=== PATIENT | male | born 1960 | race Caucasian/White ===

== ENCOUNTER → 2018-06-08 | Outpatient (CLI) | payer MEDICAID, MEDICARE ==
--- NOTE | 2018-06-08 14:34 | Diagnostic Imaging Report ---
INDICATION: Abdominal pain. KUB obtained at 1:15 p.m. FINDINGS: The abdominal bowel gas pattern is unremarkable. There is no overt obstruction or ileus. There is moderate stool in the colon. There is no small bowel dilatation. There is a surgical anastomosis in the pelvis to the left of the midline. There are phleboliths in the pelvis. IMPRESSION: Unremarkable bowel gas pattern with no overt obstruction or ileus. There is moderate stool in the colon. A surgical anastomosis is seen in the left lower pelvis. Dictated by: Dictated on workstation # [id number]
== END ==
LOC: RAD FS 13:09
PROVIDERS: ATTEND Family Medicine
DX: R10.9 Unspecified abdominal pain (principal); Z98.890 Other specified postprocedural states
CPT/HCPCS: 74019

== ENCOUNTER → 2018-06-30 | Outpatient (CLI) | payer MEDICAID ==
[~2018-06-30] MED LIST: CATHETER FLUSH 10 ML SYR IV PRN
--- NOTE | 2018-06-30 14:36 | Diagnostic Imaging Report ---
INDICATION: Abdominal pain COMPARISON: None available. TECHNIQUE: Anterior scintigraphic imaging of the abdomen was performed after the intravenous administration of 5.49 mCi Tc-99m Choletec. FINDINGS: The upper abdomen was imaged for 60 minutes with the gamma camera. There is prompt homogeneous uptake of radiopharmaceutical by the liver. There is activity in the common duct and gallbladder by 20 minutes. Small bowel activity is seen by 20 minutes. After 60 minutes, the patient received 8 oz of ensure by mouth. After 60 minutes, the gallbladder ejection fraction was calculated to be 85% which is normal. IMPRESSION: 1. Patent common and cystic bile ducts. 2. No gallbladder dysfunction. Dictated by: Dictated on workstation # [id number]
--- NOTE | 2018-07-04 09:33 | Physician Query-Final Dx ---
ANNA HEDRCIK 07/04/18 0933: Clinic Account Progress/Dx Physician Query: Please give diagnosis Please specify the location of the patients abdominal pain thank you Date of Service Jun 30, 2018 at 09:17 KRYSTAL REILLY APRN 07/04/18 1601: Clinic Account Progress/Dx DIAGNOSIS: Diagnosis Right Upper quadrant abdominal pain ANNA HEDRICK Jul 04, 2018 09:33 KRYSTAL REILLY APRN Jul 04, 2018 16:01
== END ==
LOC: CARD 09:17
PROVIDERS: ATTEND Nurse Practitioner Family
DX: R10.11 Right upper quadrant pain (principal); R11.2 Nausea with vomiting, unspecified
CPT/HCPCS: 78227

== ENCOUNTER → 2018-07-20 | Outpatient (CLI) | payer MEDICAID ==
[~2018-07-20] MED LIST changes: +DIATRIZOATE MEGLUM/SODIUM 37% 120 ML (GASTROGRAFIN) PO ONE; +HOLD METFORMIN - RECEIVED CONTRAST 20 ML VIAL IV SCH; +IOHEXOL 350 MG/ML 100 ML (OMNIPAQUE 350) VIAL IV ONE; +NS 50 ML (IVPB) BAG IV ONE
[2018-07-20 09:09] LABS: ALANINE AMINOTRANSFERASE 19 U/L (0-55); ALBUMIN 4.6 GM/DL (3.2-4.5); ALKALINE PHOSPHATASE 79 U/L (40-136); BILIRUBIN,TOTAL 0.4 MG/DL (0.1-1.0); BUN/CREATININE RATIO 14; CALCIUM 9.7 MG/DL (8.5-10.1); CARBON DIOXIDE 27 MMOL/L (21-32); CHLORIDE 97 MMOL/L (98-107); CREATININE SERUM 1.11 MG/DL (0.60-1.30); GFR ESTIMATED > 60; GLUCOSE 186 MG/DL (70-105); POTASSIUM 3.8 MMOL/L (3.6-5.0); SODIUM 137 MMOL/L (135-145); TOTAL PROTEIN 7.8 GM/DL (6.4-8.2)
--- NOTE | 2018-07-20 10:01 | Diagnostic Imaging Report ---
PROCEDURE: CT abdomen and pelvis with and without contrast. TECHNIQUE: Precontrast acquisitions were acquired through the abdomen and pelvis. Multiple contiguous axial images were obtained through the abdomen and pelvis after the administration of intravenous contrast. Auto Exposure Controls were utilized during the CT exam to meet ALARA standards for radiation dose reduction. INDICATION: Intermittent nausea, vomiting and diarrhea for two months. COMPARISON: No prior studies are available for comparison. FINDINGS: The lung bases are clear. The liver demonstrates mild generalized low density suggestive of hepatic steatosis. No discrete liver mass is identified. The gallbladder is unremarkable. No biliary ductal dilatation is seen. The pancreas and spleen are unremarkable. No adrenal mass is identified. The kidneys are unremarkable. Aorta is non-aneurysmal. No central retroperitoneal or mesenteric lymphadenopathy is seen. Visualized small and large bowel loops appear to be normal in caliber. There has been resection of portion of the sigmoid colon. There is occasional diverticuli within the sigmoid and descending colon but no evidence of acute diverticulitis. There is no free fluid. There is no pelvic lymphadenopathy. The bladder is unremarkable. Prostate is unremarkable. IMPRESSION: 1. Hepatic steatosis. 2. Postsurgical changes of the sigmoid. No acute feature in the abdomen or pelvis is identified. Dictated by: Dictated on workstation # [id number]
== END ==
LOC: RAD FS 08:20
PROVIDERS: ATTEND Nurse Practitioner Family
DX: K76.0 Fatty (change of) liver, not elsewhere classified (principal); R19.7 Diarrhea, unspecified; Z98.890 Other specified postprocedural states
CPT/HCPCS: 36415; 74178; 80053

== ENCOUNTER 2018-08-09 20:32 | Emergency (ER) | payer MEDICARE, MEDICAID ==
[~2018-08-09] VITALS: Ht 165.1 cm; Wt 88.5 kg
--- OUTSIDE RECORDS SUMMARY | 2018-08-09 20:42 | XMS REPORT | Continuity of Care Document ---
Author Organization Unknown Address Unknown Allergies There is no data. Medications There is no data. Problems There is no data. Procedures There is no data. Results Test Result Range A1C - 07/31/18 15:30 HEMOGLOBIN A1c 6.2 % of total Hgb <5.7 Encounters ACCT No. Visit Date/Time Discharge Status Pt. Type Provider Facility Loc./Unit Complaint [id number] 07/31/2018 15:00:00 07/31/2018 23:59:59 [facility] Outpatient KARLY MG [facility] [id number] 07/31/2018 15:00:00 Document Registration
--- NOTE | 2018-08-09 23:30 | NUR ---
Doctor Matt lainez to see the patient at this time.
--- NOTE | 2018-08-09 23:39 | ED Back Pain ---
General Chief Complaint: Back Problems Stated Complaint: LT SIDE HIP, LEG, BACK PAIN Nursing Triage Note: Pt. stated he has been having lower back pain and left leg pain. He stated he is to have an MRI in the morning but the pain is out of control and he can hardly walk. Pt. uses crutches to walk. Nursing Sepsis Screen: No Definite Risk Source of Information: Patient History of Present Illness Date Seen by Provider: Aug 09, 2018 Time Seen by Provider: 23:28 Initial Comments 57-year-old male presenting with complaints of low back pain and radiation into his left leg. He has had this for a while but is been getting worse. He was seen in the clinic on Tuesday by Dr. Ferris and referred to orthopedics on Tuesday. They have an MRI set up for him on here at the hospital. He states that the pain has been getting worse all week and tonight he got a friend to the emergency department and decided to check in himself to see if anything could be done for the pain. He has been taking ksct-gta-wiocviv medicines with little to no relief. He denies any loss of bowel or bladder control. He complains of increased pain just radiating down his left leg. He also feels that he is getting spasms in his calf and leg. Allergies and Home Medications Allergies Coded Allergies: tramadol (Unverified Allergy, Unknown, 08/09/18) Patient Home Medication List Home Medication List Reviewed: Yes Review of Systems Constitutional: no symptoms reported EENTM: no symptoms reported Respiratory: no symptoms reported Cardiovascular: no symptoms reported Gastrointestinal: no symptoms reported Genitourinary: no symptoms reported Musculoskeletal: back pain, other (left low back pain radiating down his left leg) Skin: no symptoms reported Past Efqkoxl-Inceii-Yqteiq Hx Past Med/Social Hx: Reviewed Nursing Past Med/Soc Hx Patient Social History Recent Foreign Travel: No Contact w/Someone Who Travel: No Recent Infectious Disease Expo: No Physical Abuse: No Sexual Abuse: No Mistreated: No Fear: No Past Medical History Back Injury, Chronic Back Pain (with sciatica) Physical Exam Vital Signs Vital Signs - First Documented 08/09/18 22:00 Temp 97.9 Pulse 75 Resp 16 B/P (MAP) 126/78 (94) Pulse Ox 97 O2 Delivery Room Air Capillary Refill : Less Than 3 Seconds Height, Weight, BMI Height: 5'5.00" Weight: 195lbs. oz. 88.474533ao; BMI Method:Stated General Appearance: WD/WN Back: Muscle Spasm, Vertebral Tenderness, Other (left lower back pain with spasm and SI joint pain and pain radiating down left leg) Extremity: Normal Capillary Refill, No Calf Tenderness, No Pedal Edema Neurologic/Psychiatric: Alert, Oriented x3 Skin: Normal Color, Warm/Dry Progress/Results/Core Measures Results/Orders My Orders Orders - XUAN MONCADA MD Dexamethasone Injection (Decadron Inject (08/09/18 23:45) Methylprednisolone Acetate Inj (Depo-Med (08/09/18 23:45) Fentanyl Injection (Sublimaze Injection (08/09/18 23:45) Rx-Hydrocodone/Apap 5-325 Mg (Rx-Vicodin (08/09/18 23:45) Rx-Cyclobenzaprine Tablet (Rx-Flexeril T (08/09/18 23:40) Medications Given in ED Current Medications Medications Dose Ordered Sig/Frank Route Start Time Stop Time Status Last Admin Dose Admin Acetaminophen/ Hydrocodone Bitart 1 ea Q6H PRN PO 08/09/18 23:45 08/10/18 00:10 DC 08/09/18 23:56 1 EA Dexamethasone Sodium Phosphate 10 mg ONCE ONCE IM 08/09/18 23:45 08/09/18 23:46 DC 08/09/18 23:53 10 MG Fentanyl Citrate 50 mcg ONCE ONCE IM 08/09/18 23:45 08/09/18 23:46 DC 08/09/18 23:51 50 MCG Methylprednisolone Acetate 80 mg ONCE ONCE IM 08/09/18 23:45 08/09/18 23:46 DC 08/09/18 23:53 80 MG Vital Signs/I&O 08/09/18 08/10/18 22:00 00:02 Temp 97.9 97.9 Pulse 75 75 Resp 16 16 B/P (MAP) 126/78 (94) 126/78 (94) Pulse Ox 97 97 O2 Delivery Room Air Blood Pressure Mean: 94 Progress Progress Note : Progress Note Have pt keep MRI appt. Try steroid shot and Fentanyl here with take home Hydrocodone pack and Flexeril pack. Check with clinic for continued treatment for his sciatica and low back pain symptoms after the MRI Departure Impression Primary Impression: Low back pain with left-sided sciatica Qualified Codes: M54.42 - Lumbago with sciatica, left side; G89.29 - Other chronic pain Disposition: 01 HOME, SELF-CARE Condition: Stable Departure-Patient Inst. Decision time for Depature: 23:44 Referrals: JESSICA BLANCO MD (PCP/Family) Primary Care Physician Patient Instructions: Low Back Pain (DC), Sciatica (DC) Add. Discharge Instructions: Try the Cyclobenzaprine for muscle spasms and the Hydrocodone for severe pain Check with Dr. Blanco and your spine doctor after you get the MRI about your back pain. All discharge instructions reviewed with patient and/or family. Voiced understanding. XUAN MONCADA MD Aug 09, 2018 23:39
[2018-08-09] MEDS ORDERED: RX-CYCLOBENZAPRINE 10 MG (FLEXERIL) TAB PPK#3 PO STA (23:40)
[2018-08-09] MEDS ORDERED: DEXAMETHASONE 10 MG/ML (DECADRON) 1 ML VIAL IM ONE (23:45)
[2018-08-09] MEDS ORDERED: RX-HYDROCODONE/APAP 5/325 MG #4 TAB PK PO PRN (23:45)
[2018-08-09] MEDS ORDERED: fentaNYL INJECTION 100 MCG/2 ML AMP IM ONE (23:45)
[2018-08-09] MEDS ORDERED: methylPREDNISolone 80 MG/ML (DEPO MEDROL) VIAL IM ONE (23:45)
[2018-08-10 00:02] VITALS: BP 126/78
== END 2018-08-10 00:01 | disposition home or self-care (01) ==
LOC: EDUNIT# 20:32 → ER FS 20:33
DX: M54.42 Lumbago with sciatica, left side (principal); Z88.6 Allergy status to analgesic agent
CPT/HCPCS: 99284

== ENCOUNTER → 2018-09-14 | Outpatient (CLI) | payer MEDICARE, MEDICAID ==
--- NOTE | 2018-09-14 14:27 | Diagnostic Imaging Report ---
PATIENT HISTORY: PRIMARY OSTEOARTHRITIS OF LEFT KNEE. TECHNIQUE: Three views of the left knee. COMPARISON: None. FINDINGS: No acute fracture or dislocation is seen in the left knee. Alignment is normal. Joint spaces are preserved. IMPRESSION: No acute or significant osseous abnormality is seen in the left knee. Dictated by: Dictated on workstation # [id number]
== END ==
LOC: RAD FS 13:56
PROVIDERS: ATTEND Family Medicine
DX: M17.12 Unilateral primary osteoarthritis, left knee (principal)
CPT/HCPCS: 73562

== ENCOUNTER 2018-09-16 12:42 | Emergency (ER) | payer MEDICARE, MEDICAID ==
[~2018-09-16] VITALS: Ht 165.1 cm; Wt 88.5 kg
[2018-09-16] MEDS ORDERED: ASPIRIN 81 MG CHEW (CHILDREN'S ASA) PO ONE (12:45)
--- OUTSIDE RECORDS SUMMARY | 2018-09-16 12:47 | XMS REPORT | Continuity of Care Document ---
Author Organization Unknown Address Unknown Allergies There is no data. Medications There is no data. Problems There is no data. Procedures There is no data. Results Test Result Range A1C - 07/31/18 15:30 HEMOGLOBIN A1c 6.2 % of total Hgb <5.7 Encounters ACCT No. Visit Date/Time Discharge Status Pt. Type Provider Facility Loc./Unit Complaint [id number] 09/14/2018 13:30:00 [facility] KARLY [facility] [id number] 07/31/2018 15:00:00 Document Registration
--- NOTE | 2018-09-16 12:51 | ED Chest Pain ---
General Stated Complaint: CHEST PAIN Source: patient Exam Limitations: no limitations History of Present Illness Date Seen by Provider: September 16, 2018 Time Seen by Provider: 12:45 Initial Comments 57-year-old male presents with epigastric/chest pain. Reports it started about half hour ago and has improved. He reports some mild discomfort now just in the epigastric area. Reports that his jaw feels a little funny what happened. He reports he I will nausea in talking might vomit. He did not get diaphoretic, no shortness of breath. ( Allergies and Home Medications Allergies Coded Allergies: tramadol (Unverified Allergy, Unknown, 09/16/18) Patient Home Medication List Home Medication List Reviewed: Yes Review of Systems Review of Systems Constitutional: No chills, No fever EENTM: No Symptoms Reported Respiratory: Denies Shortness of Air Cardiovascular: Chest Pain Gastrointestinal: Abdominal Pain (epigastric ), Nausea Genitourinary: No Symptoms Reported Musculoskeletal: no symptoms reported Skin: no symptoms reported Psychiatric/Neurological: No Symptoms Reported Past Xcelxkw-Olnjch-Wyytlg Hx Past Med/Social Hx: Reviewed Nursing Past Med/Soc Hx Past Medical History Back Injury, Chronic Back Pain Physical Exam Vital Signs Vital Signs - First Documented 09/16/18 12:42 Temp 96.8 Pulse 101 Resp 14 B/P (MAP) 103/59 (74) Pulse Ox 93 O2 Delivery Room Air Capillary Refill : Height, Weight, BMI Height: 5'5.00" Weight: 195lbs. oz. 88.924431iy; BMI Method:Stated General Appearance: No Apparent Distress, WD/WN HEENT: PERRL/EOMI Neck: Full Range of Motion Respiratory: Chest Non Tender, Lungs Clear, Normal Breath Sounds Cardiovascular: Regular Rate, Rhythm, No Edema Gastrointestinal: Soft, Tenderness (mild epigastric ) Neurologic/Psychiatric: Alert, Oriented x3 Progress/Results/Core Measures Results/Orders Lab Results Laboratory Tests Test 09/16/18 12:50 09/16/18 14:46 Range/Units White Blood Count 6.8 4.3-11.0 10^3/uL Red Blood Count 4.31 L 4.35-5.85 10^6/uL Hemoglobin 13.1 L 13.3-17.7 G/DL Hematocrit 37 L 40-54 % Mean Corpuscular Volume 86 80-99 FL Mean Corpuscular Hemoglobin 30 25-34 PG Mean Corpuscular Hemoglobin Concent 35 32-36 G/DL Red Cell Distribution Width 12.6 10.0-14.5 % Platelet Count 188 130-400 10^3/uL Mean Platelet Volume 10.3 7.4-10.4 FL Neutrophils (%) (Auto) 68 42-75 % Lymphocytes (%) (Auto) 22 12-44 % Monocytes (%) (Auto) 8 0-12 % Eosinophils (%) (Auto) 2 0-10 % Basophils (%) (Auto) 1 0-10 % Neutrophils # (Auto) 4.6 1.8-7.8 X 10^3 Lymphocytes # (Auto) 1.5 1.0-4.0 X 10^3 Monocytes # (Auto) 0.5 0.0-1.0 X 10^3 Eosinophils # (Auto) 0.1 0.0-0.3 10^3/uL Basophils # (Auto) 0.1 0.0-0.1 10^3/uL Prothrombin Time 13.5 12.2-14.7 SEC INR Comment 1.0 0.8-1.4 Activated Partial Thromboplast Time 26 24-35 SEC Sodium Level 135 135-145 MMOL/L Potassium Level 3.9 3.6-5.0 MMOL/L Chloride Level 97 L 98-107 MMOL/L Carbon Dioxide Level 27 21-32 MMOL/L Anion Gap 11 5-14 MMOL/L Blood Urea Nitrogen 24 H 7-18 MG/DL Creatinine 1.34 H 0.60-1.30 MG/DL Estimat Glomerular Filtration Rate 55 BUN/Creatinine Ratio 18 Glucose Level 265 H 70-105 MG/DL Calcium Level 9.2 8.5-10.1 MG/DL Corrected Calcium 9.0 8.5-10.1 MG/DL Magnesium Level 2.0 1.8-2.4 MG/DL Total Bilirubin 0.4 0.1-1.0 MG/DL Aspartate Amino Transf (AST/SGOT) 24 5-34 U/L Alanine Aminotransferase (ALT/SGPT) 38 0-55 U/L Alkaline Phosphatase 74 40-136 U/L Troponin T 11 10 <=15 NG/L Total Protein 6.7 6.4-8.2 GM/DL Albumin 4.2 3.2-4.5 GM/DL My Orders Orders - SALMON,ALMA L DO Cbc With Automated Diff (09/16/18 12:45) Magnesium (09/16/18 12:45) Chest 1 View Ap/Pa Only (09/16/18 12:45) Ekg Tracing (09/16/18 12:45) Comprehensive Metabolic Panel (09/16/18 12:45) Protime With Inr (09/16/18 12:45) Partial Thromboplastin Time (09/16/18 12:45) O2 (09/16/18 12:45) Monitor-Rhythm Ecg Trace Only (09/16/18 12:45) Aspirin Chewable Tablet (Baby Aspirin Ch (09/16/18 12:45) Ed Iv/Invasive Line Start (09/16/18 12:45) Troponin T (09/16/18 12:45) Pantoprazole Injection (Protonix Injecti (09/16/18 13:00) Ed Iv/Invasive Line Start (09/16/18 13:46) Ns Iv 1000 Ml (Sodium Chloride 0.9%) (09/16/18 13:46) Troponin T (09/16/18 14:36) Medications Given in ED Current Medications Medications Dose Ordered Sig/Frank Route Start Time Stop Time Status Last Admin Dose Admin Aspirin 324 mg ONCE ONCE PO 09/16/18 12:45 09/16/18 12:47 DC 09/16/18 12:58 324 MG Pantoprazole 40 mg ONCE ONCE IV 09/16/18 13:00 09/16/18 13:01 DC 09/16/18 12:58 40 MG Vital Signs/I&O 09/16/18 09/16/18 09/16/18 12:42 12:42 16:02 Temp 96.8 98.0 Pulse 101 78 Resp 14 15 B/P (MAP) 103/59 (74) 110/67 (81) Pulse Ox 93 95 O2 Delivery Room Air Progress Progress Note : Progress Note Patient's symptoms resolved following Protonix. He remained symptom-free throughout his stay. Patient had a negative EKG with 2 negative troponins. Patient symptoms were very consistent with a gastritis or reflux-type presentation. Discussed with patient was feeling slightly better. I did r ecommend he follow up with his primary care physician next week for recheck of his labs because he had some mild acute kidney injury that was not there on his previous labs. Patient voices understanding and will make an appointment to see him next week. EKG : EKG Time: 12:47 Rate: 96 Rhythm: Normal Sinus Intervals: Normal ECG Impression: Normal Departure Impression Primary Impression: Gastroesophageal reflux disease Qualified Codes: K21.9 - Gastro-esophageal reflux disease without esophagitis Additional Impressions: Chest pain Qualified Codes: R07.89 - Other chest pain Acute renal insufficiency Disposition: HOME, SELF-CARE Condition: Stable Departure-Patient Inst. Referrals: JESSICA BLANCO MD (PCP/Family) Primary Care Physician Patient Instructions: Chest Pain That Is Not Caused by the Heart (DC), Acid Reflux (Gastroesophageal Reflux Disease), Adult (DC), Kidney Failure (DC) Add. Discharge Instructions: Follow-up with your primary care physician next week to have her recheck of your kidney function Recommended take Zantac 150 mg twice daily for the next 7 days. ALMA SALMON DO September 16, 2018 12:51
[2018-09-16 12:58] LABS: HEMATOCRIT 37 % (40-54); HEMOGLOBIN 13.1 G/DL (13.3-17.7); LYMPHOCYTES % (AUTO) 22 % (12-44); MEAN CORPUSCULAR HEMOGLOBIN 30 PG (25-34); MEAN CORPUSCULAR HGB CONC 35 G/DL (32-36); MEAN CORPUSCULAR VOLUME 86 FL (80-99); MEAN PLATELET VOLUME 10.3 FL (7.4-10.4); MONOCYTES % (AUTO) 8 % (0-12); NEUTROPHILS % (AUTO) 68 % (42-75); PLATELET COUNT 188 10^3/uL (130-400); RED CELL DISTRIBUTION WIDTH 12.6 % (10.0-14.5); WHITE BLOOD COUNT 6.8 10^3/uL (4.3-11.0)
[2018-09-16 12:59] LABS: BASOPHILS # (AUTO) 0.1 10^3/uL (0.0-0.1); BASOPHILS % (AUTO) 1 % (0-10); EOSINOPHILS # (AUTO) 0.1 10^3/uL (0.0-0.3); EOSINOPHILS % (AUTO) 2 % (0-10); LYMPHOCYTES # (AUTO) 1.5 X 10^3 (1.0-4.0); MONOCYTES # (AUTO) 0.5 X 10^3 (0.0-1.0); NEUTROPHILS # (AUTO) 4.6 X 10^3 (1.8-7.8)
[2018-09-16] MEDS ORDERED: PANTOPRAZOLE 40 MG (PROTONIX) VIAL IV ONE (13:00)
--- NOTE | 2018-09-16 13:10 | Diagnostic Imaging Report ---
INDICATION: Chest pain. COMPARISON: None available. TECHNIQUE: Single radiograph of chest dated September 16, 2018. FINDINGS: The cardiac silhouette is within normal limits in size. No significant pulmonary vascular congestion. Minimal opacities are noted within the peripheral left lung base. Otherwise, the lungs appear clear. No significant pleural effusion. No pneumothorax. No acute osseous abnormality. IMPRESSION: Minimal opacities within the peripheral left lung are favor relate to minimal atelectasis and/or pneumonitis. However, followup frontal and lateral radiographs are recommended in 10-14 days to ensure resolution as underlying small nodule is not excluded. Dictated by: Dictated on workstation # [id number]
[2018-09-16 13:15] LABS: PROTHROMBIN TIME PATIENT 13.5 SEC (12.2-14.7)
[2018-09-16 13:26] LABS: BILIRUBIN,TOTAL 0.4 MG/DL (0.1-1.0); CALCIUM 9.2 MG/DL (8.5-10.1); CREATININE SERUM 1.34 MG/DL (0.60-1.30); POTASSIUM 3.9 MMOL/L (3.6-5.0); TOTAL PROTEIN 6.7 GM/DL (6.4-8.2)
[2018-09-16 13:27] LABS: ALBUMIN 4.2 GM/DL (3.2-4.5)
[2018-09-16] MEDS ORDERED: NS IV 1000 ML 1,000 ML IV SCH (13:46)
[2018-09-16 16:02] VITALS: BP 110/67
== END 2018-09-16 16:02 | disposition home or self-care (01) ==
LOC: EDUNIT# 12:42 → ER FS 12:43
DX: K21.9 Gastro-esophageal reflux disease without esophagitis (principal); R07.9 Chest pain, unspecified; N28.9 Disorder of kidney and ureter, unspecified; Z88.6 Allergy status to analgesic agent
CPT/HCPCS: 36415; 71045; 80053; 83735; 84484; 85025; 85610; 85730; 93041

== ENCOUNTER 2019-01-12 18:15 | Inpatient (IN) | payer MEDICARE, MEDICAID ==
[~2019-01-12] VITALS: Ht 165 cm; Wt 92.4 kg
[2019-01-12] MEDS ORDERED: ONDANSETRON 4 MG/2 ML (SDV) Z0FRAN ONE (18:17)
[2019-01-12] MEDS ORDERED: LACTATED RINGERS 1,000 ML IV ONE ×2 (18:24→18:30)
[2019-01-12] MEDS ORDERED: PIPERACILLIN SODIUM/TAZOBACTAM 4.5 GM in NS (IVPB) 100 ML IV ONE (18:30)
[2019-01-12] MEDS ORDERED: ONDANSETRON 4 MG/2 ML (SDV) Z0FRAN IVP ONE (18:30)
--- NOTE | 2019-01-12 18:30 | ED Abdominal Pain ---
General Chief Complaint: Abdominal/GI Problems Stated Complaint: ABD PAIN Source of Information: Patient, EMS Exam Limitations: No Limitations History of Present Illness Date Seen by Provider: Jan 12, 2019 Time Seen by Provider: 18:13 Initial Comments The patient presents to ER by private conveyance with chief complaint he was sitting on a couch about 2 hours prior to arrival complaining of some nausea so his help him to the bathroom where he vomited and then felt very weak and sat cross leg on the floor and she was unable to get him up. EMS arrived he was sitting on the floor in the bathroom of his apartment conscious alert and breathing. Blood sugar 144. He is diabetic but does not rely on exogenous insu brad. He's having all over body pain. Unknown if he's having fevers or chills. He was given for Zofran has a left forearm 20-gauge IV and 25 of fentanyl by EMS on route. Vital signs were all aseptic per EMS. His relates that many years before she met him he had part of his colon resected but she's not sure what for. He does have a history of diverticulosis. He has not had any diarrhea or bloody stools lately. Allergies and Home Medications Allergies Coded Allergies: tramadol (Unverified Allergy, Unknown, 09/16/18) Patient Home Medication List Home Medication List Reviewed: Yes Review of Systems Review of Systems Constitutional: No chills, No fever; weakness EENTM: No Blurred Vision, No Double Vision Respiratory: Denies Cough, Denies Shortness of Air Cardiovascular: Denies Chest Pain, Denies Lightheadedness Gastrointestinal: Abdominal Pain (all over); Denies Constipated, Denies Diarrhea; Nausea, Poor Fluid Intake, Vomiting Genitourinary: Denies Burning, Denies Discharge Musculoskeletal: No back pain, No joint pain Skin: No pruritus, No rash Psychiatric/Neurological: Denies Headache, Denies Numbness Past Ptwcyim-Dgadld-Tdvbia Hx Patient Social History Alcohol Use: Denies Use Recreational Drug Use: Yes Drug of Choice: MJ Smoking Status: Former Smoker Type Used: Cigarettes 2nd Hand Smoke Exposure: Yes Recent Foreign Travel: No Contact w/Someone Who Travel: No Past Medical History Surgeries: Yes (sigmoid colon resection, carpal tunnel) Respiratory: No Cardiac: Yes Hypertension Neurological: No Genitourinary: No Gastrointestinal: No Musculoskeletal: Yes Back Injury, Chronic Back Pain Endocrine: Yes Diabetes, Insulin dep HEENT: No Cancer: No Psychosocial: No Integumentary: No Physical Exam Vital Signs Vital Signs - First Documented 01/12/19 18:25 Temp 35.8 Pulse 98 Resp 18 B/P (MAP) 153/92 (112) Pulse Ox 94 O2 Delivery Room Air Capillary Refill : Height/Weight/BMI Height: 5'5.00" Weight: 195lbs. oz. 88.771415ek; BMI Method:Stated General Appearance: moderate distress, obese HEENT: PERRL/EOMI, pharynx normal Neck: non-tender, supple Respiratory: lungs clear, normal breath sounds, no respiratory distress, no accessory muscle use Cardiovascular: normal peripheral pulses, regular rate, rhythm, tachycardia (110) Peripheral Pulses: 2+ Dorsalis Pedis (R), 2+ Left Dors-Pedis (L) Gastrointestinal: normal bowel sounds, tenderness (all 4 quadrants) Extremities: normal range of motion, normal capillary refill Neurologic/Psychiatric: alert, normal mood/affect, oriented x 3 Focused Exam Lactate Level 01/12/19 18:35: Lactic Acid Level 2.08*H Lactic Acid Level Laboratory Tests Test 01/12/19 18:35 Lactic Acid Level 2.08 MMOL/L (0.50-2.00) *H Progress/Results/Core Measures Results/Orders Lab Results Laboratory Tests Test 01/12/19 18:27 01/12/19 18:35 Range/Units White Blood Count 10.9 4.3-11.0 10^3/uL Red Blood Count 5.04 4.35-5.85 10^6/uL Hemoglobin 15.0 13.3-17.7 G/DL Hematocrit 43 40-54 % Mean Corpuscular Volume 86 80-99 FL Mean Corpuscular Hemoglobin 30 25-34 PG Mean Corpuscular Hemoglobin Concent 35 32-36 G/DL Red Cell Distribution Width 12.7 10.0-14.5 % Platelet Count 226 130-400 10^3/uL Mean Platelet Volume 10.2 7.4-10.4 FL Neutrophils (%) (Auto) 64 42-75 % Lymphocytes (%) (Auto) 24 12-44 % Monocytes (%) (Auto) 9 0-12 % Eosinophils (%) (Auto) 2 0-10 % Basophils (%) (Auto) 1 0-10 % Neutrophils # (Auto) 7.0 1.8-7.8 X 10^3 Lymphocytes # (Auto) 2.6 1.0-4.0 X 10^3 Monocytes # (Auto) 1.0 0.0-1.0 X 10^3 Eosinophils # (Auto) 0.2 0.0-0.3 10^3/uL Basophils # (Auto) 0.1 0.0-0.1 10^3/uL Prothrombin Time 13.3 12.2-14.7 SEC INR Comment 1.0 0.8-1.4 Activated Partial Thromboplast Time 23 L 24-35 SEC Sodium Level 137 135-145 MMOL/L Potassium Level 4.1 3.6-5.0 MMOL/L Chloride Level 102 98-107 MMOL/L Carbon Dioxide Level 25 21-32 MMOL/L Anion Gap 10 5-14 MMOL/L Blood Urea Nitrogen 21 H 7-18 MG/DL Creatinine 1.12 0.60-1.30 MG/DL Estimat Glomerular Filtration Rate > 60 BUN/Creatinine Ratio 19 Glucose Level 177 H 70-105 MG/DL Calcium Level 9.5 8.5-10.1 MG/DL Corrected Calcium 9.3 8.5-10.1 MG/DL Magnesium Level 1.9 1.6-2.4 MG/DL Total Bilirubin 0.3 0.1-1.0 MG/DL Aspartate Amino Transf (AST/SGOT) 22 5-34 U/L Alanine Aminotransferase (ALT/SGPT) 22 0-55 U/L Alkaline Phosphatase 80 40-136 U/L Troponin I < 0.30 <0.30 NG/ML Total Protein 7.3 6.4-8.2 GM/DL Albumin 4.3 3.2-4.5 GM/DL Lipase 14 8-78 U/L Serum Alcohol < 10 <10 MG/DL Lactic Acid Level 2.08 *H 0.50-2.00 MMOL/L Micro Results Microbiology 01/12/19 Influenza Types A,B Antigen (MARELY) - Final, Complete My Orders Orders - MARILY PARTIDA Ondansetron Injection (Zofran Injectio (01/12/19 18:17) Ct Abdomen/Pelvis W (01/12/19 18:24) Alcohol (01/12/19 18:24) Cbc With Automated Diff (01/12/19 18:24) Comprehensive Metabolic Panel (01/12/19 18:24) Drug Screen Stat (Urine) (01/12/19 18:24) Lactic Acid Analyzer (01/12/19) Lipase (01/12/19 18:24) Magnesium (01/12/19 18:24) Ua Culture If Indicated (01/12/19 18:24) Troponin I (01/12/19 18:24) Ed Iv/Invasive Line Start (01/12/19:24) Lactated Ringers (Lr 1000 Ml Iv Solution (01/12/19 18:24) Continuous Ekg Monitoring (01/12/19 18:24) Ekg Tracing (01/12/19) Ondansetron Injection (Zofran Injectio (01/12/19 18:30) Blood Culture (01/12/19 18:30) Protime With Inr (01/12/19:) Partial Thromboplastin Time (01/12/19 18:30) Chest 1 View Ap/Pa Only (01/12/19:30) Ed Iv/Invasive Line Start (01/12/19 18:30) Vital Signs Adult Sepsis Patie Q15M (01/12/19 18:30) O2 (01/12/19 18:30) Remove Rings In Anticipation O (01/12/19:30) Lactated Ringers (Lr 1000 Ml Iv Solution (01/12/19 18:30) Piperacillin Sodium/Tazobactam (Zosyn Vi (01/12/19 18:30) Promethazine Injection (Phenergan Injec (01/12/19 19:00) Influenza A And B Antigens (01/12/19 18:54) Iohexol Injection (Omnipaque 350 Mg/Ml 1 (01/12/19 19:30) Received Contrast (Hold Metformin- Contr (01/12/19 19:30) Ns (Ivpb) (Sodium Chloride 0.9% Ivpb Bag (01/12/19 19:30) Sodium Chloride Flush (Catheter Flush Sy (01/12/19 19:30) Pantoprazole Injection (Protonix Injecti (01/12/19 20:00) Arterial Blood Gas (01/12/19 20:29) Straight Cath For Spec.-Adult (01/12/19 20:29) Medications Given in ED Current Medications Medications Dose Ordered Sig/Frank Route Start Time Stop Time Status Last Admin Dose Admin Iohexol 100 ml ONCE ONCE IV 01/12/19 19:30 01/12/19 19:31 DC 01/12/19 19:35 100 ML Lactated Ringer's 1,000 ml @ 0 mls/hr Q0M ONCE IV 01/12/19 18:24 01/12/19 18:27 DC 01/12/19 18:49 0 MLS/HR Lactated Ringer's 1,000 ml @ 0 mls/hr Q0M ONCE IV 01/12/19 18:30 01/12/19 18:32 DC 01/12/19 19:54 1,000 MLS/HR Ondansetron HCl 8 mg ONCE ONCE IVP 01/12/19 18:30 01/12/19 18:31 DC 01/12/19 18:48 8 MG Piperacillin Sod/ Tazobactam Sod 4.5 gm/Sodium Chloride 100 ml @ 200 mls/hr ONCE ONCE IV 01/12/19 18:30 01/12/19 18:59 DC 01/12/19 18:49 200 MLS/HR Promethazine HCl 25 mg ONCE ONCE IVP 01/12/19 19:00 01/12/19 19:01 DC 01/12/19 19:06 25 MG Sodium Chloride 10 ml NEEDED PRN IV 01/12/19 19:30 01/12/19 19:35 10 ML Sodium Chloride 100 ml ONCE ONCE IV 01/12/19 19:30 01/12/19 19:31 DC 01/12/19 19:35 80 ML Vital Signs/I&O 01/12/19 18:25 Temp 35.8 Pulse 98 Resp 18 B/P (MAP) 153/92 (112) Pulse Ox 94 O2 Delivery Room Air Progress Progress Note #1: Time: 18:59 Progress Note Septic workup and she is tachycardic. Gave him 8 mg of Zofran in addition to the 4 he received from EMS and that helped but did not completely resolve it. 25 mg of Phenergan were ordered. His got a good blood pressure. His heart rate has come down to the 80s and as we have initiated 2 L which is more than 20 mL/kg. Suspect bowel obstruction, versus other such as intussusception, volvulus etc. Influenza swab obtained. He received 25 g of fentanyl and more comfortable with his pain now and is snoozing softly but awakens easily to verbal. CT of the abdomen and pelvis with IV contrast. In August he had a acute kidney injury with uncertain etiology. Plan to give pantoprazole 40 mg IV. Progress Note #2: Time: 20:23 Progress Note After Phenergan and Zofran the patient's nausea is under control. CT is unrevealing of any internal abdominal pathology. Possible bilateral basilar infi ltrates could indicate pneumonia. Since she's been here his been retching and had normal oxygen sats no longer tachycardic and no history of productive cough. No fever and influenza was negative. On reexamination he still does not have an acute abdomen. Initial ECG Impression Date: Jan 12, 2019 Initial ECG Impression Time: 18:42 Initial ECG Rate: 81 Initial ECG Rhythm: Normal Sinus Initial ECG Impression: Normal Initial ECG Comparisson: Unchanged Comment No acute ST elevation or depression Diagnostic Imaging Diagonstic Imaging: Xray Plain Films/CT/US/NM/MRI: chest (1v) Comments NAME: LAURA WILKINSON [facility] REC#: [id number] PT STATUS: REG ER : 1960 PHYSICIAN: MARILY PARTIDA MD ADMIT DATE: 01/12/19/ER FS Draft Date of Exam:01/12/19 CHEST 1 VIEW AP/PA ONLY INDICATION: Nausea and vomiting COMPARISON: 09/16/2018 FINDINGS: Single view of the chest demonstrates basilar infiltrates with atelectasis. The heart is normal. There is no pneumothorax or effusion. Osseous structures normal. IMPRESSION: Bibasilar atelectasis and/or infiltrate. Followup recommended. Dictated on workstation # [id number] Dict: 01/12/191948 Trans: 01/12/191955 [facility] [id number] Interpreted by: NAVEEN RUIZ Electronically signed by: Reviewed: Reviewed by Me Diagonstic Imaging: CT (with IV contrast) Plain Films/CT/US/NM/MRI: abdomen, pelvis Comments NAME: LAURA WILKINSON MED REC#: [id number] PT STATUS: REG ER : 1960 PHYSICIAN: MARILY PARTIDA MD ADMIT DATE: 01/12/19/ER FS Draft Date of Exam:01/12/19 CT ABDOMEN/PELVIS W PROCEDURE: CT abdomen and pelvis with contrast. TECHNIQUE: Multiple contiguous axial images were obtained through the abdomen and pelvis after administration of intravenous contrast. Auto Exposure Controls were utilized during the CT exam to meet ALARA standards for radiation dose reduction. INDICATION: Nausea, vomiting, abdominal pain, history of diverticulitis and colectomy. COMPARISON: 07/20/2018. FINDINGS: New bilateral pulmonary infiltrates are seen concerning for pneumonia. Please correlate clinically. There is a small hiatal hernia. There is fatty eventration throughout the liver. The gallbladder, spleen, pancreas, adrenal glands, kidneys and vascular structures are grossly unremarkable. There are a few diverticuli of the descending colon without diverticulitis. The course and caliber of the small bowel is unremarkable. There is some constipation in the distal colon. There is no obstruction or ileus. There is no lymphadenopathy. Distal ureters and urinary bladder are normal. There is no osseous abnormality. IMPRESSION: 1. Suspect basilar pneumonia. Followup recommended. 2. Fatty liver. 3. Small hiatal hernia. 4. Constipation with non-complicated diverticulosis of the descending colon. Dictated on workstation # [id number] Dict: 01/12/191946 Trans: 01/12/191957 [facility] [id number] Interpreted by: NAVEEN RUIZ Electronically signed by: Reviewed: Reviewed by Me Departure Communication (Admissions) Time/Spoke to Admitting Phy: 20:30 Discussed case lab EKG imaging findings with Dr. Moody and she would like an ABG and consult with general surgery. IV fluids, when necessary medications requested. Time/Spoke to Consulting Phy: 20:35 Discussed the case lab imaging findings with Dr. Duncan and he would request clear liquid diet of the nausea is under control and he will see the patient and potentially do gallbladder workup outpatient. Impression Primary Impression: Pneumonia Qualified Codes: J18.1 - Lobar pneumonia, unspecified organism Additional Impression: Intractable nausea and vomiting Qualified Codes: R11.2 - Nausea with vomiting, unspecified Disposition: ADMITTED INPATIENT Condition: Stable Admissions Decision to Admit Reason: Admit from ER (General) Decision to Admit/Date: Jan 12, 2019 Time/Decision to Admit Time: 20:18 Departure-Patient Inst. Referrals: JESSICA BLANCO MD (PCP/Family) Primary Care Physician MARILY PARTIDA Jan 12, 2019 18:30
[2019-01-12 18:34] LABS: BASOPHILS # (AUTO) 0.1 10^3/uL (0.0-0.1); BASOPHILS % (AUTO) 1 % (0-10); EOSINOPHILS # (AUTO) 0.2 10^3/uL (0.0-0.3); EOSINOPHILS % (AUTO) 2 % (0-10); HEMATOCRIT 43 % (40-54); LYMPHOCYTES # (AUTO) 2.6 X 10^3 (1.0-4.0); LYMPHOCYTES % (AUTO) 24 % (12-44); MEAN CORPUSCULAR HEMOGLOBIN 30 PG (25-34); MEAN CORPUSCULAR HGB CONC 35 G/DL (32-36); MEAN CORPUSCULAR VOLUME 86 FL (80-99); MEAN PLATELET VOLUME 10.2 FL (7.4-10.4); MONOCYTES % (AUTO) 9 % (0-12); NEUTROPHILS % (AUTO) 64 % (42-75); PLATELET COUNT 226 10^3/uL (130-400); RED CELL DISTRIBUTION WIDTH 12.7 % (10.0-14.5); WHITE BLOOD COUNT 10.9 10^3/uL (4.3-11.0)
[2019-01-12 18:47] LABS: PROTHROMBIN TIME PATIENT 13.3 SEC (12.2-14.7)
[2019-01-12] MEDS ORDERED: PROMETHAZINE INJ 25 MG/ML (PHENERGAN) AMP IVP ONE (19:00)
[2019-01-12 19:02] LABS: BUN/CREATININE RATIO 19; CARBON DIOXIDE 25 MMOL/L (21-32); CHLORIDE 102 MMOL/L (98-107); CREATININE SERUM 1.12 MG/DL (0.60-1.30); GFR ESTIMATED > 60; GLUCOSE 177 MG/DL (70-105); POTASSIUM 4.1 MMOL/L (3.6-5.0); SODIUM 137 MMOL/L (135-145)
[2019-01-12 19:03] LABS: ALANINE AMINOTRANSFERASE 22 U/L (0-55); ALBUMIN 4.3 GM/DL (3.2-4.5); ALKALINE PHOSPHATASE 80 U/L (40-136); BILIRUBIN,TOTAL 0.3 MG/DL (0.1-1.0); CALCIUM 9.5 MG/DL (8.5-10.1); LIPASE 14 U/L (8-78); MAGNESIUM 1.9 MG/DL (1.6-2.4); TOTAL PROTEIN 7.3 GM/DL (6.4-8.2)
[2019-01-12] MEDS ORDERED: CATHETER FLUSH 10 ML SYR IV PRN (19:30)
[2019-01-12] MEDS ORDERED: HOLD METFORMIN - RECEIVED CONTRAST 20 ML VIAL IV SCH (19:30)
[2019-01-12] MEDS ORDERED: IOHEXOL 350 MG/ML 100 ML (OMNIPAQUE 350) VIAL IV ONE (19:30)
[2019-01-12] MEDS ORDERED: NS 100 ML (IVPB) BAG IV ONE (19:30)
--- NOTE | 2019-01-12 19:57 | Diagnostic Imaging Report ---
INDICATION: Nausea and vomiting COMPARISON: 09/16/2018 FINDINGS: Single view of the chest demonstrates basilar infiltrates with atelectasis. The heart is normal. There is no pneumothorax or effusion. Osseous structures normal. IMPRESSION: Bibasilar atelectasis and/or infiltrate. Followup recommended. Dictated by: Dictated on workstation # [id number]
--- NOTE | 2019-01-12 19:59 | Diagnostic Imaging Report ---
PROCEDURE: CT abdomen and pelvis with contrast. TECHNIQUE: Multiple contiguous axial images were obtained through the abdomen and pelvis after administration of intravenous contrast. Auto Exposure Controls were utilized during the CT exam to meet ALARA standards for radiation dose reduction. INDICATION: Nausea, vomiting, abdominal pain, history of diverticulitis and colectomy. COMPARISON: 07/20/2018. FINDINGS: New bilateral pulmonary infiltrates are seen concerning for pneumonia. Please correlate clinically. There is a small hiatal hernia. There is fatty eventration throughout the liver. The gallbladder, spleen, pancreas, adrenal glands, kidneys and vascular structures are grossly unremarkable. There are a few diverticuli of the descending colon without diverticulitis. The course and caliber of the small bowel is unremarkable. There is some constipation in the distal colon. There is no obstruction or ileus. There is no lymphadenopathy. Distal ureters and urinary bladder are normal. There is no osseous abnormality. IMPRESSION: 1. Suspect basilar pneumonia. Followup recommended. 2. Fatty liver. 3. Small hiatal hernia. 4. Constipation with non-complicated diverticulosis of the descending colon. Dictated by: Dictated on workstation # [id number]
[2019-01-12] MEDS ORDERED: PANTOPRAZOLE 40 MG (PROTONIX) VIAL IV ONE (20:00)
[2019-01-12 21:25] LABS: ABG PCO2 42 MMHG (35-45); ABG PH 7.41 (7.37-7.43)
[2019-01-12 21:26] LABS: ABG BASE EXCESS 1.7 MMOL/L (-2.5-2.5); ABG OXYGEN SATURATION 51 % (94-100); ABG PO2 27 MMHG (79-93); ABG TCO2 27.9 MMOL/L (21.0-31.0); ALLENS TEST YES-POS; INSPIRED O2 ROOM; PATIENT TEMP 35.7; VENTILATOR NO
[2019-01-12 21:32] LABS: BILIRUBIN,URINE NEGATIVE (NEGATIVE); CLARITY,URINE CLEAR; COLOR,URINE YELLOW; GLUCOSE, URINE (UA) 2+ (NEGATIVE); KETONES,URINE NEGATIVE (NEGATIVE); LEUKOCYTE ESTERASE ,URINE NEGATIVE (NEGATIVE); NITRITE,URINE NEGATIVE (NEGATIVE); PROTEIN,URINE NEGATIVE (NEGATIVE); UROBILINOGEN,URINE 0.2 MG/DL (NORMAL)
[2019-01-12 21:33] LABS: SQUAMOUS EPITHELIAL CELL,UR RARE /HPF
[2019-01-12 21:43] LABS: AMPHETAMINE SCREEN, URINE NEGATIVE (NEGATIVE); BARBITURATE SCREEN URINE NEGATIVE (NEGATIVE); BENZODIAZEPINES SCREEN URINE NEGATIVE (NEGATIVE); CANNABINOID SCREEN, URINE POSITIVE (NEGATIVE); COCAINE SCREEN URINE NEGATIVE (NEGATIVE); METHADONE STAT NEGATIVE (NEGATIVE); METHAMPHETAMINE SCREEN URINE S NEGATIVE (NEGATIVE); OPIATE SCREEN URINE NEGATIVE (NEGATIVE); OXYCODONE STAT NEGATIVE (NEGATIVE); PROPOXYPHENE STAT NEGATIVE (NEGATIVE); TRICYCLIC ANTIDEPRESSANTS SCRE NEGATIVE (NEGATIVE)
[2019-01-12 22:15] VITALS: BP 116/76
--- NOTE | 2019-01-12 22:15 | NUR ---
LAURA WILKINSON admitted to room 430-1, with an admitting diagnosis of PNA, on 01/12/19 from ED [facility] via EMS, accompanied by EMS.LAURA WILKINSON introduced to surroundings, call light, bed controls, phone, TV, temperature control, lights, meal times, smoking policy, visitor policy, side rail policy, bathrooms and showers. Patient Rights given to patient in the handbook. LAURA WILKINSON verbalizes understanding that [facility] is not responsible for the loss or damage to any personal effects or valuables that are kept in the patients posession during their hospitalization.
[2019-01-12 22:42] VITALS: BP 116/76
[2019-01-12 22:46] LABS: ABG BASE EXCESS 1.4 MMOL/L (-2.5-2.5); ABG OXYGEN SATURATION 95 % (94-100); ABG PCO2 41 MMHG (35-45); ABG PH 7.41 (7.37-7.43); ABG PO2 69 MMHG (79-93); ABG TCO2 27.2 MMOL/L (21.0-31.0); ALLENS TEST YES-POS; INSPIRED O2 ROOM AIR; PATIENT TEMP 35.7; VENTILATOR NO
[2019-01-12] MEDS ORDERED: RT-ALBUTEROL/IPRATROPIUM 3 ML (DUONEB) VIAL INH PRN (23:00)
--- NOTE | 2019-01-12 23:16 | CONSULTATION REPORT ---
DATE OF SERVICE: ATTENDING PRIMARY CARE PHYSICIAN Chani Wiley MD ADMITTING PHYSICIAN: Dr. Rose. HISTORY OF PRESENT ILLNESS: The patient is a 58-year-old male who presented to [facility] with a 2-hour history of nausea and vomiting as well as weakness. He does not report eating anything unusual as well as drinking any unknown water source. He reports that he threw up some small amounts of undigested food as well as bilious content. No hematemesis, no coffee-ground emesis. He does not report any significant abdominal pain as well as no diarrhea, nor any red blood per rectum. He does have a history of constipation as well as what sounds to be sigmoid diverticulitis requiring a sigmoid colon resection in the past. A CT scan was performed of the chest and abdomen, which showed bibasilar pneumonia, liver steatosis, small hiatal hernia, constipation as well as diverticulosis without diverticulitis. PAST MEDICAL HISTORY: Hypertension, diabetes, degenerative joint disease, history of diverticulitis. PAST SURGERIES: Sigmoid colon resection, carpal tunnel release. ALLERGIES: TRAMADOL. MEDICATIONS: Metformin b.i.d. SOCIAL HISTORY: Previous smoke, recreational marijuana. Negative alcohol. FAMILY HISTORY: Noncontributory. VITAL SIGNS: Temperature 36.5, blood pressure 116/76, pulse 87, respirations 20, pulse ox 94% on room air. REVIEW OF SYSTEMS: Well-nourished male currently in no acute distress. He is not experiencing any shortness of breath or difficulty in breathing. No chest pain, palpitations, or diaphoresis. A sudden onset of nausea and vomiting starting this evening, which persisted and this was associated with weakness. No hematemesis or coffee-ground emesis. No diarrhea, no red blood per rectum with history of constipation. No fever, chills, no recent inadvertent weight loss. All other review of systems negative. PHYSICAL EXAMINATION: CHEST: A few scattered rales and rhonchi bilaterally. HEART: Regular, no murmurs. EXTREMITIES: No lower extremity edema, negative Homans sign. HEENT: No scleral icterus. NECK: No cervical lymphadenopathy. ABDOMEN: Soft, nondistended. There is mild discomfort in the epigastric region upon deep palpation. No hernias, no peritoneal signs. SKIN: Warm, dry. LABORATORY DATA: WBC 10.9, hemoglobin 15, hematocrit 43, platelets 226. BUN 21, creatinine 1.2. Liver function enzymes and amylase and lipase are normal. ASSESSMENT AND PLAN: A 58-year-old male with nausea and vomiting of unknown etiology. This may be related to a gastritis versus a gallbladder etiology. At this time, he is comfortable and we will proceed with IV hydration as well as a clear liquid diet. CT scan did not show any dilated loops of small bowel and/or colon to indicate any signs of gastrointestinal obstruction. Constipation was identified throughout significant portion of the colon. We will also get an ultrasound as well as possible HIDA scan most likely as an outpatient. We will treat him with antiemetics as well as Protonix. We will also start gentle laxatives with MiraLax to promote bowel movement. Job ID: [id number] DocumentID: [id number] Dictated Date: 01/12/2019 22:58:00 Toe Stripper Date: 01/12/2019 23:15:37 Dictated By: FRED CARRERA MD
[2019-01-12] MEDS ORDERED: ACETAMINOPHEN 500 MG TAB (TYLENOL) PO PRN (23:30)
[2019-01-12] MEDS ORDERED: fentaNYL INJECTION 100 MCG/2 ML AMP IV PRN ×2 (23:30)
[2019-01-12] MEDS ORDERED: LACTATED RINGERS 1,000 ML IV SCH (23:30)
[2019-01-12] MEDS ORDERED: PROMETHAZINE INJ 25 MG/ML (PHENERGAN) AMP IV PRN (23:30)
[2019-01-12] MEDS ORDERED: ONDANSETRON 4 MG/2 ML (SDV) Z0FRAN IV PRN (23:30)
[2019-01-13] MEDS ORDERED: LISI-552 PO (00:18)
[2019-01-13] MEDS ORDERED: METF-397 PO (00:18)
[2019-01-13] MEDS ORDERED: PREG300C PO (00:18)
[2019-01-13] MEDS ORDERED: ATOR40TA PO (00:18)
--- NOTE | 2019-01-13 00:19 | NUR ---
HOME MEDICATION LIST UPDATED PER PT STATEMENT.
[2019-01-13 00:50] VITALS: BP 117/78
[2019-01-13] MEDS ORDERED: PIPERACILLIN/TAZO 4.5 GM VIAL (ZOSYN) IV ONE (03:19)
[2019-01-13] MEDS ORDERED: NS (IVPB) 100 ML ONE (03:20)
[2019-01-13] MEDS ORDERED: PIPERACILLIN/TAZOBACTAM (BULK) 4.5 GM in NS (IVPB) 100 ML IV SCH (04:00)
[2019-01-13 04:21] VITALS: BP 119/68
[2019-01-13] MEDS: inSUlin ASPART (NovoLOG) 1 UNIT/0.01 ML (CHARGE PER UNIT) SC SCH ×2 (05:18→11:32)
[2019-01-13 06:01] LABS: BASOPHILS % (AUTO) 0 % (0-10); EOSINOPHILS # (AUTO) 0.1 10^3/uL (0.0-0.3); EOSINOPHILS % (AUTO) 1 % (0-10); HEMATOCRIT 39 % (40-54); HEMOGLOBIN 13.6 G/DL (13.3-17.7); LYMPHOCYTES # (AUTO) 1.8 X 10^3 (1.0-4.0); LYMPHOCYTES % (AUTO) 22 % (12-44); MEAN CORPUSCULAR HEMOGLOBIN 30 PG (25-34); MEAN CORPUSCULAR HGB CONC 35 G/DL (32-36); MEAN CORPUSCULAR VOLUME 86 FL (80-99); MEAN PLATELET VOLUME 10.5 FL (7.4-10.4); MONOCYTES # (AUTO) 0.8 X 10^3 (0.0-1.0); MONOCYTES % (AUTO) 10 % (0-12); NEUTROPHILS # (AUTO) 5.5 X 10^3 (1.8-7.8); NEUTROPHILS % (AUTO) 67 % (42-75); PLATELET COUNT 184 10^3/uL (130-400); RED CELL DISTRIBUTION WIDTH 13.2 % (10.0-14.5); WHITE BLOOD COUNT 8.3 10^3/uL (4.3-11.0)
[2019-01-13 06:20] LABS: ALANINE AMINOTRANSFERASE 23 U/L (0-55); ALBUMIN 3.7 GM/DL (3.2-4.5); ALKALINE PHOSPHATASE 66 U/L (40-136); BILIRUBIN,TOTAL 0.6 MG/DL (0.1-1.0); BUN/CREATININE RATIO 14; CALCIUM 8.9 MG/DL (8.5-10.1); CARBON DIOXIDE 25 MMOL/L (21-32); CHLORIDE 106 MMOL/L (98-107); CREATININE SERUM 1.13 MG/DL (0.60-1.30); GFR ESTIMATED > 60; GLUCOSE 132 MG/DL (70-105); POTASSIUM 3.5 MMOL/L (3.6-5.0); SODIUM 141 MMOL/L (135-145); TOTAL PROTEIN 6.2 GM/DL (6.4-8.2)
[2019-01-13] MEDS ORDERED: RT-ALBUTEROL/IPRATROPIUM 3 ML (DUONEB) VIAL INH SCH (08:00)
[2019-01-13 08:01] VITALS: BP 119/67
[2019-01-13] MEDS ORDERED: PANTOPRAZOLE 40 MG (PROTONIX) VIAL IV SCH (09:00)
[2019-01-13] MEDS ORDERED: POLYETHYLENE GLYCOL 17 GM (MIRALAX) PACK PO SCH (09:28)
--- NOTE | 2019-01-13 11:29 | Short Stay Summary-Hospitalist ---
History of Present Illness HPI/Chief Complaint Chief complaint: Abdominal pain History of present illness: This is a 58-year-old white male disabled of Dr. Wiley a [facility] who presented from the ER in [place] severe abdominal pain in need of observation. Currently patient feels much better Dr. Duncan was gracious enough to see him diagnosed with gastritis and reflux and will advance to clear liquid diet from nothing by mouth is able to tolerate meal we will initiate discharge proceedings along with proton pump inhibitor and Carafate. Source: patient Exam Limitations: no limitations Date Seen 01/13/19 Time Seen by a Provider: 10:30 Attending Physician Kamilla Rose Katrina M MD Referring Physician Date of Admission Jan 12, 2019 at 20:35 Home Medications & Allergies Home Medications Reviewed patient Home Medication Reconciliation performed by pharmacy medication reconciliations remediation technician and/or nursing. Patients Allergies have been reviewed. Allergies Allergies Coded Allergies tramadol (Unverified Allergy, Unknown, 09/16/18) Past Bjyiwkq-Qlpdat-Fttfrj Hx Past Med/Social Hx: Reviewed Nursing Past Med/Soc Hx, Reviewed and Corrections made Patient Social History Employed/Student: unemployed Alcohol Use: Denies Use Recreational Drug Use: Yes Drug of Choice: MJ Smoking Status: Former Smoker Type Used: Cigarettes 2nd Hand Smoke Exposure: Yes Recent Foreign Travel: No Contact w/other who traveled: No Recent Hopitalizations: No Recent Infectious Disease Expo: No Seasonal Allergies Seasonal Allergies: No Past Medical History Cardiac: Hypertension Musculoskeletal: Back Injury, Chronic Back Pain Endocrine: Diabetes, Insulin dep Review of Systems Constitutional: see HPI EENTM: no symptoms reported Gastrointestinal: abdominal pain, loss of appetite, nausea, vomiting Physical Exam Physical Exam Vital Signs Vital Signs - First Documented 01/12/19 01/12/19 18:25 22:42 Temp 35.8 Pulse 98 Resp 18 B/P (MAP) 153/92 (112) Pulse Ox 94 O2 Delivery Room Air FiO2 21 Capillary Refill : Less Than 3 Seconds Height, Weight, BMI Height: 5'5.00" Weight: 195lbs. oz. 88.980484ob; 33.93 BMI Method:Stated General Appearance: No Apparent Distress, WD/WN Eyes: Bilateral Eye Normal Inspection, Bilateral Eye PERRL HEENT: PERRL/EOMI, TMs Normal, Normal ENT Inspection, Pharynx Normal Neck: Full Range of Motion, Normal Inspection, Non Tender, Supple, Carotid Bruit Respiratory: Chest Non Tender, Lungs Clear, Normal Breath Sounds, No Accessory Muscle Use, No Respiratory Distress Cardiovascular: Regular Rate, Rhythm, No Edema, No Gallop, No JVD, No Murmur, Normal Peripheral Pulses Gastrointestinal: Normal Bowel Sounds, No Organomegaly, No Pulsatile Mass, Non Tender, Soft Back: Normal Inspection, No CVA Tenderness, No Vertebral Tenderness Extremity: Normal Capillary Refill, Normal Inspection, Normal Range of Motion, Non Tender, No Calf Tenderness, No Pedal Edema Neurologic/Psychiatric: Alert, Oriented x3, No Motor/Sensory Deficits, Normal Mood/Affect Skin: Normal Color, Warm/Dry Lymphatic: No Adenopathy Results Results/Procedures Labs Laboratory Tests 01/12/19 18:27 01/13/19 05:42 Patient resulted labs reviewed. Short Stay Diagnosis Discharge Diagnosis-Short Stay Admission Diagnosis Assessment: Acute abdominal pain with negative workup Final Discharge Diagnosis Assessment: Acute gastritis with reflux Conclusion Plan Plan: Advance diet Stomach medications per Dr. Duncan Advance diet if able to eat and drink we'll discharge Diagnosis/Problems Diagnosis/Problems (1) Intractable nausea and vomiting Status: Acute Qualifiers: Qualified Codes: R11.2 - Nausea with vomiting, unspecified (2) Gastroesophageal reflux disease Status: Acute Qualifiers: Qualified Codes: K21.9 - Gastro-esophageal reflux disease without esophagitis Clinical Quality Measures DVT/VTE Risk/Contraindication: Risk Factor Score Per Nursin RFS Level Per Nursing on Admit: 3=High KAMILLA ROSE DO Jan 13, 2019 11:29
[2019-01-13 11:45] VITALS: BP 124/72
--- NOTE | 2019-01-13 12:40 | Diagnostic Imaging Report ---
EXAMINATION: CHEST (PA AND LATERAL) CLINICAL INDICATION: 58-year-old male, evaluation for pneumonia. Shortness of breath. COMPARISON: January 12, 2019. FINDINGS: Stable overall appearance of the cardiomediastinal silhouette. There is no identified pneumothorax. There are streaky opacities in the left lung base and right midlung. This is largely unchanged since comparison exam. IMPRESSION: 1. Streaky opacities in the left lung base and right midlung which are unchanged since comparison exam. This may relate to infiltrate and/or atelectasis. Dictated by: Dictated on workstation # [id number]
[2019-01-13 12:49] VITALS: BP 119/67
== END 2019-01-13 12:45 | disposition home or self-care (01) | DRG 392 ==
LOC: EDUNIT# 18:15 → ER FS 18:17 → 4TH 20:35
PROVIDERS: ADMIT Internal Medicine; ATTEND Internal Medicine
DX: K29.00 Acute gastritis without bleeding (principal); K21.9 Gastro-esophageal reflux disease without esophagitis; I10 Essential (primary) hypertension; E11.9 Type 2 diabetes mellitus without complications; M54.9 Dorsalgia, unspecified; K44.9 Diaphragmatic hernia without obstruction or gangrene; K76.0 Fatty (change of) liver, not elsewhere classified; K59.00 Constipation, unspecified; K57.30 Diverticulosis of large intestine without perforation or abscess without bleeding; Z87.891 Personal history of nicotine dependence; Z87.19 Personal history of other diseases of the digestive system; Z79.84 Long term (current) use of oral hypoglycemic drugs
CPT/HCPCS: 36415; 36600; 71045; 71046; 74177; 80053; 80306; 80320; 81000; 82805; 82962; 83605; 83690; 83735; 84484; 85025; 85610; 85730; 87040; 87804; 96361; 96365; 96375

== ENCOUNTER → 2019-01-25 | Outpatient (CLI) | payer MEDICARE, MEDICAID ==
[~2019-01-25] MED LIST changes: +ATOR40TA PO; -CATHETER FLUSH 10 ML SYR IV PRN; -DIATRIZOATE MEGLUM/SODIUM 37% 120 ML (GASTROGRAFIN) PO ONE; -HOLD METFORMIN - RECEIVED CONTRAST 20 ML VIAL IV SCH; -IOHEXOL 350 MG/ML 100 ML (OMNIPAQUE 350) VIAL IV ONE; +LISI-552 PO; +METF-397 PO; -NS 50 ML (IVPB) BAG IV ONE; +PREG300C PO
--- NOTE | 2019-01-25 14:11 | Diagnostic Imaging Report ---
INDICATION: Left lower leg pain. COMPARISON: None. FINDINGS: Two views of the left tibia and fibula were obtained and show no fractures, dislocations, or other acute bony abnormalities. Joint spaces are well maintained throughout. The soft tissues appear unremarkable. No radiopaque foreign bodies are identified. IMPRESSION: Unremarkable radiographic exam of the left tibia and fibula. Dictated by: Dictated on workstation # [id number]
== END ==
LOC: RAD FS 13:06
PROVIDERS: ATTEND Nurse Practitioner
DX: M79.605 Pain in left leg (principal)
CPT/HCPCS: 73590

== ENCOUNTER → 2019-03-02 | Outpatient (CLI) | payer MEDICARE, MEDICAID ==
--- NOTE | 2019-03-02 13:25 | Diagnostic Imaging Report ---
INDICATION: Pain FINDINGS: 2 views left shoulder show no fracture, dislocation or acute articular irregularity. The clavicle intact. There is mild degenerative changes to the AC and glenohumeral joints. IMPRESSION: Mild degenerative changes but no acute appearing abnormality. Dictated by: Dictated on workstation # [id number]
== END ==
LOC: RAD FS 11:05
PROVIDERS: ATTEND Nurse Practitioner Family
DX: M19.012 Primary osteoarthritis, left shoulder (principal); M62.838 Other muscle spasm
CPT/HCPCS: 73030

== ENCOUNTER 2019-04-28 12:18 | Emergency (ER) | payer MEDICARE, MEDICAID ==
[~2019-04-28] VITALS: Ht 165.1 cm; Wt 98.0 kg
[2019-04-28] MEDS ORDERED: NS IV 1000 ML 1,000 ML IV SCH (12:30)
[2019-04-28 12:42] LABS: HEMATOCRIT 40 % (40-54); HEMOGLOBIN 14.3 G/DL (13.3-17.7); MEAN CORPUSCULAR HEMOGLOBIN 30 PG (25-34); MEAN CORPUSCULAR HGB CONC 36 G/DL (32-36); MEAN CORPUSCULAR VOLUME 84 FL (80-99); RED CELL DISTRIBUTION WIDTH 12.8 % (10.0-14.5); WHITE BLOOD COUNT 9.9 10^3/uL (4.3-11.0)
[2019-04-28 12:43] LABS: BASOPHILS # (AUTO) 0.1 10^3/uL (0.0-0.1); BASOPHILS % (AUTO) 1 % (0-10); EOSINOPHILS # (AUTO) 0.2 10^3/uL (0.0-0.3); EOSINOPHILS % (AUTO) 2 % (0-10); LYMPHOCYTES # (AUTO) 2.7 X 10^3 (1.0-4.0); LYMPHOCYTES % (AUTO) 27 % (12-44); MEAN PLATELET VOLUME 10.6 FL (7.4-10.4); MONOCYTES # (AUTO) 1.1 X 10^3 (0.0-1.0); MONOCYTES % (AUTO) 11 % (0-12); NEUTROPHILS # (AUTO) 5.8 X 10^3 (1.8-7.8); NEUTROPHILS % (AUTO) 58 % (42-75); PLATELET COUNT 200 10^3/uL (130-400)
[2019-04-28] MEDS ORDERED: HALOPERIDOL 5 MG/ML (HALDOL) AMP IV ONE (12:45)
[2019-04-28] MEDS ORDERED: HALOPERIDOL 5 MG/ML (HALDOL) AMP IM ONE (12:45)
--- NOTE | 2019-04-28 12:50 | NUR ---
Bedside Occult testing done with Dr Díaz performing rectal exam. Negative result on glove exam and tested as negative occult.
[2019-04-28 12:54] LABS: PROTHROMBIN TIME PATIENT 13.2 SEC (12.2-14.7)
--- NOTE | 2019-04-28 12:55 | ED GI ---
General Chief Complaint: Abdominal/GI Problems Stated Complaint: VOMITING Source of Information: Patient Exam Limitations: No Limitations History of Present Illness Date Seen by Provider: Apr 28, 2019 Time Seen by Provider: 12:53 Initial Comments Patient is a diabetic who complains of nausea vomiting and epigastric pain for the past hour. He has a history of this in the past was hospitalized in December. At that time he was diagnosed with gastritis. He did not fill his PPI. He says he smokes marijuana frequently. He had some this morning. He ate pancakes for breakfast. He started vomiting a few hours after that. No fevers or chills. Some of his emesis were streaked with blood. Allergies and Home Medications Allergies Coded Allergies: tramadol (Unverified Allergy, Unknown, 09/16/18) Home Medications Metformin HCl 500 Mg Tablet, 500 MG PO BID, (Reported) Pantoprazole Sodium 40 Mg Tablet.dr, 40 MG PO DAILY Prescribed by: MELLY KAUFMAN on 04/28/19 3108 Pregabalin 150 Mg Capsule, 150 MG PO BID, (Reported) Patient Home Medication List Home Medication List Reviewed: Yes Review of Systems Review of Systems Constitutional: malaise, weakness EENTM: No Symptoms Reported Respiratory: No Symptoms Reported Cardiovascular: No Symptoms Reported Gastrointestinal: Abdominal Pain, Diarrhea, Nausea, Vomiting Genitourinary: No Symptoms Reported Musculoskeletal: no symptoms reported All Other Systems Reviewed Negative Unless Noted: Yes Past [id number]-[id number] Hx Patient Social History Alcohol Use: Denies Use Recreational Drug Use: Yes Drug of Choice: MJ Smoking Status: Current Everyday Smoker Type Used: Cigarettes 2nd Hand Smoke Exposure: Yes Recent Foreign Travel: No Recent Hopitalizations: No Physical Abuse: No Sexual Abuse: No Mistreated: No Fear: No Seasonal Allergies Seasonal Allergies: No Past Medical History Surgeries: Yes (sigmoid colon resection, carpal tunnel) Respiratory: No Cardiac: Yes Hypertension Neurological: No Genitourinary: No Gastrointestinal: No Musculoskeletal: Yes Back Injury, Chronic Back Pain Endocrine: Yes Diabetes, Insulin dep HEENT: No Cancer: No Psychosocial: No Integumentary: No Physical Exam Vital Signs Vital Signs - First Documented 04/28/19 12:19 Temp 36.9 Pulse 103 Resp 20 B/P (MAP) 149/88 (108) Pulse Ox 94 O2 Delivery Nasal Cannula O2 Flow Rate 2.00 Capillary Refill : Height/Weight/BMI Height: 5'5.00" Weight: 195lbs. oz. [id number]; 33.93 BMI Method:Stated General Appearance: WD/WN, mild distress (retching) HEENT: PERRL/EOMI, pharynx normal Neck: supple Respiratory: lungs clear, normal breath sounds Cardiovascular: regular rate, rhythm Gastrointestinal: soft Genital/Rectal: normal rectal exam, heme negative stool Extremities: normal inspection Male: normal genitalia, normal prostate Neurologic/Psychiatric: buttonholer II-XII nml as tested, no motor/sensory deficits, alert, normal mood/affect, oriented x 3 Skin: normal color, warm/dry Focused Exam Lactate Level 04/28/19 13:44: Lactic Acid Level 2.35*H Lactic Acid Level Laboratory Tests Test 04/28/19 13:44 Lactic Acid Level 2.35 MMOL/L (0.50-2.00) *H Progress/Results/Core Measures Results/Orders Lab Results Laboratory Tests Test 04/28/19 12:29 04/28/19 13:44 04/28/19 14:59 Range/Units White Blood Count 9.9 4.3-11.0 10^3/uL Red Blood Count 4.81 4.35-5.85 10^6/uL Hemoglobin 14.3 13.3-17.7 G/DL Hematocrit 40 40-54 % Mean Corpuscular Volume 84 80-99 FL Mean Corpuscular Hemoglobin 30 25-34 PG Mean Corpuscular Hemoglobin Concent 36 32-36 G/DL Red Cell Distribution Width 12.8 10.0-14.5 % Platelet Count 200 130-400 10^3/uL Mean Platelet Volume 10.6 H 7.4-10.4 FL Neutrophils (%) (Auto) 58 42-75 % Lymphocytes (%) (Auto) 27 12-44 % Monocytes (%) (Auto) 11 0-12 % Eosinophils (%) (Auto) 2 0-10 % Basophils (%) (Auto) 1 0-10 % Neutrophils # (Auto) 5.8 1.8-7.8 X 10^3 Lymphocytes # (Auto) 2.7 1.0-4.0 X 10^3 Monocytes # (Auto) 1.1 H 0.0-1.0 X 10^3 Eosinophils # (Auto) 0.2 0.0-0.3 10^3/uL Basophils # (Auto) 0.1 0.0-0.1 10^3/uL Prothrombin Time 13.2 12.2-14.7 SEC INR Comment 1.0 0.8-1.4 Activated Partial Thromboplast Time 23 L 24-35 SEC Sodium Level 141 135-145 MMOL/L Potassium Level 3.5 L 3.6-5.0 MMOL/L Chloride Level 99 98-107 MMOL/L Carbon Dioxide Level 26 21-32 MMOL/L Anion Gap 16 H 5-14 MMOL/L Blood Urea Nitrogen 17 7-18 MG/DL Creatinine 1.11 0.60-1.30 MG/DL Estimat Glomerular Filtration Rate > 60 BUN/Creatinine Ratio 15 Glucose Level 218 H 70-105 MG/DL Calcium Level 9.8 8.5-10.1 MG/DL Corrected Calcium 9.6 8.5-10.1 MG/DL Magnesium Level 2.2 1.6-2.4 MG/DL Total Bilirubin 0.3 0.1-1.0 MG/DL Aspartate Amino Transf (AST/SGOT) 16 5-34 U/L Alanine Aminotransferase (ALT/SGPT) 22 0-55 U/L Alkaline Phosphatase 82 40-136 U/L Troponin I < 0.30 <0.30 NG/ML Total Protein 6.9 6.4-8.2 GM/DL Albumin 4.2 3.2-4.5 GM/DL Lactic Acid Level 2.35 *H 0.50-2.00 MMOL/L Urine Color YELLOW Urine Clarity CLEAR Urine pH 6.5 5-9 Urine Specific [place] 1.015 L 1.016-1.022 Urine Protein NEGATIVE NEGATIVE Urine Glucose (UA) 3+ H NEGATIVE Urine Ketones NEGATIVE NEGATIVE Urine Nitrite NEGATIVE NEGATIVE Urine Bilirubin NEGATIVE NEGATIVE Urine Urobilinogen 0.2 < = 1.0 MG/DL Urine Leukocyte Esterase NEGATIVE NEGATIVE Urine RBC (Auto) NEGATIVE NEGATIVE Urine RBC RARE /HPF Urine WBC RARE /HPF Urine Squamous Epithelial Cells RARE /HPF Urine Crystals NONE /LPF Urine Bacteria NEGATIVE /HPF Urine Casts NONE /LPF Urine Mucus NONE /LPF Urine Culture Indicated NO My Orders Orders - MELLY KAUFMAN MD Cbc With Automated Diff (04/28/19 12:26) Comprehensive Metabolic Panel (04/28/19 12:26) Magnesium (04/28/19 12:26) Protime With Inr (04/28/19 12:26) Partial Thromboplastin Time (04/28/19 12:26) Urinalysis (04/28/19 12:28) Ns Iv 1000 Ml (Sodium Chloride 0.9%) (04/28/19 12:30) Lactic Acid Analyzer (04/28/19 12:32) Troponin I Fs (04/28/19 12:32) Ekg Tracing (04/28/19 12:32) Acute Abd Series (04/28/19 12:32) Haloperidol Injection (Haldol Injectio (04/28/19 12:45) Haloperidol Injection (Haldol Injectio (04/28/19 12:45) Medications Given in ED Current Medications Medications Dose Ordered Sig/Frank Route Start Time Stop Time Status Last Admin Dose Admin Haloperidol Lactate 5 mg ONCE ONCE IM 04/28/19 12:45 04/28/19 12:46 DC 04/28/19 12:44 5 MG Vital Signs/I&O 04/28/19 04/28/19 04/28/19 04/28/19 12:19 13:00 14:00 15:00 Temp 36.9 36.9 Pulse 103 97 95 84 Resp 20 20 20 18 B/P (MAP) 149/88 (108) 130/80 131/82 126/86 Pulse Ox 94 95 95 97 O2 Delivery Nasal Cannula Nasal Cannula Nasal Cannula Room Air O2 Flow Rate 2.00 2.00 2.00 04/28/19 15:25 Temp 36.3 Pulse 82 Resp 18 B/P (MAP) 127/87 (108) Pulse Ox 98 O2 Delivery Room Air Progress Progress Note : Time: 14:38 Progress Note Resting comfortably. No further vomiting. Feels much better. Lab test were discussed with the patient and his significant other. Stable for discharge. Encourage follow-up with surgery or gastroenterology. Departure Impression Primary Impression: Nausea and vomiting Additional Impression: Reflux esophagitis Disposition: 01 HOME, SELF-CARE Condition: Improved Departure-Patient Inst. Decision time for Depature: 14:36 Referrals: JESSICA BLANCO MD (PCP/Family) Primary Care Physician Patient Instructions: Acid Reflux (Gastroesophageal Reflux Disease), Adult (DC) Add. Discharge Instructions: No spicy greasy fried foods. Follow-up with gastroenterology or surgery as is possible. Take Protonix as prescribed. All discharge instructions reviewed with patient and/or family. Voiced understanding. Scripts Pantoprazole Sodium (Protonix) 40 Mg Tablet.dr 40 MG PO DAILY for 30 Days, TAB Prov: MELLY KAUFMAN MD 04/28/19 MELLY KAUFMAN MD Apr 28, 2019 12:55
--- NOTE | 2019-04-28 13:21 | Diagnostic Imaging Report ---
INDICATION: Nausea, vomiting, lethargy. COMPARISON: September 16, 2018 and January 13, 2019. TECHNIQUE: Four radiographs of the abdomen and chest dated April 28, 2019. FINDINGS: The cardiac silhouette is within normal limits in size. No significant pulmonary vascular congestion. 2.4 cm nodular density is noted within the left lung base, appearing more prominent and dense than prior imaging. Increased right basilar interstitial opacities. The upper lungs appear clear. No significant pleural effusion. No pneumothorax. No acute osseous abnormality within the chest. Gas and stool is noted throughout the colon, including extending into the lower pelvis. No dilated loops of small bowel. No differential air-fluid levels. No suspicious calcifications overlying the renal shadows. Chain suture is seen overlying the midline pelvis. Scattered osseous degenerative changes without acute osseous abnormality. IMPRESSION: Left basilar nodular density appearing more prominent than the prior examination. Although this may simply relate to scar, pulmonary nodule/neoplasm is not excluded. Recommend nonemergent CT of the chest for further evaluation. Developing mild right basilar atelectasis and/or pneumonitis. Postsurgical changes within the bowel without evidence of bowel obstruction or free air. Dictated by: Dictated on workstation # [id number]
[2019-04-28 13:27] LABS: BUN/CREATININE RATIO 15; CARBON DIOXIDE 26 MMOL/L (21-32); CHLORIDE 99 MMOL/L (98-107); CREATININE SERUM 1.11 MG/DL (0.60-1.30); GFR ESTIMATED > 60; GLUCOSE 218 MG/DL (70-105); POTASSIUM 3.5 MMOL/L (3.6-5.0); SODIUM 141 MMOL/L (135-145)
[2019-04-28 13:28] LABS: ALANINE AMINOTRANSFERASE 22 U/L (0-55); ALBUMIN 4.2 GM/DL (3.2-4.5); ALKALINE PHOSPHATASE 82 U/L (40-136); BILIRUBIN,TOTAL 0.3 MG/DL (0.1-1.0); CALCIUM 9.8 MG/DL (8.5-10.1); MAGNESIUM 2.2 MG/DL (1.6-2.4); TOTAL PROTEIN 6.9 GM/DL (6.4-8.2)
[2019-04-28] MEDS ORDERED: PREG150C PO (14:05)
[2019-04-28] MEDS ORDERED: IBUP-1780 (14:06)
[2019-04-28] MEDS ORDERED: LISI1TAB10 (14:07)
[2019-04-28] MEDS ORDERED: ATOR10TA66 (14:07)
[2019-04-28] MEDS ORDERED: PANT40TA2 PO (14:38)
[2019-04-28 15:17] LABS: CLARITY,URINE CLEAR; COLOR,URINE YELLOW; GLUCOSE, URINE (UA) 3+ (NEGATIVE); PH,URINE 6.5 (5-9); PROTEIN,URINE NEGATIVE (NEGATIVE)
[2019-04-28 15:18] LABS: BACTERIA,URINE NEGATIVE /HPF; BILIRUBIN,URINE NEGATIVE (NEGATIVE); KETONES,URINE NEGATIVE (NEGATIVE); LEUKOCYTE ESTERASE ,URINE NEGATIVE (NEGATIVE); NITRITE,URINE NEGATIVE (NEGATIVE); RBC,URINE RARE /HPF; SQUAMOUS EPITHELIAL CELL,UR RARE /HPF; WBC,URINE RARE /HPF
[2019-04-28 15:25] VITALS: BP 127/87
== END 2019-04-28 15:25 | disposition home or self-care (01) ==
LOC: EDUNIT# 12:18 → ER FS 12:21
DX: K21.0 Gastro-esophageal reflux disease with esophagitis (principal); I10 Essential (primary) hypertension; E11.9 Type 2 diabetes mellitus without complications; F17.210 Nicotine dependence, cigarettes, uncomplicated; Z88.5 Allergy status to narcotic agent; Z79.84 Long term (current) use of oral hypoglycemic drugs
CPT/HCPCS: 36415; 74022; 80053; 81000; 82274; 83605; 83735; 84484; 85025; 85610; 85730; 93005; 96360; 96361; 96372

== ENCOUNTER 2019-08-08 17:23 | Emergency (ER) | payer MEDICAID ==
[~2019-08-08 17:23] MED LIST changes: +ATOR10TA66; +IBUP-1780; +LISI1TAB26; +PANT40TA2 PO; +PREG150C PO
--- OUTSIDE RECORDS SUMMARY | 2019-08-08 17:29 | XMS REPORT | Continuity of Care Document ---
Author Organization Unknown Address Unknown Phone Unavailable Allergies Active Description Code Type Severity Reaction Onset Reported/Identified Relationship to Patient Clinical Status Yes traMADol Drug N/A N/A Yes tramadol [id number] Drug Allergy Unknown N/A 09/16/2018 Medications There is no data. Problems Date Dx Coded Attending Type Code Diagnosis Diagnosed By 06/14/2018 JESSICA BLANCO MD Ot R10 .9 UNSPECIFIED ABDOMINAL PAIN 06/14/2018 JESSICA BLANCO MD Ot Z98.890 OTHER SPECIFIED POSTPROCEDURAL STATES 07/05/2018 MELBA, KRYSTAL L DIRECTOR SECURITY RISK MANAGEMENT Ot R10.11 RIGHT UPPER QUADRANT PAIN 07/05/2018 MELBA, KRYSTAL L DIRECTOR SECURITY RISK MANAGEMENT Ot R11.2 NAUSEA WITH VOMITING, UNSPECIFIED 07/20/2018 MELBA, KRYSTAL L DIRECTOR SECURITY RISK MANAGEMENT Ot K76.0 FATTY (CHANGE OF) LIVER, NOT ELSEWHERE C 07/20/2018 MELBA, KRYSTAL L DIRECTOR SECURITY RISK MANAGEMENT Ot R19.7 DIARRHEA, UNSPECIFIED 07/20/2018 MELBA, KRYSTAL L DIRECTOR SECURITY RISK MANAGEMENT Ot Z98.890 OTHER SPECIFIED POSTPROCEDURAL STATES 07/24/2018 MELBA, KRYSTAL L DIRECTOR SECURITY RISK MANAGEMENT Ot K76.0 FATTY (CHANGE OF) LIVER, NOT ELSEWHERE C 07/24/2018 MELBA, KRYSTAL L DIRECTOR SECURITY RISK MANAGEMENT Ot R19.7 DIARRHEA, UNSPECIFIED 07/24/2018 MELBA, KRYSTAL L DIRECTOR SECURITY RISK MANAGEMENT Ot Z98.890 OTHER SPECIFIED POSTPROCEDURAL STATES 07/25/2018 MELBA, KRYSTAL L DIRECTOR SECURITY RISK MANAGEMENT Ot K76.0 FATTY (CHANGE OF) LIVER, NOT ELSEWHERE C 07/25/2018 MELBA, KRYSTAL L DIRECTOR SECURITY RISK MANAGEMENT Ot R19.7 DIARRHEA, UNSPECIFIED 07/25/2018 MELBA, KRYSTAL L DIRECTOR SECURITY RISK MANAGEMENT Ot Z98.890 OTHER SPECIFIED POSTPROCEDURAL STATES 08/03/2018 JESSICA BLANCO MD Ot R10 .9 UNSPECIFIED ABDOMINAL PAIN 08/03/2018 JESSICA BLANCO MD Ot Z98.890 OTHER SPECIFIED POSTPROCEDURAL STATES 08/10/2018 ANTWAN LIN, XUAN E Ot M54.4 2 LUMBAGO WITH SCIATICA, LEFT SIDE 08/10/2018 ANTWAN LIN, XUAN E Ot M54.5 LOW BACK PAIN 08/10/2018 ENEZRART , XUAN E Ot Z88.6 ALLERGY STATUS TO ANALGESIC AGENT STATUS 08/11/2018 GONZALEZRT , XUAN E Ot M54.4 2 LUMBAGO WITH SCIATICA, LEFT SIDE 08/11/2018 ANTWAN LIN, XUAN E Ot M54.5 LOW BACK PAIN 08/11/2018 GONZALEZRT , XUAN E Ot Z88.6 ALLERGY STATUS TO ANALGESIC AGENT STATUS 08/11/2018 FRANCIS LIN, JESSICA Heaton Ot R10 .9 UNSPECIFIED ABDOMINAL PAIN 08/11/2018 JESSICA BLANCO MD Ot Z98.890 OTHER SPECIFIED POSTPROCEDURAL STATES 08/11/2018 MELBA, KRYSTAL L DIRECTOR SECURITY RISK MANAGEMENT Ot R10.11 RIGHT UPPER QUADRANT PAIN 08/11/2018 MELBA, KRYSTAL L DIRECTOR SECURITY RISK MANAGEMENT Ot R11.2 NAUSEA WITH VOMITING, UNSPECIFIED 08/11/2018 MELBA, KRYSTAL L DIRECTOR SECURITY RISK MANAGEMENT Ot K76.0 FATTY (CHANGE OF) LIVER, NOT ELSEWHERE C 08/11/2018 MELBA, KRYSTAL L DIRECTOR SECURITY RISK MANAGEMENT Ot R19.7 DIARRHEA, UNSPECIFIED 08/11/2018 MELBA, KRYSTAL L DIRECTOR SECURITY RISK MANAGEMENT Ot Z98.890 OTHER SPECIFIED POSTPROCEDURAL STATES 09/14/2018 JESSICA BLANCO MD Ot R10 .9 UNSPECIFIED ABDOMINAL PAIN 09/14/2018 JESSICA BLANCO MD Ot Z98.890 OTHER SPECIFIED POSTPROCEDURAL STATES 09/14/2018 MELBA, KRYSTAL L DIRECTOR SECURITY RISK MANAGEMENT Ot R10.11 RIGHT UPPER QUADRANT PAIN 09/14/2018 MELBA, KRYSTAL L DIRECTOR SECURITY RISK MANAGEMENT Ot R11.2 NAUSEA WITH VOMITING, UNSPECIFIED 09/14/2018 MELBA, KRYSTAL L DIRECTOR SECURITY RISK MANAGEMENT Ot K76.0 FATTY (CHANGE OF) LIVER, NOT ELSEWHERE C 09/14/2018 MELBA, KRYSTAL L DIRECTOR SECURITY RISK MANAGEMENT Ot R19.7 DIARRHEA, UNSPECIFIED 09/14/2018 MELBA, KRYSTAL L DIRECTOR SECURITY RISK MANAGEMENT Ot Z98.890 OTHER SPECIFIED POSTPROCEDURAL STATES 09/14/2018 WANDA LIN, NAZ Martines Ot M17.12 UNILATERAL PRIMARY OSTEOARTHRITIS, LEFT 09/16/2018 SALMON DO, ALMA L Ot K21.9 GASTRO-ESOPHAGEAL REFLUX DISEASE WITHOUT 09/16/2018 SALMON DO, LAMA L Ot N28.9 DISORDER OF KIDNEY AND URETER, UNSPECIFI 09/16/2018 SALMON DO, ALMA L Ot R07.9 CHEST PAIN, UNSPECIFIED 09/16/2018 SALMON DO, ALMA L Ot Z88.6 ALLERGY STATUS TO ANALGESIC AGENT STATUS 09/20/2018 SALMON DO, ALMA L Ot K21.9 GASTRO-ESOPHAGEAL REFLUX DISEASE WITHOUT 09/20/2018 SALMON DO, ALMA L Ot N28.9 DISORDER OF KIDNEY AND URETER, UNSPECIFI 09/20/2018 SALMON DO, ALMA L Ot R07.9 CHEST PAIN, UNSPECIFIED 09/20/2018 SALMON DO, ALMA L Ot Z88.6 ALLERGY STATUS TO ANALGESIC AGENT STATUS 11/29/2018 SUNNY PEREZ Reason For Visit R11.2 Nausea with vomiting, unspecified 01/13/2019 TERRY SCOTT JANIE Ot E11.9 TYPE 2 DIABETES MELLITUS WITHOUT COMPLIC 01/13/2019 TERRY SCOTT JANIE Ot I10 ESSENTIAL (PRIMARY) HYPERTENSION 01/13/2019 TERRY SCOTT AJNIE Ot K21.9 GASTRO-ESOPHAGEAL REFLUX DISEASE WITHOUT 01/13/2019 TERRY DO JANIE Ot K29.00 ACUTE GASTRITIS WITHOUT BLEEDING 01/13/2019 TERRY SCOTT JANIE Ot K44.9 DIAPHRAGMATIC HERNIA WITHOUT OBSTRUCTION 01/13/2019 TERRY SCOTT JANIE Ot K57.30 DVRTCLOS OF LG INT W/O PERFORATION OR AB 01/13/2019 TERRY SCOTT JANIE Ot K59.00 CONSTIPATION, UNSPECIFIED 01/13/2019 TERRY SCOTT JANIE Ot K76.0 FATTY (CHANGE OF) LIVER, NOT ELSEWHERE C 01/13/2019 ELENA STEWART DOI Ot M54.9 DORSALGIA, UNSPECIFIED 01/13/2019 TERRY SCOTT AJNIE Ot Z79.84 INFORMATION TECHNOLOGY SECURITY MANAGER (CURRENT) USE OF ORAL HYPOGLYC 01/13/2019 TERRY SCOTT JANIE Ot Z87.19 PERSONAL HISTORY OF OTHER DISEASES OF TH 01/13/2019 JANIE STEWART DO Ot Z87.89 1 PERSONAL HISTORY OF NICOTINE DEPENDENCE 01/15/2019 JESSICA BLANCO MD Ot R10 .9 UNSPECIFIED ABDOMINAL PAIN 01/15/2019 FRANCIS LIN, JESSICA Heaton Ot Z98.890 OTHER SPECIFIED POSTPROCEDURAL STATES 01/15/2019 MELBA, KRYSTAL L DIRECTOR SECURITY RISK MANAGEMENT Ot R10.11 RIGHT UPPER QUADRANT PAIN 01/15/2019 MELBA, KRYSTAL L DIRECTOR SECURITY RISK MANAGEMENT Ot R11.2 NAUSEA WITH VOMITING, UNSPECIFIED 01/15/2019 MELBA, KRYSTAL L DIRECTOR SECURITY RISK MANAGEMENT Ot K76.0 FATTY (CHANGE OF) LIVER, NOT ELSEWHERE C 01/15/2019 MELBA, KRYSTAL L DIRECTOR SECURITY RISK MANAGEMENT Ot R19.7 DIARRHEA, UNSPECIFIED 01/15/2019 MELBA, KRYSTAL L DIRECTOR SECURITY RISK MANAGEMENT Ot Z98.890 OTHER SPECIFIED POSTPROCEDURAL STATES 01/15/2019 WANDA LIN, NAZ Martines Ot M17.12 UNILATERAL PRIMARY OSTEOARTHRITIS, LEFT 01/25/2019 MELBA, KRYSTAL L DIRECTOR SECURITY RISK MANAGEMENT Ot K76.0 FATTY (CHANGE OF) LIVER, NOT ELSEWHERE C 01/25/2019 MELBA, KRYSTAL L DIRECTOR SECURITY RISK MANAGEMENT Ot R19.7 DIARRHEA, UNSPECIFIED 01/25/2019 MELBA, KRYSTAL L DIRECTOR SECURITY RISK MANAGEMENT Ot Z98.890 OTHER SPECIFIED POSTPROCEDURAL STATES 01/25/2019 JESSICA BLANCO MD Ot R10 .9 UNSPECIFIED ABDOMINAL PAIN 01/25/2019 JESSICA BLANCO MD Ot Z98.890 OTHER SPECIFIED POSTPROCEDURAL STATES 01/25/2019 MELBA, KRYSTAL L DIRECTOR SECURITY RISK MANAGEMENT Ot R10.11 RIGHT UPPER QUADRANT PAIN 01/25/2019 MELBA, KRYSTAL L DIRECTOR SECURITY RISK MANAGEMENT Ot R11.2 NAUSEA WITH VOMITING, UNSPECIFIED 01/25/2019 MELBA, KRYSTAL L DIRECTOR SECURITY RISK MANAGEMENT Ot K76.0 FATTY (CHANGE OF) LIVER, NOT ELSEWHERE C 01/25/2019 MELBA, KRYSTAL L DIRECTOR SECURITY RISK MANAGEMENT Ot R19.7 DIARRHEA, UNSPECIFIED 01/25/2019 MELBA, KRYSTAL L DIRECTOR SECURITY RISK MANAGEMENT Ot Z98.890 OTHER SPECIFIED POSTPROCEDURAL STATES 01/25/2019 WANDA LIN, NAZ Martines Ot M17.12 UNILATERAL PRIMARY OSTEOARTHRITIS, LEFT 01/26/2019 JESSICA BLANCO MD Ot R10 .9 UNSPECIFIED ABDOMINAL PAIN 01/26/2019 JESSICA BLANCO MD Ot Z98.890 OTHER SPECIFIED POSTPROCEDURAL STATES 01/26/2019 KRYSTAL REILLY DIRECTOR SECURITY RISK MANAGEMENT Ot R10.11 RIGHT UPPER QUADRANT PAIN 01/26/2019 YADIRA REILLYIN Lester DIRECTOR SECURITY RISK MANAGEMENT Ot R11.2 NAUSEA WITH VOMITING, UNSPECIFIED 01/26/2019 YADIRA REILLYIN Lester DIRECTOR SECURITY RISK MANAGEMENT Ot K76.0 FATTY (CHANGE OF) LIVER, NOT ELSEWHERE C 01/26/2019 MELBAYADIRA MOISEIN L DIRECTOR SECURITY RISK MANAGEMENT Ot R19.7 DIARRHEA, UNSPECIFIED 01/26/2019 YADIRA REILLYIN Lester DIRECTOR SECURITY RISK MANAGEMENT Ot Z98.890 OTHER SPECIFIED POSTPROCEDURAL STATES 01/26/2019 WANDA LIN, NAZ Martines Ot M17.12 UNILATERAL PRIMARY OSTEOARTHRITIS, LEFT 01/29/2019 PRIYANKA QUINTANILLA CATHODE WASHER Ot M79.605 PAIN IN LEFT LEG 02/13/2019 PRIYANKA QUINTANILLA CATHODE WASHER Ot M79.605 PAIN IN LEFT LEG 03/06/2019 O'DELLester ZOILA K DIRECTOR SECURITY RISK MANAGEMENT Ot M19.012 PRIMARY OSTEOARTHRITIS, LEFT SHOULDER 03/06/2019 O'VANESSA ZOILA K DIRECTOR SECURITY RISK MANAGEMENT Ot M62.838 OTHER MUSCLE SPASM 04/28/2019 MELLY KAUFMAN MD Ot E11. 9 TYPE 2 DIABETES MELLITUS WITHOUT COMPLIC 04/28/2019 MELLY KAUFMAN MD Ot F17.210 NICOTINE DEPENDENCE, CIGARETTES, UNCOMPL 04/28/2019 MELLY KAUFMAN MD Ot I10 ESSENTIAL (PRIMARY) HYPERTENSION 04/28/2019 MELLY KAUFMAN MD Ot K21. 0 GASTRO-ESOPHAGEAL REFLUX DISEASE WITH ES 04/28/2019 MELLY KAUFMAN MD Ot R11. 2 NAUSEA WITH VOMITING, UNSPECIFIED 04/28/2019 MELLY KAUFMAN MD A Ot Z79. 84 INFORMATION TECHNOLOGY SECURITY MANAGER (CURRENT) USE OF ORAL HYPOGLYC 04/28/2019 MELLY KAUFMAN MD A Ot Z88. 5 ALLERGY STATUS TO NARCOTIC AGENT STATUS 05/03/2019 MELLY KAUFMAN MD Ot E11. 9 TYPE 2 DIABETES MELLITUS WITHOUT COMPLIC 05/03/2019 MELLY KAUFMAN MD A Ot F17.210 NICOTINE DEPENDENCE, CIGARETTES, UNCOMPL 05/03/2019 MELLY KAUFMAN MD Ot I10 ESSENTIAL (PRIMARY) HYPERTENSION 05/03/2019 MELLY KAUFMAN MD Ot K21. 0 GASTRO-ESOPHAGEAL REFLUX DISEASE WITH ES 05/03/2019 MELLY KAUFMAN MD A Ot R11. 2 NAUSEA WITH VOMITING, UNSPECIFIED 05/03/2019 MELLY KAUFMAN MD Ot Z79. 84 INFORMATION TECHNOLOGY SECURITY MANAGER (CURRENT) USE OF ORAL HYPOGLYC 05/03/2019 MELLY KAUFMAN MD, Ot Z88. 5 ALLERGY STATUS TO NARCOTIC AGENT STATUS Procedures There is no data. Results Test Result Range Comprehensive metabolic panel - 07/20/18 08:36 Serum or plasma sodium measurement (moles/volume) 137 mmol/L 135-145 Serum or plasma potassium measurement (moles/volume) 3.8 mmol/L 3.6-5.0 Serum or plasma chloride measurement (moles/volume) 97 mmol/L 98-107 Carbon dioxide 27 mmol/L 21-32 Serum or plasma anion gap determination (moles/volume) 13 mmol/L 5-14 Serum or plasma urea nitrogen measurement (mass/volume ) 16 mg/dL 7-18 Serum or plasma creatinine measurement (mass/volume) 1.11 mg/dL 0.60-1.30 Serum or plasma urea nitrogen/creatinine mass ratio 14 NRG Serum or plasma creatinine measurement w ith calculation of estimated glomerular filtration rate > NRG Serum or plasma glucose measurement (mass/volume) 186 mg/dL 70-105 Serum or plasma calcium measurement (mass/volume) 9.7 mg/dL 8.5-10.1 Serum or plasma total bilirubin measurement (mass/volu me) 0.4 mg/dL 0.1-1.0 Serum or plasma alkaline phosphatase hang surement (enzymatic activity/volume) 79 U/L 40-136 Serum or plasma aspartate aminotransfera se measurement (enzymatic activity/volume) 14 U/L 5-34 Serum or plasma alanine aminotransferase measurement (enzymatic activity/volume) 19 U/L 0-55 Serum or plasma protein measurement (mass/volume) 7.8 g/dL 6.4-8.2 Serum or plasma albumin measurement (mass/volume) 4.6 g/dL 3.2-4.5 A1C - 07/31/18 15:30 HEMOGLOBIN A1c 6.2 % of total Hgb <5.7 Complete blood count (CBC) with automate d white blood cell (WBC) differential - 09/16/18 12:50 Blood leukocytes automated count (number/volume) 6.8 10*3/uL 4.3-11.0 Blood erythrocytes automated count (number/volume) 4.31 10*6/uL 4.35-5.85 Venous blood hemoglobin measurement (mass/volume) 13.1 g/dL 13.3-17.7 Blood hematocrit (volume fraction) 37 % 40-54 Automated erythrocyte mean corpuscular volume 86 [ foz_us] 80-99 Automated erythrocyte mean corpuscular h emoglobin (mass per erythrocyte) 30 pg 25-34 Automated erythrocyte mean corpuscular h emoglobin concentration measurement (mass/volume) 35 g/dL 32-36 Automated erythrocyte distribution width ratio 12. 6 % 10.0- 14.5 Automated blood platelet count (count/volume) 188 10*3/uL 130-400 Automated blood platelet mean volume measurement 10.3 [foz_us] 7.4-10.4 Automated blood neutrophils/100 leukocytes 68 % 42-75 Automated blood lymphocytes/100 leukocytes 22 % 12-44 Blood monocytes/100 leukocytes 8 % 0-12 Automated blood eosinophils/100 leukocytes 2 % 0-10 Automated blood basophils/100 leukocytes 1 % 0-10 Blood neutrophils automated count (number/volume) 4.6 10*3 1.8-7.8 Blood lymphocytes automated count (number/volume) 1.5 10*3 1.0-4.0 Blood monocytes automated count (number/volume) 0. 5 10*3 0.0-1.0 Automated eosinophil count 0.1 10*3/uL 0 .0-0.3 Automated blood basophil count (count/volume) 0.1 10*3/uL 0.0-0.1 PT panel in platelet poor plasma by coag ulation assay - 09/16/18 12:50 Prothrombin time (PT) in platelet poor plasma by coagu lation assay 13.5 s 12.2-14.7 INR in platelet poor plasma or blood by coagulation as say 1.0 0.8-1.4 Activated partial thromboplastin time (a PTT) in platelet poor plasma bycoagulation assay - 09/16/18 12:50 Activated partial thromboplastin time (a PTT) in platelet poor plasma bycoagulation assay 26 s 24-35 Comprehensive metabolic panel - 09/16/18 12:50 Serum or plasma sodium measurement (moles/volume) 135 mmol/L 135-145 Serum or plasma potassium measurement (moles/volume) 3.9 mmol/L 3.6-5.0 Serum or plasma chloride measurement (moles/volume) 97 mmol/L 98-107 Carbon dioxide 27 mmol/L 21-32 Serum or plasma anion gap determination (moles/volume) 11 mmol/L 5-14 Serum or plasma urea nitrogen measurement (mass/volume ) 24 mg/dL 7-18 Serum or plasma creatinine measurement (mass/volume) 1.34 mg/dL 0.60-1.30 Serum or plasma urea nitrogen/creatinine mass ratio 18 NRG Serum or plasma creatinine measurement w ith calculation of estimated glomerular filtration rate 55 NRG Serum or plasma glucose measurement (mass/volume) 265 mg/dL 70-105 Serum or plasma calcium measurement (mass/volume) 9.2 mg/dL 8.5-10.1 Serum or plasma total bilirubin measurement (mass/volu me) 0.4 mg/dL 0.1-1.0 Serum or plasma alkaline phosphatase hang surement (enzymatic activity/volume) 74 U/L 40-136 Serum or plasma aspartate aminotransfera se measurement (enzymatic activity/volume) 24 U/L 5-34 Serum or plasma alanine aminotransferase measurement (enzymatic activity/volume) 38 U/L 0-55 Serum or plasma protein measurement (mass/volume) 6.7 g/dL 6.4-8.2 Serum or plasma albumin measurement (mass/volume) 4.2 g/dL 3.2-4.5 CALCIUM CORRECTED 9.0 mg/dL 8.5-10.1 Magnesium - 09/16/18 12:50 Magnesium 2.0 mg/dL 1.8-2.4 TROPONIN T - 09/16/18 12:50 TROPONIN T 11 % <=15 TROPONIN T - 09/16/18 14:46 TROPONIN T 10 % <=15 CMP - 10/11/18 12:02 GLUCOSE 146 mg/dL 65-99 UREA NITROGEN (BUN) 23 mg/dL 7-25 CREATININE 1.46 mg/dL 0.70-1.33 eGFR NON-AFR. BULGARIAN 52 mL/min/1.73m2 > OR = 60 eGFR 60 mL/min/1.73m2 > OR = 60 BUN/CREATININE RATIO 16 (calc) 6-22 SODIUM 141 mmol/L 135-146 POTASSIUM 3.7 mmol/L 3.5-5.3 CHLORIDE 107 mmol/L 98-110 CARBON DIOXIDE 25 mmol/L 20-32 CALCIUM 9.4 mg/dL 8.6-10.3 PROTEIN, TOTAL 6.4 g/dL 6.1-8.1 ALBUMIN 4.3 g/dL 3.6-5.1 GLOBULIN 2.1 g/dL (calc) 1.9-3.7 ALBUMIN/GLOBULIN RATIO 2.0 (calc) 1.0-2. 5 BILIRUBIN, TOTAL 0.8 mg/dL 0.2-1.2 ALKALINE PHOSPHATASE 75 U/L 40-115 AST 19 U/L 10-35 ALT 22 U/L 9-46 CBC - 10/11/18 12:02 WHITE BLOOD CELL COUNT 8.5 Thousand/uL 3 .8-10.8 RED BLOOD CELL COUNT 4.38 Million/uL 4.2 0-5.80 HEMOGLOBIN 13.0 g/dL 13.2-17.1 HEMATOCRIT 39.3 % 38.5-50.0 MCV 89.7 fL 80.0-100.0 MCH 29.7 pg 27.0-33.0 MCHC 33.1 g/dL 32.0-36.0 RDW 13.8 % 11.0-15.0 PLATELET COUNT 173 Thousand/uL 140-400 MPV 10.2 fL 7.5-12.5 ABSOLUTE NEUTROPHILS 6537 cells/uL 1500- 7800 ABSOLUTE LYMPHOCYTES 1216 cells/uL 850-3 900 ABSOLUTE MONOCYTES 655 cells/uL 200-950 ABSOLUTE EOSINOPHILS 60 cells/uL 15-500 ABSOLUTE BASOPHILS 34 cells/uL 0-200 NEUTROPHILS 76.9 % NRG LYMPHOCYTES 14.3 % NRG MONOCYTES 7.7 % NRG EOSINOPHILS 0.7 % NRG BASOPHILS 0.4 % NRG BMP - 12/21/18 11:50 GLUCOSE 169 mg/dL 65-99 UREA NITROGEN (BUN) 16 mg/dL 7-25 CREATININE 1.01 mg/dL 0.70-1.25 eGFR NON-AFR. BULGARIAN 80 mL/min/1.73m2 > OR = 60 eGFR 93 mL/min/1.73m2 > OR = 60 BUN/CREATININE RATIO NOT APPLICABLE (calc) 6-22 SODIUM 139 mmol/L 135-146 POTASSIUM 3.8 mmol/L 3.5-5.3 CHLORIDE 103 mmol/L 98-110 CARBON DIOXIDE 27 mmol/L 20-32 CALCIUM 9.6 mg/dL 8.6-10.3 A1C - 12/21/18 11:50 HEMOGLOBIN A1c 6.7 % of total Hgb <5.7 Complete blood count (CBC) with automate d white blood cell (WBC) differential - 01/12/19 18:27 Blood leukocytes automated count (number/volume) 10.9 10*3/uL 4.3-11.0 Blood erythrocytes automated count (number/volume) 5.04 10*6/uL 4.35-5.85 Venous blood hemoglobin measurement (mass/volume) 15.0 g/dL 13.3-17.7 Blood hematocrit (volume fraction) 43 % 40-54 Automated erythrocyte mean corpuscular volume 86 [ foz_us] 80-99 Automated erythrocyte mean corpuscular h emoglobin (mass per erythrocyte) 30 pg 25-34 Automated erythrocyte mean corpuscular h emoglobin concentration measurement (mass/volume) 35 g/dL 32-36 Automated erythrocyte distribution width ratio 12. 7 % 10.0- 14.5 Automated blood platelet count (count/volume) 226 10*3/uL 130-400 Automated blood platelet mean volume measurement 10.2 [foz_us] 7.4-10.4 Automated blood neutrophils/100 leukocytes 64 % 42-75 Automated blood lymphocytes/100 leukocytes 24 % 12-44 Blood monocytes/100 leukocytes 9 % 0-12 Automated blood eosinophils/100 leukocytes 2 % 0-10 Automated blood basophils/100 leukocytes 1 % 0-10 Blood neutrophils automated count (number/volume) 7.0 10*3 1.8-7.8 Blood lymphocytes automated count (number/volume) 2.6 10*3 1.0-4.0 Blood monocytes automated count (number/volume) 1. 0 10*3 0.0-1.0 Automated eosinophil count 0.2 10*3/uL 0 .0-0.3 Automated blood basophil count (count/volume) 0.1 10*3/uL 0.0-0.1 PT panel in platelet poor plasma by coag ulation assay - 01/12/19 18:27 Prothrombin time (PT) in platelet poor plasma by coagu lation assay 13.3 s 12.2-14.7 INR in platelet poor plasma or blood by coagulation as say 1.0 0.8-1.4 Activated partial thromboplastin time (a PTT) in platelet poor plasma bycoagulation assay - 01/12/19 18:27 Activated partial thromboplastin time (a PTT) in platelet poor plasma bycoagulation assay 23 s 24-35 Comprehensive metabolic panel - 01/12/19 18:27 Serum or plasma sodium measurement (moles/volume) 137 mmol/L 135-145 Serum or plasma potassium measurement (moles/volume) 4.1 mmol/L 3.6-5.0 Serum or plasma chloride measurement (moles/volume) 102 mmol/L 98-107 Carbon dioxide 25 mmol/L 21-32 Serum or plasma anion gap determination (moles/volume) 10 mmol/L 5-14 Serum or plasma urea nitrogen measurement (mass/volume ) 21 mg/dL 7-18 Serum or plasma creatinine measurement (mass/volume) 1.12 mg/dL 0.60-1.30 Serum or plasma urea nitrogen/creatinine mass ratio 19 NRG Serum or plasma creatinine measurement w ith calculation of estimated glomerular filtration rate > NRG Serum or plasma glucose measurement (mass/volume) 177 mg/dL 70-105 Serum or plasma calcium measurement (mass/volume) 9.5 mg/dL 8.5-10.1 Serum or plasma total bilirubin measurement (mass/volu me) 0.3 mg/dL 0.1-1.0 Serum or plasma alkaline phosphatase hang surement (enzymatic activity/volume) 80 U/L 40-136 Serum or plasma aspartate aminotransfera se measurement (enzymatic activity/volume) 22 U/L 5-34 Serum or plasma alanine aminotransferase measurement (enzymatic activity/volume) 22 U/L 0-55 Serum or plasma protein measurement (mass/volume) 7.3 g/dL 6.4-8.2 Serum or plasma albumin measurement (mass/volume) 4.3 g/dL 3.2-4.5 CALCIUM CORRECTED 9.3 mg/dL 8.5-10.1 Magnesium - 01/12/19 18:27 Magnesium 1.9 mg/dL 1.6-2.4 Serum or plasma troponin i.cardiac measu rement (mass/volume) - 01/12/19 18:27 Serum or plasma troponin i.cardiac measurement (mass/v olume) < ng/mL <0.30 Lipase - 01/12/19 18:27 Lipase 14 U/L 8-78 Serum or plasma ethanol measurement (mas s/volume) - 01/12/19 18:27 Serum or plasma ethanol measurement (mass/volume) < mg/dL <10 Blood lactic acid measurement (moles/vol ume) - 01/12/19 18:35 Blood lactic acid measurement (moles/volume) 2.08 mmol/L 0.50-2.00 Bacterial blood culture - 01/12/19 18:35 QUANTITY OF GROWTH . NRG Bacterial blood culture SEE COMMEN NRG Bacterial blood culture - 01/12/19 18:45 Bacterial blood culture NG NRG Influenza virus A and B antigen detectio n - 01/12/19 18:55 FLU RESULT NEGATIVE FOR INFLUENZA A AND B ANTIGENS BY IA NRG Complete urinalysis with reflex to cultu re - 01/12/19 20:45 Urine color determination YELLOW NRG Urine clarity determination CLEAR NR G Urine pH measurement by test strip 6.0 5-9 Specific gravity of urine by test strip 1.010 1.016-1.022 Urine protein assay by test strip, semi-quantitative NEGATIVE NEGATIVE Urine glucose detection by automated test strip 2+ NEGATIVE Erythrocytes detection in urine sediment by light micr oscopy NEGATIVE NEGATIVE Urine ketones detection by automated test strip NE GATIVE NEGATIVE Urine nitrite detection by test strip NEGATIVE NEGATIVE Urine total bilirubin detection by test strip NEGA TIVE NEGATIVE Urine urobilinogen measurement by automated test strip (mass/volume) 0.2 mg/dL NORMAL Urine leukocyte esterase detection by dipstick NEG ATIVE NEGATIVE Automated urine sediment erythrocyte cou nt by microscopy (number/high power field) NONE NRG Automated urine sediment leukocyte count by microscopy (number/high power field) NONE NRG Bacteria detection in urine sediment by light microsco py NONE NRG Squamous epithelial cells detection in u rine sediment by light microscopy RARE NRG Crystals detection in urine sediment by light microsco py NONE NRG Casts detection in urine sediment by light microscopy NONE NRG Mucus detection in urine sediment by light microscopy NEGATIVE NRG Complete urinalysis with reflex to culture NO NRG Serum or plasma lactate measurement (mol es/volume) - 01/12/19 20:45 Serum or plasma lactate measurement (moles/volume) 1.74 mmol/L 0.50-2.00 Urine drug screening test - 01/12/19 20: 45 Urine phencyclidine detection by screening method NEGATIVE NEGATIVE Urine benzodiazepines detection by screening method NEGATIVE NEGATIVE Urine cocaine detection NEGATIVE NEGATI VE Urine amphetamines detection by screening method N EGATIVE NEGATIVE Urine methamphetamine detection by screening method NEGATIVE NEGATIVE Urine cannabinoids detection by screening method P OSITIVE NEGATIVE Urine opiates detection by screening method NEGATI VE NEGATIVE Urine barbiturates detection NEGATIVE N EGATIVE Screening urine tricyclic antidepressants detection NEGATIVE NEGATIVE Urine methadone detection by screening method NEGA TIVE NEGATIVE Urine oxycodone detection NEGATIVE NEGA TIVE Urine propoxyphene detection NEGATIVE N EGATIVE Arterial blood gas measurement - 9 21:15 Blood pCO2 42 mm[Hg] 35-45 Blood pO2 27 mm[Hg] 79-93 Arterial blood bicarbonate measurement (moles/volume) 27 mmol/L 23-27 Arterial blood base excess by calculation 1.7 mmol /L -2.5-2.5 Arterial blood oxygen saturation measurement 51 % 94-100 * Inhaled oxygen flow rate ROOM NRG Arterial blood pH measurement with patient temperature correction 7.41 7.37-7.43 Arterial blood carbon dioxide, total measurement (mole s/volume) 27.9 mmol/L 21.0-31.0 Body site RT RAD NRG Assessment of wrist artery patency prior to arterial p uncture YES-POS NRG Setting of ventilation mode NO NR G Measurement of body temperature 35.7 NRG Arterial blood gas measurement - 9 22:34 Blood pCO2 41 mm[Hg] 35-45 Blood pO2 69 mm[Hg] 79-93 Arterial blood bicarbonate measurement (moles/volume) 26 mmol/L 23-27 Arterial blood base excess by calculation 1.4 mmol /L -2.5-2.5 Arterial blood oxygen saturation measurement 95 % 94-100 * Inhaled oxygen flow rate ROOM AIR NRG Arterial blood pH measurement with patient temperature correction 7.41 7.37-7.43 Arterial blood carbon dioxide, total measurement (mole s/volume) 27.2 mmol/L 21.0-31.0 Body site RT RAD NRG Assessment of wrist artery patency prior to arterial p uncture YES-POS NRG Setting of ventilation mode NO NR G Measurement of body temperature 35.7 NRG Capillary blood glucose measurement by g lucometer (mass/volume) - 01/13/19 05:17 Capillary blood glucose measurement by glucometer (mas s/volume) 146 mg/dL 70-110 Complete blood count (CBC) with automate d white blood cell (WBC) differential - 01/13/19 05:42 Blood leukocytes automated count (number/volume) 8.3 10*3/uL 4.3-11.0 Blood erythrocytes automated count (number/volume) 4.59 10*6/uL 4.35-5.85 Venous blood hemoglobin measurement (mass/volume) 13.6 g/dL 13.3-17.7 Blood hematocrit (volume fraction) 39 % 40-54 Automated erythrocyte mean corpuscular volume 86 [ foz_us] 80-99 Automated erythrocyte mean corpuscular h emoglobin (mass per erythrocyte) 30 pg 25-34 Automated erythrocyte mean corpuscular h emoglobin concentration measurement (mass/volume) 35 g/dL 32-36 Automated erythrocyte distribution width ratio 13. 2 % 10.0- 14.5 Automated blood platelet count (count/volume) 184 10*3/uL 130-400 Automated blood platelet mean volume measurement 10.5 [foz_us] 7.4-10.4 Automated blood neutrophils/100 leukocytes 67 % 42-75 Automated blood lymphocytes/100 leukocytes 22 % 12-44 Blood monocytes/100 leukocytes 10 % 0-12 Automated blood eosinophils/100 leukocytes 1 % 0-10 Automated blood basophils/100 leukocytes 0 % 0-10 Blood neutrophils automated count (number/volume) 5.5 10*3 1.8-7.8 Blood lymphocytes automated count (number/volume) 1.8 10*3 1.0-4.0 Blood monocytes automated count (number/volume) 0. 8 10*3 0.0-1.0 Automated eosinophil count 0.1 10*3/uL 0 .0-0.3 Automated blood basophil count (count/volume) 0.0 10*3/uL 0.0-0.1 Comprehensive metabolic panel - 01/13/19 05:42 Serum or plasma sodium measurement (moles/volume) 141 mmol/L 135-145 Serum or plasma potassium measurement (moles/volume) 3.5 mmol/L 3.6-5.0 Serum or plasma chloride measurement (moles/volume) 106 mmol/L 98-107 Carbon dioxide 25 mmol/L 21-32 Serum or plasma anion gap determination (moles/volume) 10 mmol/L 5-14 Serum or plasma urea nitrogen measurement (mass/volume ) 16 mg/dL 7-18 Serum or plasma creatinine measurement (mass/volume) 1.13 mg/dL 0.60-1.30 Serum or plasma urea nitrogen/creatinine mass ratio 14 NRG Serum or plasma creatinine measurement w ith calculation of estimated glomerular filtration rate > NRG Serum or plasma glucose measurement (mass/volume) 132 mg/dL 70-105 Serum or plasma calcium measurement (mass/volume) 8.9 mg/dL 8.5-10.1 Serum or plasma total bilirubin measurement (mass/volu me) 0.6 mg/dL 0.1-1.0 Serum or plasma alkaline phosphatase hang surement (enzymatic activity/volume) 66 U/L 40-136 Serum or plasma aspartate aminotransfera se measurement (enzymatic activity/volume) 15 U/L 5-34 Serum or plasma alanine aminotransferase measurement (enzymatic activity/volume) 23 U/L 0-55 Serum or plasma protein measurement (mass/volume) 6.2 g/dL 6.4-8.2 Serum or plasma albumin measurement (mass/volume) 3.7 g/dL 3.2-4.5 CALCIUM CORRECTED 9.1 mg/dL 8.5-10.1 Serum or plasma troponin i.cardiac measu rement (mass/volume) - 01/13/19 05:42 Serum or plasma troponin i.cardiac measurement (mass/v olume) < ng/mL <0.028 Capillary blood glucose measurement by g lucometer (mass/volume) - 01/13/19 11:26 Capillary blood glucose measurement by glucometer (mas s/volume) 147 mg/dL 70-110 PSA (FREE AND TOTAL) - 03/08/19 14:39 PSA, TOTAL 0.5 ng/mL < OR = 4.0 PSA, FREE 0.3 ng/mL NRG PSA, % FREE 60 % (calc) >25 Complete blood count (CBC) with automate d white blood cell (WBC) differential - 04/28/19 12:29 Blood leukocytes automated count (number/volume) 9.9 10*3/uL 4.3-11.0 Blood erythrocytes automated count (number/volume) 4.81 10*6/uL 4.35-5.85 Venous blood hemoglobin measurement (mass/volume) 14.3 g/dL 13.3-17.7 Blood hematocrit (volume fraction) 40 % 40-54 Automated erythrocyte mean corpuscular volume 84 [ foz_us] 80-99 Automated erythrocyte mean corpuscular h emoglobin (mass per erythrocyte) 30 pg 25-34 Automated erythrocyte mean corpuscular h emoglobin concentration measurement (mass/volume) 36 g/dL 32-36 Automated erythrocyte distribution width ratio 12. 8 % 10.0- 14.5 Automated blood platelet count (count/volume) 200 10*3/uL 130-400 Automated blood platelet mean volume measurement 10.6 [foz_us] 7.4-10.4 Automated blood neutrophils/100 leukocytes 58 % 42-75 Automated blood lymphocytes/100 leukocytes 27 % 12-44 Blood monocytes/100 leukocytes 11 % 0-12 Automated blood eosinophils/100 leukocytes 2 % 0-10 Automated blood basophils/100 leukocytes 1 % 0-10 Blood neutrophils automated count (number/volume) 5.8 10*3 1.8-7.8 Blood lymphocytes automated count (number/volume) 2.7 10*3 1.0-4.0 Blood monocytes automated count (number/volume) 1. 1 10*3 0.0-1.0 Automated eosinophil count 0.2 10*3/uL 0 .0-0.3 Automated blood basophil count (count/volume) 0.1 10*3/uL 0.0-0.1 PT panel in platelet poor plasma by coag ulation assay - 04/28/19 12:29 Prothrombin time (PT) in platelet poor plasma by coagu lation assay 13.2 s 12.2-14.7 INR in platelet poor plasma or blood by coagulation as say 1.0 0.8-1.4 Activated partial thromboplastin time (a PTT) in platelet poor plasma bycoagulation assay - 04/28/19 12:29 Activated partial thromboplastin time (a PTT) in platelet poor plasma bycoagulation assay 23 s 24-35 Comprehensive metabolic panel - 04/28/19 12:29 Serum or plasma sodium measurement (moles/volume) 141 mmol/L 135-145 Serum or plasma potassium measurement (moles/volume) 3.5 mmol/L 3.6-5.0 Serum or plasma chloride measurement (moles/volume) 99 mmol/L 98-107 Carbon dioxide 26 mmol/L 21-32 Serum or plasma anion gap determination (moles/volume) 16 mmol/L 5-14 Serum or plasma urea nitrogen measurement (mass/volume ) 17 mg/dL 7-18 Serum or plasma creatinine measurement (mass/volume) 1.11 mg/dL 0.60-1.30 Serum or plasma urea nitrogen/creatinine mass ratio 15 NRG Serum or plasma creatinine measurement w ith calculation of estimated glomerular filtration rate > NRG Serum or plasma glucose measurement (mass/volume) 218 mg/dL 70-105 Serum or plasma calcium measurement (mass/volume) 9.8 mg/dL 8.5-10.1 Serum or plasma total bilirubin measurement (mass/volu me) 0.3 mg/dL 0.1-1.0 Serum or plasma alkaline phosphatase hang surement (enzymatic activity/volume) 82 U/L 40-136 Serum or plasma aspartate aminotransfera se measurement (enzymatic activity/volume) 16 U/L 5-34 Serum or plasma alanine aminotransferase measurement (enzymatic activity/volume) 22 U/L 0-55 Serum or plasma protein measurement (mass/volume) 6.9 g/dL 6.4-8.2 Serum or plasma albumin measurement (mass/volume) 4.2 g/dL 3.2-4.5 CALCIUM CORRECTED 9.6 mg/dL 8.5-10.1 Magnesium - 04/28/19 12:29 Magnesium 2.2 mg/dL 1.6-2.4 TROPONIN I FS - 04/28/19 12:29 TROPONIN I FS < 0.30 <0.30 Blood lactic acid measurement (moles/vol ume) - 04/28/19 13:44 Blood lactic acid measurement (moles/volume) 2.35 mmol/L 0.50-2.00 Complete urinalysis with reflex to cultu re - 04/28/19 14:59 Urine color determination YELLOW NRG Urine clarity determination CLEAR NR G Urine pH measurement by test strip 6.5 5-9 Specific gravity of urine by test strip 1.015 1.016-1.022 Urine protein assay by test strip, semi-quantitative NEGATIVE NEGATIVE Urine glucose detection by automated test strip 3+ NEGATIVE Erythrocytes detection in urine sediment by light micr oscopy NEGATIVE NEGATIVE Urine ketones detection by automated test strip NE GATIVE NEGATIVE Urine nitrite detection by test strip NEGATIVE NEGATIVE Urine total bilirubin detection by test strip NEGA TIVE NEGATIVE Urine urobilinogen measurement by automated test strip (mass/volume) 0.2 mg/dL < = 1.0 Urine leukocyte esterase detection by dipstick NEG ATIVE NEGATIVE Automated urine sediment erythrocyte cou nt by microscopy (number/high power field) RARE NRG Automated urine sediment leukocyte count by microscopy (number/high power field) RARE NRG Bacteria detection in urine sediment by light microsco py NEGATIVE NRG Squamous epithelial cells detection in u rine sediment by light microscopy RARE NRG Crystals detection in urine sediment by light microsco py NONE NRG Casts detection in urine sediment by light microscopy NONE NRG Mucus detection in urine sediment by light microscopy NONE NRG Complete urinalysis with reflex to culture NO NRG Encounters ACCT No. Visit Date/Time Discharge Status Pt. Type Provider Facility Loc./Unit Complaint [id number] 11/29/2018 14:47:00 9 23:59:59 CLS Emergency SUNNY PEREZ [facility] ED ER VISIT [id number] 03/11/2019 08:20:00 03/11/2019 23:59: 59 CLS Outpatient JESSICA BLANCO [facility] IN [facility] [id number] 03/08/2019 14:20:00 Document Registration [id number] 12/21/2018 10:40:00 Document Registration [id number] 10/11/2018 09:10:00 Document Registration [id number] 07/31/2018 15:00:00 Document Registration [id number] 04/28/2019 12:21:00 15:25:00 DIS Emergency MELLY KAUFMAN MD [facility] ER FS VOMITING [id number] 03/02/2019 11:05:00 23:59:59 CLS Outpatient ZOILA THOMPSON APRN [facility] RAD FS [id number] 01/25/2019 13:06:00 23:59:59 CLS Outpatient PRIYANKA QUINTANILLA [facility] RAD FS [id number] 01/12/2019 20:35:00 12:45:00 DIS Inpatient JANIE STEWART DO, V [facility] 4TH ABD PAIN [id number] 09/16/2018 12:43:00 16:02:00 DIS Emergency ALMA SALMON DO [facility] ER FS CHEST PAIN [id number] 09/14/2018 13:56:00 23:59:59 CLS Outpatient WANDA LIN, NAZ Martines [facility] RAD FS M17.12 [id number] 08/09/2018 20:33:00 00:01:00 DIS Emergency ANTWAN LIN, XUAN Guidry [facility] ER FS LT SIDE HIP, LEG, BACK PAIN [id number] 07/20/2018 08:20:00 23:59:59 CLS Outpatient KRYSTAL REILLY DIRECTOR [employer] [facility] RAD FS ADB PAIN. [id number] 06/30/2018 09:17:00 23:59:59 CLS Outpatient KRYSTAL REILLY DIRECTOR [employer] [facility] CARD ABD PAIN [id number] 06/20/2018 15:25:00 23:59:59 CLS Preadmit KRYSTAL REILLY DIRECTOR [employer]NA[employer] [facility] RAD ABD PAIN [id number] 06/08/2018 13:09:00 23:59:59 CLS Outpatient FRANCIS LIN, JESSICA Heaton [facility] RAD FS UNSPECIFIED ABDOMINAL P AIN
[2019-08-08] MEDS ORDERED: NITROGLYCERIN 0.4 MG SL TABS BTL 25'S SL PRN (17:45)
[2019-08-08 17:53] LABS: HEMATOCRIT 41 % (40-54); HEMOGLOBIN 14.3 G/DL (13.3-17.7); MEAN CORPUSCULAR HEMOGLOBIN 30 PG (25-34); MEAN CORPUSCULAR VOLUME 85 FL (80-99); WHITE BLOOD COUNT 8.9 10^3/uL (4.3-11.0)
--- NOTE | 2019-08-08 17:53 | ED Cardiac General ---
History of Present Illness General Chief Complaint: Chest Pain Stated Complaint: CHEST PAIN Nursing Triage Note: Patient presents to the ED via EMS with c/o of chest pain. Patient states his chest pain started approximately 30 minutes ago and it radiates down his left arm. He describes the pain as a squeezing pain. He was given 4 baby asprin prior to arrival. Source: patient Exam Limitations: no limitations History of Present Illness Date Seen by Provider: Aug 08, 2019 Time Seen by Provider: 17:30 Initial Comments 58-year-old male presents with chest pain rating from his epigastric area to his left chest for the past 35 minutes. Patient has a long-standing history of pepti c ulcer disease with gastroesophageal reflux disorder but he denies any prior history of cardiac abnormalities. In light of this new onset cardiac assessment is being done. Patient has given informed consent for diagnostic and therapeutic services. EKG shows no significant abnormality. Troponin and laboratory tests have been ordered IV access has been given nitroglycerin 0.4 mg sublingual: The patient has taken 325 mg of aspirin prior to coming to the emergency room. Patient is on nasal cannula oxygen. Prior evaluations for this patient have been positive for GERD and he has had multiple ER visits secondary to epigastric discomfort. Timing/Duration: 1/2 hour (45 minutes prior to coming to the emergency room) Severity: moderate Location: substernal, central, epigastric (with a long-standing history of gastroesophageal reflux disorder) Activities at Onset: activity Prior CP/Workup: no prior chest pain, no prior cardiac workup, non-cardiac (patient has had GI GERD-type complaints in the past) Modifying Factors: improves with antacids, improves with morphine NTG SL DRYWALL MECHANIC: Yes (0.4 mg by mouth sublingual) ASA po DRYWALL MECHANIC: Yes (324mg) Associated Systoms: Chest Pain, Nausea/Vomiting Allergies and Home Medications Allergies Coded Allergies: tramadol (Unverified Allergy, Unknown, 09/16/18) Home Medications Metformin HCl 500 Mg Tablet, 500 MG PO BID, (Reported) Pantoprazole Sodium 40 Mg Tablet., 40 MG PO DAILY Prescribed by: MELLY KAUFMAN on 04/28/19 1438 Pregabalin 150 Mg Capsule, 150 MG PO BID, (Reported) Patient Home Medication List Home Medication List Reviewed: Yes Review of Systems Review of Systems Constitutional: see HPI, weakness, other (chest pain nausea vomiting history of GERD) EENTM: No Symptoms Reported Respiratory: No Symptoms Reported, SOA With Exertion Cardiovascular: See HPI, Chest Pain, Other (history of epigastric pain previously diagnosis GERD also has hypertension and low back pain. EKG is normal) Gastrointestinal: See HPI, Abdomen Distended, Abdominal Pain, Nausea, Other (history of gastroesophageal reflux disorder) Genitourinary: No Symptoms Reported Musculoskeletal: back pain (and has been treated in the past for lumbago), muscle pain, muscle stiffness, muscle weakness Skin: no symptoms reported Psychiatric/Neurological: Anxiety Endocrine: No Symptoms Reported Hematologic/Lymphatic: No Symptoms Reported Past Fgyivxt-Rhhorr-Mamnfi Hx Past Med/Social Hx: Reviewed Nursing Past Med/Soc Hx Patient Social History Alcohol Use: Denies Use Recreational Drug Use: No Drug of Choice: MJ Type Used: Cigarettes 2nd Hand Smoke Exposure: Yes Recent Foreign Travel: No Contact w/Someone Who Travel: No Recent Infectious Disease Expo: No Recent Hopitalizations: No Physical Abuse: No Sexual Abuse: No Mistreated: No Fear: No Seasonal Allergies Seasonal Allergies: No Past Medical History Surgeries: Yes (sigmoid colon resection, carpal tunnel) Respiratory: No Cardiac: Yes Hypertension Neurological: No Genitourinary: No Gastrointestinal: No Musculoskeletal: Yes Back Injury, Chronic Back Pain Endocrine: Yes Diabetes, Insulin dep HEENT: No Cancer: No Psychosocial: No Integumentary: No Physical Exam Vital Signs Vital Signs - First Documented Capillary Refill : Less Than 3 Seconds Height, Weight, BMI Height: 5'5.00" Weight: 195lbs. oz. 88.218356zz; 35.00 BMI Method:Stated General Appearance: WD/WN, Moderate Distress (M chest discomfort and nausea and emesis), Obese HEENT: PERRL/EOMI (with bilateral pterygia), TMs Normal (cerumen), Normal ENT Inspection, Pharynx Normal (dry mucous membranes) Neck: Normal Inspection, Non Tender, Supple Respiratory: Chest Non Tender, Lungs Clear (with inspiratory rales posterior bases secondary to tobacco use improves with deep breathing), Normal Breath Sounds, No Accessory Muscle Use, No Respiratory Distress, Rales (posterior bases improved with deep breathing) Cardiovascular: Regular Rate, Rhythm, No Edema, No Gallop, No JVD, No Murmur, Normal Peripheral Pulses Gastrointestinal: Normal Bowel Sounds, No Organomegaly, No Pulsatile Mass, Soft, Tenderness (suprapubic area) Extremity: Normal Capillary Refill, Normal Inspection, Normal Range of Motion, Non Tender, No Calf Tenderness Neurologic/Psychiatric: Alert, Oriented x3, No Motor/Sensory Deficits, Normal Mood/Affect, time cycle operator II-XII Norm as Tested Skin: Normal Color, Warm/Dry Lymphatic: No Adenopathy Progress/Results/Core Measures Results/Orders Lab Results Laboratory Tests Test 08/08/19 17:32 Range/Units White Blood Count 8.9 4.3-11.0 10^3/uL Red Blood Count 4.81 4.35-5.85 10^6/uL Hemoglobin 14.3 13.3-17.7 G/DL Hematocrit 41 40-54 % Mean Corpuscular Volume 85 80-99 FL Mean Corpuscular Hemoglobin 30 25-34 PG Mean Corpuscular Hemoglobin Concent 35 32-36 G/DL Red Cell Distribution Width 13.0 10.0-14.5 % Platelet Count 198 130-400 10^3/uL Mean Platelet Volume 10.1 7.4-10.4 FL Neutrophils (%) (Auto) 71 42-75 % Lymphocytes (%) (Auto) 19 12-44 % Monocytes (%) (Auto) 9 0-12 % Eosinophils (%) (Auto) 1 0-10 % Basophils (%) (Auto) 0 0-10 % Neutrophils # (Auto) 6.3 1.8-7.8 X 10^3 Lymphocytes # (Auto) 1.7 1.0-4.0 X 10^3 Monocytes # (Auto) 0.8 0.0-1.0 X 10^3 Eosinophils # (Auto) 0.1 0.0-0.3 10^3/uL Basophils # (Auto) 0.0 0.0-0.1 10^3/uL Prothrombin Time 13.6 12.2-14.7 SEC INR Comment 1.0 0.8-1.4 Activated Partial Thromboplast Time 24 24-35 SEC Sodium Level 140 135-145 MMOL/L Potassium Level 3.9 3.6-5.0 MMOL/L Chloride Level 105 98-107 MMOL/L Carbon Dioxide Level 22 21-32 MMOL/L Anion Gap 13 5-14 MMOL/L Blood Urea Nitrogen 28 H 7-18 MG/DL Creatinine 1.60 H 0.60-1.30 MG/DL Estimat Glomerular Filtration Rate 44 BUN/Creatinine Ratio 18 Glucose Level 181 H 70-105 MG/DL Calcium Level 9.7 8.5-10.1 MG/DL Corrected Calcium 9.5 8.5-10.1 MG/DL Magnesium Level 1.8 1.6-2.4 MG/DL Total Bilirubin 0.3 0.1-1.0 MG/DL Aspartate Amino Transf (AST/SGOT) 16 5-34 U/L Alanine Aminotransferase (ALT/SGPT) 25 0-55 U/L Alkaline Phosphatase 90 40-136 U/L Myoglobin 119.9 H 10.0-92.0 NG/ML Troponin I < 0.30 <0.30 NG/ML Total Protein 7.1 6.4-8.2 GM/DL Albumin 4.3 3.2-4.5 GM/DL My Orders Orders - MAE CARRIZALES DO Cbc With Automated Diff (08/08/19 17:42) Magnesium (08/08/19 17:42) Ekg Tracing (08/08/19 17:42) Partial Thromboplastin Time (08/08/19 17:42) O2 (08/08/19 17:42) Monitor-Rhythm Ecg Trace Only (08/08/19 17:42) Lipid Panel (08/09/19 06:00) Ed Iv/Invasive Line Start (08/08/19 17:42) Nitroglycerin 0.4 Mg Btl 25's (Nitrostat (08/08/19 17:45) Comprehensive Metabolic Panel (08/08/19 17:42) Myoglobin Serum (08/08/19 17:42) Protime With Inr (08/08/19 17:42) Chest 1 View Ap/Pa Only (08/08/19 17:54) Troponin I Fs (08/08/19 17:58) Drug Screen Stat (Urine) (08/08/19 18:11) Pantoprazole Injection (Protonix Injecti (08/08/19 18:30) Ondansetron Injection (Zofran Injectio (08/08/19 18:30) Antacid Suspension (Mylanta Suspension (08/08/19 18:30) Lidocaine 2% Viscous 15 Ml (Xylocaine Vi (08/08/19 18:30) Medications Given in ED Current Medications Medications Dose Ordered Sig/Frank Route Start Time Stop Time Status Last Admin Dose Admin Al Hydrox/Mg Hydrox/Simethicone 30 ml ONCE ONCE PO 08/08/19 18:30 08/08/19 18:31 DC 08/08/19 18:26 30 ML Lidocaine HCl 15 ml ONCE ONCE PO 08/08/19 18:30 08/08/19 18:31 DC 08/08/19 18:26 15 ML Nitroglycerin 0.4 mg UD PRN SL 08/08/19 17:45 08/08/19 17:59 0.4 MG Ondansetron HCl 4 mg ONCE ONCE IVP 08/08/19 18:30 08/08/19 18:31 DC 08/08/19 18:26 4 MG Pantoprazole 40 mg ONCE ONCE IV 08/08/19 18:30 08/08/19 18:31 DC 08/08/19 18:31 40 MG Vital Signs/I&O 08/08/19 08/08/19 17:25 17:25 Temp 36.4 Pulse 94 Resp 18 B/P (MAP) 127/71 (89) Pulse Ox 94 O2 Delivery Room Air Room Air Blood Pressure Mean: 89 Progress Progress Note : Time: 18:22 Progress Note EKG was normal with a heart rate of 92 at 1727. Troponin is less than 0.3 the patient is given Zofran 4 mg IV 30 cc of Mylanta 15 cc of viscous Xylocaine and 40 mg of pantoprazole IV. This appears to be gastro-esophageal reflux symptoms more than cardiac but cardiac eval someone process. Initial ECG Impression Date: Aug 08, 2019 Initial ECG Impression Time: 17:27 Initial ECG Rate: 92 Initial ECG Rhythm: Normal Sinus Initial ECG Intervals: Normal Initial ECG Impression: Normal Departure Impression Primary Impression: Chest wall pain Additional Impressions: Indigestion Gastroesophageal reflux disease Disposition: 01 HOME, SELF-CARE Condition: Improved (she reports she feels much better after the pantoprazole and they GI cocktail. He has no ischemic heart disease symptoms and this appears to be mostly a gastroesophageal reflux issue.) Departure-Patient Inst. Decision time for Depature: 18:48 Referrals: JESSICA BLANCO MD (PCP/Family) Primary Care Physician Patient Instructions: Chest Pain That Is Not Caused by the Heart (DC), Dyspepsia (DC), Acid Reflux (Gastroesophageal Reflux Disease) in Adults Add. Discharge Instructions: Patient is discharged in satisfactory condition. Appears the chest discomfort is anterior chest wall and gastroesophageal reflux disorder. He needs to restart ta jayjay his pantoprazole 40 mg daily. He needs to avoid carbonated beverages he should avoid all alcohol beverages he should stop any tobacco use. Patient should avoid frozen stomach upset and use the pantoprazole and may also take [id number] Mylanta as needed for the GI upset. 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 He will follow up with Dr. Blanco regarding this. Julian harris was dehydrated when he arrived he needs to push water to maintain good hydration. He has chronic kidney disease and his glucose is 181 so evaluation and treatment for diabetes and follow-up for chronic kidney disease with a creatinine of 1.6 BUN of 28 is occur. The patient's dehydration has complicated his muscle pain with myoglobin of 119.9. Normals up to 92 he does need to push clear fluids and needs to be followed up again in the very near future with Dr. Blanco All discharge instructions reviewed with patient and/or family. Voiced understanding. Scripts Pantoprazole Sodium (Pantoprazole Sodium) 40 Mg Tablet. 40 MG PO DAILY for 30 Days, TAB Prov: MAE CARRIZALES DO 08/08/19 MAE CARRIZALES DO Aug 08, 2019 17:53
[2019-08-08 17:54] LABS: BASOPHILS % (AUTO) 0 % (0-10); EOSINOPHILS # (AUTO) 0.1 10^3/uL (0.0-0.3); EOSINOPHILS % (AUTO) 1 % (0-10); LYMPHOCYTES # (AUTO) 1.7 X 10^3 (1.0-4.0); LYMPHOCYTES % (AUTO) 19 % (12-44); MEAN CORPUSCULAR HGB CONC 35 G/DL (32-36); MEAN PLATELET VOLUME 10.1 FL (7.4-10.4); MONOCYTES # (AUTO) 0.8 X 10^3 (0.0-1.0); MONOCYTES % (AUTO) 9 % (0-12); NEUTROPHILS # (AUTO) 6.3 X 10^3 (1.8-7.8); NEUTROPHILS % (AUTO) 71 % (42-75); PLATELET COUNT 198 10^3/uL (130-400)
[2019-08-08 18:04] LABS: PROTHROMBIN TIME PATIENT 13.6 SEC (12.2-14.7)
--- NOTE | 2019-08-08 18:08 | Diagnostic Imaging Report ---
Clinical indications\: Patient with chest pain. Exam: Portable chest x-ray upright view. Comparisons: Chest x-ray dated 01/13/2019. Findings: Lungs/pleura: Again noted minimal discoid atelectasis or scarring in the left lung base. Otherwise there is no lung infiltrate. There is no pneumothorax. There is no pleural effusion. Mediastinum: Unremarkable. Pulmonary vasculature: Unremarkable. Heart: Unremarkable. Bones/extrathoracic soft tissue: There are degenerative spurs involving the thoracic spine.. Impression: Stable minimal atelectasis or scarring in the left lung base. There is no radiographic evidence of acute cardiopulmonary process. Dictated by: Dictated on workstation # [id number]
[2019-08-08 18:16] LABS: BILIRUBIN,TOTAL 0.3 MG/DL (0.1-1.0); CALCIUM 9.7 MG/DL (8.5-10.1); CREATININE SERUM 1.6 MG/DL (0.60-1.30); MAGNESIUM 1.8 MG/DL (1.6-2.4); POTASSIUM 3.9 MMOL/L (3.6-5.0)
[2019-08-08 18:17] LABS: ALBUMIN 4.3 GM/DL (3.2-4.5); TOTAL PROTEIN 7.1 GM/DL (6.4-8.2)
[2019-08-08] MEDS ORDERED: ANTACID SUSP 30 ML UDC (MYLANTA) PO ONE (18:30)
[2019-08-08] MEDS ORDERED: ONDANSETRON 4 MG/2 ML (SDV) Z0FRAN IVP ONE (18:30)
[2019-08-08] MEDS ORDERED: LIDOCAINE 2% VISCOUS 15 ML UDC PO ONE (18:30)
[2019-08-08] MEDS ORDERED: PANTOPRAZOLE 40 MG (PROTONIX) VIAL IV ONE (18:30)
[2019-08-08] MEDS ORDERED: PANT40TA3 PO (18:50)
[2019-08-08 18:55] VITALS: BP 131/77
== END 2019-08-08 18:55 | disposition home or self-care (01) ==
LOC: EDUNIT# 17:23 → ER FS 17:24
DX: K21.9 Gastro-esophageal reflux disease without esophagitis (principal); R07.89 Other chest pain; M19.042 Primary osteoarthritis, left hand; N18.9 Chronic kidney disease, unspecified; E86.0 Dehydration; E11.9 Type 2 diabetes mellitus without complications; I12.9 Hypertensive chronic kidney disease with stage 1 through stage 4 chronic kidney disease, or unspecified chronic kidney disease; M54.9 Dorsalgia, unspecified; G89.29 Other chronic pain; Z79.84 Long term (current) use of oral hypoglycemic drugs; Z79.899 Other long term (current) drug therapy
CPT/HCPCS: 36415; 71045; 80053; 83735; 83874; 84484; 85025; 85610; 85730; 93005; 93041

== ENCOUNTER 2019-08-14 16:42 | Emergency (ER) | payer MEDICAID ==
[~2019-08-14] VITALS: Ht 157 cm; Wt 65.0 kg
[~2019-08-14 16:42] MED LIST changes: +PANT40TA3 PO
--- OUTSIDE RECORDS SUMMARY | 2019-08-14 16:54 | XMS REPORT | Continuity of Care Document ---
Author Organization Unknown Address Unknown Phone Unavailable Allergies Active Description Code Type Severity Reaction Onset Reported/Identified Relationship to Patient Clinical Status Yes traMADol Drug N/A N/A Yes tramadol [id number] Drug Allergy Unknown N/A 09/16/2018 Medications There is no data. Problems Date Dx Coded Attending Type Code Diagnosis Diagnosed By 06/14/2018 JESSICA BLANCO MD Ot R10 .9 UNSPECIFIED ABDOMINAL PAIN 06/14/2018 JESSICA BLANCO MD Ot Z98.890 OTHER SPECIFIED POSTPROCEDURAL STATES 07/05/2018 MELBA, KRYSTAL L VENEER SHEET REPAIRER Ot R10.11 RIGHT UPPER QUADRANT PAIN 07/05/2018 MELBA, KRYSTAL L VENEER SHEET REPAIRER Ot R11.2 NAUSEA WITH VOMITING, UNSPECIFIED 07/20/2018 MELBA, KRYSTAL L VENEER SHEET REPAIRER Ot K76.0 FATTY (CHANGE OF) LIVER, NOT ELSEWHERE C 07/20/2018 MELBA, KRYSTAL L VENEER SHEET REPAIRER Ot R19.7 DIARRHEA, UNSPECIFIED 07/20/2018 MELBA, KRYSTAL L VENEER SHEET REPAIRER Ot Z98.890 OTHER SPECIFIED POSTPROCEDURAL STATES 07/24/2018 MELBA, KRYSTAL L VENEER SHEET REPAIRER Ot K76.0 FATTY (CHANGE OF) LIVER, NOT ELSEWHERE C 07/24/2018 MELBA, KRYSTAL L VENEER SHEET REPAIRER Ot R19.7 DIARRHEA, UNSPECIFIED 07/24/2018 MELBA, KRYSTAL L VENEER SHEET REPAIRER Ot Z98.890 OTHER SPECIFIED POSTPROCEDURAL STATES 07/25/2018 MELBA, KRYSTAL L VENEER SHEET REPAIRER Ot K76.0 FATTY (CHANGE OF) LIVER, NOT ELSEWHERE C 07/25/2018 MELBA, KRYSTAL L VENEER SHEET REPAIRER Ot R19.7 DIARRHEA, UNSPECIFIED 07/25/2018 MELBA, KRYSTAL L VENEER SHEET REPAIRER Ot Z98.890 OTHER SPECIFIED POSTPROCEDURAL STATES 08/03/2018 [...] SPECIFIED POSTPROCEDURAL STATES 08/11/2018 MELBA, KRYSTAL L VENEER SHEET REPAIRER Ot R10.11 RIGHT UPPER QUADRANT PAIN 08/11/2018 MELBA, KRYSTAL L VENEER SHEET REPAIRER Ot R11.2 NAUSEA WITH VOMITING, UNSPECIFIED 08/11/2018 MELBA, KRYSTAL L VENEER SHEET REPAIRER Ot K76.0 FATTY (CHANGE OF) LIVER, NOT ELSEWHERE C 08/11/2018 MELBA, KRYSTAL L VENEER SHEET REPAIRER Ot R19.7 DIARRHEA, UNSPECIFIED 08/11/2018 MELBA, KRYSTAL L VENEER SHEET REPAIRER Ot Z98.890 OTHER SPECIFIED POSTPROCEDURAL STATES 09/14/2018 JESSICA BLANCO MD Ot R10 .9 UNSPECIFIED ABDOMINAL PAIN 09/14/2018 JESSICA BLANCO MD Ot Z98.890 OTHER SPECIFIED POSTPROCEDURAL STATES 09/14/2018 MELBA, KRYSTAL L VENEER SHEET REPAIRER Ot R10.11 RIGHT UPPER QUADRANT PAIN 09/14/2018 MELBA, KRYSTAL L VENEER SHEET REPAIRER Ot R11.2 NAUSEA WITH VOMITING, UNSPECIFIED 09/14/2018 MELBA, KRYSTAL L VENEER SHEET REPAIRER Ot K76.0 FATTY (CHANGE OF) LIVER, NOT ELSEWHERE C 09/14/2018 MELBA, KRYSTAL L VENEER SHEET REPAIRER Ot R19.7 DIARRHEA, UNSPECIFIED 09/14/2018 MELBA, KRYSTAL L VENEER SHEET REPAIRER Ot Z98.890 OTHER SPECIFIED POSTPROCEDURAL STATES 09/14/2018 WANDA LIN, NAZ Martines Ot M17.12 UNILATERAL PRIMARY OSTEOARTHRITIS, LEFT 09/16/2018 SALMON DO, ALMA L Ot K21.9 GASTRO-ESOPHAGEAL REFLUX DISEASE WITHOUT 09/16/2018 SALMON DO, AMLA L Ot N28.9 DISORDER OF KIDNEY AND [...] I10 ESSENTIAL (PRIMARY) HYPERTENSION 01/13/2019 TERRY SCOTT JANIE Ot K21.9 GASTRO-ESOPHAGEAL REFLUX DISEASE WITHOUT 01/13/2019 [...] Ot M54.9 DORSALGIA, UNSPECIFIED 01/13/2019 TERRY SCOTT JANIE Ot 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 01/13/2019 TERRY SCOTT JANIE Ot Z87.19 PERSONAL HISTORY OF OTHER DISEASES OF TH 01/13/2019 JANIE STEWART DO Ot Z87.89 1 PERSONAL HISTORY OF NICOTINE DEPENDENCE 01/15/2019 JESSICA BLANCO MD Ot R10 .9 UNSPECIFIED ABDOMINAL PAIN 01/15/2019 FRANCIS LIN, JESSICA Heaton Ot Z98.890 OTHER SPECIFIED POSTPROCEDURAL STATES 01/15/2019 MELBA, KRYSTAL L VENEER SHEET REPAIRER Ot R10.11 RIGHT UPPER QUADRANT PAIN 01/15/2019 MELBA, KRYSTAL L VENEER SHEET REPAIRER Ot R11.2 NAUSEA WITH VOMITING, UNSPECIFIED 01/15/2019 MELBA, KRYSTAL L VENEER SHEET REPAIRER Ot K76.0 FATTY (CHANGE OF) LIVER, NOT ELSEWHERE C 01/15/2019 MELBA, KRYSTAL L VENEER SHEET REPAIRER Ot R19.7 DIARRHEA, UNSPECIFIED 01/15/2019 MELBA, KRYSTAL L VENEER SHEET REPAIRER Ot Z98.890 OTHER SPECIFIED POSTPROCEDURAL STATES 01/15/2019 WANDA LIN, NAZ Martines Ot M17.12 UNILATERAL PRIMARY OSTEOARTHRITIS, LEFT 01/25/2019 MELBA, KRYSTAL L VENEER SHEET REPAIRER Ot K76.0 FATTY (CHANGE OF) LIVER, NOT ELSEWHERE C 01/25/2019 MELBA, KRYSTAL L VENEER SHEET REPAIRER Ot R19.7 DIARRHEA, UNSPECIFIED 01/25/2019 MELBA, KRYSTAL L VENEER SHEET REPAIRER Ot Z98.890 OTHER SPECIFIED POSTPROCEDURAL STATES 01/25/2019 JESSICA BLANCO MD Ot R10 .9 UNSPECIFIED ABDOMINAL PAIN 01/25/2019 JESSICA BLANCO MD Ot Z98.890 OTHER SPECIFIED POSTPROCEDURAL STATES 01/25/2019 MELBA, KRYSTAL L VENEER SHEET REPAIRER Ot R10.11 RIGHT UPPER QUADRANT PAIN 01/25/2019 MELBA, KRYSTAL L VENEER SHEET REPAIRER Ot R11.2 NAUSEA WITH VOMITING, UNSPECIFIED 01/25/2019 MELBA, KRYSTAL L VENEER SHEET REPAIRER Ot K76.0 FATTY (CHANGE OF) LIVER, NOT ELSEWHERE C 01/25/2019 MELBA, KRYSTAL L VENEER SHEET REPAIRER Ot R19.7 DIARRHEA, UNSPECIFIED 01/25/2019 MELBA, KRYSTAL L VENEER SHEET REPAIRER Ot Z98.890 OTHER SPECIFIED POSTPROCEDURAL STATES 01/25/2019 WANDA LIN, NAZ Martines Ot M17.12 UNILATERAL PRIMARY OSTEOARTHRITIS, LEFT 01/26/2019 JESSICA BLANCO MD Ot R10 .9 UNSPECIFIED ABDOMINAL PAIN 01/26/2019 JESSICA BLANCO MD Ot Z98.890 OTHER SPECIFIED POSTPROCEDURAL STATES 01/26/2019 KRYSTAL REILLY VENEER SHEET REPAIRER Ot R10.11 RIGHT UPPER QUADRANT PAIN 01/26/2019 YADIRA REILLYIN Lester VENEER SHEET REPAIRER Ot R11.2 NAUSEA WITH VOMITING, UNSPECIFIED 01/26/2019 YADIRA REILLYIN Lester VENEER SHEET REPAIRER Ot K76.0 FATTY (CHANGE OF) LIVER, NOT ELSEWHERE C 01/26/2019 MELBAYADIRA MOISEIN L VENEER SHEET REPAIRER Ot R19.7 DIARRHEA, UNSPECIFIED 01/26/2019 YADIRA REILLYIN Lester VENEER SHEET REPAIRER Ot Z98.890 OTHER SPECIFIED POSTPROCEDURAL STATES 01/26/2019 WANDA LIN, NAZ Martines Ot M17.12 UNILATERAL PRIMARY OSTEOARTHRITIS, LEFT 01/29/2019 PRIYANKA QUINTANILLA COMMUNICATIONS BILLING ANALYST Ot M79.605 PAIN IN LEFT LEG 02/13/2019 PRIYANKA QUINTANILLA COMMUNICATIONS BILLING ANALYST Ot M79.605 PAIN IN LEFT LEG 03/06/2019 O'DELLester ZOILA K VENEER SHEET REPAIRER Ot M19.012 PRIMARY OSTEOARTHRITIS, LEFT SHOULDER 03/06/2019 O'VANESSA ZOILA K VENEER SHEET REPAIRER Ot M62.838 OTHER MUSCLE SPASM 04/28/2019 MELLY [...] MELLY KAUFMAN MD A Ot 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 5 ALLERGY STATUS TO NARCOTIC AGENT STATUS 08/09/2019 ALL DO, MAE H Ot E11.9 TYPE 2 DIABETES MELLITUS WITHOUT COMPLIC 08/09/2019 ALL DO, MAE H Ot E86.0 DEHYDRATION 08/09/2019 ALL DO, MAE H Ot G89.29 OTHER CHRONIC PAIN 08/09/2019 ALL DO, MAE H Ot I12.9 HYPERTENSIVE CHRONIC KIDNEY DISEASE W ST 08/09/2019ALL DO, MAE H Ot K21.9 GASTRO-ESOPHAGEAL REFLUX DISEASE WITHOUT 08/09/2019 ALL DO, MAE H Ot M19.042 PRIMARY OSTEOARTHRITIS, LEFT HAND 08/09/2019 ALL , MAE H Ot M54.9 DORSALGIA, UNSPECIFIED 08/09/2019 ALL DO, MAE H Ot N18.9 CHRONIC KIDNEY DISEASE, UNSPECIFIED 08/09/2019 ALL DO, MAE H Ot R07.89 OTHER CHEST PAIN 08/09/2019 ALL DO, MAE H Ot R07.9 CHEST PAIN, UNSPECIFIED 08/09/2019ALL DO, MAE H Ot Z79.84 NURSING HOME (CURRENT) USE OF ORAL HYPOGLYC 08/09/2019 ALL , MAE H Ot Z79.899 OTHER SUPERVISOR [employer] (CURRENT) DRUG THERAPY Procedures There is no data. Results Test [...] 7-25 CREATININE 1.46 mg/dL 0.70-1.33 eGFR NON-AFR. MACANESE 52 mL/min/1.73m2 > OR = 60 eGFR [...] 7-25 CREATININE 1.01 mg/dL 0.70-1.25 eGFR NON-AFR. MACANESE 80 mL/min/1.73m2 > OR = 60 eGFR [...] - 01/12/19 18:35 QUANTITY OF GROWTH . [facility] Bacterial blood culture SEE COMMEN [facility] Bacterial blood culture - 01/12/19 18:45 Bacterial blood culture NG [facility] Influenza virus A and B antigen detectio n - 01/12/19 18:55 FLU RESULT NEGATIVE FOR INFLUENZA A AND B ANTIGENS BY IA NR Complete urinalysis with reflex to cultu re [...] urinalysis with reflex to culture NO NRG Complete blood count (CBC) with automate d white blood cell (WBC) differential - 08/08/19 17:32 Blood leukocytes automated count (number/volume) 8.9 10*3/uL 4.3-11.0 Blood erythrocytes automated count (number/volume) 4.81 10*6/uL 4.35-5.85 Venous blood hemoglobin measurement (mass/volume) 14.3 g/dL 13.3-17.7 Blood hematocrit (volume fraction) 41 % 40-54 Automated erythrocyte mean corpuscular volume 85 [ foz_us] 80-99 Automated erythrocyte mean corpuscular h emoglobin (mass per erythrocyte) 30 pg 25-34 Automated erythrocyte mean corpuscular h emoglobin concentration measurement (mass/volume) 35 g/dL 32-36 Automated erythrocyte distribution width ratio 13. 0 % 10.0- 14.5 Automated blood platelet count (count/volume) 198 10*3/uL 130-400 Automated blood platelet mean volume measurement 10.1 [foz_us] 7.4-10.4 Automated blood neutrophils/100 leukocytes 71 % 42-75 Automated blood lymphocytes/100 leukocytes 19 % 12-44 Blood monocytes/100 leukocytes 9 % 0-12 Automated blood eosinophils/100 leukocytes 1 % 0-10 Automated blood basophils/100 leukocytes 0 % 0-10 Blood neutrophils automated count (number/volume) 6.3 10*3 1.8-7.8 Blood lymphocytes automated count (number/volume) 1.7 10*3 1.0-4.0 Blood monocytes automated count (number/volume) 0. 8 10*3 0.0-1.0 Automated eosinophil count 0.1 10*3/uL 0 .0-0.3 Automated blood basophil count (count/volume) 0.0 10*3/uL 0.0-0.1 PT panel in platelet poor plasma by coag ulation assay - 08/08/19 17:32 Prothrombin time (PT) in platelet poor plasma by coagu lation assay 13.6 s 12.2-14.7 INR in platelet poor plasma or blood by coagulation as say 1.0 0.8-1.4 Activated partial thromboplastin time (a PTT) in platelet poor plasma bycoagulation assay - 08/08/19 17:32 Activated partial thromboplastin time (a PTT) in platelet poor plasma bycoagulation assay 24 s 24-35 TROPONIN I FS - 08/08/19 17:32 TROPONIN I FS < 0.30 <0.30 Comprehensive metabolic panel - 08/08/19 17:32 Serum or plasma sodium measurement (moles/volume) 140 mmol/L 135-145 Serum or plasma potassium measurement (moles/volume) 3.9 mmol/L 3.6-5.0 Serum or plasma chloride measurement (moles/volume) 105 mmol/L 98-107 Carbon dioxide 22 mmol/L 21-32 Serum or plasma anion gap determination (moles/volume) 13 mmol/L 5-14 Serum or plasma urea nitrogen measurement (mass/volume ) 28 mg/dL 7-18 Serum or plasma creatinine measurement (mass/volume) 1.60 mg/dL 0.60-1.30 Serum or plasma urea nitrogen/creatinine mass ratio 18 NRG Serum or plasma creatinine measurement w ith calculation of estimated glomerular filtration rate 44 NRG Serum or plasma glucose measurement (mass/volume) 181 mg/dL 70-105 Serum or plasma calcium measurement (mass/volume) 9.7 mg/dL 8.5-10.1 Serum or plasma total bilirubin measurement (mass/volu me) 0.3 mg/dL 0.1-1.0 Serum or plasma alkaline phosphatase hang surement (enzymatic activity/volume) 90 U/L 40-136 Serum or plasma aspartate aminotransfera se measurement (enzymatic activity/volume) 16 U/L 5-34 Serum or plasma alanine aminotransferase measurement (enzymatic activity/volume) 25 U/L 0-55 Serum or plasma protein measurement (mass/volume) 7.1 g/dL 6.4-8.2 Serum or plasma albumin measurement (mass/volume) 4.3 g/dL 3.2-4.5 CALCIUM CORRECTED 9.5 mg/dL 8.5-10.1 Magnesium - 08/08/19 17:32 Magnesium 1.8 mg/dL 1.6-2.4 Myoglobin, serum - 08/08/19 17:32 Myoglobin, serum 119.9 ng/mL 10.0-92.0 Encounters ACCT No. Visit Date/Time Discharge Status Pt. Type Provider Facility Loc./Unit Complaint [id number] 11/29/2018 14:47:00 9 23:59:59 CLS Emergency SUNNY PEREZ [facility] ER VISIT [id number] 03/11/2019 08:20:00 03/11/2019 23:59: 59 CLS Outpatient JESSICA BLANCO [facility] [id number] 03/08/2019 14:20:00 Document Registration [id number] 12/21/2018 10:40:00 Document Registration [id number] 10/11/2018 09:10:00 Document Registration [id number] 07/31/2018 15:00:00 Document Registration [id number] 08/08/2019 17:24:00 020 18:55:00 DIS Outpatient MAE CARRIZALES DO [facility] ER FS CHEST PAIN [id number] 04/28/2019 12:21:00 15:25:00 DIS Emergency MELLY KAUFMAN MD [facility] ER FS VOMITING [id number] 03/02/2019 11:05:00 23:59:59 CLS Outpatient ZOILA THOMPSON VENEER SHEET REPAIRER [facility] RAD FS M25.512 M62.838 [id number] 01/25/2019 13:06:00 23:59:59 CLS Outpatient PRIYANKA QUINTANILLA [facility] RAD FS M79.605 [id number] 01/12/2019 20:35:00 12:45:00 DIS Inpatient TERRY SCOTTJANIE V [facility] 4TH ABD PAIN [id number] 09/16/2018 12:43:00 16:02:00 DIS Emergency ALMA SALMON DO [facility] ER FS CHEST PAIN [id number] 09/14/2018 13:56:00 23:59:59 CLS Outpatient WANDA LIN, NAZ Martines [facility] RAD FS M17.12 [id number] 08/09/2018 20:33:00 00:01:00 DIS Emergency XUAN MONCADA MD [facility] ER FS LT SIDE HIP, LEG, BACK PAIN [id number] 07/20/2018 08:20:00 23:59:59 CLS Outpatient KRYSTAL REILLY VENEER SHEET REPAIRER [facility] RAD FS ADB PAIN. [id number] 06/30/2018 09:17:00 23:59:59 CLS Outpatient KRYSTAL REILLY VENEER SHEET REPAIRER [facility] CARD ABD PAIN [id number] 06/20/2018 15:25:00 23:59:59 CLS Preadmit KRYSTAL REILLY VENEER SHEET REPAIRER [facility] RAD ABD PAIN [id number] 06/08/2018 13:09:00 019 23:59:59 CLS Outpatient FRANCIS LIN, JESSICA Heaton [facility] RAD FS UNSPECIFIED ABDOMINAL P AIN [id number] 08/14/2019 16:44:[address] Emergency YAS PIZARRO DO [facility] ER FS THUMB LACERATION
--- NOTE | 2019-08-14 17:04 | ED Upper Extremity ---
General Chief Complaint: Laceration Stated Complaint: THUMB LACERATION Nursing Triage Note: PT WAS CLEANING FISH AND SLICED THE TIP OF HIS LEFT THUMB. BLEEDING CONTROLLED WITH PRESSURE. Nursing Sepsis Screen: No Definite Risk Source: patient Exam Limitations: no limitations History of Present Illness Date Seen by Provider: Aug 14, 2019 Time Seen by Provider: 16:45 Initial Comments The patient is a 58-year-old male presents for evaluation of a laceration to the tip of his left thumb. He states that he is cleaning a fish with a knife when he cut the finger. He applied immediate pressure upon arrival of the finger is not actively bleeding. He has no other complaints or concerns. Onset: just prior to arrival Severity: mild Pain/Injury Location: left thumb Method of Injury: incised Allergies and Home Medications Allergies Coded Allergies: tramadol (Unverified Allergy, Unknown, 09/16/18) Home Medications Metformin HCl 500 Mg Tablet, 500 MG PO BID, (Reported) Pantoprazole Sodium 40 Mg Tablet.dr, 40 MG PO DAILY Prescribed by: MELLY KAUFMAN on 04/28/19 1438 Pantoprazole Sodium 40 Mg Tablet.dr, 40 MG PO DAILY Prescribed by: MAE CARRIZALES on 08/08/19 1850 Pregabalin 150 Mg Capsule, 150 MG PO BID, (Reported) Patient Home Medication List Home Medication List Reviewed: Yes Review of Systems Constitutional: no symptoms reported EENTM: no symptoms reported Respiratory: no symptoms reported Cardiovascular: no symptoms reported Gastrointestinal: no symptoms reported Genitourinary: no symptoms reported Musculoskeletal: no symptoms reported Skin: other (laceration to the left thumb) Psychiatric/Neurological: No Symptoms Reported All Other Systems Reviewed Negative Unless Noted: Yes Past Ajvlces-Lrfzso-Goqjrw Hx Past Med/Social Hx: Reviewed Nursing Past Med/Soc Hx Patient Social History Alcohol Use: Denies Use Recreational Drug Use: No Drug of Choice: MJ Type Used: Cigarettes 2nd Hand Smoke Exposure: Yes Recent Foreign Travel: No Contact w/Someone Who Travel: No Recent Infectious Disease Expo: No Recent Hopitalizations: No Physical Abuse: No Sexual Abuse: No Mistreated: No Fear: No Seasonal Allergies Seasonal Allergies: No Past Medical History Surgeries: Yes (sigmoid colon resection, carpal tunnel) Respiratory: No Cardiac: Yes Hypertension Neurological: No Genitourinary: No Gastrointestinal: No Musculoskeletal: Yes Back Injury, Chronic Back Pain Endocrine: Yes Diabetes, Insulin dep HEENT: No Cancer: No Psychosocial: No Integumentary: No Physical Exam Vital Signs Vital Signs - First Documented 08/14/19 16:55 Temp 36.7 Pulse 120 Resp 18 B/P (MAP) 132/98 (109) Pulse Ox 96 O2 Delivery Room Air Capillary Refill : Less Than 3 Seconds Height, Weight, BMI Height: 5'5.00" Weight: 195lbs. oz. 88.012448as; 26.00 BMI Method:Stated General Appearance: WD/WN, no apparent distress HEENT: PERRL/EOMI, pharynx normal Cardiovascular: regular rate, rhythm, no edema Respiratory: lungs clear, normal breath sounds, no respiratory distress Hand: laceration (to tip of left thumb, 0.7cm, no nail injury, no active bleeding) Neurologic/Psychiatric: no motor/sensory deficits, alert, normal mood/affect, oriented x 3 Skin: normal color, warm/dry Procedures/Interventions Wound Location: Upper Extremities (tip of left thumb) Wound Length (cm): 0.7 Wound's Depth, Shape: superficial Wound Explored: clean Irrigated w/ Saline (ccs): 250 Other Closure Supply: Steri Strip 1/", Wound Adhesive Progress Pt tolerated repair well with tissue adhesive and steri-strip after cleaning wound, no bleeding, no complication Progress/Results/Core Measures Results/Orders My Orders Orders - MOIRA SORENSON Pertuss(Acell),Tet Adult ([employer] (08/14/19 17:15) Vital Signs/I&O 08/14/19 16:55 Temp 36.7 Pulse 120 Resp 18 B/P (MAP) 132/98 (109) Pulse Ox 96 O2 Delivery Room Air Blood Pressure Mean: 109 Departure Impression Primary Impression: Finger laceration Disposition: 01 HOME, SELF-CARE Condition: Stable Departure-Patient Inst. Decision time for Depature: 17:14 Referrals: JESSICA BLANCO MD (PCP/Family) Primary Care Physician Patient Instructions: Laceration Repair With Glue (DC) Add. Discharge Instructions: Be careful with the wound over the next 48 hours and keep it very clean and dry. The glue and Steri-Strip will come off on their own so do not pull them off. Return to the emergency Department immediately for new or worsening symptoms. Follow-up with your doctor in the next 2-3 days for wound check. MOIRA SORENSON DO Aug 14, 2019 17:04
[2019-08-14] MEDS ORDERED: TETANUS,DIPTH,PERTUSS P/F (BOOSTRIX) 0.5 ML VIAL IM ONE (17:15)
[2019-08-14 17:18] VITALS: BP 132/98
== END 2019-08-14 17:16 | disposition home or self-care (01) ==
LOC: EDUNIT# 16:42 → ER FS 16:44
DX: S61.012A Laceration without foreign body of left thumb without damage to nail, initial encounter (principal); W26.0XXA Contact with knife, initial encounter; I10 Essential (primary) hypertension; M54.9 Dorsalgia, unspecified; E11.9 Type 2 diabetes mellitus without complications; G89.29 Other chronic pain; Z79.84 Long term (current) use of oral hypoglycemic drugs; Z79.899 Other long term (current) drug therapy; Z88.5 Allergy status to narcotic agent; Z77.22 Contact with and (suspected) exposure to environmental tobacco smoke (acute) (chronic); Z23 Encounter for immunization
CPT/HCPCS: 90715; 99284

== ENCOUNTER → 2019-08-16 | Outpatient (CLI) | payer MEDICAID ==
[2019-08-16 10:46] LABS: BILIRUBIN,TOTAL 0.3 MG/DL (0.1-1.0); BUN/CREATININE RATIO 20; CALCIUM 9.4 MG/DL (8.5-10.1); CARBON DIOXIDE 27 MMOL/L (21-32); CHLORIDE 102 MMOL/L (98-107); CREATININE SERUM 1.12 MG/DL (0.60-1.30); GFR ESTIMATED > 60; GLUCOSE 258 MG/DL (70-105); POTASSIUM 4.2 MMOL/L (3.6-5.0); SODIUM 141 MMOL/L (135-145)
[2019-08-16 10:47] LABS: ALANINE AMINOTRANSFERASE 22 U/L (0-55); ALBUMIN 4.3 GM/DL (3.2-4.5); ALKALINE PHOSPHATASE 101 U/L (40-136); TOTAL PROTEIN 6.9 GM/DL (6.4-8.2)
[2019-08-16 15:25] LABS: CHOLESTEROL 203 MG/DL (< 200); HDL CHOLESTEROL 33 MG/DL (40-60); TRIGLYCERIDES 275 MG/DL (<150); VLDL CHOLESTEROL 55 MG/DL (5-40)
== END ==
LOC: LAB FS 08:57
PROVIDERS: ATTEND Family Medicine
DX: E11.9 Type 2 diabetes mellitus without complications (principal); N40.1 Benign prostatic hyperplasia with lower urinary tract symptoms; N13.9 Obstructive and reflux uropathy, unspecified
CPT/HCPCS: 36415; 80053; 80061; 82043; 83036; 84153

== ENCOUNTER → 2019-10-09 | Outpatient (CLI) | payer MEDICAID ==
--- NOTE | 2019-10-09 14:51 | Diagnostic Imaging Report ---
INDICATION: Ankle injury, pain. COMPARISON: January 25, 2019. TECHNIQUE: Two radiographs of the left ankle dated October 09, 2019. FINDINGS: Punctate 1 mm calcification is identified just lateral to the talus seen on the frontal radiograph only. This is not definitely seen on the prior radiographs of the left tibia and fibula. No additional fracture. No dislocation. Mild calcifications are identified anterior and posterior to the ankle, which may be vascular in nature. Minimal soft tissue swelling about the ankle. Small plantar calcaneal enthesophyte. IMPRESSION: Punctate 1 mm calcification just lateral to the talus not definitely seen on prior exam. This may relate to a very tiny chip fracture. Alternatively, this could simply relate to overlying soft tissue/vascular calcifications. Dictated by: Dictated on workstation # [id number]
== END ==
LOC: RAD FS 14:23
PROVIDERS: ATTEND Family Medicine
DX: S99.912A Unspecified injury of left ankle, initial encounter (principal); M89.8X7 Other specified disorders of bone, ankle and foot
CPT/HCPCS: 73600

== ENCOUNTER → 2019-10-11 | Outpatient (CLI) | payer MEDICARE, MEDICAID ==
--- NOTE | 2019-10-11 15:36 | Diagnostic Imaging Report ---
INDICATION: Left foot pain laterally for 2 weeks. TIME OF EXAM: 3:10 p.m. EXAMINATION: Multiple views of the left foot were obtained. FINDINGS: Metatarsals are intact. Phalanges are intact. Midfoot and hindfoot are unremarkable apart from a large plantar calcaneal spur. No fracture is seen. IMPRESSION: No acute bony abnormality is detected. Dictated by: Dictated on workstation # [id number]
== END ==
LOC: RAD FS 15:02
PROVIDERS: ATTEND Nurse Practitioner
DX: M79.672 Pain in left foot (principal)
CPT/HCPCS: 73630

== ENCOUNTER → 2019-11-13 | Outpatient (CLI) | payer MEDICARE, MEDICAID ==
--- NOTE | 2019-11-13 16:08 | Diagnostic Imaging Report ---
INDICATION: Left shoulder pain. TECHNIQUE: AP, oblique, and transscapular views of the left shoulder were obtained. COMPARISON: 03/02/2019. FINDINGS: No fracture or acute bony abnormality is seen. There is no dislocation. The glenohumeral joint appears in good alignment. The AC joint appears unremarkable. There is a tiny calcification adjacent to the greater tuberosity which may represent calcific tendinitis. IMPRESSION: No acute fracture or dislocation. A tiny calcification adjacent to the greater tuberosity may represent calcific tendinitis. Consider followup as clinically warranted. Dictated by: Dictated on workstation # [id number]
--- NOTE | 2019-11-13 16:11 | Diagnostic Imaging Report ---
INDICATION: Left elbow pain x 1 week. TIME OF EXAM: 3:41 PM. FINDINGS: Two views of the left elbow were obtained. The alignment appears to be normal. There are some mild degenerative changes noted. No fracture, dislocation, or effusion is seen. IMPRESSION: No acute abnormality is detected. Dictated by: Dictated on workstation # [id number]
== END ==
LOC: RAD FS 15:11
PROVIDERS: ATTEND Family Medicine
DX: M25.512 Pain in left shoulder (principal); M25.522 Pain in left elbow
CPT/HCPCS: 73030; 73070

== ENCOUNTER 2019-11-23 11:17 | Emergency (ER) | payer MEDICARE, MEDICAID ==
[~2019-11-23] VITALS: Ht 165.1 cm; Wt 86.8 kg
[~2019-11-23 11:17] MED LIST changes: -IBUP-1780; +IBUP-1780 PO; -LISI1TAB26; +LISI1TAB26 PO
--- NOTE | 2019-11-23 11:25 | ED Abdominal Pain ---
General Stated Complaint: VOMITING History of Present Illness Date Seen by Provider: Nov 23, 2019 Time Seen by Provider: 11:25 Initial Comments 59-year-old male presents with "not feeling well" patient reports she's been vomiting. He denies abdominal pain. He states he feels a little warm but no reports of fever. No reports of cough, shortness of breath. Patient is a diabetic reports his blood sugars a bit around in the 150s to 200s. He admits to daily marijuana use. Reports some marijuana helps his nausea. He has decreased urine output but has been drinking a lot. The patient denies any known COVID contacts. Allergies and Home Medications Allergies Coded Allergies: tramadol (Unverified Allergy, Unknown, 09/16/18) Home Medications Metformin HCl 500 Mg Tablet, 500 MG PO BID, (Reported) Pantoprazole Sodium 40 Mg Tablet.dr, 40 MG PO DAILY Prescribed by: MELLY KAUFMAN on 04/28/19 1438 Pantoprazole Sodium 40 Mg Tablet.dr, 40 MG PO DAILY Prescribed by: MAE CARRIZALES on 08/08/19 1850 Pregabalin 150 Mg Capsule, 150 MG PO BID, (Reported) Patient Home Medication List Home Medication List Reviewed: Yes Review of Systems Review of Systems Constitutional: see HPI; No diaphoresis, No weakness Respiratory: Denies Cough, Denies Shortness of Air Cardiovascular: Denies Chest Pain, Denies Lightheadedness Gastrointestinal: Denies Abdomen Distended, Denies Abdominal Pain, Denies Diarrhea; Nausea, Vomiting Genitourinary: See HPI Musculoskeletal: no symptoms reported Skin: no symptoms reported Psychiatric/Neurological: No Symptoms Reported Endocrine: See HPI Past Iipmpzm-Lxpxkz-Gxfdjl Hx Past Med/Social Hx: Reviewed Nursing Past Med/Soc Hx Patient Social History Drug of Choice: MJ Type Used: Cigarettes 2nd Hand Smoke Exposure: Yes Recent Hopitalizations: No Seasonal Allergies Seasonal Allergies: No Past Medical History Surgeries: Yes (sigmoid colon resection, carpal tunnel) Respiratory: No Cardiac: Yes Hypertension Neurological: No Genitourinary: No Gastrointestinal: No Musculoskeletal: Yes Back Injury, Chronic Back Pain Endocrine: Yes Diabetes, Insulin dep HEENT: No Cancer: No Psychosocial: No Integumentary: No Physical Exam Vital Signs Vital Signs - First Documented 11/23/19 11:20 Temp 36.2 Pulse 120 Resp 20 B/P (MAP) 135/63 (87) Pulse Ox 95 O2 Delivery Room Air Capillary Refill : Height/Weight/BMI Height: 5'5.00" Weight: 195lbs. oz. 88.850241si; 26.00 BMI Method:Stated General Appearance: WD/WN, no apparent distress Respiratory: lungs clear, normal breath sounds, no respiratory distress Cardiovascular: no edema, tachycardia Gastrointestinal: non tender, soft Neurologic/Psychiatric: no motor/sensory deficits, alert, normal mood/affect, oriented x 3 Skin: normal color, warm/dry Progress/Results/Core Measures Results/Orders Lab Results Laboratory Tests Test 11/23/19 11:35 Range/Units White Blood Count 12.6 H 4.3-11.0 10^3/uL Red Blood Count 5.20 4.35-5.85 10^6/uL Hemoglobin 15.6 13.3-17.7 G/DL Hematocrit 44 40-54 % Mean Corpuscular Volume 84 80-99 FL Mean Corpuscular Hemoglobin 30 25-34 PG Mean Corpuscular Hemoglobin Concent 36 32-36 G/DL Red Cell Distribution Width 13.1 10.0-14.5 % Platelet Count 222 130-400 10^3/uL Mean Platelet Volume 10.3 7.4-10.4 FL Neutrophils (%) (Auto) 76 H 42-75 % Lymphocytes (%) (Auto) 15 12-44 % Monocytes (%) (Auto) 9 0-12 % Eosinophils (%) (Auto) 0 0-10 % Basophils (%) (Auto) 0 0-10 % Neutrophils # (Auto) 9.6 H 1.8-7.8 X 10^3 Lymphocytes # (Auto) 1.8 1.0-4.0 X 10^3 Monocytes # (Auto) 1.1 H 0.0-1.0 X 10^3 Eosinophils # (Auto) 0.0 0.0-0.3 10^3/uL Basophils # (Auto) 0.0 0.0-0.1 10^3/uL Sodium Level 138 135-145 MMOL/L Potassium Level 4.3 3.6-5.0 MMOL/L Chloride Level 99 98-107 MMOL/L Carbon Dioxide Level 22 21-32 MMOL/L Anion Gap 17 H 5-14 MMOL/L Blood Urea Nitrogen 54 H 7-18 MG/DL Creatinine 3.91 H 0.60-1.30 MG/DL Estimat Glomerular Filtration Rate 16 BUN/Creatinine Ratio 14 Glucose Level 221 H 70-105 MG/DL Calcium Level 9.7 8.5-10.1 MG/DL Corrected Calcium 9.5 8.5-10.1 MG/DL Total Bilirubin 0.5 0.1-1.0 MG/DL Aspartate Amino Transf (AST/SGOT) 13 5-34 U/L Alanine Aminotransferase (ALT/SGPT) 26 0-55 U/L Alkaline Phosphatase 83 40-136 U/L C-Reactive Protein 0.15 <0.50 MG/DL Total Protein 6.9 6.4-8.2 GM/DL Albumin 4.2 3.2-4.5 GM/DL Lipase 20 8-78 U/L Serum Alcohol < 10 <10 MG/DL My Orders Orders - ALMA SALMON DO Acute Abd Series (11/23/19 11:32) Alcohol (11/23/19 11:32) Cbc With Automated Diff (11/23/19 11:32) Comprehensive Metabolic Panel (11/23/19 11:32) Lipase (11/23/19 11:32) Ua Culture If Indicated (11/23/19 11:32) Accucheck Stat ONCE (11/23/19 11:32) Crp Fs (11/23/19 11:32) Metoclopramide Injection (Reglan Injecti (11/23/19 11:32) Ns Iv 1000 Ml (Sodium Chloride 0.9%) (11/23/19 11:32) Famotidine Injection (Pepcid Injection) (11/23/19 11:32) Ed Iv/Invasive Line Start (11/23/19 11:32) Vital Signs/I&O 11/23/19 11:20 Temp 36.2 Pulse 120 Resp 20 B/P (MAP) 135/63 (87) Pulse Ox 95 O2 Delivery Room Air Diagnostic Imaging Diagonstic Imaging: Xray Comments [facility], [place] NAME: LAURA WILKINSON [facility] REC#: [id number] PT STATUS: REG ER : 1960 PHYSICIAN: ALMA SALMON DO ADMIT DATE: 11/23/19/ER FS Draft Date of Exam:11/23/19 ACUTE ABD SERIES INDICATION: Nausea, vomiting and weakness. Study compared 01/12/2019. FINDINGS: There is trace residual subsegmental linear atelectasis in the left lung base nearly completely resolved. There were no findings felt suggestive of pneumonia or overt failure pattern. The bowel gas pattern is unremarkable. No substantial elevation of the fecal load. No air-fluid levels or pneumatosis. No free gas. We noted the midline lower pelvis are linear radiopacities present of uncertain etiology and may be overlying artifact. Foreign bodies in the appropriate clinical scenario, however, could not be excluded. IMPRESSION: Minimal left basilar atelectasis. No acute appearing abnormality. Indeterminate linear metallic like opacities projecting over the midline lower pelvis of uncertain etiology and significance Departure Communication (Admissions) Time/Spoke to Admitting Phy: 12:30 Dr. Julien will accept patient Impression Primary Impression: Acute on chronic kidney failure Qualified Codes: N17.9 - Acute kidney failure, unspecified; N18.9 - Chronic kidney disease, unspecified Additional Impressions: Dehydration Nausea and vomiting Qualified Codes: R11.2 - Nausea with vomiting, unspecified Disposition: ADMITTED INPATIENT Condition: Stable Admissions Decision to Admit Reason: Admit from ER (General) Decision to Admit/Date: Nov 23, 2019 Time/Decision to Admit Time: 12:30 Departure-Patient Inst. Referrals: JESSICA BLANCO MD (PCP/Family) Primary Care Physician ALMA SALMON DO Nov 23, 2019 11:25
[2019-11-23] MEDS ORDERED: NS IV 1000 ML 1,000 ML IV STA (11:32)
[2019-11-23] MEDS ORDERED: METOCLOPRAMIDE INJ 10 MG/2 ML (REGLAN) IVP STA (11:32)
[2019-11-23] MEDS ORDERED: FAMOTIDINE 20MG/2ML IV (PEPCID) IV STA (11:32)
[2019-11-23 11:54] LABS: WHITE BLOOD COUNT 12.6 10^3/uL (4.3-11.0)
[2019-11-23 11:55] LABS: BASOPHILS % (AUTO) 0 % (0-10); EOSINOPHILS % (AUTO) 0 % (0-10); HEMATOCRIT 44 % (40-54); HEMOGLOBIN 15.6 G/DL (13.3-17.7); LYMPHOCYTES % (AUTO) 15 % (12-44); MEAN CORPUSCULAR HEMOGLOBIN 30 PG (25-34); MEAN CORPUSCULAR HGB CONC 36 G/DL (32-36); MEAN CORPUSCULAR VOLUME 84 FL (80-99); MEAN PLATELET VOLUME 10.3 FL (7.4-10.4); MONOCYTES % (AUTO) 9 % (0-12); NEUTROPHILS % (AUTO) 76 % (42-75); PLATELET COUNT 222 10^3/uL (130-400); RED CELL DISTRIBUTION WIDTH 13.1 % (10.0-14.5)
[2019-11-23 11:56] LABS: LYMPHOCYTES # (AUTO) 1.8 X 10^3 (1.0-4.0); MONOCYTES # (AUTO) 1.1 X 10^3 (0.0-1.0); NEUTROPHILS # (AUTO) 9.6 X 10^3 (1.8-7.8)
--- NOTE | 2019-11-23 12:00 | NUR ---
Pt standing at bedside attempting to use urinal. Reports has not been drinking and can not urinate. Pt honestly answers illicit drug hx question with "My girlfriend religiously smoke marijuana so I smoke it with her pretty frequently. It is what makes me feel better and treats nausea usually."
--- NOTE | 2019-11-23 12:10 | NUR ---
Updated Dr Fitzgerald.
--- NOTE | 2019-11-23 12:11 | Diagnostic Imaging Report ---
INDICATION: Nausea, vomiting and weakness. Study compared 01/12/2019. FINDINGS: There is trace residual subsegmental linear atelectasis in the left lung base nearly completely resolved. There were no findings felt suggestive of pneumonia or overt failure pattern. The bowel gas pattern is unremarkable. No substantial elevation of the fecal load. No air-fluid levels or pneumatosis. No free gas. We noted the midline lower pelvis are linear radiopacities present of uncertain etiology and may be overlying artifact. Foreign bodies in the appropriate clinical scenario, however, could not be excluded. IMPRESSION: Minimal left basilar atelectasis. No acute appearing abnormality. Indeterminate linear metallic like opacities projecting over the midline lower pelvis of uncertain etiology and significance. Dictated by: Dictated on workstation # [id number]
[2019-11-23 12:14] LABS: ALANINE AMINOTRANSFERASE 26 U/L (0-55); ALKALINE PHOSPHATASE 83 U/L (40-136); BILIRUBIN,TOTAL 0.5 MG/DL (0.1-1.0); BUN/CREATININE RATIO 14; CALCIUM 9.7 MG/DL (8.5-10.1); CARBON DIOXIDE 22 MMOL/L (21-32); CHLORIDE 99 MMOL/L (98-107); CREATININE SERUM 3.91 MG/DL (0.60-1.30); GFR ESTIMATED 16; GLUCOSE 221 MG/DL (70-105); POTASSIUM 4.3 MMOL/L (3.6-5.0); SODIUM 138 MMOL/L (135-145); TOTAL PROTEIN 6.9 GM/DL (6.4-8.2)
[2019-11-23 12:15] LABS: ALBUMIN 4.2 GM/DL (3.2-4.5); LIPASE 20 U/L (8-78)
--- NOTE | 2019-11-23 12:20 | NUR ---
Dr Fitzgerald into room to explain kidney function labs and plan for admit.
--- NOTE | 2019-11-23 12:30 | NUR ---
Request made to Electrician Apprentice for admit bed Med/Surg, ARF on CRF.
--- NOTE | 2019-11-23 12:45 | NUR ---
Patient air pollution specialist light during nurse report and he notifies the RN Jenae that he needs to leave as he has a girlfriend in his van that does not drive and he is leaving to take her home and then he will just drive himself to [place]. Call to Fabric Cutter while Dr Fitzgerald being notified. feels patient should not chose to drive self to a hospital 30 miles away and would again expalin the need for monitoring and EMS transport. Pt again states he is leaving to drive girlfriend home. Elementary Vocal Music Teacher notified the pt's IV will be removed and the pt will sign all the appropriate refusal EMS form but an AMA will be provided as he is not known whether reliable to arriving for scheduled admission. The Elementary Vocal Music Teacher, Faye is going to notify Dr Julien. If they prefer, with him arriving at unscheduled time and delays they will determine from Dr Julien if pt gets re-eval in [place] ER to get admitted. Pt departed with ER packet in envelope.
--- NOTE | 2019-11-23 12:50 | NUR ---
Pt signed all refusal forms.
[2019-11-23 13:10] VITALS: BP 109/70
--- NOTE | 2019-11-23 13:10 | NUR ---
Pt departed ED at this time for leaving against preferred medical advise of admission via EMS to [place]. Pt is released at this time per his insistance against physician's preferred plan.
--- NOTE | 2019-11-23 14:49 | NUR ---
Notified by [facility] that patient has arrived to [facility].
--- OUTSIDE RECORDS SUMMARY | 2019-11-23 17:31 | XMS REPORT | Clinical Summary ---
Author Author Buddy, Gian DALE Organization [facility] Address Unknown Phone Unavailable Allergies, Adverse Reactions, Alerts Allergy Name Reaction Description Start Date Severity Status Pr ovider TRAMADOL HCL Critical Active Melissa Elder Conditions or Problems Problem Name Problem Code Onset Date Status Entry Date Provider Comment Standard Description Annotate BMI 33-33.9 Active Manuel Reis MD Body Mass Index 33.0-33.9, adult Obesity Class I (BMI 30-34.9) Active 08/30 Manuel Reis MD Obesity, unspecified BPH with lower urinary tract symptoms 600.01 Active Manuel Reis MD Hypertrophy (benign) of pros clemente with urinary obstruction and other lower urinary tract symptoms (LUTS) Medication List Medication Instructions Start Date Stop Date Generic Name NDC Status Provider Patient Instruction FLOMAX 0.4 MG ORAL CAPSULE 1 capsule by mouth every ev ening for prostate symptoms TAMSULOSIN HCL 75558989153 Active Melissa Elder Active PROTONIX 40 MG ORAL TABLET DELAYED RELEASE 1 pill by m outh daily, for acid reflux PANTOPRAZOLE SODIUM 55611556986 Active Melissa Elder Active METFORMIN HCL 500 MG ORAL TABLET 1 tablet by mouth twice daily METFORMIN HCL 33508719298 Active Melissa Elder Active LYRICA 150 MG ORAL CAPSULE 1 twice a day PREGABALIN 0007 5694310 Active Melissa Elder Active IBUPROFEN 800 MG ORAL TABLET 1 tab every 8 hours as needed for pain IBUPROFEN 82459755759 Active Melissa Elder Active LISINOPRIL-HYDROCHLOROTHIAZIDE 20-25 MG ORAL TABLET 1 tab by mouth daily LISINOPRIL-HYDROCHLOROTHIAZIDE 26122862785 Active Melissa Elder Active BACLOFEN 10 MG ORAL TABLET 1 tab by mouth three times daily BACLOFEN 33685277322 Active Melissa Elder Active ATORVASTATIN CALCIUM 10 MG ORAL TABLET 1 pill by mouth night ly, for cholesterol ATORVASTATIN CALCIUM 57261012738 Active Melissa Elder Active Vital Signs Date Name Value Unit Range Description blood pressure, diastolic, repeated by physician 80 BP domingo blood pressure, diastolic 80 mm[Hg] BP domingo blood pressure, systolic, repeated by physician 120 BP sys blood pressure, systolic 120 mm[Hg] BP sys height E&M 65 [in_us] Bdy height pulse rate 78 /min Heart rate temperature E&M 97.5 [degF] Body temp erature weight E&M 200 [lb_av] Weight Measure d blood pressure, diastolic, repeated by physician 80 BP domingo blood pressure, diastolic 80 mm[Hg] BP domingo blood pressure, systolic, repeated by physician 120 BP sys blood pressure, systolic 120 mm[Hg] BP sys height E&M 65 [in_us] Bdy height pulse rate 80 /min Heart rate temperature E&M 96.8 [degF] Body temp erature weight E&M 200 [lb_av] Weight Measure d Diagnostic Results Date Name Value Unit Range Description Office Visit: -BPH - Chemistry RBC, urine, dipstick negative protein, urine, by sulfasalicylic acid negative bilirubin, by Ictotest, urine negative Office Visit: -BPH - PMH sexually transmitted disease no risk noted Office Visit: -B[facility] - Urinalysis appearance, urine clear urine color yellow specific gravity, urine 1.010 pH, urine, semiquantitative 7.0 protein, urine, semiquantitative (dipstick) negative glucose, urine, semiquantitative 4+ ketones, urine, by test strip negative bilirubin, urine negative nitrite, urine, semiquantitative negative urobilinogen, urine, semiquantitative (dipstick) 0.2 leukocyte esterase, urine, by dipstick negative Encounters Code Encounter Date Provider Facility CPT-58909 Level 3 Est. Patient 14:00:28 CDT Manuel mahoney MD [facility] [place] CPT-32307 Level 4 New Patient 12:41:44 CDT Manuel brown MD [facility] Procedures Code Procedure Name Date Entry Date Standard Desc ription CPT-27705 Bladder Scan 14:00:28 CDT CPT-37656 Bladder Scan 12:41:44 CDT CPT-68287 Cystoscopy 12:41:44 CDT
--- OUTSIDE RECORDS SUMMARY | 2019-11-23 17:31 | XMS REPORT | Clinical Summary ---
Author Author Buddy, Gian DALE Organization [facility] Address Unknown Phone Unavailable Allergies, Adverse Reactions, [...] with lower urinary tract symptoms 600.01 Active Maunel Reis MD Hypertrophy (benign) of pros clemente with urinary obstruction and other lower urinary tract symptoms (LUTS) Medication List Medication Instructions Start Date Stop Date Generic Name NDC Status Provider Patient Instruction FLOMAX 0.4 MG ORAL CAPSULE 1 capsule by mouth every ev ening for prostate symptoms TAMSULOSIN HCL 32863697388 Active Melissa Elder Active PROTONIX 40 MG ORAL TABLET DELAYED RELEASE 1 pill by m outh daily, for acid reflux PANTOPRAZOLE SODIUM 02444216221 Active Melissa Elder Active METFORMIN HCL 500 MG ORAL TABLET 1 tablet by mouth twice daily METFORMIN HCL 64446373556 Active Melissa Elder Active LYRICA 150 MG ORAL CAPSULE 1 twice a day PREGABALIN 0007 5417645 Active Melissa Elder Active IBUPROFEN 800 MG ORAL TABLET 1 tab every 8 hours as needed for pain IBUPROFEN 86269414695 Active Melissa Elder Active LISINOPRIL-HYDROCHLOROTHIAZIDE 20-25 MG ORAL TABLET 1 tab by mouth daily LISINOPRIL-HYDROCHLOROTHIAZIDE 21365882090 Active Melissa Elder Active BACLOFEN 10 MG ORAL TABLET 1 tab by mouth three times daily BACLOFEN 47940803915 Active Melissa Elder Active ATORVASTATIN CALCIUM 10 MG ORAL TABLET 1 pill by mouth night ly, for cholesterol ATORVASTATIN CALCIUM 55261128272 Active Melissa Elder Active Vital Signs Date [...] Name Value Unit Range Description Office Visit: CN-BPH - Chemistry RBC, urine, dipstick negative protein, urine, by sulfasalicylic acid negative bilirubin, by Ictotest, urine negative Office Visit: -BPH - PMH sexually transmitted disease no risk noted Office Visit: -[facility] - Urinalysis appearance, urine clear urine color yellow specific gravity, urine 1.010 pH, urine, semiquantitative 7.0 protein, urine, semiquantitative (dipstick) negative glucose, urine, semiquantitative 4+ ketones, urine, by test strip negative bilirubin, urine negative nitrite, urine, semiquantitative negative urobilinogen, urine, semiquantitative (dipstick) 0.2 leukocyte esterase, urine, by dipstick negative Encounters Code Encounter Date Provider Facility CPT-57740 Level 4 New Patient 12:41:44 CDT Manuel brown MD [facility] Procedures Code Procedure Name Date Entry Date Standard Desc ription CPT-13850 Bladder Scan 12:41:44 CDT CPT-56176 Cystoscopy 12:41:44 CDT
--- OUTSIDE RECORDS SUMMARY | 2019-11-23 17:31 | XMS REPORT | Clinical Summary ---
Author Author Buddy, Gian DALE Organization [facility] Address Unknown Phone Unavailable Allergies, Adverse Reactions, [...] ev ening for prostate symptoms TAMSULOSIN HCL 99509232737 Active Melissa Elder Active PROTONIX 40 MG ORAL TABLET DELAYED RELEASE 1 pill by m outh daily, for acid reflux PANTOPRAZOLE SODIUM 46159792970 Active Melissa Elder Active METFORMIN HCL 500 MG ORAL TABLET 1 tablet by mouth twice daily METFORMIN HCL 74767271302 Active Melissa Elder Active LYRICA 150 MG ORAL CAPSULE 1 twice a day PREGABALIN 0007 3126636 Active Melissa Elder Active IBUPROFEN 800 MG ORAL TABLET 1 tab every 8 hours as needed for pain IBUPROFEN 83402600962 Active Melissa Elder Active LISINOPRIL-HYDROCHLOROTHIAZIDE 20-25 MG ORAL TABLET 1 tab by mouth daily LISINOPRIL-HYDROCHLOROTHIAZIDE 51807680019 Active Melissa Elder Active BACLOFEN 10 MG ORAL TABLET 1 tab by mouth three times daily BACLOFEN 80211074971 Active Melissa Elder Active ATORVASTATIN CALCIUM 10 MG ORAL TABLET 1 pill by mouth night ly, for cholesterol ATORVASTATIN CALCIUM 11220611899 Active Melissa Elder Active Vital Signs Date [...] negative Encounters Code Encounter Date Provider Facility CPT-78449 Level 3 Est. Patient 14:00:28 CDT Manuel mahoney MD [facility] [place] CPT-16280 Level 4 New Patient 12:41:44 CDT Manuel brown MD [facility] [place] Procedures Code Procedure Name Date Entry Date Standard Desc ription CPT-49874 Bladder Scan 14:00:28 CDT CPT-36555 Bladder Scan 12:41:44 CDT CPT-97978 Cystoscopy 12:41:44 CDT
--- OUTSIDE RECORDS SUMMARY | 2019-11-23 17:31 | XMS REPORT | Clinical Summary ---
Author Author Buddy, Gian DALE Organization [facility] Address Unknown Phone Unavailable Allergies, Adverse Reactions, [...] ev ening for prostate symptoms TAMSULOSIN HCL 11404707294 Active Melissa Elder Active PROTONIX 40 MG ORAL TABLET DELAYED RELEASE 1 pill by m outh daily, for acid reflux PANTOPRAZOLE SODIUM 11478069372 Active Melissa Elder Active METFORMIN HCL 500 MG ORAL TABLET 1 tablet by mouth twice daily METFORMIN HCL 53910130025 Active Melissa Elder Active LYRICA 150 MG ORAL CAPSULE 1 twice a day PREGABALIN 0007 4592507 Active Melissa Elder Active IBUPROFEN 800 MG ORAL TABLET 1 tab every 8 hours as needed for pain IBUPROFEN 68964733780 Active Melissa Elder Active LISINOPRIL-HYDROCHLOROTHIAZIDE 20-25 MG ORAL TABLET 1 tab by mouth daily LISINOPRIL-HYDROCHLOROTHIAZIDE 69733014548 Active Melissa Elder Active BACLOFEN 10 MG ORAL TABLET 1 tab by mouth three times daily BACLOFEN 46349889490 Active Melissa Elder Active ATORVASTATIN CALCIUM 10 MG ORAL TABLET 1 pill by mouth night ly, for cholesterol ATORVASTATIN CALCIUM 13794530834 Active Melissa Elder Active Vital Signs Date [...] transmitted disease no risk noted Office Visit: -[facility] [place] - Urinalysis appearance, urine clear urine color yellow specific gravity, urine 1.010 pH, urine, semiquantitative 7.0 protein, urine, semiquantitative (dipstick) negative glucose, urine, semiquantitative 4+ ketones, urine, by test strip negative bilirubin, urine negative nitrite, urine, semiquantitative negative urobilinogen, urine, semiquantitative (dipstick) 0.2 leukocyte esterase, urine, by dipstick negative Encounters Code Encounter Date Provider Facility CPT-50785 Level 4 New Patient 12:41:44 CDT Manuel brown MD [facility] Procedures Code Procedure Name Date Entry Date Standard Desc ription CPT-80393 Bladder Scan 12:41:44 CDT CPT-49737 Cystoscopy 12:41:44 CDT
--- OUTSIDE RECORDS SUMMARY | 2019-11-23 17:31 | XMS REPORT | Clinical Summary ---
Author Author Buddy, Gian DALE Organization [facility] Address Unknown Phone Unavailable Allergies, Adverse Reactions, [...] ev ening for prostate symptoms TAMSULOSIN HCL 90983516195 Active Melissa Elder Active PROTONIX 40 MG ORAL TABLET DELAYED RELEASE 1 pill by m outh daily, for acid reflux PANTOPRAZOLE SODIUM 50974153107 Active Melissa Elder Active METFORMIN HCL 500 MG ORAL TABLET 1 tablet by mouth twice daily METFORMIN HCL 65791464242 Active Melissa Elder Active LYRICA 150 MG ORAL CAPSULE 1 twice a day PREGABALIN 0007 6528765 Active Melissa Elder Active IBUPROFEN 800 MG ORAL TABLET 1 tab every 8 hours as needed for pain IBUPROFEN 26692186270 Active Melissa Elder Active LISINOPRIL-HYDROCHLOROTHIAZIDE 20-25 MG ORAL TABLET 1 tab by mouth daily LISINOPRIL-HYDROCHLOROTHIAZIDE 36737745342 Active Melissa Elder Active BACLOFEN 10 MG ORAL TABLET 1 tab by mouth three times daily BACLOFEN 63195534901 Active Melissa Elder Active ATORVASTATIN CALCIUM 10 MG ORAL TABLET 1 pill by mouth night ly, for cholesterol ATORVASTATIN CALCIUM 35877003452 Active Melissa Elder Active Vital Signs Date [...] transmitted disease no risk noted Office Visit: -[facility] - Urinalysis appearance, urine clear urine color yellow specific gravity, urine 1.010 pH, urine, semiquantitative 7.0 protein, urine, semiquantitative (dipstick) negative glucose, urine, semiquantitative 4+ ketones, urine, by test strip negative bilirubin, urine negative nitrite, urine, semiquantitative negative urobilinogen, urine, semiquantitative (dipstick) 0.2 leukocyte esterase, urine, by dipstick negative Encounters Code Encounter Date Provider Facility CPT-79800 Level 4 New Patient 12:41:44 CDT Manuel borwn MD [facility] Procedures Code Procedure Name Date Entry Date Standard Desc ription CPT-10268 Bladder Scan 12:41:44 CDT CPT-95836 Cystoscopy 12:41:44 CDT
--- OUTSIDE RECORDS SUMMARY | 2019-11-23 17:31 | XMS REPORT | Clinical Summary ---
Author Author Buddy, Gian DALE Organization [facility] Address Unknown Phone Unavailable Allergies, Adverse [...] ev ening for prostate symptoms TAMSULOSIN HCL 15405307211 Active Melissa Elder Active PROTONIX 40 MG ORAL TABLET DELAYED RELEASE 1 pill by m outh daily, for acid reflux PANTOPRAZOLE SODIUM 51926096292 Active Melissa Elder Active METFORMIN HCL 500 MG ORAL TABLET 1 tablet by mouth twice daily METFORMIN HCL 14771066345 Active Melissa Elder Active LYRICA 150 MG ORAL CAPSULE 1 twice a day PREGABALIN 0007 3600702 Active Melissa Elder Active IBUPROFEN 800 MG ORAL TABLET 1 tab every 8 hours as needed for pain IBUPROFEN 65089512574 Active Melissa Elder Active LISINOPRIL-HYDROCHLOROTHIAZIDE 20-25 MG ORAL TABLET 1 tab by mouth daily LISINOPRIL-HYDROCHLOROTHIAZIDE 88202331991 Active Melissa Elder Active BACLOFEN 10 MG ORAL TABLET 1 tab by mouth three times daily BACLOFEN 74493617039 Active Melissa Elder Active ATORVASTATIN CALCIUM 10 MG ORAL TABLET 1 pill by mouth night ly, for cholesterol ATORVASTATIN CALCIUM 38348736798 Active Melissa Elder Active Vital Signs Date [...] negative Encounters Code Encounter Date Provider Facility CPT-50234 Level 3 Est. Patient 14:00:28 CDT Manuel mahoney MD [facility] [place] CPT-55831 Level 4 New Patient 12:41:44 CDT Manuel brown MD [facility] [place] Procedures Code Procedure Name Date Entry Date Standard Desc ription CPT-07953 Bladder Scan 14:00:28 CDT CPT-53965 Bladder Scan 12:41:44 CDT CPT-10033 Cystoscopy 12:41:44 CDT
--- OUTSIDE RECORDS SUMMARY | 2019-11-23 17:31 | XMS REPORT | Clinical Summary ---
Author Author Buddy, Gian DALE Organization [facility] Address Unknown Phone Unavailable Allergies, Adverse Reactions, [...] ev ening for prostate symptoms TAMSULOSIN HCL 89725539357 Active Melissa Elder Active PROTONIX 40 MG ORAL TABLET DELAYED RELEASE 1 pill by m outh daily, for acid reflux PANTOPRAZOLE SODIUM 87116727340 Active Melissa Elder Active METFORMIN HCL 500 MG ORAL TABLET 1 tablet by mouth twice daily METFORMIN HCL 86196707929 Active Melissa Elder Active LYRICA 150 MG ORAL CAPSULE 1 twice a day PREGABALIN 0007 3349165 Active Melissa Elder Active IBUPROFEN 800 MG ORAL TABLET 1 tab every 8 hours as needed for pain IBUPROFEN 06927704969 Active Melissa Elder Active LISINOPRIL-HYDROCHLOROTHIAZIDE 20-25 MG ORAL TABLET 1 tab by mouth daily LISINOPRIL-HYDROCHLOROTHIAZIDE 74671636761 Active Melissa Elder Active BACLOFEN 10 MG ORAL TABLET 1 tab by mouth three times daily BACLOFEN 07083033505 Active Melissa Elder Active ATORVASTATIN CALCIUM 10 MG ORAL TABLET 1 pill by mouth night ly, for cholesterol ATORVASTATIN CALCIUM 84238417457 Active Melissa Elder Active Vital Signs Date [...] negative Encounters Code Encounter Date Provider Facility CPT-97186 Level 3 Est. Patient 14:00:28 CDT Manuel mahoney MD [facility] CPT-14714 Level 4 New Patient 12:41:44 CDT Manuel brown MD [facility] Procedures Code Procedure Name Date Entry Date Standard Desc ription CPT-90946 Bladder Scan 14:00:28 CDT CPT-54446 Bladder Scan 12:41:44 CDT CPT-37473 Cystoscopy 12:41:44 CDT
--- OUTSIDE RECORDS SUMMARY | 2019-11-23 17:31 | XMS REPORT | Clinical Summary ---
Author Author Buddy, Gian DALE Organization [facility] Address Unknown Phone Unavailable Allergies, Adverse [...] ev ening for prostate symptoms TAMSULOSIN HCL 19859007042 Active Melissa Elder Active PROTONIX 40 MG ORAL TABLET DELAYED RELEASE 1 pill by m outh daily, for acid reflux PANTOPRAZOLE SODIUM 90787916173 Active Melissa Elder Active METFORMIN HCL 500 MG ORAL TABLET 1 tablet by mouth twice daily METFORMIN HCL 04271999293 Active Melissa Elder Active LYRICA 150 MG ORAL CAPSULE 1 twice a day PREGABALIN 0007 7056737 Active Melissa Elder Active IBUPROFEN 800 MG ORAL TABLET 1 tab every 8 hours as needed for pain IBUPROFEN 57527321188 Active Melissa Elder Active LISINOPRIL-HYDROCHLOROTHIAZIDE 20-25 MG ORAL TABLET 1 tab by mouth daily LISINOPRIL-HYDROCHLOROTHIAZIDE 28926467872 Active Melissa Elder Active BACLOFEN 10 MG ORAL TABLET 1 tab by mouth three times daily BACLOFEN 94905251501 Active Melissa Elder Active ATORVASTATIN CALCIUM 10 MG ORAL TABLET 1 pill by mouth night ly, for cholesterol ATORVASTATIN CALCIUM 00049097745 Active Melissa Elder Active Vital Signs Date [...] transmitted disease no risk noted Office Visit: -[facility] - Urinalysis appearance, urine clear urine color yellow specific gravity, urine 1.010 pH, urine, semiquantitative 7.0 protein, urine, semiquantitative (dipstick) negative glucose, urine, semiquantitative 4+ ketones, urine, by test strip negative bilirubin, urine negative nitrite, urine, semiquantitative negative urobilinogen, urine, semiquantitative (dipstick) 0.2 leukocyte esterase, urine, by dipstick negative Encounters Code Encounter Date Provider Facility CPT-68120 Level 4 New Patient 12:41:44 CDT Manuel brown MD [facility] Procedures Code Procedure Name Date Entry Date Standard Desc ription CPT-87487 Bladder Scan 12:41:44 CDT CPT-73350 Cystoscopy 12:41:44 CDT
--- OUTSIDE RECORDS SUMMARY | 2019-11-23 17:32 | XMS REPORT | Continuity of Care Document ---
Author Organization Unknown Address Unknown Phone Unavailable Allergies Active Description Code Type Severity Reaction Onset Reported/Identified Relationship to Patient Clinical Status Yes traMADol Drug N/A N/A Yes traMADol Drug Moderate [id number] Yes tramadol [id number] Drug Allergy Unknown N/A 09/16/2018 Medications There is no data. Problems Date Dx Coded Attending Type Code Diagnosis Diagnosed By 06/14/2018 JESSICA BLANCO MD Ot R10 .9 UNSPECIFIED ABDOMINAL PAIN 06/14/2018 JESSICA BLANCO MD Ot Z98.890 OTHER SPECIFIED POSTPROCEDURAL STATES 07/05/2018 MELBA, KRYSTAL L [employer] Ot R10.11 RIGHT UPPER QUADRANT PAIN 07/05/2018 MELBA, KRYSTAL L [employer] Ot R11.2 NAUSEA WITH VOMITING, UNSPECIFIED 07/20/2018 MELBA, KRYSTAL L [employer] Ot K76.0 FATTY (CHANGE OF) LIVER, NOT ELSEWHERE C 07/20/2018 MELBA, KRYSTAL L [employer] Ot R19.7 DIARRHEA, UNSPECIFIED 07/20/2018 MELBA, KRYSTAL L [employer] Ot Z98.890 OTHER SPECIFIED POSTPROCEDURAL STATES 07/24/2018 MELBA, KRYSTAL L [employer] Ot K76.0 FATTY (CHANGE OF) LIVER, NOT ELSEWHERE C 07/24/2018 MELBA, KRYSTAL L [employer] Ot R19.7 DIARRHEA, UNSPECIFIED 07/24/2018 MELBA, KRYSTAL L [employer] Ot Z98.890 OTHER SPECIFIED POSTPROCEDURAL STATES 07/25/2018 MELBA, KRYSTAL L [employer] Ot K76.0 FATTY (CHANGE OF) LIVER, NOT ELSEWHERE C 07/25/2018 MELBA, KRYSTAL L [employer] Ot R19.7 DIARRHEA, UNSPECIFIED 07/25/2018 MELBA, KRYSTAL L [employer] Ot Z98.890 OTHER SPECIFIED POSTPROCEDURAL STATES 08/03/2018 JESSICA BLANCO MD Ot R10 .9 UNSPECIFIED ABDOMINAL PAIN 08/03/2018 JESSICA BLANCO MD Ot Z98.890 OTHER SPECIFIED POSTPROCEDURAL STATES 08/10/2018 ENEZRART , XUAN E Ot M54.4 2 LUMBAGO WITH SCIATICA, LEFT SIDE 08/10/2018 ENEZRART , XUAN E Ot M54.5 LOW BACK PAIN 08/10/2018 ENEZRART , XUAN E Ot Z88.6 ALLERGY STATUS TO ANALGESIC AGENT STATUS 08/11/2018 ENEZRART , XUAN E Ot M54.4 2 LUMBAGO WITH SCIATICA, LEFT SIDE 08/11/2018 ENEZRART , XUAN E Ot M54.5 LOW BACK PAIN 08/11/2018 ENEZRART , XUAN E Ot Z88.6 ALLERGY STATUS TO ANALGESIC AGENT STATUS 08/11/2018 FRANCIS LIN, JESSICA Heaton Ot R10 .9 UNSPECIFIED ABDOMINAL PAIN 08/11/2018 JESSICA BLANCO MD Ot Z98.890 OTHER SPECIFIED POSTPROCEDURAL STATES 08/11/2018 MELBA, KRYSTAL L [employer] Ot R10.11 RIGHT UPPER QUADRANT PAIN 08/11/2018 MELBA, KRYSTAL L [employer] Ot R11.2 NAUSEA WITH VOMITING, UNSPECIFIED 08/11/2018 MELBA, KRYSTAL L [employer] Ot K76.0 FATTY (CHANGE OF) LIVER, NOT ELSEWHERE C 08/11/2018 MELBA, KRYSTAL L [employer] Ot R19.7 DIARRHEA, UNSPECIFIED 08/11/2018 MELBA, KRYSTAL L [employer] Ot Z98.890 OTHER SPECIFIED POSTPROCEDURAL STATES 09/14/2018 JESSICA BLANCO MD Ot R10 .9 UNSPECIFIED ABDOMINAL PAIN 09/14/2018 JESSICA BLANCO MD Ot Z98.890 OTHER SPECIFIED POSTPROCEDURAL STATES 09/14/2018 MELBA, KRYSTAL L [employer] Ot R10.11 RIGHT UPPER QUADRANT PAIN 09/14/2018 MELBA, KRYSTAL L [employer] Ot R11.2 NAUSEA WITH VOMITING, UNSPECIFIED 09/14/2018 MELBA, KRYSTAL L [employer] Ot K76.0 FATTY (CHANGE OF) LIVER, NOT ELSEWHERE C 09/14/2018 MELBA, KRYSTAL L [employer] Ot R19.7 DIARRHEA, UNSPECIFIED 09/14/2018 MELBA, KRYSTAL L [employer] Ot Z98.890 OTHER SPECIFIED POSTPROCEDURAL STATES 09/14/2018 WANDA LIN, NAZ Martines Ot M17.12 UNILATERAL PRIMARY OSTEOARTHRITIS, LEFT 09/16/2018 SALMON DO, ALMA L Ot K21.9 GASTRO-ESOPHAGEAL REFLUX DISEASE WITHOUT 09/16/2018 SALMON DO, ALMA L Ot N28.9 DISORDER [...] Visit R11.2 Nausea with vomiting, unspecified 01/13/2019 JANIE STEWART DO Ot E11.9 TYPE 2 DIABETES MELLITUS WITHOUT COMPLIC 01/13/2019 JANIE STEWART DO Ot I10 ESSENTIAL (PRIMARY) HYPERTENSION 01/13/2019 JANIE STEWART DO Ot K21.9 GASTRO-ESOPHAGEAL REFLUX DISEASE WITHOUT 01/13/2019 TERRY SCOTT JANIE Ot K29.00 ACUTE GASTRITIS WITHOUT BLEEDING 01/13/2019 JANIE STEWART DO Ot K44.9 DIAPHRAGMATIC HERNIA WITHOUT OBSTRUCTION 01/13/2019 JANIE STEWART DO Ot K57.30 DVRTCLOS OF LG INT W/O PERFORATION OR AB 01/13/2019 TERRY SCOTT JANIE Ot K59.00 CONSTIPATION, UNSPECIFIED 01/13/2019 TERRY SCOTT JANIE Ot K76.0 FATTY (CHANGE OF) LIVER, NOT ELSEWHERE C 01/13/2019 JANIE STEWART DO Ot M54.9 DORSALGIA, UNSPECIFIED 01/13/2019 ELENA STEWART DOI Ot Z79.84 CORRECTION (CURRENT) USE OF ORAL HYPOGLYC 01/13/2019 JANIE STEWART DO Ot Z87.19 PERSONAL HISTORY OF OTHER DISEASES OF TH 01/13/2019 JANIE STEWART DO Ot Z87.89 1 PERSONAL HISTORY OF NICOTINE DEPENDENCE 01/15/2019 FRANCIS LIN, JESSICA Heaton Ot R10 .9 UNSPECIFIED ABDOMINAL PAIN 01/15/2019 FRANCIS LIN, JESSICA Heaton Ot Z98.890 OTHER SPECIFIED POSTPROCEDURAL STATES 01/15/2019 MELBA, KRYSTAL L [employer] Ot R10.11 RIGHT UPPER QUADRANT PAIN 01/15/2019 MELBA, KRYSTAL L [employer] Ot R11.2 NAUSEA WITH VOMITING, UNSPECIFIED 01/15/2019 MELBA, KRYSTAL L [employer] Ot K76.0 FATTY (CHANGE OF) LIVER, NOT ELSEWHERE C 01/15/2019 MELBA, KRYSTAL L [employer] Ot R19.7 DIARRHEA, UNSPECIFIED 01/15/2019 MELBA, KRYSTAL L [employer] Ot Z98.890 OTHER SPECIFIED POSTPROCEDURAL STATES 01/15/2019 WANDA LIN, NAZ Martines Ot M17.12 UNILATERAL PRIMARY OSTEOARTHRITIS, LEFT 01/25/2019 MELBA, KRYSTAL L [employer] Ot K76.0 FATTY (CHANGE OF) LIVER, NOT ELSEWHERE C 01/25/2019 MELBA, KRYSTAL L [employer] Ot R19.7 DIARRHEA, UNSPECIFIED 01/25/2019 MELBA, KRYSTAL L [employer] Ot Z98.890 OTHER SPECIFIED POSTPROCEDURAL STATES 01/25/2019 JESSICA BLANCO MD Ot R10 .9 UNSPECIFIED ABDOMINAL PAIN 01/25/2019 JESSICA BLANCO MD Ot Z98.890 OTHER SPECIFIED POSTPROCEDURAL STATES 01/25/2019 MELBA, KRYSTAL L [employer] Ot R10.11 RIGHT UPPER QUADRANT PAIN 01/25/2019 MELBA, KRYSTAL L [employer] Ot R11.2 NAUSEA WITH VOMITING, UNSPECIFIED 01/25/2019 MELBA, KRYSTAL L [employer] Ot K76.0 FATTY (CHANGE OF) LIVER, NOT ELSEWHERE C 01/25/2019 MELBA, KRYSTAL L [employer] Ot R19.7 DIARRHEA, UNSPECIFIED 01/25/2019 MELBA, KRYSTAL L [employer] Ot Z98.890 OTHER SPECIFIED POSTPROCEDURAL STATES 01/25/2019 WANDA LIN, NAZ Martines Ot M17.12 UNILATERAL PRIMARY OSTEOARTHRITIS, LEFT 01/26/2019 JESSICA BLANCO MD Ot R10 .9 UNSPECIFIED ABDOMINAL PAIN 01/26/2019 BLANCO MD, JESSICA M Ot Z98.890 OTHER SPECIFIED POSTPROCEDURAL STATES 01/26/2019 MELBA, KRYSTAL L [employer] Ot R10.11 RIGHT UPPER QUADRANT PAIN 01/26/2019 MELBA, KRYSTAL L [employer] Ot R11.2 NAUSEA WITH VOMITING, UNSPECIFIED 01/26/2019 MELBA, KRYSTAL L [employer] Ot K76.0 FATTY (CHANGE OF) LIVER, NOT ELSEWHERE C 01/26/2019 MELBA, KRYSTAL L [employer] Ot R19.7 DIARRHEA, UNSPECIFIED 01/26/2019 MELBA, KRYSTAL L [employer] Ot Z98.890 OTHER SPECIFIED POSTPROCEDURAL STATES 01/26/2019 WANDA LIN, NAZ Martines Ot M17.12 UNILATERAL PRIMARY OSTEOARTHRITIS, LEFT 01/29/2019 PRIYANKA QUINTANILLA FAMILY LIFE EDUCATOR Ot M79.605 PAIN IN LEFT LEG 02/13/2019 PRIYANKA QUINTANILLA FAMILY LIFE EDUCATOR Ot M79.605 PAIN IN LEFT LEG 03/06/2019 O'DELLester ZOILA K [employer] Ot M19.012 PRIMARY OSTEOARTHRITIS, LEFT SHOULDER 03/06/2019 O'VANESSA ZOILA K [employer] Ot M62.838 OTHER MUSCLE SPASM 04/28/2019 EMLLY KAUFMAN MD Ot E11. 9 TYPE 2 DIABETES MELLITUS WITHOUT COMPLIC 04/28/2019 MELLY KAUFMAN MD Ot F17.210 NICOTINE DEPENDENCE, CIGARETTES, UNCOMPL 04/28/2019 MELLY KAUFMAN MD Ot I10 ESSENTIAL (PRIMARY) HYPERTENSION 04/28/2019 MELLY KAUFMAN MD Ot K21. 0 GASTRO-ESOPHAGEAL REFLUX DISEASE WITH ES 04/28/2019 MELLY KAUFMAN MD Ot R11. 2 NAUSEA WITH VOMITING, UNSPECIFIED 04/28/2019 MELLY KAUFMAN MD A Ot Z79. 84 SENIOR TELECOMMUNICATIONS SPECIALIST (CURRENT) USE OF ORAL HYPOGLYC 04/28/2019 MELLY KAUFMAN MD Ot Z88. 5 ALLERGY STATUS TO NARCOTIC AGENT STATUS 05/03/2019 MELLY KAUFMAN MD Ot E11. 9 TYPE 2 DIABETES MELLITUS WITHOUT COMPLIC 05/03/2019 MELLY KAUFMAN MD Ot F17.210 NICOTINE DEPENDENCE, CIGARETTES, UNCOMPL 05/03/2019 MELLY KAUFMAN MD Ot I10 ESSENTIAL (PRIMARY) HYPERTENSION 05/03/2019 MELLY KAUFMAN MD Ot K21. 0 GASTRO-ESOPHAGEAL REFLUX DISEASE WITH ES 05/03/2019 MELLY KAUFMAN MD Ot R11. 2 NAUSEA WITH VOMITING, UNSPECIFIED 05/03/2019 MELLY KAUFMAN MD Ot Z79. 84 CORRECTION (CURRENT) USE OF ORAL HYPOGLYC 05/03/2019 MELLY KAUFMAN MD Ot Z88. 5 ALLERGY STATUS TO NARCOTIC AGENT STATUS 08/08/2019 ALL DO, MAE H Ot E11.9 TYPE 2 DIABETES MELLITUS WITHOUT COMPLIC 08/08/2019 ALL DO, MAE H Ot E86.0 DEHYDRATION 08/08/2019 ALL DO, MAE H Ot G89.29 OTHER CHRONIC PAIN 08/08/2019 ALL DO, MAE H Ot I12.9 HYPERTENSIVE CHRONIC KIDNEY DISEASE W ST 08/08/2019 ALL DO, MAE H Ot K21.9 GASTRO-ESOPHAGEAL REFLUX DISEASE WITHOUT 08/08/2019 ALL DO, MAE H Ot M19.042 PRIMARY OSTEOARTHRITIS, LEFT HAND 08/08/2019 ALL DO, MAE H Ot M54.9 DORSALGIA, UNSPECIFIED 08/08/2019 ALL DO, MAE H Ot N18.9 CHRONIC KIDNEY DISEASE, UNSPECIFIED 08/08/2019 ALL DO, MAE H Ot R07.89 OTHER CHEST PAIN 08/08/2019 ALL DO, MAE H Ot R07.9 CHEST PAIN, UNSPECIFIED 08/08/2019 ALL DO, MAE H Ot Z79.84 SENIOR TELECOMMUNICATIONS SPECIALIST (CURRENT) USE OF ORAL HYPOGLYC 08/08/2019 ALL DO, MAE H Ot Z79.899 OTHER SENIOR TELECOMMUNICATIONS SPECIALIST (CURRENT) DRUG THERAPY 08/09/2019 ALL DO, MAE H Ot E11.9 TYPE 2 DIABETES MELLITUS WITHOUT COMPLIC 08/09/2019 ALL DO, MAE H Ot E86.0 DEHYDRATION 08/09/2019 ALL DO, MAE H Ot G89.29 OTHER CHRONIC PAIN 08/09/2019 ALL DO, MAE H Ot I12.9 HYPERTENSIVE CHRONIC KIDNEY DISEASE W ST 08/09/2019 ALL DO, MAE H Ot K21.9 GASTRO-ESOPHAGEAL REFLUX DISEASE WITHOUT 08/09/2019 ALL DO, MAE H Ot M19.042 PRIMARY OSTEOARTHRITIS, LEFT HAND 08/09/2019 ALL DO, MAE H Ot M54.9 DORSALGIA, UNSPECIFIED 08/09/2019 ALL DO MAE Juanito Ot N18.9 CHRONIC KIDNEY DISEASE, UNSPECIFIED 08/09/2019 ALL DO MAE Juanito Ot R07.89 OTHER CHEST PAIN 08/09/2019 ALL , MAE Juanito Ot R07.9 CHEST PAIN, UNSPECIFIED 08/09/2019 ALL DO MAE Juanito Ot Z79.84 SENIOR TELECOMMUNICATIONS SPECIALIST (CURRENT) USE OF ORAL HYPOGLYC 08/09/2019 MAE CARRIZALES DO Ot Z79.899 OTHER SENIOR TELECOMMUNICATIONS SPECIALIST (CURRENT) DRUG THERAPY 08/14/2019 YAS PIZARRO DO Ot E11. 9 TYPE 2 DIABETES MELLITUS WITHOUT COMPLIC 08/14/2019 YAS PIZARRO DO Ot G89. 29 OTHER CHRONIC PAIN 08/14/2019 YAS PIZARRO DO Ot I10 ESSENTIAL (PRIMARY) HYPERTENSION 08/14/2019 YAS PIZARRO DO Ot M54. 9 DORSALGIA, UNSPECIFIED 08/14/2019 YAS PIZARRO DO Ot S61.012A LACERATION W/O FB OF LEFT THUMB W/O STEFAN 08/14/2019 YAS PIZARRO DO Ot W26.0XXA CONTACT WITH KNIFE, INITIAL ENCOUNTER 08/14/2019 YAS PIZARRO DO Ot Z23 ENCOUNTER FOR IMMUNIZATION 08/14/2019 YAS PIZARRO DO Ot Z77. 22 CNTCT W AND EXPSR TO ENVIRON TOBACCO SMO 08/14/2019 YAS PIZARRO DO Ot Z79. 84 CORRECTION (CURRENT) USE OF ORAL HYPOGLYC 08/14/2019 YAS PIZARRO DO Ot Z79.899 OTHER CORRECTION (CURRENT) DRUG THERAPY 08/14/2019 YAS PIZARRO DO Ot Z88. 5 ALLERGY STATUS TO NARCOTIC AGENT STATUS 08/15/2019 YAS PIZARRO DO Ot E11. 9 TYPE 2 DIABETES MELLITUS WITHOUT COMPLIC 08/15/2019 YAS PIZARRO DO Ot G89. 29 OTHER CHRONIC PAIN 08/15/2019 YAS PIZARRO DO Ot I10 ESSENTIAL (PRIMARY) HYPERTENSION 08/15/2019 YAS PIZARRO DO Ot M54. 9 DORSALGIA, UNSPECIFIED 08/15/2019 YAS PIZARRO DO Ot S61.012A LACERATION W/O FB OF LEFT THUMB W/O STEFAN 08/15/2019 YAS PIZARRO DO Ot W26.0XXA CONTACT WITH KNIFE, INITIAL ENCOUNTER 08/15/2019 YAS PIZARRO DO Ot Z23 ENCOUNTER FOR IMMUNIZATION 08/15/2019 MOIRA SCOTT YAS B Ot Z77. 22 CNTCT W AND EXPSR TO ENVIRON TOBACCO SMO 08/15/2019 MOIRA DO YAS B Ot Z79. 84 SENIOR TELECOMMUNICATIONS SPECIALIST (CURRENT) USE OF ORAL HYPOGLYC 08/15/2019 YAS PIZARRO DO Ot Z79.899 OTHER CORRECTION (CURRENT) DRUG THERAPY 08/15/2019 YAS PIZARRO DO Ot Z88. 5 ALLERGY STATUS TO NARCOTIC AGENT STATUS 08/16/2019 PRIYANKA QUINTANILLA Ot M79.605 PAIN IN LEFT LEG 08/17/2019 JESSICA BLANCO MD Ot E11 .9 TYPE 2 DIABETES MELLITUS WITHOUT COMPLIC 08/17/2019 JESSICA BLANCO MD Ot N13 .9 OBSTRUCTIVE AND REFLUX UROPATHY, UNSPECI 08/17/2019 JESSICA BLANCO MD Ot N40 .1 BENIGN PROSTATIC HYPERPLASIA WITH LOWER 08/31/2019 Manuel Reis MD N4 0.1 BPH with lower urinary tract symptoms 08/31/2019 Manuel Reis MD E6 6.9 Obesity Class I (BMI 30-34.9) 08/31/2019 Manuel Reis MD Z68.33 BMI 33-33.9 09/03/2019 O'DELZOILA Batista APRN Ot M19.012 PRIMARY OSTEOARTHRITIS, LEFT SHOULDER 09/03/2019 O'ZOILA MENDEZ APRN Ot M62.838 OTHER MUSCLE SPASM 09/13/2019 WANDA LIN, NAZ Martines Ot M17.12 UNILATERAL PRIMARY OSTEOARTHRITIS, LEFT 10/12/2019 JESSICA BLANCO MD Ot R10 .9 UNSPECIFIED ABDOMINAL PAIN 10/12/2019 JESSICA BLANCO MD Ot Z98.890 OTHER SPECIFIED POSTPROCEDURAL STATES 10/12/2019 MELBAYADIRA MOISEIN L DIRECTOR [employer] Ot R10.11 RIGHT UPPER QUADRANT PAIN 10/12/2019 YADIRA REILLYIN L DIRECTOR [employer] Ot R11.2 NAUSEA WITH VOMITING, UNSPECIFIED 10/12/2019 YADIRA REILLYIN L DIRECTOR [employer] Ot K76.0 FATTY (CHANGE OF) LIVER, NOT ELSEWHERE C 10/12/2019 YADIRA REILLYIN L DIRECTOR [employer] Ot R19.7 DIARRHEA, UNSPECIFIED 10/12/2019 MELBAYADIRA MOISEIN L DIRECTOR [employer] Ot Z98.890 OTHER SPECIFIED POSTPROCEDURAL STATES 10/12/2019 WANDA LIN, NAZ Martines Ot M17.12 UNILATERAL PRIMARY OSTEOARTHRITIS, LEFT 10/12/2019 PRIYANKA QUINTANILLAP Ot M79.605 PAIN IN LEFT LEG 10/12/2019 O'DELL, ZOILA K DIRECTOR [employer] Ot M19.012 PRIMARY OSTEOARTHRITIS, LEFT SHOULDER 10/12/2019 O'DELL, ZOILA K DIRECT[employer] Ot M62.838 OTHER MUSCLE SPASM 10/12/2019 JESSICA BLANCO MD Ot E11 .9 TYPE 2 DIABETES MELLITUS WITHOUT COMPLIC 10/12/2019 JESSICA BLANCO MD Ot N13 .9 OBSTRUCTIVE AND REFLUX UROPATHY, UNSPECI 10/12/2019 JESSICA BLANCO MD Ot N40 .1 BENIGN PROSTATIC HYPERPLASIA WITH LOWER 11/13/2019 PRIYANKA QUINTANILLAP Ot M79.672 PAIN IN LEFT FOOT 11/14/2019 PRIYANKA QUINTANILLAP Ot M79.672 PAIN IN LEFT FOOT 11/14/2019 PRIYANKA QUINTANILLA Ot M79.672 PAIN IN LEFT FOOT 11/15/2019 JESSICA BLANCO MD Ot M25.512 PAIN IN LEFT SHOULDER 11/15/2019 JESSICA BLANCO MD Ot M25.522 PAIN IN LEFT ELBOW 11/23/2019 PRIYANKA QUINTANILLAP Ot M79.672 PAIN IN LEFT FOOT 11/23/2019 JESSICA BLANCO MD Ot M25.512 PAIN IN LEFT SHOULDER 11/23/2019 JESSICA BLANCO MD Ot M25.522 PAIN IN LEFT ELBOW 11/23/2019 PRIYANKA QUINTANILLA Ot M79.672 PAIN IN LEFT FOOT 11/23/2019 JESSICA BLANCO MD Ot M25.512 PAIN IN LEFT SHOULDER 11/23/2019 JESSICA BLANCO MD Ot M25.522 PAIN IN LEFT ELBOW 11/23/2019 JESSICA BLANCO MD Ot R10 .9 UNSPECIFIED ABDOMINAL PAIN 11/23/2019 JESSICA BLANCO MD Ot Z98.890 OTHER SPECIFIED POSTPROCEDURAL STATES 11/23/2019 MELBA, KRYSTAL L DIRECTOR [employer] Ot R10.11 RIGHT UPPER QUADRANT PAIN 11/23/2019 MELBA, KRYSTAL L DIRECTOR [employer] Ot R11.2 NAUSEA WITH VOMITING, UNSPECIFIED 11/23/2019 MELBA, KRYSTAL L DIRECTOR [employer] Ot K76.0 FATTY (CHANGE OF) LIVER, NOT ELSEWHERE C 11/23/2019 MELBA, KRYSTAL L DIRECTOR [employer] Ot R19.7 DIARRHEA, UNSPECIFIED 11/23/2019 MELBA, KRYSTAL L DIRECTOR [employer] Ot Z98.890 OTHER SPECIFIED POSTPROCEDURAL STATES 11/23/2019 WANDA LIN, NAZ Martines Ot M17.12 UNILATERAL PRIMARY OSTEOARTHRITIS, LEFT 11/23/2019 PRIYANKA QUINTANILLA Ot M79.605 PAIN IN LEFT LEG 11/23/2019 O'DELZOILA Batista DIRECTOR [employer] Ot M19.012 PRIMARY OSTEOARTHRITIS, LEFT SHOULDER 11/23/2019 O'DELL, ZOILA K DIRECTOR [employer] Ot M62.838 OTHER MUSCLE SPASM 11/23/2019 FRANCIS LIN, JESSICA Heaton Ot E11 .9 TYPE 2 DIABETES MELLITUS WITHOUT COMPLIC 11/23/2019 JESSICA BLANCO MD Ot N13 .9 OBSTRUCTIVE AND REFLUX UROPATHY, UNSPECI 11/23/2019 JESSICA BLANCO MD, Ot N40 .1 BENIGN PROSTATIC HYPERPLASIA WITH LOWER 11/23/2019 FRANCIS LIN, JESSICA Heaton Ot M89.8X7 OTHER SPECIFIED DISORDERS OF BONE, ANKLE 11/23/2019 JESSICA BLANCO MD Ot S99.912A UNSPECIFIED INJURY OF LEFT ANKLE, INITIA 11/23/2019 JESSICA BLANCO MD Ot R10 .9 UNSPECIFIED ABDOMINAL PAIN 11/23/2019 JESSICA BLANCO MD Ot Z98.890 OTHER SPECIFIED POSTPROCEDURAL STATES 11/23/2019 MELBA, KRYSTAL L DIRECTOR [employer] Ot R10.11 RIGHT UPPER QUADRANT PAIN 11/23/2019 MELBA, KRYSTAL L DIRECTOR [employer] Ot R11.2 NAUSEA WITH VOMITING, UNSPECIFIED 11/23/2019 MELBA, KRYSTAL L DIRECTOR [employer] Ot K76.0 FATTY (CHANGE OF) LIVER, NOT ELSEWHERE C 11/23/2019 MELBA, KRYSTAL L DIRECTOR [employer] Ot R19.7 DIARRHEA, UNSPECIFIED 11/23/2019 MELBA, KRYSTAL L DIRECTOR [employer] Ot Z98.890 OTHER SPECIFIED POSTPROCEDURAL STATES 11/23/2019 WANDA LIN, NAZ Martines Ot M17.12 UNILATERAL PRIMARY OSTEOARTHRITIS, LEFT 11/23/2019 PRIYANKA QUINTANILLA Ot M79.605 PAIN IN LEFT LEG 11/23/2019 O'DELL, ZOILA K DIRECTOR [employer] Ot M19.012 PRIMARY OSTEOARTHRITIS, LEFT SHOULDER 11/23/2019 O'DELL, ZOILA K DIRECTOR [employer] Ot M62.838 OTHER MUSCLE SPASM 11/23/2019 FRANCIS LIN, JESSICA Heaton Ot E11 .9 TYPE 2 DIABETES MELLITUS WITHOUT COMPLIC 11/23/2019 FRANCIS LIN, JESSICA Heaton Ot N13 .9 OBSTRUCTIVE AND REFLUX UROPATHY, UNSPECI 11/23/2019 JESSICA BLANCO MD Ot N40 .1 BENIGN PROSTATIC HYPERPLASIA WITH LOWER 11/23/2019 JESSICA BLANCO MD Ot M89.8X7 OTHER SPECIFIED DISORDERS OF BONE, ANKLE 11/23/2019 JESSICA BLANCO MD Ot S99.912A UNSPECIFIED INJURY OF LEFT ANKLE, INITIA 11/23/2019 JESSICA BLANCO MD Ot R10 .9 UNSPECIFIED ABDOMINAL PAIN 11/23/2019 JESSICA BLANCO MD Ot Z98.890 OTHER SPECIFIED POSTPROCEDURAL STATES 11/23/2019 MELBA, KRYSTAL L DIRECTOR [employer] Ot R10.11 RIGHT UPPER QUADRANT PAIN 11/23/2019 MELBA, KRYSTAL L DIRECTOR [employer] Ot R11.2 NAUSEA WITH VOMITING, UNSPECIFIED 11/23/2019 MELBA, KRYSTAL L DIRECTOR [employer] Ot K76.0 FATTY (CHANGE OF) LIVER, NOT ELSEWHERE C 11/23/2019 MELBA, KRYSTAL L DIRECTOR [employer] Ot R19.7 DIARRHEA, UNSPECIFIED 11/23/2019 MELBA, KRYSTAL L DIRECTOR [employer] Ot Z98.890 OTHER SPECIFIED POSTPROCEDURAL STATES 11/23/2019 WANDA LIN, NAZ Martines Ot M17.12 UNILATERAL PRIMARY OSTEOARTHRITIS, LEFT 11/23/2019 PRIYANKA QUINTANILLA Ot M79.605 PAIN IN LEFT LEG 11/23/2019 O'DELL, ZOILA K DIRECTOR [employer] Ot M19.012 PRIMARY OSTEOARTHRITIS, LEFT SHOULDER 11/23/2019 O'DELL, ZOILA K DIRECTOR [employer] Ot M62.838 OTHER MUSCLE SPASM 11/23/2019 JESSICA BLANCO MD Ot E11 .9 TYPE 2 DIABETES MELLITUS WITHOUT COMPLIC 11/23/2019 JESSICA BLANCO MD, Ot N13 .9 OBSTRUCTIVE AND REFLUX UROPATHY, UNSPECI 11/23/2019 JESSICA BLANCO MD Ot N40 .1 BENIGN PROSTATIC HYPERPLASIA WITH LOWER 11/23/2019 JESSICA BLANCO MD Ot M89.8X7 OTHER SPECIFIED DISORDERS OF BONE, ANKLE 11/23/2019 JESSICA BLANCO MD Ot S99.912A UNSPECIFIED INJURY OF LEFT ANKLE, INITIA 11/23/2019 JESSICA BLANCO MD Ot R10 .9 UNSPECIFIED ABDOMINAL PAIN 11/23/2019 JESSICA BLANCO MD Ot Z98.890 OTHER SPECIFIED POSTPROCEDURAL STATES 11/23/2019 MELBA, KRYSTAL L DIRECTOR [employer] Ot R10.11 RIGHT UPPER QUADRANT PAIN 11/23/2019 MELBA, KRYSTAL L DIRECTOR [employer] Ot R11.2 NAUSEA WITH VOMITING, UNSPECIFIED 11/23/2019 MELBA, KRYSTAL L DIRECTOR [employer] Ot K76.0 FATTY (CHANGE OF) LIVER, NOT ELSEWHERE C 11/23/2019 MELBA, KRYSTAL L DIRECTOR [employer] Ot R19.7 DIARRHEA, UNSPECIFIED 11/23/2019 MELBA, KRYSTAL L DIRECTOR [employer] Ot Z98.890 OTHER SPECIFIED POSTPROCEDURAL STATES 11/23/2019 WANDA LIN, NAZ Martines Ot M17.12 UNILATERAL PRIMARY OSTEOARTHRITIS, LEFT 11/23/2019 PRIYANKA QUINTANILLA Ot M79.605 PAIN IN LEFT LEG 11/23/2019 O'DELLester ZOILA K DIRECTOR [employer] Ot M19.012 PRIMARY OSTEOARTHRITIS, LEFT SHOULDER 11/23/2019 O'DELLester ZOILA K DIRECT[employer] Ot M62.838 OTHER MUSCLE SPASM 11/23/2019 JESSICA BLANCO MD Ot E11 .9 TYPE 2 DIABETES MELLITUS WITHOUT COMPLIC 11/23/2019 JESSICA BLANCO MD Ot N13 .9 OBSTRUCTIVE AND REFLUX UROPATHY, UNSPECI 11/23/2019 JESSICA BLANCO MD Ot N40 .1 BENIGN PROSTATIC HYPERPLASIA WITH LOWER 11/23/2019 JESSICA BLANCO MD Ot M89.8X7 OTHER SPECIFIED DISORDERS OF BONE, ANKLE 11/23/2019 FRANCIS LIN, JESSICA Heaton Ot S99.912A UNSPECIFIED INJURY OF LEFT ANKLE, INITIA 11/23/2019 FRANCIS LIN, JESSICA Heaton Ot R10 .9 UNSPECIFIED ABDOMINAL PAIN 11/23/2019 FRANCIS LIN, JESSICA Heaton Ot Z98.890 OTHER SPECIFIED POSTPROCEDURAL STATES 11/23/2019 MELBA, KRYSTAL L DIRECTOR [employer] Ot R10.11 RIGHT UPPER QUADRANT PAIN 11/23/2019 MELBA, KRYSTAL L [employer] Ot R11.2 NAUSEA WITH VOMITING, UNSPECIFIED 11/23/2019 MELBA, KRYSTAL L [employer] Ot K76.0 FATTY (CHANGE OF) LIVER, NOT ELSEWHERE C 11/23/2019 MELBA, KRYSTAL L [employer] Ot R19.7 DIARRHEA, UNSPECIFIED 11/23/2019 MELBA, KRYSTAL L [employer] Ot Z98.890 OTHER SPECIFIED POSTPROCEDURAL STATES 11/23/2019 WANDA LIN, NAZ Martines Ot M17.12 UNILATERAL PRIMARY OSTEOARTHRITIS, LEFT 11/23/2019 PRIYANKA QUINTANILLA Ot M79.605 PAIN IN LEFT LEG 11/23/2019 O'DELL, ZOILA K [employer] Ot M19.012 PRIMARY OSTEOARTHRITIS, LEFT SHOULDER 11/23/2019 O'DELL, ZOILA K [employer] Ot M62.838 OTHER MUSCLE SPASM 11/23/2019 FRANCIS LIN, JESSICA Heaton Ot E11 .9 TYPE 2 DIABETES MELLITUS WITHOUT COMPLIC 11/23/2019 FRANCIS ILN, JESSICA Heaton Ot N13 .9 OBSTRUCTIVE AND REFLUX UROPATHY, UNSPECI 11/23/2019 FRANCIS LIN, JESSICA Heaton Ot N40 .1 BENIGN PROSTATIC HYPERPLASIA WITH LOWER 11/23/2019 FRANCIS LIN, JESSICA Heaton Ot M89.8X7 OTHER SPECIFIED DISORDERS OF BONE, ANKLE 11/23/2019 JESSICA BLANCO MD Ot S99.912A UNSPECIFIED INJURY OF LEFT ANKLE, INITIA 11/23/2019 JESSICA BLANCO MD Ot R10 .9 UNSPECIFIED ABDOMINAL PAIN 11/23/2019 JESSICA BLANCO MD Ot Z98.890 OTHER SPECIFIED POSTPROCEDURAL STATES 11/23/2019 MELBA, KRYSTAL L [employer] Ot R10.11 RIGHT UPPER QUADRANT PAIN 11/23/2019 MELBA, KRYSTAL L [employer] Ot R11.2 NAUSEA WITH VOMITING, UNSPECIFIED 11/23/2019 MELBA, KRYSTAL L [employer] Ot K76.0 FATTY (CHANGE OF) LIVER, NOT ELSEWHERE C 11/23/2019 MELBA, KRYSTAL L [employer] Ot R19.7 DIARRHEA, UNSPECIFIED 11/23/2019 MELBA, KRYSTAL L [employer] Ot Z98.890 OTHER SPECIFIED POSTPROCEDURAL STATES 11/23/2019 WANDA LIN, NAZ Martines Ot M17.12 UNILATERAL PRIMARY OSTEOARTHRITIS, LEFT 11/23/2019 KING PRIYANKA Manuel VILLA Ot M79.605 PAIN IN LEFT LEG 11/23/2019 O'DELZOILA Batista [employer] Ot M19.012 PRIMARY OSTEOARTHRITIS, LEFT SHOULDER 11/23/2019 O'DELL, ZOILA Martines APRN Ot M62.838 OTHER MUSCLE SPASM 11/23/2019 FRANCIS LIN, JESSICA Heaton Ot E11 .9 TYPE 2 DIABETES MELLITUS WITHOUT COMPLIC 11/23/2019 FRANCIS LIN, JESSICA Heaton Ot N13 .9 OBSTRUCTIVE AND REFLUX UROPATHY, UNSPECI 11/23/2019 FRANCIS LIN, JESSICA Heaton Ot N40 .1 BENIGN PROSTATIC HYPERPLASIA WITH LOWER 11/23/2019 JESSICA BLANCO MD Ot M89.8X7 OTHER SPECIFIED DISORDERS OF BONE, ANKLE 11/23/2019 JESSICA BLANCO MD Ot S99.912A UNSPECIFIED INJURY OF LEFT ANKLE, INITIA 11/23/2019 JESSICA BLANCO MD Ot R10 .9 UNSPECIFIED ABDOMINAL PAIN 11/23/2019 JESSICA BLANCO MD Ot Z98.890 OTHER SPECIFIED POSTPROCEDURAL STATES 11/23/2019 MELBA, KRYSTAL L [employer] Ot R10.11 RIGHT UPPER QUADRANT PAIN 11/23/2019 MELBA, KRYSTAL L [employer] Ot R11.2 NAUSEA WITH VOMITING, UNSPECIFIED 11/23/2019 MELBA, KRYSTAL L [employer] Ot K76.0 FATTY (CHANGE OF) LIVER, NOT ELSEWHERE C 11/23/2019 MELBA, KRYSTAL L [employer] Ot R19.7 DIARRHEA, UNSPECIFIED 11/23/2019 MELBA, KRYSTAL L [employer] Ot Z98.890 OTHER SPECIFIED POSTPROCEDURAL STATES 11/23/2019 WANDA LIN, NAZ Martines Ot M17.12 UNILATERAL PRIMARY OSTEOARTHRITIS, LEFT 11/23/2019 PRIYANKA QUINTANILLA Ot M79.605 PAIN IN LEFT LEG 11/23/2019 Qasim'ZOILA MENDEZ APRN Ot M19.012 PRIMARY OSTEOARTHRITIS, LEFT SHOULDER 11/23/2019 ZOILA THOMPSON APRN Ot M62.838 OTHER MUSCLE SPASM 11/23/2019 JESSICA BLANCO MD, Ot E11 .9 TYPE 2 DIABETES MELLITUS WITHOUT COMPLIC 11/23/2019 JESSICA BLANCO MD, Ot N13 .9 OBSTRUCTIVE AND REFLUX UROPATHY, UNSPECI 11/23/2019 JESSICA BLANCO MD, Ot N40 .1 BENIGN PROSTATIC HYPERPLASIA WITH LOWER 11/23/2019 JESSICA BLANCO MD, Ot M89.8X7 OTHER SPECIFIED DISORDERS OF BONE, ANKLE 11/23/2019 JESSICA BLANCO MD, Ot S99.912A UNSPECIFIED INJURY OF LEFT ANKLE, INITIA Procedures There is no data. Results Test [...] 7-25 CREATININE 1.46 mg/dL 0.70-1.33 eGFR NON-AFR. [place] 52 mL/min/1.73m2 > OR = 60 eGFR [...] 7-25 CREATININE 1.01 mg/dL 0.70-1.25 eGFR NON-AFR. [place] 80 mL/min/1.73m2 > OR = 60 eGFR [...] 08/08/19 17:32 Myoglobin, serum 119.9 ng/mL 10.0-92.0 Complete blood count (CBC) with automate d white blood cell (WBC) differential - 11/23/19 11:35 Blood leukocytes automated count (number/volume) 12.6 10*3/uL 4.3-11.0 Blood erythrocytes automated count (number/volume) 5.20 10*6/uL 4.35-5.85 Venous blood hemoglobin measurement (mass/volume) 15.6 g/dL 13.3-17.7 Blood hematocrit (volume fraction) 44 % 40-54 Automated erythrocyte mean corpuscular volume 84 [ foz_us] 80-99 Automated erythrocyte mean corpuscular h emoglobin (mass per erythrocyte) 30 pg 25-34 Automated erythrocyte mean corpuscular h emoglobin concentration measurement (mass/volume) 36 g/dL 32-36 Automated erythrocyte distribution width ratio 13. 1 % 10.0- 14.5 Automated blood platelet count (count/volume) 222 10*3/uL 130-400 Automated blood platelet mean volume measurement 10.3 [foz_us] 7.4-10.4 Automated blood neutrophils/100 leukocytes 76 % 42-75 Automated blood lymphocytes/100 leukocytes 15 % 12-44 Blood monocytes/100 leukocytes 9 % 0-12 Automated blood eosinophils/100 leukocytes 0 % 0-10 Automated blood basophils/100 leukocytes 0 % 0-10 Blood neutrophils automated count (number/volume) 9.6 10*3 1.8-7.8 Blood lymphocytes automated count (number/volume) 1.8 10*3 1.0-4.0 Blood monocytes automated count (number/volume) 1. 1 10*3 0.0-1.0 Automated eosinophil count 0.0 10*3/uL 0 .0-0.3 Automated blood basophil count (count/volume) 0.0 10*3/uL 0.0-0.1 Comprehensive metabolic panel - 11/23/19 11:35 Serum or plasma sodium measurement (moles/volume) 138 mmol/L 135-145 Serum or plasma potassium measurement (moles/volume) 4.3 mmol/L 3.6-5.0 Serum or plasma chloride measurement (moles/volume) 99 mmol/L 98-107 Carbon dioxide 22 mmol/L 21-32 Serum or plasma anion gap determination (moles/volume) 17 mmol/L 5-14 Serum or plasma urea nitrogen measurement (mass/volume ) 54 mg/dL 7-18 Serum or plasma creatinine measurement (mass/volume) 3.91 mg/dL 0.60-1.30 Serum or plasma urea nitrogen/creatinine mass ratio 14 NRG Serum or plasma creatinine measurement w ith calculation of estimated glomerular filtration rate 16 NRG Serum or plasma glucose measurement (mass/volume) 221 mg/dL 70-105 Serum or plasma calcium measurement (mass/volume) 9.7 mg/dL 8.5-10.1 Serum or plasma total bilirubin measurement (mass/volu me) 0.5 mg/dL 0.1-1.0 Serum or plasma alkaline phosphatase hang surement (enzymatic activity/volume) 83 U/L 40-136 Serum or plasma aspartate aminotransfera se measurement (enzymatic activity/volume) 13 U/L 5-34 Serum or plasma alanine aminotransferase measurement (enzymatic activity/volume) 26 U/L 0-55 Serum or plasma protein measurement (mass/volume) 6.9 g/dL 6.4-8.2 Serum or plasma albumin measurement (mass/volume) 4.2 g/dL 3.2-4.5 CALCIUM CORRECTED 9.5 mg/dL 8.5-10.1 Lipase - 11/23/19 11:35 Lipase 20 U/L 8-78 CRP FS - 11/23/19 11:35 CRP FS 0.15 mg/dL <0.50 Serum or plasma ethanol measurement (mas s/volume) - 11/23/19 11:35 Serum or plasma ethanol measurement (mass/volume) < mg/dL <10 Capillary blood glucose measurement by g lucometer (mass/volume) - 11/23/19 16:17 Capillary blood glucose measurement by glucometer (mas s/volume) 292 mg/dL 70-110 Encounters ACCT No. Visit Date/Time Discharge Status Pt. Type Provider Facility Loc./Unit Complaint [id number] 10/09/2019 15:40:00 ACT Unknown Manuel Reis MD [id number] 03/11/2019 08:20:00 03/11/2019 23:59: 59 CLS Outpatient JESSICA BLANCO [facility] [id number] 03/08/2019 14:20:00 Document Registration [id number] 12/21/2018 10:40:00 Document Registration [id number] 10/11/2018 09:10:00 Document Registration [id number] 07/31/2018 15:00:00 Document Registration [id number] 11/29/2018 14:47:00 23:59:59 CLS Emergency SUNNY PEREZ [facility] ED ER VISIT [id number] 08/31/2019 12:07:17 Document Registration [id number] 11/23/2019 11:18:00 11:18:00 CAN Emergency SALMON ALMA SCOTT [facility] ER FS ACUTE ON CHRONIC RENAL FAILURE;DEHYDRATION;VOMITNG [id number] 11/13/2019 15:11:00 23:59:59 CLS Outpatient JESSICA BLANCO MD [facility] RAD FS LEFT SHOULDER PAIN,LEFT ELBOW PAIN [id number] 10/11/2019 15:02:00 23:59:59 CLS Outpatient PRIYANKA QUINTANILLA [facility] RAD FS PAIN IN LEFT FOOT [id number] 10/09/2019 14:23:00 23:59:59 CLS Outpatient JESSICA BLANCO MD [facility] RAD FS LEFT ANKLE INJURY [id number] 08/16/2019 08:57:00 23:59:59 CLS Outpatient JESSICA BLANCO MD [facility] LAB FS TYPE 2 DIABETES [id number] 08/14/2019 16:44:00 17:16:00 DIS Emergency YAS PIZARRO DO [facility] ER FS THUMB LACERATION [id number] 08/08/2019 17:24:00 18:55:00 DIS Emergency MAE CARRIZALES DO [facility] ER FS CHEST PAIN [id number] 04/28/2019 12:21:00 15:25:00 DIS Emergency MELLY KAUFMAN MD [facility] ER FS VOMITING [id number] 03/02/2019 11:05:00 23:59:59 CLS Outpatient ZOILA THOMPSON [employer] [facility] RAD FS M25.512 M62.838 [id number] 01/25/2019 13:06:00 23:59:59 CLS Outpatient PRIYANKA QUINTANILLA [facility] RAD FS M79.605 [id number] 01/12/2019 20:35:00 12:45:00 DIS Inpatient JANIE STEWART DO, [facility] 4TH ABD PAIN [id number] 09/16/2018 12:43:00 16:02:00 DIS Emergency VIKY ALMA [facility] ER FS CHEST PAIN [id number] 09/14/2018 13:56:00 23:59:59 CLS Outpatient WANDA LIN, NAZ Martines [facility] RAD FS M17.12 [id number] 08/09/2018 20:33:00 00:01:00 DIS Emergency ANTWAN LIN, XUAN Guidry [facility] ER FS LT SIDE HIP, LEG, BACK PAIN [id number] 07/20/2018 08:20:00 23:59:59 CLS Outpatient KRYSTAL REILLY [employer] [facility] RAD FS ADB PAIN. [id number] 06/30/2018 09:17:00 23:59:59 CLS Outpatient KRYSTAL REILLY [employer] [facility] CARD ABD PAIN [id number] 06/20/2018 15:25:00 23:59:59 CLS Preadmit KRYSTAL REILLY [employer] [facility] RAD ABD PAIN [id number] 06/08/2018 13:09:00 23:59:59 CLS Outpatient FRANCIS LIN, JESSICA Heaton [facility] RAD FS UNSPECIFIED ABDOMINAL P AIN [id number] 11/23/2019 15:01:[address] Inpatient ARUNA LIN, MARY Heaton [facility] 4TH ACUTE ON CHRONIC RENAL FAILU RE [id number] 11/23/2019 14:50:[address] Emergency ZACHARY LIN, DURGA Renteria [facility] ER DEHYDRATION;VOMITING;RENAL F AILURE
--- OUTSIDE RECORDS SUMMARY | 2019-11-23 17:32 | XMS REPORT | Clinical Summary ---
Author Author Gian Goodwin Organization [facility] Address Unknown Phone Unavailable Allergies, Adverse Reactions, Alerts Allergy Name Reaction Description Start Date Severity Status Pr ovider TRAMADOL HCL Critical Active Melissa Elder Conditions or Problems Problem Name Problem Code Onset Date Status Entry Date Provider Comment Standard Description Annotate Problems Unknown Active Medication List Medication Instructions Start Date Stop Date Generic Name NDC Status Provider Patient Instruction FLOMAX 0.4 MG ORAL CAPSULE 1 capsule by mouth every ev ening for prostate symptoms TAMSULOSIN HCL 50714694646 Active Melissa Elder Active PROTONIX 40 MG ORAL TABLET DELAYED RELEASE 1 pill by m outh daily, for acid reflux PANTOPRAZOLE SODIUM 59242781621 Active Melissa Elder Active METFORMIN HCL 500 MG ORAL TABLET 1 tablet by mouth twice daily METFORMIN HCL 81941071394 Active Melissa Elder Active LYRICA 150 MG ORAL CAPSULE 1 twice a day PREGABALIN 0007 2146777 Active Melissa Elder Active IBUPROFEN 800 MG ORAL TABLET 1 tab every 8 hours as needed for pain IBUPROFEN 74019857776 Active Melissa Elder Active LISINOPRIL-HYDROCHLOROTHIAZIDE 20-25 MG ORAL TABLET 1 tab by mouth daily LISINOPRIL-HYDROCHLOROTHIAZIDE 88646756922 Active Melissa Elder Active BACLOFEN 10 MG ORAL TABLET 1 tab by mouth three times daily BACLOFEN 81006106336 Active Melissa Elder Active ATORVASTATIN CALCIUM 10 MG ORAL TABLET 1 pill by mouth night ly, for cholesterol ATORVASTATIN CALCIUM 52888015269 Active Melissa Elder Active
--- OUTSIDE RECORDS SUMMARY | 2019-11-23 18:31 | XMS REPORT | Continuity of Care Document ---
Author Organization Unknown Address Unknown Phone Unavailable Allergies Active Description Code Type Severity Reaction Onset Reported/Identified Relationship to Patient Clinical Status Yes traMADol Drug N/A N/A Yes traMADol Drug Moderate [id number] Yes tramadol [id number] Drug Allergy Unknown N/A 09/16/2018 Medications There is no data. Problems Date Dx Coded Attending Type Code Diagnosis Diagnosed By 06/14/2018 JESSICA BLANCO MD Ot R10 .9 UNSPECIFIED ABDOMINAL PAIN 06/14/2018 JESSICA BLANCO MD Ot Z98.890 OTHER SPECIFIED POSTPROCEDURAL STATES 07/05/2018 MELBA, KRYSTAL L [employer] STORAGE DRIER Ot R10.11 RIGHT UPPER QUADRANT PAIN 07/05/2018 MELBA, KRYSTAL L [employer] DRI[employer] Ot R11.2 NAUSEA WITH VOMITING, UNSPECIFIED 07/20/2018 MELBA, RKYSTAL L [employer]RE STORAGE DRIER Ot K76.0 FATTY (CHANGE OF) LIVER, NOT ELSEWHERE C 07/20/2018 MELBA, KRYSTAL L [employer] STOR[employer] DRIER Ot R19.7 DIARRHEA, UNSPECIFIED 07/20/2018 MELBA, KRYSTAL L [employer] DRIER Ot Z98.890 OTHER SPECIFIED POSTPROCEDURAL STATES 07/24/2018 MELBA, KRYSTAL L [employer]OR[employer] DRIER Ot K76.0 FATTY (CHANGE OF) LIVER, NOT ELSEWHERE C 07/24/2018 MELBA, KRYSTAL L [employer]OR[employer] DRIER Ot R19.7 DIARRHEA, UNSPECIFIED 07/24/2018 MELBA, KRYSTAL L [employer]OR[employer] DRIER Ot Z98.890 OTHER SPECIFIED POSTPROCEDURAL STATES 07/25/2018 MELBA, KRYSTAL L [employer] STOR[employer] DRIER Ot K76.0 FATTY (CHANGE OF) LIVER, NOT ELSEWHERE C 07/25/2018 MELBA, KRYSTAL L [employer]RE STORAGE DRIER Ot R19.7 DIARRHEA, UNSPECIFIED 07/25/2018 MELBA, KRYSTAL L [employer]OR[employer] DRIER Ot Z98.890 OTHER SPECIFIED POSTPROCEDURAL STATES 08/03/2018 [...] SPECIFIED POSTPROCEDURAL STATES 08/11/2018 MELBA, KRYSTAL L [employer]OR[employer] DRIER Ot R10.11 RIGHT UPPER QUADRANT PAIN 08/11/2018 MELBA, KRYSTAL L [employer]OR[employer] DRIER Ot R11.2 NAUSEA WITH VOMITING, UNSPECIFIED 08/11/2018 MELBA, KRYSTAL L [employer] STOR[employer] DRIER Ot K76.0 FATTY (CHANGE OF) LIVER, NOT ELSEWHERE C 08/11/2018 MELBA, KRYSTAL L [employer] STOR[employer] DRIER Ot R19.7 DIARRHEA, UNSPECIFIED 08/11/2018 MELBA, KRYSTAL L [employer]OR[employer] DRIER Ot Z98.890 OTHER SPECIFIED POSTPROCEDURAL STATES 09/14/2018 JESSICA BLANCO MD Ot R10 .9 UNSPECIFIED ABDOMINAL PAIN 09/14/2018 JESSICA BLANCO MD Ot Z98.890 OTHER SPECIFIED POSTPROCEDURAL STATES 09/14/2018 MELBA, KRYSTAL L [employer] DRIER Ot R10.11 RIGHT UPPER QUADRANT PAIN 09/14/2018 MELBA, KRYSTAL L [employer]OR[employer] DRIER Ot R11.2 NAUSEA WITH VOMITING, UNSPECIFIED 09/14/2018 MELBA, KRYSTAL L [employer] DRIER Ot K76.0 FATTY (CHANGE OF) LIVER, NOT ELSEWHERE C 09/14/2018 MELBA, KRYSTAL L [employer] STOR[employer] DRIER Ot R19.7 DIARRHEA, UNSPECIFIED 09/14/2018 MELBA, KRYSTAL L [employer] DRIER Ot Z98.890 OTHER SPECIFIED POSTPROCEDURAL STATES 09/14/2018 [...] DISORDER OF KIDNEY AND URETER, UNSPECIFI 09/20/2018 SLAMON DO, ALMA L Ot R07.9 CHEST PAIN, [...] UNSPECIFIED 01/13/2019 ELENA STEWART DOI Ot Z79.84 ALF (CURRENT) USE OF ORAL HYPOGLYC 01/13/2019 JANIE STEWART DO Ot Z87.19 PERSONAL HISTORY OF OTHER DISEASES OF TH 01/13/2019 JANIE STEWART DO Ot Z87.89 1 PERSONAL HISTORY OF NICOTINE DEPENDENCE 01/15/2019 FRANCIS LIN, JESSICA Heaton Ot R10 .9 UNSPECIFIED ABDOMINAL PAIN 01/15/2019 FRANCIS LIN, JESSICA Heaton Ot Z98.890 OTHER SPECIFIED POSTPROCEDURAL STATES 01/15/2019 MELBA, KRYSTAL L [employer] DRIER Ot R10.11 RIGHT UPPER QUADRANT PAIN 01/15/2019 MELBA, KRYSTAL L [employer] DRIER Ot R11.2 NAUSEA WITH VOMITING, UNSPECIFIED 01/15/2019 MELBA, KRYSTAL L [employer] DRIER Ot K76.0 FATTY (CHANGE OF) LIVER, NOT ELSEWHERE C 01/15/2019 MELBA, KRYSTAL L [employer]OR[employer] DRIER Ot R19.7 DIARRHEA, UNSPECIFIED 01/15/2019 MELBA, KRYSTAL L [employer] DRIER Ot Z98.890 OTHER SPECIFIED POSTPROCEDURAL STATES 01/15/2019 WANDA LIN, NAZ Martines Ot M17.12 UNILATERAL PRIMARY OSTEOARTHRITIS, LEFT 01/25/2019 MELBA, KRYSTAL L [employer] DRI[employer] Ot K76.0 FATTY (CHANGE OF) LIVER, NOT ELSEWHERE C 01/25/2019 MELBA, KRYSTAL L [employer] STOR[employer] DRIER Ot R19.7 DIARRHEA, UNSPECIFIED 01/25/2019 MELBA, KRYSTAL L [employer] DRIER Ot Z98.890 OTHER SPECIFIED POSTPROCEDURAL STATES 01/25/2019 JESSICA BLANCO MD Ot R10 .9 UNSPECIFIED ABDOMINAL PAIN 01/25/2019 JESSICA BLANCO MD Ot Z98.890 OTHER SPECIFIED POSTPROCEDURAL STATES 01/25/2019 MELBA, KRYSTAL L [employer] DRIER Ot R10.11 RIGHT UPPER QUADRANT PAIN 01/25/2019 MELBA, KRYSTAL L [employer]OR[employer] DRIER Ot R11.2 NAUSEA WITH VOMITING, UNSPECIFIED 01/25/2019 MELBA, KRYSTAL L [employer] DRIER Ot K76.0 FATTY (CHANGE OF) LIVER, NOT ELSEWHERE C 01/25/2019 MELBA, KRYSTAL L [employer] STOR[employer] DRIER Ot R19.7 DIARRHEA, UNSPECIFIED 01/25/2019 MELBA, KRYSTAL L [employer] DRIER Ot Z98.890 OTHER SPECIFIED POSTPROCEDURAL STATES 01/25/2019 WANDA LIN, NAZ Martines Ot M17.12 UNILATERAL PRIMARY OSTEOARTHRITIS, LEFT 01/26/2019 JESSICA BLANCO MD Ot R10 .9 UNSPECIFIED ABDOMINAL PAIN 01/26/2019 BLANCO MD, JESSICA M Ot Z98.890 OTHER SPECIFIED POSTPROCEDURAL STATES 01/26/2019 MELBA, KRYSTAL L [employer]RI[employer] Ot R10.11 RIGHT UPPER QUADRANT PAIN 01/26/2019 MELBA, KRYSTAL L [employer] DRIER Ot R11.2 NAUSEA WITH VOMITING, UNSPECIFIED 01/26/2019 MELBA, KRYSTAL L [employer]RI[employer] Ot K76.0 FATTY (CHANGE OF) LIVER, NOT ELSEWHERE C 01/26/2019 MELBA, KRYSTAL L [employer] DRIER Ot R19.7 DIARRHEA, UNSPECIFIED 01/26/2019 MELBA, KRYSTAL L [employer] DRIER Ot Z98.890 OTHER SPECIFIED POSTPROCEDURAL STATES 01/26/2019 WANDA LIN, NAZ Martines Ot M17.12 UNILATERAL PRIMARY OSTEOARTHRITIS, LEFT 01/29/2019 PRIYANKA QUINTANILLA BUSINESS OFFICE TECHNICIAN Ot M79.605 PAIN IN LEFT LEG 02/13/2019 PRIYANKA QUINTANILLA BUSINESS OFFICE TECHNICIAN Ot M79.605 PAIN IN LEFT LEG 03/06/2019 O'DELLester ZOILA K [employer]RI[employer] Ot M19.012 PRIMARY OSTEOARTHRITIS, LEFT SHOULDER 03/06/2019 O'VANESSA ZOILA K [employer]RI[employer] Ot M62.838 OTHER MUSCLE SPASM 04/28/2019 MELLY [...] MELLY KAUFMAN MD A Ot Z79. 84 GENETICS NURSE (CURRENT) USE OF ORAL HYPOGLYC 04/28/2019 MELLY [...] 05/03/2019 MELLY KAUFMAN MD Ot Z79. 84 ALF (CURRENT) USE OF ORAL HYPOGLYC 05/03/2019 MELLY [...] 08/08/2019 ALL DO, MAE H Ot Z79.84 GENETICS NURSE (CURRENT) USE OF ORAL HYPOGLYC 08/08/2019 ALL DO, MAE H Ot Z79.899 OTHER GENETICS NURSE (CURRENT) DRUG THERAPY 08/09/2019 ALL DO, MAE [...] 08/09/2019 ALL DO MAE Juanito Ot Z79.84 GENETICS NURSE (CURRENT) USE OF ORAL HYPOGLYC 08/09/2019 MAE CARRIZALES DO Ot Z79.899 OTHER GENETICS NURSE (CURRENT) DRUG THERAPY 08/14/2019 YAS PIZARRO DO [...] 08/14/2019 YAS PIZARRO DO Ot Z79. 84 ALF (CURRENT) USE OF ORAL HYPOGLYC 08/14/2019 YAS PIZARRO DO Ot Z79.899 OTHER ALF (CURRENT) DRUG THERAPY 08/14/2019 YAS PIZARRO DO [...] MOIRA DO YAS B Ot Z79. 84 GENETICS NURSE (CURRENT) USE OF ORAL HYPOGLYC 08/15/2019 YAS PIZARRO DO Ot Z79.899 OTHER ALF (CURRENT) DRUG THERAPY 08/15/2019 YAS PIZARRO DO [...] SPECIFIED POSTPROCEDURAL STATES 10/12/2019 MELBAYADIRA MOISEIN L [employer]ORAGE DRIER Ot R10.11 RIGHT UPPER QUADRANT PAIN 10/12/2019 YADIRA REILLYIN L [employer] STORAGE DRIER Ot R11.2 NAUSEA WITH VOMITING, UNSPECIFIED 10/12/2019 YADIRA REILLYIN L [employer]OR[employer] DRIER Ot K76.0 FATTY (CHANGE OF) LIVER, NOT ELSEWHERE C 10/12/2019 YADIRA REILLYIN L [employer] STORAGE DRIER Ot R19.7 DIARRHEA, UNSPECIFIED 10/12/2019 MELBAYADIRA MOISEIN L [employer] STORAGE DRIER Ot Z98.890 OTHER SPECIFIED POSTPROCEDURAL STATES 10/12/2019 WANDA LIN, NAZ Martines Ot M17.12 UNILATERAL PRIMARY OSTEOARTHRITIS, LEFT 10/12/2019 PRIYANKA QUINTANILLAP Ot M79.605 PAIN IN LEFT LEG 10/12/2019 O'DELL, ZOILA K [employer]OR[employer] DRIER Ot M19.012 PRIMARY OSTEOARTHRITIS, LEFT SHOULDER 10/12/2019 O'DELL, ZOILA K [employer]OR[employer] DRIER Ot M62.838 OTHER MUSCLE SPASM 10/12/2019 JESSICA [...] Ot M25.512 PAIN IN LEFT SHOULDER 11/15/2019 EJSSICA BLANCO MD Ot M25.522 PAIN IN LEFT [...] SPECIFIED POSTPROCEDURAL STATES 11/23/2019 MELBA, KRYSTAL L [employer]OR[employer] DRIER Ot R10.11 RIGHT UPPER QUADRANT PAIN 11/23/2019 MELBA, KRYSTAL L [employer]OR[employer] DRIER Ot R11.2 NAUSEA WITH VOMITING, UNSPECIFIED 11/23/2019 MELBA, KRYSTAL L [employer]OR[employer] DRIER Ot K76.0 FATTY (CHANGE OF) LIVER, NOT ELSEWHERE C 11/23/2019 MELBA, KRYSTAL L [employer] STOR[employer] DRIER Ot R19.7 DIARRHEA, UNSPECIFIED 11/23/2019 MELBA, KRYSTAL L [employer]OR[employer] DRIER Ot Z98.890 OTHER SPECIFIED POSTPROCEDURAL STATES 11/23/2019 WANDA LIN, NAZ Martines Ot M17.12 UNILATERAL PRIMARY OSTEOARTHRITIS, LEFT 11/23/2019 PRIYANKA QUINTANILLA Ot M79.605 PAIN IN LEFT LEG 11/23/2019 O'DELZOILA Batista [employer]OR[employer] DRIER Ot M19.012 PRIMARY OSTEOARTHRITIS, LEFT SHOULDER 11/23/2019 O'DELL, ZOILA K [employer] STORAGE DRIER Ot M62.838 OTHER MUSCLE SPASM 11/23/2019 FRANCIS [...] SPECIFIED POSTPROCEDURAL STATES 11/23/2019 MELBA, KRYSTAL L [employer] DRIER Ot R10.11 RIGHT UPPER QUADRANT PAIN 11/23/2019 MELBA, KRYSTAL L [employer]OR[employer] DRIER Ot R11.2 NAUSEA WITH VOMITING, UNSPECIFIED 11/23/2019 MELBA, KRYSTAL L [employer] DRIER Ot K76.0 FATTY (CHANGE OF) LIVER, NOT ELSEWHERE C 11/23/2019 MELBA, KRYSTAL L [employer] STOR[employer] DRIER Ot R19.7 DIARRHEA, UNSPECIFIED 11/23/2019 MELBA, KRYSTAL L [employer]OR[employer] DRIER Ot Z98.890 OTHER SPECIFIED POSTPROCEDURAL STATES 11/23/2019 WANDA LIN, NAZ Martines Ot M17.12 UNILATERAL PRIMARY OSTEOARTHRITIS, LEFT 11/23/2019 PRIYANKA QUINTANILLA Ot M79.605 PAIN IN LEFT LEG 11/23/2019 O'DELL, ZOILA K [employer]OR[employer] DRIER Ot M19.012 PRIMARY OSTEOARTHRITIS, LEFT SHOULDER 11/23/2019 O'DELL, ZOILA K [employer]OR[employer] DRIER Ot M62.838 OTHER MUSCLE SPASM 11/23/2019 FRANCIS [...] SPECIFIED POSTPROCEDURAL STATES 11/23/2019 MELBA, KRYSTAL L [employer]OR[employer] DRIER Ot R10.11 RIGHT UPPER QUADRANT PAIN 11/23/2019 MELBA, KRYSTAL L [employer]OR[employer] DRIER Ot R11.2 NAUSEA WITH VOMITING, UNSPECIFIED 11/23/2019 MELBA, KRYSTAL L [employer] STOR[employer] DRIER Ot K76.0 FATTY (CHANGE OF) LIVER, NOT ELSEWHERE C 11/23/2019 MELBA, KRYSTAL L O[employer] STOR[employer] DRIER Ot R19.7 DIARRHEA, UNSPECIFIED 11/23/2019 MELBA, KRYSTAL L [employer] STORAGE DRIER Ot Z98.890 OTHER SPECIFIED POSTPROCEDURAL STATES 11/23/2019 WANDA ILN, NAZ Martines Ot M17.12 UNILATERAL PRIMARY OSTEOARTHRITIS, LEFT 11/23/2019 PRIYANKA QUINTANILLA Ot M79.605 PAIN IN LEFT LEG 11/23/2019 O'DELL, ZOILA K [employer]OR[employer] DRIER Ot M19.012 PRIMARY OSTEOARTHRITIS, LEFT SHOULDER 11/23/2019 O'DELL, ZOILA K [employer] STORAGE DRIER Ot M62.838 OTHER MUSCLE SPASM 11/23/2019 JESSICA [...] SPECIFIED POSTPROCEDURAL STATES 11/23/2019 MELBA, KRYSTAL L [employer] STOR[employer] DRIER Ot R10.11 RIGHT UPPER QUADRANT PAIN 11/23/2019 MELBA, KRYSTAL L [employer]OR[employer] DRIER Ot R11.2 NAUSEA WITH VOMITING, UNSPECIFIED 11/23/2019 MELBA, KRYSTAL L [employer] STOR[employer] DRIER Ot K76.0 FATTY (CHANGE OF) LIVER, NOT ELSEWHERE C 11/23/2019 MELBA, KRYSTAL L [employer] STOR[employer] DRIER Ot R19.7 DIARRHEA, UNSPECIFIED 11/23/2019 MELBA, KRYSTAL L [employer] STOR[employer] DRIER Ot Z98.890 OTHER SPECIFIED POSTPROCEDURAL STATES 11/23/2019 WANDA LIN, NAZ Martines Ot M17.12 UNILATERAL PRIMARY OSTEOARTHRITIS, LEFT 11/23/2019 PRIYANKA QUINTANILLA Ot M79.605 PAIN IN LEFT LEG 11/23/2019 O'DELLester ZOILA K [employer]ORAGE DRIER Ot M19.012 PRIMARY OSTEOARTHRITIS, LEFT SHOULDER 11/23/2019 O'DELLester ZOILA K [employer]ORAGE DRIER Ot M62.838 OTHER MUSCLE SPASM 11/23/2019 JESSICA [...] SPECIFIED POSTPROCEDURAL STATES 11/23/2019 MELBA, KRYSTAL L [employer] STOR[employer] DRIER Ot R10.11 RIGHT UPPER QUADRANT PAIN 11/23/2019 MELBA, KRYSTAL L [employer] STOR[employer] DRIER Ot R11.2 NAUSEA WITH VOMITING, UNSPECIFIED 11/23/2019 MELBA, KRYSTAL L [employer] STOR[employer] DRIER Ot K76.0 FATTY (CHANGE OF) LIVER, NOT ELSEWHERE C 11/23/2019 MELBA, KRYSTAL L O[employer] STORAGE DRIER Ot R19.7 DIARRHEA, UNSPECIFIED 11/23/2019 MELBA, KRYSTAL L [employer] STORAGE DRIER Ot Z98.890 OTHER SPECIFIED POSTPROCEDURAL STATES 11/23/2019 WANDA LIN, NAZ Martines Ot M17.12 UNILATERAL PRIMARY OSTEOARTHRITIS, LEFT 11/23/2019 PRIYANKA QUINTANILLA Ot M79.605 PAIN IN LEFT LEG 11/23/2019 O'DELL, ZOILA K [employer]OR[employer] DRIER Ot M19.012 PRIMARY OSTEOARTHRITIS, LEFT SHOULDER 11/23/2019 O'DELL, ZOILA K [employer] STORAGE DRIER Ot M62.838 OTHER MUSCLE SPASM 11/23/2019 FRANCIS [...] SPECIFIED POSTPROCEDURAL STATES 11/23/2019 MELBA, KRYSTAL L [employer] STOR[employer] DRIER Ot R10.11 RIGHT UPPER QUADRANT PAIN 11/23/2019 MELBA, KRYSTAL L [employer] STORAGE DRIER Ot R11.2 NAUSEA WITH VOMITING, UNSPECIFIED 11/23/2019 MELBA, KRYSTAL L [employer] STORAGE DRIER Ot K76.0 FATTY (CHANGE OF) LIVER, NOT ELSEWHERE C 11/23/2019 MELBA, KRYSTAL L ORE STORAGE DRIER Ot R19.7 DIARRHEA, UNSPECIFIED 11/23/2019 MELBA, KRYSTAL L ORE STORAGE DRIER Ot Z98.890 OTHER SPECIFIED POSTPROCEDURAL STATES 11/23/2019 WANDA LIN, NAZ Martines Ot M17.12 UNILATERAL PRIMARY OSTEOARTHRITIS, LEFT 11/23/2019 KING PRIYANKA Manuel VILLA Ot M79.605 PAIN IN LEFT LEG 11/23/2019 O'DELZOILA Batista [employer] STOR[employer] DRIER Ot M19.012 PRIMARY OSTEOARTHRITIS, LEFT SHOULDER 11/23/2019 [...] SPECIFIED POSTPROCEDURAL STATES 11/23/2019 MELBA, KRYSTAL L O[employer] STORAGE DRIER Ot R10.11 RIGHT UPPER QUADRANT PAIN 11/23/2019 MELBA, KRYSTAL L ORE STORAGE DRIER Ot R11.2 NAUSEA WITH VOMITING, UNSPECIFIED 11/23/2019 MELBA, KRYSTAL L O[employer] STOR[employer] DRIER Ot K76.0 FATTY (CHANGE OF) LIVER, NOT ELSEWHERE C 11/23/2019 MELBA, KRYSTAL L ORE STORAGE DRIER Ot R19.7 DIARRHEA, UNSPECIFIED 11/23/2019 MELBA, KRYSTAL L O[employer] STORAGE DRIER Ot Z98.890 OTHER SPECIFIED POSTPROCEDURAL STATES 11/23/2019 [...] 7-25 CREATININE 1.46 mg/dL 0.70-1.33 eGFR NON-AFR. [place] 52 mL/min/1.73m2 > OR = 60 eGFR [...] 7-25 CREATININE 1.01 mg/dL 0.70-1.25 eGFR NON-AFR. [place] 80 mL/min/1.73m2 > OR = 60 eGFR [...] Status Pt. Type Provider Facility Loc./Unit Complaint [id number] 10/09/2019 15:40:00 ACT Unknown Manuel Reis MD [id number] 03/11/2019 08:20:00 03/11/2019 23:59: 59 CLS Outpatient JESSICA BLANCO [facility] [id number] 03/08/2019 14:20:00 Document Registration [id number] 12/21/2018 10:40:00 Document Registration [id number] 10/11/2018 09:10:00 Document Registration [id number] 07/31/2018 15:00:00 Document Registration [id number] 11/29/2018 14:47:00 23:59:59 CLS Emergency SUNNY PEREZ [facility] ED ER VISIT [id number] 08/31/2019 12:07:17 Document Registration [id number] 11/23/2019 11:18:00 11:18:00 CAN Emergency SALMON ALMA SCOTT [facility] ER FS ACUTE ON CHRONIC RENAL FAILURE;DEHYDRATION;VOMITNG [id number] 11/13/2019 15:11:00 23:59:59 CLS Outpatient JESSICA BLANCO MD [facility] RAD FS LEFT SHOULDER PAIN,LEFT ELBOW PAIN [id number] 10/11/2019 15:02:00 23:59:59 CLS Outpatient PRIYANKA QUINTANILLA [facility] RAD FS PAIN IN LEFT FOOT [id number] 10/09/2019 14:23:00 23:59:59 CLS Outpatient JESSICA BLANCO MD [facility] RAD FS LEFT ANKLE INJURY [id number] 08/16/2019 08:57:00 23:59:59 CLS Outpatient JESSICA BLANCO MD [facility] LAB FS TYPE 2 DIABETES [id number] 08/14/2019 16:44:00 17:16:00 DIS Emergency YAS PIZARRO DO [facility] ER FS THUMB LACERATION [id number] 08/08/2019 17:24:00 18:55:00 DIS Emergency MAE CARRIZALES DO [facility] ER FS CHEST PAIN [id number] 04/28/2019 12:21:00 15:25:00 DIS Emergency MELLY KAUFMAN MD [facility] ER FS VOMITING [id number] 03/02/2019 11:05:00 23:59:59 CLS Outpatient ZOILA THOMPSON [employer] [facility] RAD FS M25.512 M62.838 [id number] 01/25/2019 13:06:00 23:59:59 CLS Outpatient PRIYANKA QUINTANILLA [facility] RAD FS M79.605 [id number] 01/12/2019 20:35:00 12:45:00 DIS Inpatient JANIE STEWART DO, [facility] 4TH ABD PAIN [id number] 09/16/2018 12:43:00 16:02:00 DIS Emergency VIKY ALMA [facility] ER FS CHEST PAIN [id number] 09/14/2018 13:56:00 23:59:59 CLS Outpatient WANDA LIN, NAZ Martines [facility] RAD FS M17.12 [id number] 08/09/2018 20:33:00 00:01:00 DIS Emergency ANTWAN LIN, XUAN Guidry [facility] ER FS LT SIDE HIP, LEG, BACK PAIN [id number] 07/20/2018 08:20:00 23:59:59 CLS Outpatient KRYSTAL REILLY [employer] [facility] RAD FS ADB PAIN. [id number] 06/30/2018 09:17:00 23:59:59 CLS Outpatient KRYSTAL REILLY [employer] [facility] CARD ABD PAIN [id number] 06/20/2018 15:25:00 23:59:59 CLS Preadmit KRYSTAL REILLY [employer] [facility] RAD ABD PAIN [id number] 06/08/2018 13:09:00 23:59:59 CLS Outpatient FRANCIS LIN, JESSICA Heaton [facility] RAD FS UNSPECIFIED ABDOMINAL P AIN [id number] 11/23/2019 15:01:[address] Inpatient ARUNA LIN, MARY Heaton [facility] 4TH ACUTE ON CHRONIC RENAL FAILU RE [id number] 11/23/2019 14:50:[address] Emergency ZACHARY LIN, DURGA Renteria [facility] ER DEHYDRATION;VOMITING;RENAL F AILURE
[2019-11-26] MEDS ORDERED: METF-399 PO (09:56)
[2019-11-26] MEDS ORDERED: ONDA4TAB11 PO (09:56)
[2019-11-26] MEDS ORDERED: DICY10CA12 PO (09:56)
[2019-11-26] MEDS ORDERED: ATOR40TA70 PO (09:58)
[2019-11-26] MEDS ORDERED: PANT20TA3 PO (10:07)
[2019-11-26] MEDS ORDERED: PEG15DRO3 OU (10:07)
== END 2019-11-23 13:10 | disposition still patient (30) ==
LOC: EDUNIT# 11:17 → ER FS 11:18 → 4TH 14:34 → UNDOADMIN 14:34 → 4TH 16:08
DX: N18.9 Chronic kidney disease, unspecified (principal); E86.0 Dehydration; R11.2 Nausea with vomiting, unspecified; E11.9 Type 2 diabetes mellitus without complications; Z88.6 Allergy status to analgesic agent; Z79.84 Long term (current) use of oral hypoglycemic drugs; Z77.22 Contact with and (suspected) exposure to environmental tobacco smoke (acute) (chronic)
CPT/HCPCS: 36415; 74022; 80053; 83690; 85025; 86141; 99284; G0480; 80320

== ENCOUNTER 2019-11-23 14:49 | Emergency (ER) | payer MEDICARE, MEDICAID ==
--- OUTSIDE RECORDS SUMMARY | 2019-11-23 18:44 | XMS REPORT | Continuity of Care Document ---
Author Organization Unknown Address Unknown Phone Unavailable Allergies Active Description Code Type Severity Reaction Onset Reported/Identified Relationship to Patient Clinical Status Yes traMADol Drug N/A N/A Yes traMADol Drug Moderate [id number] Yes tramadol [id number] Drug Allergy Unknown N/A 09/16/2018 Medications There is no data. Problems Date Dx Coded Attending Type Code Diagnosis Diagnosed By 06/14/2018 JESSICA BLANCO MD Ot R10 .9 UNSPECIFIED ABDOMINAL PAIN 06/14/2018 JESSICA BLANCO MD Ot Z98.890 OTHER SPECIFIED POSTPROCEDURAL STATES 07/05/2018 MELBA, KRYSTAL L SEXUAL ASSAULT COUNSELOR Ot R10.11 RIGHT UPPER QUADRANT PAIN 07/05/2018 MELBA, KRYSTAL L SEXUAL ASSAULT COUNSELOR Ot R11.2 NAUSEA WITH VOMITING, UNSPECIFIED 07/20/2018 MELBA, KRYSTAL L SEXUAL ASSAULT COUNSELOR Ot K76.0 FATTY (CHANGE OF) LIVER, NOT ELSEWHERE C 07/20/2018 MELBA, KRYSTAL L SEXUAL ASSAULT COUNSELOR Ot R19.7 DIARRHEA, UNSPECIFIED 07/20/2018 MELBA, KRYSTAL L SEXUAL ASSAULT COUNSELOR Ot Z98.890 OTHER SPECIFIED POSTPROCEDURAL STATES 07/24/2018 MELBA, KRYSTAL L SEXUAL ASSAULT COUNSELOR Ot K76.0 FATTY (CHANGE OF) LIVER, NOT ELSEWHERE C 07/24/2018 MELBA, KRYSTAL L SEXUAL ASSAULT COUNSELOR Ot R19.7 DIARRHEA, UNSPECIFIED 07/24/2018 MELBA, KRYSTAL L SEXUAL ASSAULT COUNSELOR Ot Z98.890 OTHER SPECIFIED POSTPROCEDURAL STATES 07/25/2018 MELBA, KRYSTAL L SEXUAL ASSAULT COUNSELOR Ot K76.0 FATTY (CHANGE OF) LIVER, NOT ELSEWHERE C 07/25/2018 MELBA, KRYSTAL L SEXUAL ASSAULT COUNSELOR Ot R19.7 DIARRHEA, UNSPECIFIED 07/25/2018 MELBA, KRYSTAL L SEXUAL ASSAULT COUNSELOR Ot Z98.890 OTHER SPECIFIED POSTPROCEDURAL STATES 08/03/2018 [...] SPECIFIED POSTPROCEDURAL STATES 08/11/2018 MELBA, KRYSTAL L SEXUAL ASSAULT COUNSELOR Ot R10.11 RIGHT UPPER QUADRANT PAIN 08/11/2018 MELBA, KRYSTAL L SEXUAL ASSAULT COUNSELOR Ot R11.2 NAUSEA WITH VOMITING, UNSPECIFIED 08/11/2018 MELBA, KRYSTAL L SEXUAL ASSAULT COUNSELOR Ot K76.0 FATTY (CHANGE OF) LIVER, NOT ELSEWHERE C 08/11/2018 MELBA, KRYSTAL L SEXUAL ASSAULT COUNSELOR Ot R19.7 DIARRHEA, UNSPECIFIED 08/11/2018 MELBA, KRYSTAL L SEXUAL ASSAULT COUNSELOR Ot Z98.890 OTHER SPECIFIED POSTPROCEDURAL STATES 09/14/2018 JESSICA BLANCO MD Ot R10 .9 UNSPECIFIED ABDOMINAL PAIN 09/14/2018 JESSICA BLANCO MD Ot Z98.890 OTHER SPECIFIED POSTPROCEDURAL STATES 09/14/2018 MELBA, KRYSTAL L SEXUAL ASSAULT COUNSELOR Ot R10.11 RIGHT UPPER QUADRANT PAIN 09/14/2018 MELBA, KRYSTAL L SEXUAL ASSAULT COUNSELOR Ot R11.2 NAUSEA WITH VOMITING, UNSPECIFIED 09/14/2018 MELBA, KRYSTAL L SEXUAL ASSAULT COUNSELOR Ot K76.0 FATTY (CHANGE OF) LIVER, NOT ELSEWHERE C 09/14/2018 MELBA, KRYSTAL L SEXUAL ASSAULT COUNSELOR Ot R19.7 DIARRHEA, UNSPECIFIED 09/14/2018 MELBA, KYRSTAL L SEXUAL ASSAULT COUNSELOR Ot Z98.890 OTHER SPECIFIED POSTPROCEDURAL STATES 09/14/2018 [...] UNSPECIFIED 01/13/2019 ELENA STEWART DOI Ot Z79.84 SHELTER (CURRENT) USE OF ORAL HYPOGLYC 01/13/2019 JANIE STEWART DO Ot Z87.19 PERSONAL HISTORY OF OTHER DISEASES OF TH 01/13/2019 JANIE STEWART DO Ot Z87.89 1 PERSONAL HISTORY OF NICOTINE DEPENDENCE 01/15/2019 FRANCIS LIN, JESSICA Heaton Ot R10 .9 UNSPECIFIED ABDOMINAL PAIN 01/15/2019 FRANCIS LIN, JESSICA Heaton Ot Z98.890 OTHER SPECIFIED POSTPROCEDURAL STATES 01/15/2019 MELBA, KRYSTAL L SEXUAL ASSAULT COUNSELOR Ot R10.11 RIGHT UPPER QUADRANT PAIN 01/15/2019 MELBA, KRYSTAL L SEXUAL ASSAULT COUNSELOR Ot R11.2 NAUSEA WITH VOMITING, UNSPECIFIED 01/15/2019 MELBA, KRYSTAL L SEXUAL ASSAULT COUNSELOR Ot K76.0 FATTY (CHANGE OF) LIVER, NOT ELSEWHERE C 01/15/2019 MELBA, KRYSTAL L SEXUAL ASSAULT COUNSELOR Ot R19.7 DIARRHEA, UNSPECIFIED 01/15/2019 MELBA, KRYSTAL L SEXUAL ASSAULT COUNSELOR Ot Z98.890 OTHER SPECIFIED POSTPROCEDURAL STATES 01/15/2019 WANDA LIN, NAZ Martines Ot M17.12 UNILATERAL PRIMARY OSTEOARTHRITIS, LEFT 01/25/2019 MELBA, KRYSTAL L SEXUAL ASSAULT COUNSELOR Ot K76.0 FATTY (CHANGE OF) LIVER, NOT ELSEWHERE C 01/25/2019 MELBA, KRYSTAL L SEXUAL ASSAULT COUNSELOR Ot R19.7 DIARRHEA, UNSPECIFIED 01/25/2019 MELBA, KRYSTAL L SEXUAL ASSAULT COUNSELOR Ot Z98.890 OTHER SPECIFIED POSTPROCEDURAL STATES 01/25/2019 JESSICA BLANCO MD Ot R10 .9 UNSPECIFIED ABDOMINAL PAIN 01/25/2019 JESSICA BLANCO MD Ot Z98.890 OTHER SPECIFIED POSTPROCEDURAL STATES 01/25/2019 MELBA, KRYSTAL L SEXUAL ASSAULT COUNSELOR Ot R10.11 RIGHT UPPER QUADRANT PAIN 01/25/2019 MELBA, KRYSTAL L SEXUAL ASSAULT COUNSELOR Ot R11.2 NAUSEA WITH VOMITING, UNSPECIFIED 01/25/2019 MELBA, KRYSTAL L SEXUAL ASSAULT COUNSELOR Ot K76.0 FATTY (CHANGE OF) LIVER, NOT ELSEWHERE C 01/25/2019 MELBA, KRYSTAL L SEXUAL ASSAULT COUNSELOR Ot R19.7 DIARRHEA, UNSPECIFIED 01/25/2019 MELBA, KRYSTAL L SEXUAL ASSAULT COUNSELOR Ot Z98.890 OTHER SPECIFIED POSTPROCEDURAL STATES 01/25/2019 WANDA LIN, NAZ Martines Ot M17.12 UNILATERAL PRIMARY OSTEOARTHRITIS, LEFT 01/26/2019 JESSICA BLANCO MD Ot R10 .9 UNSPECIFIED ABDOMINAL PAIN 01/26/2019 BLANCO MD, JESSICA M Ot Z98.890 OTHER SPECIFIED POSTPROCEDURAL STATES 01/26/2019 MELBA, KRYSTAL L SEXUAL ASSAULT COUNSELOR Ot R10.11 RIGHT UPPER QUADRANT PAIN 01/26/2019 MELBA, KRYSTAL L SEXUAL ASSAULT COUNSELOR Ot R11.2 NAUSEA WITH VOMITING, UNSPECIFIED 01/26/2019 MELBA, KRYSTAL L SEXUAL ASSAULT COUNSELOR Ot K76.0 FATTY (CHANGE OF) LIVER, NOT ELSEWHERE C 01/26/2019 MELBA, KRYSTLA L SEXUAL ASSAULT COUNSELOR Ot R19.7 DIARRHEA, UNSPECIFIED 01/26/2019 MELBA, KRYSTAL L SEXUAL ASSAULT COUNSELOR Ot Z98.890 OTHER SPECIFIED POSTPROCEDURAL STATES 01/26/2019 WANDA LIN, NAZ Martines Ot M17.12 UNILATERAL PRIMARY OSTEOARTHRITIS, LEFT 01/29/2019 PRIYANKA QUINTANILLA HAT BINDER Ot M79.605 PAIN IN LEFT LEG 02/13/2019 PRIYANKA QUINTANILLA HAT BINDER Ot M79.605 PAIN IN LEFT LEG 03/06/2019 O'DELLester ZOILA K SEXUAL ASSAULT COUNSELOR Ot M19.012 PRIMARY OSTEOARTHRITIS, LEFT SHOULDER 03/06/2019 O'VANESSA ZOILA K SEXUAL ASSAULT COUNSELOR Ot M62.838 OTHER MUSCLE SPASM 04/28/2019 MELLY [...] MELLY KAUFMAN MD A Ot Z79. 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 5 ALLERGY STATUS TO NARCOTIC AGENT STATUS 05/03/2019 MELLY KAUFMAN MD Ot E11. 9 TYPE 2 DIABETES MELLITUS WITHOUT COMPLIC 05/03/2019 MELLY KAUFMAN MD Ot F17.210 NICOTINE DEPENDENCE, CIGARETTES, UNCOMPL 05/03/2019 MELLY KAFUMAN MD Ot I10 ESSENTIAL (PRIMARY) HYPERTENSION 05/03/2019 MELLY KAUFMAN MD Ot K21. 0 GASTRO-ESOPHAGEAL REFLUX DISEASE WITH ES 05/03/2019 MELLY KAUFMAN MD Ot R11. 2 NAUSEA WITH VOMITING, UNSPECIFIED 05/03/2019 MELLY KAUFMAN MD Ot Z79. 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 84 SHELTER (CURRENT) USE OF ORAL HYPOGLYC 08/14/2019 YAS PIZARRO DO Ot Z79.899 OTHER SHELTER (CURRENT) DRUG THERAPY 08/14/2019 YAS PIZARRO DO [...] MOIRA DO YAS B Ot Z79. 84 GENERAL OFFICE WORKER (CURRENT) USE OF ORAL HYPOGLYC 08/15/2019 YAS PIZARRO DO Ot Z79.899 OTHER SHELTER (CURRENT) DRUG THERAPY 08/15/2019 YAS PIZARRO DO [...] M19.012 PRIMARY OSTEOARTHRITIS, LEFT SHOULDER 09/03/2019 O'ZOILA MNEDEZ APRN Ot M62.838 OTHER MUSCLE SPASM 09/13/2019 WANAD LIN, NAZ Martines Ot M17.12 UNILATERAL PRIMARY OSTEOARTHRITIS, LEFT 10/12/2019 JESSICA BLANCO MD Ot R10 .9 UNSPECIFIED ABDOMINAL PAIN 10/12/2019 JESSICA BLANCO MD Ot Z98.890 OTHER SPECIFIED POSTPROCEDURAL STATES 10/12/2019 MELBAYADIRA MOISEIN L SEXUAL ASSAULT COUNSELOR Ot R10.11 RIGHT UPPER QUADRANT PAIN 10/12/2019 YADIRA REILLYIN L SEXUAL ASSAULT COUNSELOR Ot R11.2 NAUSEA WITH VOMITING, UNSPECIFIED 10/12/2019 YADIRA REILLYIN L SEXUAL ASSAULT COUNSELOR Ot K76.0 FATTY (CHANGE OF) LIVER, NOT ELSEWHERE C 10/12/2019 YADIRA REILLYIN L SEXUAL ASSAULT COUNSELOR Ot R19.7 DIARRHEA, UNSPECIFIED 10/12/2019 MELBAYADIRA MOISEIN L SEXUAL ASSAULT COUNSELOR Ot Z98.890 OTHER SPECIFIED POSTPROCEDURAL STATES 10/12/2019 WANDA LIN, NAZ Martines Ot M17.12 UNILATERAL PRIMARY OSTEOARTHRITIS, LEFT 10/12/2019 PRIYANKA QUINTANILLAP Ot M79.605 PAIN IN LEFT LEG 10/12/2019 O'DELL, ZOILA K SEXUAL ASSAULT COUNSELOR Ot M19.012 PRIMARY OSTEOARTHRITIS, LEFT SHOULDER 10/12/2019 O'DELL, ZOILA K SEXUAL ASSAULT COUNSELOR Ot M62.838 OTHER MUSCLE SPASM 10/12/2019 JESSICA [...] SPECIFIED POSTPROCEDURAL STATES 11/23/2019 MELBA, KRYSTAL L SEXUAL ASSAULT COUNSELOR Ot R10.11 RIGHT UPPER QUADRANT PAIN 11/23/2019 MELBA, KRYSTAL L SEXUAL ASSAULT COUNSELOR Ot R11.2 NAUSEA WITH VOMITING, UNSPECIFIED 11/23/2019 MELBA, KRYSTAL L SEXUAL ASSAULT COUNSELOR Ot K76.0 FATTY (CHANGE OF) LIVER, NOT ELSEWHERE C 11/23/2019 MELBA, KRYSTAL L SEXUAL ASSAULT COUNSELOR Ot R19.7 DIARRHEA, UNSPECIFIED 11/23/2019 MELBA, KRYSTAL L SEXUAL ASSAULT COUNSELOR Ot Z98.890 OTHER SPECIFIED POSTPROCEDURAL STATES 11/23/2019 WANDA LIN, NAZ Martines Ot M17.12 UNILATERAL PRIMARY OSTEOARTHRITIS, LEFT 11/23/2019 PRIYANKA QUINTANILLA Ot M79.605 PAIN IN LEFT LEG 11/23/2019 O'DELZOILA Batista SEXUAL ASSAULT COUNSELOR Ot M19.012 PRIMARY OSTEOARTHRITIS, LEFT SHOULDER 11/23/2019 O'DELL, ZOILA K SEXUAL ASSAULT COUNSELOR Ot M62.838 OTHER MUSCLE SPASM 11/23/2019 FRANCIS [...] SPECIFIED POSTPROCEDURAL STATES 11/23/2019 MELBA, KRYSTAL L SEXUAL ASSAULT COUNSELOR Ot R10.11 RIGHT UPPER QUADRANT PAIN 11/23/2019 MELBA, KRYSTAL L SEXUAL ASSAULT COUNSELOR Ot R11.2 NAUSEA WITH VOMITING, UNSPECIFIED 11/23/2019 MELBA, KRYSTAL L SEXUAL ASSAULT COUNSELOR Ot K76.0 FATTY (CHANGE OF) LIVER, NOT ELSEWHERE C 11/23/2019 MELBA, KRYSTAL L SEXUAL ASSAULT COUNSELOR Ot R19.7 DIARRHEA, UNSPECIFIED 11/23/2019 MELBA, KRYSTAL L SEXUAL ASSAULT COUNSELOR Ot Z98.890 OTHER SPECIFIED POSTPROCEDURAL STATES 11/23/2019 WANDA LIN, NAZ Martines Ot M17.12 UNILATERAL PRIMARY OSTEOARTHRITIS, LEFT 11/23/2019 PRIYANKA QUINTANILLA Ot M79.605 PAIN IN LEFT LEG 11/23/2019 O'DELL, ZOILA K SEXUAL ASSAULT COUNSELOR Ot M19.012 PRIMARY OSTEOARTHRITIS, LEFT SHOULDER 11/23/2019 O'DELL, ZOILA K SEXUAL ASSAULT COUNSELOR Ot M62.838 OTHER MUSCLE SPASM 11/23/2019 FRANCIS [...] SPECIFIED POSTPROCEDURAL STATES 11/23/2019 MELBA, KRYSTAL L SEXUAL ASSAULT COUNSELOR Ot R10.11 RIGHT UPPER QUADRANT PAIN 11/23/2019 MELBA, KRYSTAL L SEXUAL ASSAULT COUNSELOR Ot R11.2 NAUSEA WITH VOMITING, UNSPECIFIED 11/23/2019 MELBA, KRYSTAL L SEXUAL ASSAULT COUNSELOR Ot K76.0 FATTY (CHANGE OF) LIVER, NOT ELSEWHERE C 11/23/2019 MELBA, KRYSTAL L SEXUAL ASSAULT COUNSELOR Ot R19.7 DIARRHEA, UNSPECIFIED 11/23/2019 MELBA, KRYSTAL L SEXUAL ASSAULT COUNSELOR Ot Z98.890 OTHER SPECIFIED POSTPROCEDURAL STATES 11/23/2019 WANDA LIN, NAZ Martines Ot M17.12 UNILATERAL PRIMARY OSTEOARTHRITIS, LEFT 11/23/2019 PRIYANKA QUINTANILLA Ot M79.605 PAIN IN LEFT LEG 11/23/2019 O'DELL, ZOILA K SEXUAL ASSAULT COUNSELOR Ot M19.012 PRIMARY OSTEOARTHRITIS, LEFT SHOULDER 11/23/2019 O'DELL, ZOILA K SEXUAL ASSAULT COUNSELOR Ot M62.838 OTHER MUSCLE SPASM 11/23/2019 JESSICA [...] SPECIFIED POSTPROCEDURAL STATES 11/23/2019 MELBA, KRYSTAL L SEXUAL ASSAULT COUNSELOR Ot R10.11 RIGHT UPPER QUADRANT PAIN 11/23/2019 MELBA, KRYSTAL L SEXUAL ASSAULT COUNSELOR Ot R11.2 NAUSEA WITH VOMITING, UNSPECIFIED 11/23/2019 MELBA, KRYSTAL L SEXUAL ASSAULT COUNSELOR Ot K76.0 FATTY (CHANGE OF) LIVER, NOT ELSEWHERE C 11/23/2019 MELBA, KRYSTAL L SEXUAL ASSAULT COUNSELOR Ot R19.7 DIARRHEA, UNSPECIFIED 11/23/2019 MELBA, KRYSTAL L SEXUAL ASSAULT COUNSELOR Ot Z98.890 OTHER SPECIFIED POSTPROCEDURAL STATES 11/23/2019 WANDA LIN, NAZ Martiens Ot M17.12 UNILATERAL PRIMARY OSTEOARTHRITIS, LEFT 11/23/2019 PRIYANKA QUINTANILLA Ot M79.605 PAIN IN LEFT LEG 11/23/2019 O'DELLester ZOILA K SEXUAL ASSAULT COUNSELOR Ot M19.012 PRIMARY OSTEOARTHRITIS, LEFT SHOULDER 11/23/2019 O'DELLester ZOILA K SEXUAL ASSAULT COUNSELOR Ot M62.838 OTHER MUSCLE SPASM 11/23/2019 JESSICA [...] SPECIFIED POSTPROCEDURAL STATES 11/23/2019 MELBA, KRYSTAL L SEXUAL ASSAULT COUNSELOR Ot R10.11 RIGHT UPPER QUADRANT PAIN 11/23/2019 MELBA, KRYSTAL L SEXUAL ASSAULT COUNSELOR Ot R11.2 NAUSEA WITH VOMITING, UNSPECIFIED 11/23/2019 MELBA, KRYSTAL L SEXUAL ASSAULT COUNSELOR Ot K76.0 FATTY (CHANGE OF) LIVER, NOT ELSEWHERE C 11/23/2019 MELBA, KRYSTAL L SEXUAL ASSAULT COUNSELOR Ot R19.7 DIARRHEA, UNSPECIFIED 11/23/2019 MELBA, KRYSTAL L SEXUAL ASSAULT COUNSELOR Ot Z98.890 OTHER SPECIFIED POSTPROCEDURAL STATES 11/23/2019 WANDA LIN, NAZ Martiens Ot M17.12 UNILATERAL PRIMARY OSTEOARTHRITIS, LEFT 11/23/2019 PRIYANKA QUINTANILLA Ot M79.605 PAIN IN LEFT LEG 11/23/2019 O'DELL, ZOILA K SEXUAL ASSAULT COUNSELOR Ot M19.012 PRIMARY OSTEOARTHRITIS, LEFT SHOULDER 11/23/2019 O'DELL, ZOILA K SEXUAL ASSAULT COUNSELOR Ot M62.838 OTHER MUSCLE SPASM 11/23/2019 FRANCIS [...] SPECIFIED POSTPROCEDURAL STATES 11/23/2019 MELBA, KRYSTAL L SEXUAL ASSAULT COUNSELOR Ot R10.11 RIGHT UPPER QUADRANT PAIN 11/23/2019 MELBA, KRYSTAL L SEXUAL ASSAULT COUNSELOR Ot R11.2 NAUSEA WITH VOMITING, UNSPECIFIED 11/23/2019 MELBA, KRYSTAL L SEXUAL ASSAULT COUNSELOR Ot K76.0 FATTY (CHANGE OF) LIVER, NOT ELSEWHERE C 11/23/2019 MELBA, KRYSTAL L SEXUAL ASSAULT COUNSELOR Ot R19.7 DIARRHEA, UNSPECIFIED 11/23/2019 MELBA, KRYSTAL L SEXUAL ASSAULT COUNSELOR Ot Z98.890 OTHER SPECIFIED POSTPROCEDURAL STATES 11/23/2019 WANDA LIN, NAZ Martines Ot M17.12 UNILATERAL PRIMARY OSTEOARTHRITIS, LEFT 11/23/2019 KING PRIYANKA Manuel VILLA Ot M79.605 PAIN IN LEFT LEG 11/23/2019 O'DELZOILA Batista SEXUAL ASSAULT COUNSELOR Ot M19.012 PRIMARY OSTEOARTHRITIS, LEFT SHOULDER 11/23/2019 [...] SPECIFIED POSTPROCEDURAL STATES 11/23/2019 MELBA, KRYSTAL L SEXUAL ASSAULT COUNSELOR Ot R10.11 RIGHT UPPER QUADRANT PAIN 11/23/2019 MELBA, KRYSTAL L SEXUAL ASSAULT COUNSELOR Ot R11.2 NAUSEA WITH VOMITING, UNSPECIFIED 11/23/2019 MELBA, KRYSTAL L SEXUAL ASSAULT COUNSELOR Ot K76.0 FATTY (CHANGE OF) LIVER, NOT ELSEWHERE C 11/23/2019 MELBA, KRYSTAL L SEXUAL ASSAULT COUNSELOR Ot R19.7 DIARRHEA, UNSPECIFIED 11/23/2019 MELBA, KRYSTAL L SEXUAL ASSAULT COUNSELOR Ot Z98.890 OTHER SPECIFIED POSTPROCEDURAL STATES 11/23/2019 [...] 7-25 CREATININE 1.46 mg/dL 0.70-1.33 eGFR NON-AFR. [place] 52 mL/min/1.73m2 > OR = 60 eGFR [...] 7-25 CREATININE 1.01 mg/dL 0.70-1.25 eGFR NON-AFR. [place] 80 mL/min/1.73m2 > OR = 60 eGFR [...] Status Pt. Type Provider Facility Loc./Unit Complaint [id number] 10/09/2019 15:40:00 ACT Unknown Manuel Reis MD [id number] 03/11/2019 08:20:00 03/11/2019 23:59: 59 CLS Outpatient JESSICA BLANCO [facility] [id number] 03/08/2019 14:20:00 Document Registration [id number] 12/21/2018 10:40:00 Document Registration [id number] 10/11/2018 09:10:00 Document Registration [id number] 07/31/2018 15:00:00 Document Registration [id number] 11/29/2018 14:47:00 23:59:59 CLS Emergency SUNNY PEREZ [facility] ED ER VISIT [id number] 08/31/2019 12:07:17 Document Registration [id number] 11/23/2019 11:18:00 11:18:00 CAN Emergency SALMON ALMA SCOTT [facility] ER FS ACUTE ON CHRONIC RENAL FAILURE;DEHYDRATION;VOMITNG [id number] 11/13/2019 15:11:00 23:59:59 CLS Outpatient JESSICA BLANCO MD [facility] RAD FS LEFT SHOULDER PAIN,LEFT ELBOW PAIN [id number] 10/11/2019 15:02:00 23:59:59 CLS Outpatient PRIYANKA QUINTANILLA [facility] RAD FS PAIN IN LEFT FOOT [id number] 10/09/2019 14:23:00 23:59:59 CLS Outpatient JESSICA BLANCO MD [facility] RAD FS LEFT ANKLE INJURY [id number] 08/16/2019 08:57:00 23:59:59 CLS Outpatient JESSICA BLANCO MD [facility] LAB FS TYPE 2 DIABETES [id number] 08/14/2019 16:44:00 17:16:00 DIS Emergency YAS PIZARRO DO [facility] ER FS THUMB LACERATION [id number] 08/08/2019 17:24:00 18:55:00 DIS Emergency MAE CARRIZALES DO [facility] ER FS CHEST PAIN [id number] 04/28/2019 12:21:00 15:25:00 DIS Emergency MELLY KAUFMAN MD [facility] ER FS VOMITING [id number] 03/02/2019 11:05:00 23:59:59 CLS Outpatient ZOILA THOMPSON SEXUAL ASSAULT COUNSELOR [facility] RAD FS M25.512 M62.838 [id number] 01/25/2019 13:06:00 23:59:59 CLS Outpatient PRIYANKA QUINTANILLA [facility] RAD FS M79.605 [id number] 01/12/2019 20:35:00 12:45:00 DIS Inpatient JANIE STEWART DO, [facility] 4TH ABD PAIN [id number] 09/16/2018 12:43:00 16:02:00 DIS Emergency VIKY ALMA [facility] ER FS CHEST PAIN [id number] 09/14/2018 13:56:00 23:59:59 CLS Outpatient WANDA LIN, NAZ Martines [facility] RAD FS M17.12 [id number] 08/09/2018 20:33:00 00:01:00 DIS Emergency ANTWAN LIN, XUAN Guidry [facility] ER FS LT SIDE HIP, LEG, BACK PAIN [id number] 07/20/2018 08:20:00 23:59:59 CLS Outpatient KRYSTAL REILLY SEXUAL ASSAULT COUNSELOR [facility] RAD FS ADB PAIN. [id number] 06/30/2018 09:17:00 23:59:59 CLS Outpatient KRYSTAL REILLY SEXUAL ASSAULT COUNSELOR [facility] CARD ABD PAIN [id number] 06/20/2018 15:25:00 23:59:59 CLS Preadmit KRYSTAL REILLY SEXUAL ASSAULT COUNSELOR [facility] RAD ABD PAIN [id number] 06/08/2018 13:09:00 23:59:59 CLS Outpatient FRANCIS LIN, JESSICA Heaton [facility] RAD FS UNSPECIFIED ABDOMINAL P AIN [id number] 11/23/2019 15:01:[address] Inpatient ARUNA LIN, MARY Heaton [facility] 4TH ACUTE ON CHRONIC RENAL FAILU RE [id number] 11/23/2019 14:50:[address] Emergency ZACHARY LIN, DURGA Renteria [facility] ER DEHYDRATION;VOMITING;RENAL F AILURE
[2019-11-26] MEDS ORDERED: ONDA4TAB11 PO (09:56)
[2019-11-26] MEDS ORDERED: METF-399 PO (09:56)
[2019-11-26] MEDS ORDERED: DICY10CA12 PO (09:56)
[2019-11-26] MEDS ORDERED: ATOR40TA70 PO (09:58)
[2019-11-26] MEDS ORDERED: PANT20TA3 PO (10:07)
[2019-11-26] MEDS ORDERED: PEG15DRO3 OU (10:07)
== END 2019-11-23 15:05 | disposition left against medical advice (07) ==
LOC: EDUNIT# 14:49 → ER 14:50
DX: N19 Unspecified kidney failure (principal); E86.0 Dehydration; R11.10 Vomiting, unspecified

== ENCOUNTER → 2019-12-14 | Outpatient (CLI) | payer MEDICARE, MEDICAID ==
[~2019-12-14] MED LIST changes: +ATOR40TA70 PO; +CATHETER FLUSH 10 ML SYR IV PRN; +DICY10CA12 PO; +METF-399 PO; +ONDA4TAB11 PO; +PANT20TA3 PO; +PEG15DRO3 OU
--- NOTE | 2019-12-14 11:53 | Diagnostic Imaging Report ---
EXAMINATION: HEPATOBILIARY WITH EJECTION FR CLINICAL HISTORY: Chronic right upper quadrant abdominal pain. IMAGING TECHNIQUE: Hepatobiliary imaging was performed after the intravenous administration of 5.42 mCi of [id number]. After 60 minutes, the patient drank one can of Ensure and gallbladder ejection fraction was calculated. COMPARISON: HIDA scan performed on 06/30/2018. FINDINGS: There is normal clearance of blood pool activity. There is normal hepatic uptake of radiotracer. There is prompt excretion into the bile ducts and biliary tree. Small bowel activity is seen at approximately 1 hour. Gallbladder activity is seen at approximately 20 minutes and appeared normal as time progressed. After administration of ensure, the calculated gallbladder ejection fraction is 81%. IMPRESSION: No evidence of cystic or common bile duct obstruction. Normal gallbladder ejection fraction of 81 %. Dictated by: Dictated on workstation # [id number]
== END ==
LOC: CARD 10:00
PROVIDERS: ATTEND Family Medicine
DX: R10.11 Right upper quadrant pain (principal)
CPT/HCPCS: 78227; A9537

== ENCOUNTER → 2020-01-14 | Outpatient (CLI) | payer MEDICARE, MEDICAID ==
[~2020-01-14] MED LIST changes: -CATHETER FLUSH 10 ML SYR IV PRN; +PANT20TA18 PO; -PANT20TA3 PO; -PANT40TA3 PO; +PANT40TA52 PO
== END ==
LOC: LAB FS 10:00
PROVIDERS: ATTEND Internal Medicine Gastroenterology
DX: Z01.812 Encounter for preprocedural laboratory examination (principal); Z20.828 Contact with and (suspected) exposure to other viral communicable diseases
CPT/HCPCS: 87635

== ENCOUNTER → 2020-01-15 | Outpatient (CLI) | payer MEDICARE, MEDICAID ==
--- NOTE | 2020-01-15 10:09 | Diagnostic Imaging Report ---
HISTORY: Pain in the neck. Left cervical radiculopathy. TECHNIQUE: 3 views of the cervical spine. COMPARISON: None. FINDINGS: There are advanced degenerative changes in the cervical spine at C5-C6. Vertebral body heights are preserved. No acute fracture is seen. Prevertebral soft tissues appear normal. C1-C2 alignment appears normal. There is no significant spondylolisthesis. IMPRESSION: 1. Advanced degenerative changes at C5-C6 with no acute osseous abnormalities seen in the cervical spine. Dictated by: Dictated on workstation # [id number]
== END ==
LOC: RAD FS 09:23
PROVIDERS: ATTEND Nurse Practitioner
DX: M50.320 Other cervical disc degeneration, mid-cervical region, unspecified level (principal); M54.12 Radiculopathy, cervical region; M47.812 Spondylosis without myelopathy or radiculopathy, cervical region
CPT/HCPCS: 72040

== ENCOUNTER → 2020-01-18 | Outpatient (CLI) | payer MEDICARE, MEDICAID ==
[~2020-01-18] MED LIST changes: +CATHETER FLUSH 10 ML SYR IV PRN; +HOLD METFORMIN - RECEIVED CONTRAST 20 ML VIAL IV SCH; +IOHEXOL 350 MG/ML 100 ML (OMNIPAQUE 350) VIAL IV ONE; +NS 100 ML (IVPB) BAG IV ONE
[2020-01-18 09:12] LABS: ALANINE AMINOTRANSFERASE 31 U/L (0-55); ALBUMIN 4.4 GM/DL (3.2-4.5); ALKALINE PHOSPHATASE 95 U/L (40-136); BILIRUBIN,TOTAL 0.9 MG/DL (0.1-1.0); BUN/CREATININE RATIO 16; CALCIUM 9.5 MG/DL (8.5-10.1); CARBON DIOXIDE 22 MMOL/L (21-32); CHLORIDE 102 MMOL/L (98-107); CREATININE SERUM 1.15 MG/DL (0.60-1.30); GFR ESTIMATED > 60; GLUCOSE 226 MG/DL (70-105); POTASSIUM 3.6 MMOL/L (3.6-5.0); SODIUM 136 MMOL/L (135-145); TOTAL PROTEIN 7.5 GM/DL (6.4-8.2)
--- NOTE | 2020-01-18 11:27 | Diagnostic Imaging Report ---
PROCEDURE: CT abdomen and pelvis with contrast. TECHNIQUE: Multiple contiguous axial images were obtained through the abdomen and pelvis after administration of intravenous contrast. Auto Exposure Controls were utilized during the CT exam to meet ALARA standards for radiation dose reduction. INDICATION: Abdominal pain. FINDINGS: The previous CT abdomen/pelvis exam of 01/12/2019 failed to show any sign of an acute abnormality of the abdomen or pelvis. There was bibasilar pneumonia/atelectasis, however. On this study, the lung bases are generally clear and well aerated. There is no sign of pneumonia, atelectasis or pleural effusion. The heart size is within normal limits. The liver is prominent and of lower density than usually seen. This does suggest fatty metamorphosis. When compared to the prior study, there has been no significant change. There is no focal mass involving the liver and the biliary tree is not abnormally dilated. The spleen, pancreas, adrenals, gallbladder, kidneys, aorta and inferior vena cava and portal vein are unremarkable for an acute abnormality. The stomach is not well-distended and consequently difficult to assess. The images of the pelvis again show postsurgical changes involving the rectosigmoid portion of the colon. There are also a few diverticula in the sigmoid and descending colon but there is no evidence for an acute diverticulitis. The prostate gland is not enlarged. The urinary bladder is only partially filled and difficult to assess. The appendix was not well-visualized but there are no indirect signs of acute appendicitis. There are a few fluid-filled segments of small bowel low in the pelvis. These are nonspecific but could be related to a mild ileus perhaps secondary to enteritis. Clinical follow-up is recommended. The bone windows are unremarkable for fracture or for destructive lesion. There is degenerative disc and bony disease throughout the lumbar spine. The degenerative changes appear stable when compared to the prior study. IMPRESSION: 1. There is no acute abnormality of the abdomen or pelvis identified with certainty. The fluid-filled segments of small bowel low in the pelvis could be related to mild ileus perhaps secondary to enteritis, however. Clinical follow-up is recommended. 2. There are postsurgical changes involving the sigmoid colon as well as diverticulosis of the sigmoid and descending colon. There is no sign of acute diverticulitis. 3. The pneumonia/atelectasis involving the lung bases seen previously has resolved. 4. There is degenerative disc and bony disease throughout the lumbar spine. There is no acute bony abnormality noted, however. Dictated by: Dictated on workstation # [id number]
== END ==
LOC: RAD 09:15
PROVIDERS: ATTEND Internal Medicine Gastroenterology
DX: K57.30 Diverticulosis of large intestine without perforation or abscess without bleeding (principal); M51.36 Other intervertebral disc degeneration, lumbar region; R79.9 Abnormal finding of blood chemistry, unspecified; Z98.890 Other specified postprocedural states
CPT/HCPCS: 36415; 74177; 80053; 85652; 86141

== ENCOUNTER → 2020-01-18 | Outpatient (CLI) | payer MEDICARE, MEDICAID ==
[~2020-01-18] MED LIST changes: -CATHETER FLUSH 10 ML SYR IV PRN; -HOLD METFORMIN - RECEIVED CONTRAST 20 ML VIAL IV SCH; -IOHEXOL 350 MG/ML 100 ML (OMNIPAQUE 350) VIAL IV ONE; -NS 100 ML (IVPB) BAG IV ONE
--- NOTE | 2020-01-18 11:02 | Diagnostic Imaging Report ---
INDICATION: Lower back pain. COMPARISON: None FINDINGS: Frontal and lateral radiographic views of the lumbar spine were obtained. Lateral views were obtained with neutral positioning, as well as flexion and extension. Evaluation of the alignment shows slight scoliotic deformity of the lumbar spine. AP static alignment is maintained. There is no significant anterolisthesis or retrolisthesis. There is no evidence of jumped facets. Vertebral body heights are maintained. There is no acute fracture. There are moderate multilevel degenerative changes consistent with intervertebral disc height loss with anterior and posterior disc osteophyte complex formations, as well as multilevel facet arthropathy. Included small bowel loops are nondistended. IMPRESSION: 1. No acute fracture or dislocation lumbar spine. 2. Moderate multilevel degenerative changes. Dictated by: Dictated on workstation # [id number]
--- NOTE | 2020-01-18 11:30 | Diagnostic Imaging Report ---
PROCEDURE: MRI lumbar spine. TECHNIQUE: Multiplanar, multisequence MRI of the lumbar spine was performed without contrast. INDICATION: Low back pain. There are no prior MRI examinations available for comparison. The CT abdomen/pelvis exam performed in conjunction with the study did show degenerative disc and bony disease throughout the lumbar spine. On the T2 parasagittal images of this exam, there is narrowing and desiccation of the discs at every level of the lumbar spine. At the L1-L2 level, there is a disc bulge centrally which indents the ventral aspect of the thecal sac and narrows the AP diameter to 9 mm. There is also mild neural foraminal narrowing on the right at this level. At the L2-L3 level, there is a broad-based disc bulge which flattens the ventral aspect of the thecal sac and narrows the AP diameter on the right to approximately 6.9 mm. There is also neural foraminal narrowing bilaterally at this level again more prominently on the right. At the L3-L4 level, there is a disc bulge centrally. The AP diameter of the thecal sac is narrowed to 6.1 mm. There is also neural foraminal narrowing bilaterally at this level. At L4-L5, there is a disc bulge eccentric to the right. The disc narrows the AP diameter of the thecal sac to 8.0 mm. There is also neural foraminal narrowing bilaterally at this level, particularly on the right. At L5-S1, there is a broad-based disc bulge centrally. The AP diameter of the thecal sac is narrowed to 11 mm. There is also fairly severe neural foraminal narrowing bilaterally at this level. There is no abnormal signal arising from the cord or vertebral bodies to indicate an acute abnormality. There is abnormal signal along the opposing endplates at every vertebral body. I suspect that these signal abnormalities are degenerative in nature. There is no paraspinal mass noted. IMPRESSION: 1. There is degenerative disc, ligamentous and bony disease throughout the lumbar spine with spinal stenosis and neural foraminal narrowing at multiple levels as described above. 2. There is no acute bony abnormality appreciated and there is no sign of a cord lesion. Dictated by: Dictated on workstation # [id number]
== END ==
LOC: RAD 08:32
PROVIDERS: ATTEND Registered Nurse
DX: M51.16 Intervertebral disc disorders with radiculopathy, lumbar region (principal); M48.061 Spinal stenosis, lumbar region without neurogenic claudication; M47.26 Other spondylosis with radiculopathy, lumbar region
CPT/HCPCS: 72114; 72148

== ENCOUNTER → 2020-01-25 | Outpatient (CLI) | payer MEDICARE, MEDICAID | LOC: LAB FS 11:22 | PROVIDERS: ATTEND Internal Medicine Gastroenterology | DX: Z01.812 Encounter for preprocedural laboratory examination (principal); Z20.828 Contact with and (suspected) exposure to other viral communicable diseases ==

== ENCOUNTER → 2020-02-04 | Outpatient (CLI) | payer MEDICARE, MEDICAID ==
[2020-02-04 13:15] LABS: BILIRUBIN,URINE NEGATIVE (NEGATIVE); CLARITY,URINE CLEAR; COLOR,URINE YELLOW; GLUCOSE, URINE (UA) 3+ (NEGATIVE); KETONES,URINE NEGATIVE (NEGATIVE); LEUKOCYTE ESTERASE ,URINE NEGATIVE (NEGATIVE); NITRITE,URINE NEGATIVE (NEGATIVE); PROTEIN,URINE NEGATIVE (NEGATIVE); SQUAMOUS EPITHELIAL CELL,UR RARE /HPF
[2020-02-04 13:18] LABS: BASOPHILS # (AUTO) 0.1 10^3/uL (0.0-0.1); BASOPHILS % (AUTO) 1 % (0-10); EOSINOPHILS # (AUTO) 0.1 10^3/uL (0.0-0.3); EOSINOPHILS % (AUTO) 2 % (0-10); HEMATOCRIT 43 % (40-54); HEMOGLOBIN 15.2 G/DL (13.3-17.7); LYMPHOCYTES # (AUTO) 1.4 X 10^3 (1.0-4.0); LYMPHOCYTES % (AUTO) 18 % (12-44); MEAN CORPUSCULAR HEMOGLOBIN 31 PG (25-34); MEAN CORPUSCULAR HGB CONC 35 G/DL (32-36); MEAN CORPUSCULAR VOLUME 86 FL (80-99); MEAN PLATELET VOLUME 10.2 FL (7.4-10.4); MONOCYTES # (AUTO) 0.5 X 10^3 (0.0-1.0); MONOCYTES % (AUTO) 6 % (0-12); NEUTROPHILS # (AUTO) 5.9 X 10^3 (1.8-7.8); NEUTROPHILS % (AUTO) 74 % (42-75); PLATELET COUNT 211 10^3/uL (130-400)
== END ==
LOC: LAB FS 12:40
PROVIDERS: ATTEND Family Medicine
DX: K92.1 Melena (principal); R10.9 Unspecified abdominal pain
CPT/HCPCS: 36415; 81000; 85025

== ENCOUNTER → 2020-02-27 | Outpatient (CLI) | payer MEDICARE, MEDICAID | LOC: RAD 12:30 | PROVIDERS: ATTEND Nurse Practitioner | DX: M50.320 Other cervical disc degeneration, mid-cervical region, unspecified level (principal); M54.12 Radiculopathy, cervical region ==

== ENCOUNTER → 2020-07-02 | Outpatient (CLI) | payer MEDICARE, MEDICAID ==
[~2020-07-02] MED LIST changes: -LISI-552 PO; +LISI20TA26 PO
--- NOTE | 2020-07-02 11:46 | Diagnostic Imaging Report ---
INDICATION: PAIN OF LEFT HIP X10 DAYS. TECHNIQUE: AP pelvis along with 2 views left hip, 10:23 a.m. CORRELATION STUDY: None FINDINGS: The pelvis demonstrates no evidence for acute fracture. The pectineal lines and obturator rings are maintained. Pubic symphysis and SI joints are unremarkable. Lumbosacral spinal fixation hardware present. Anastomotic suture line over the low midline pelvis. Radiation seed implants in the prostate bed. Images of the hip demonstrate no evidence for acute fracture. Alignment is anatomic. The femoral head acetabular relationship is unremarkable. The bony trabecular pattern is intact. IMPRESSION: Negative examination of the pelvis and left hip. Dictated by: Dictated on workstation # [id number]
== END ==
LOC: ORTHO 10:11
PROVIDERS: ATTEND Orthopaedic Surgery
DX: M25.552 Pain in left hip (principal)
CPT/HCPCS: 73502; G0463; 99202

== ENCOUNTER → 2020-08-18 | Outpatient (CLI) | payer MEDICARE, MEDICAID ==
[2020-08-18 08:51] LABS: ALANINE AMINOTRANSFERASE 18 U/L (0-55); ALKALINE PHOSPHATASE 101 U/L (40-136); BILIRUBIN,TOTAL 0.4 MG/DL (0.1-1.0); BUN/CREATININE RATIO 20; CALCIUM 9.7 MG/DL (8.5-10.1); CARBON DIOXIDE 26 MMOL/L (21-32); CHLORIDE 101 MMOL/L (98-107); GFR ESTIMATED > 60; GLUCOSE 213 MG/DL (70-105); POTASSIUM 3.7 MMOL/L (3.6-5.0); SODIUM 139 MMOL/L (135-145)
[2020-08-18 08:52] LABS: ALBUMIN 4.4 GM/DL (3.2-4.5); TOTAL PROTEIN 7.2 GM/DL (6.4-8.2)
[2020-08-18 14:46] LABS: CHOLESTEROL 203 MG/DL (< 200); HDL CHOLESTEROL 33 MG/DL (40-60); TRIGLYCERIDES 184 MG/DL (<150); VLDL CHOLESTEROL 37 MG/DL (5-40)
== END ==
LOC: LAB FS 08:08
PROVIDERS: ATTEND Family Medicine
DX: E11.9 Type 2 diabetes mellitus without complications (principal)
CPT/HCPCS: 36415; 80053; 80061; 82043; 83036

== ENCOUNTER 2020-09-18 08:31 | Emergency (ER) | payer MEDICARE, MEDICAID ==
[2020-09-18] MEDS ORDERED: METOCLOPRAMIDE INJ 10 MG/2 ML (REGLAN) IVP STA (08:37)
[2020-09-18] MEDS ORDERED: KETOROLAC 30 MG/ML VIAL IVP STA (08:37)
--- NOTE | 2020-09-18 08:37 | ED Abdominal Pain ---
General Stated Complaint: RT GROIN PAIN History of Present Illness Date Seen by Provider: September 18, 2020 Time Seen by Provider: 08:35 Initial Comments 59-year-old male presents with right lower quadrant abdominal pain. He reports that it started last night and is considerably worse. He did his have some flank pain but he has chronic back pain so is unsure if it is related. The pain is more right towards his groin. He does not have any testicular pain or swelling. He denies hematuria. No reports of fevers chills nausea or vomiting. Reports that his whole belly hurts but steadily worse in the right lower quadrant. Allergies and Home Medications Allergies Coded Allergies: tramadol (Unverified Allergy, Unknown, 09/16/18) Home Medications Atorvastatin Calcium 40 Mg Tablet, 40 MG PO DAILY, (Reported) Dicyclomine HCl 10 Mg Capsule, 10 MG PO QID, (Reported) Ibuprofen 800 Mg Tablet, 800 MG PO TID PRN for PAIN-MILD (1-4), (Reported) Lisinopril/Hydrochlorothiazide 1 Each Tablet, 20-25 MG PO DAILY, (Reported) LAST FILLED 04/21/2019 #90 90 DAY SUPPLY Metformin HCl 1,000 Mg Tablet, 1,000 MG PO BID, (Reported) Ondansetron 4 Mg Tab.rapdis, 4 MG PO TID PRN for NAUSEA/VOMITING-1ST LINE, (Reported) Pantoprazole Sodium 20 Mg Tablet.dr, 20 MG PO BID, (Reported) LAST FILLED 08/31/2019 #60 30 DAY SUPPLY Peg 400/Hypromellose/Glycerin 15 Ml Drops, 1-2 DROPS OU NEEDED PRN for DRY EYES, (Reported) Pregabalin 150 Mg Capsule, 150 MG PO BID, (Reported) Patient Home Medication List Home Medication List Reviewed: Yes Review of Systems Review of Systems Constitutional: No chills, No fever Respiratory: No Symptoms Reported Cardiovascular: No Symptoms Reported Gastrointestinal: See HPI Genitourinary: See HPI Musculoskeletal: see HPI Skin: no symptoms reported Psychiatric/Neurological: No Symptoms Reported Endocrine: No Symptoms Reported Past Iwstenj-Mvbsox-Wsnuxm Hx Past Med/Social Hx: Reviewed Nursing Past Med/Soc Hx Patient Social History Drug of Choice: MJ Type Used: Cigarettes Former Smoker, Quit: Apr 25, 1989 2nd Hand Smoke Exposure: Yes Recent Hopitalizations: No Immunizations Up To Date Date of Pneumonia Vaccine: Nov 22, 2018 Seasonal Allergies Seasonal Allergies: No Past Medical History Surgeries: Yes Respiratory: No Cardiac: No Hypertension Neurological: No Neuropathy Genitourinary: No Gastrointestinal: Yes Gastroesophageal Reflux, Diverticulosis Musculoskeletal: Yes Arthritis Endocrine: Yes Diabetes, Insulin dep HEENT: Yes Hearing Impairment: Hard of Hearing Cancer: No Psychosocial: No Integumentary: No Blood Disorders: No Family Medical History No Pertinent Family Hx Physical Exam Vital Signs Vital Signs - First Documented 09/18/20 08:39 Temp 36.4 Pulse 74 Resp 18 B/P (MAP) 154/109 (124) Pulse Ox 95 Capillary Refill : Height/Weight/BMI Height: 5'5.00" Weight: 195lbs. oz. 88.744340mx; 31.84 BMI Method:Stated General Appearance: WD/WN, no apparent distress Respiratory: chest non-tender, lungs clear Cardiovascular: normal peripheral pulses, regular rate, rhythm Gastrointestinal: soft, tenderness (Right lower quadrant) Extremities: normal range of motion Back: CVA tenderness (R) Neurologic/Psychiatric: alert, normal mood/affect, oriented x 3 Skin: normal color, warm/dry Progress/Results/Core Measures Results/Orders Lab Results Laboratory Tests Test 09/18/20 08:40 09/18/20 09:29 Range/Units White Blood Count 6.6 4.3-11.0 10^3/uL Red Blood Count 4.62 4.35-5.85 10^6/uL Hemoglobin 13.8 13.3-17.7 G/DL Hematocrit 41 40-54 % Mean Corpuscular Volume 88 80-99 FL Mean Corpuscular Hemoglobin 30 25-34 PG Mean Corpuscular Hemoglobin Concent 34 32-36 G/DL Red Cell Distribution Width 13.1 10.0-14.5 % Platelet Count 237 130-400 10^3/uL Mean Platelet Volume 10.2 7.4-10.4 FL Immature Granulocyte % (Auto) 1 % Neutrophils (%) (Auto) 76 H 42-75 % Lymphocytes (%) (Auto) 15 12-44 % Monocytes (%) (Auto) 6 0-12 % Eosinophils (%) (Auto) 2 0-10 % Basophils (%) (Auto) 1 0-10 % Neutrophils # (Auto) 5.0 1.8-7.8 X 10^3 Lymphocytes # (Auto) 1.0 1.0-4.0 X 10^3 Monocytes # (Auto) 0.1 0.0-1.0 X 10^3 Eosinophils # (Auto) 0.1 0.0-0.3 10^3/uL Basophils # (Auto) 0.1 0.0-0.1 10^3/uL Immature Granulocyte # (Auto) 0.1 0.0-0.1 10^3/uL Sodium Level 139 135-145 MMOL/L Potassium Level 4.6 3.6-5.0 MMOL/L Chloride Level 106 98-107 MMOL/L Carbon Dioxide Level 26 21-32 MMOL/L Anion Gap 7 5-14 MMOL/L Blood Urea Nitrogen 16 7-18 MG/DL Creatinine 0.97 0.60-1.30 MG/DL Estimat Glomerular Filtration Rate > 60 BUN/Creatinine Ratio 16 Glucose Level 234 H 70-105 MG/DL Calcium Level 9.1 8.5-10.1 MG/DL Corrected Calcium 9.3 8.5-10.1 MG/DL Total Bilirubin 0.2 0.1-1.0 MG/DL Aspartate Amino Transf (AST/SGOT) 26 5-34 U/L Alanine Aminotransferase (ALT/SGPT) 27 0-55 U/L Alkaline Phosphatase 89 40-136 U/L C-Reactive Protein 0.32 <0.50 MG/DL Total Protein 6.6 6.4-8.2 GM/DL Albumin 3.7 3.2-4.5 GM/DL My Orders Orders - SALMON,ALMA L DO Cbc With Automated Diff (09/18/20 08:37) Comprehensive Metabolic Panel (09/18/20 08:37) Ua Culture If Indicated (09/18/20 08:37) Crp Fs (09/18/20 08:37) Ct Abdomen/Pelvis Wo (09/18/20 08:37) Abdomen (Kub) 1 View (09/18/20 08:37) Ed Iv/Invasive Line Start (09/18/20 08:37) Ketorolac Injection (Toradol Injection) (09/18/20 08:37) Metoclopramide Injection (Reglan Injecti (09/18/20 08:37) Vital Signs/I&O 09/18/20 08:39 Temp 36.4 Pulse 74 Resp 18 B/P (MAP) 154/109 (124) Pulse Ox 95 Progress Progress Note : Progress Note Patient symptoms improved with Toradol. Patient with negative labs, CT abdomen and pelvis. Patient likely with a groin strain. Patient stable and discharged home. He should follow-up with his primary care provider if symptoms return. Diagnostic Imaging Diagonstic Imaging: CT Plain Films/CT/US/NM/MRI: abdomen Comments FINDINGS: Lung bases: Bibasilar dependent atelectasis. Solid organs: There is diffuse hypoattenuation of the liver compatible with hepatic steatosis. Focal fatty sparing along the gallbladder. The gallbladder is normal. There is no biliary ductal dilation. Pancreas is normal. Spleen is normal. Adrenal glands are normal. The kidneys are normal without visualized calculus or hydronephrosis. Bowel: The stomach and small bowel are normal without obstruction. Surgical changes of distal colon. Scattered colonic diverticulosis. Appendix is normal. Peritoneum: There is no intraperitoneal free fluid or free air. No suspicious lymphadenopathy. Vasculature: Calcification of the aorta without aneurysm. Musculoskeletal: Degenerative and surgical changes of the spine without suspicious osseous lesion or compression fracture. Pelvis: Multiple surgical clips are seen within the prostate gland. The urinary bladder is normal. IMPRESSION: 1. No visualized renal calculus or hydronephrosis. 2. No findings of acute appendicitis or other acute normality in the abdomen or pelvis. 3. Colonic diverticulosis without findings of diverticulitis. 4. Hepatic steatosis. Reviewed: Reviewed by Me, Reviewed/Discussed Diagonstic Imaging: Xray Plain Films/CT/US/NM/MRI: abdomen Comments Impression: There is no radiographic evidence for acute abdominal/ pelvic process or urinary tract stones. Reviewed: Reviewed by Me, Reviewed/Discussed Departure Impression Primary Impression: Right groin pain Disposition: 01 HOME, SELF-CARE Condition: Stable Departure-Patient Inst. Referrals: JESSICA BLANCO MD (PCP/Family) Primary Care Physician Patient Instructions: Groin Strain (DC) Add. Discharge Instructions: Tylenol or ibuprofen as needed 4% topical lidocaine with menthol to affected area as needed for pain Follow-up with your primary care provider if symptoms return or worsen ALMA SALMON DO September 18, 2020 08:37
[2020-09-18 08:51] LABS: HEMATOCRIT 41 % (40-54); HEMOGLOBIN 13.8 G/DL (13.3-17.7); MEAN CORPUSCULAR HEMOGLOBIN 30 PG (25-34); WHITE BLOOD COUNT 6.6 10^3/uL (4.3-11.0)
[2020-09-18 08:52] LABS: BASOPHILS % (AUTO) 1 % (0-10); EOSINOPHILS % (AUTO) 2 % (0-10); LYMPHOCYTES % (AUTO) 15 % (12-44); MEAN CORPUSCULAR HGB CONC 34 G/DL (32-36); MEAN CORPUSCULAR VOLUME 88 FL (80-99); MEAN PLATELET VOLUME 10.2 FL (7.4-10.4); MONOCYTES # (AUTO) 0.1 X 10^3 (0.0-1.0); MONOCYTES % (AUTO) 6 % (0-12); NEUTROPHILS % (AUTO) 76 % (42-75); PLATELET COUNT 237 10^3/uL (130-400)
[2020-09-18 08:53] LABS: BASOPHILS # (AUTO) 0.1 10^3/uL (0.0-0.1); EOSINOPHILS # (AUTO) 0.1 10^3/uL (0.0-0.3)
--- NOTE | 2020-09-18 09:09 | Diagnostic Imaging Report ---
Clinical indication: Patient with right lower quadrant abdominal pain. Exam: KUB x-ray. Comparison: X-ray of the abdomen dated 11/23/2019. CT scan of the abdomen and pelvis without contrast dated 09/18/2020 Findings: There are no focal calcifications overlying the expected regions/ pathways of both kidneys, ureters, and bladder regions. There is a nonobstructed bowel gas pattern. There is no evidence of abdominal free air. There is a small amount of stool rule within the right colon and transverse colon region and rectum region. There are surgical anastomotic sutures in the pelvis region. There are hypertrophic spurs involving the lumbar spine. There is L5-S1 posterior spinal fusion hardware and anterior lumbar spinal fusion hardware seen. There are linear radiodense areas overlying the low pelvis region and may be related to prostate therapy. Impression: There is no radiographic evidence for acute abdominal/ pelvic process or urinary tract stones. Dictated by: Dictated on workstation # [id number]
--- NOTE | 2020-09-18 09:10 | Diagnostic Imaging Report ---
EXAMINATION: CT abdomen and pelvis without contrast. TECHNIQUE: Multiple contiguous axial images were obtained through the abdomen and pelvis without the use of intravenous contrast. All CT scans use one or more of the following dose optimizing techniques: automated exposure control, MA and/or KvP adjustment based on patient size and exam type or iterative reconstruction. HISTORY: Right lower quadrant and flank pain COMPARISON: CT abdomen and pelvis 01/18/2020 FINDINGS: Lung bases: Bibasilar dependent atelectasis. Solid organs: There is diffuse hypoattenuation of the liver compatible with hepatic steatosis. Focal fatty sparing along the gallbladder. The gallbladder is normal. There is no biliary ductal dilation. Pancreas is normal. Spleen is normal. Adrenal glands are normal. The kidneys are normal without visualized calculus or hydronephrosis. Bowel: The stomach and small bowel are normal without obstruction. Surgical changes of distal colon. Scattered colonic diverticulosis. Appendix is normal. Peritoneum: There is no intraperitoneal free fluid or free air. No suspicious lymphadenopathy. Vasculature: Calcification of the aorta without aneurysm. Musculoskeletal: Degenerative and surgical changes of the spine without suspicious osseous lesion or compression fracture. Pelvis: Multiple surgical clips are seen within the prostate gland. The urinary bladder is normal. IMPRESSION: 1. No visualized renal calculus or hydronephrosis. 2. No findings of acute appendicitis or other acute normality in the abdomen or pelvis. 3. Colonic diverticulosis without findings of diverticulitis. 4. Hepatic steatosis. Dictated by: Dictated on workstation # [id number]
[2020-09-18 09:11] LABS: BILIRUBIN,TOTAL 0.2 MG/DL (0.1-1.0); BUN/CREATININE RATIO 16; CALCIUM 9.1 MG/DL (8.5-10.1); CARBON DIOXIDE 26 MMOL/L (21-32); CHLORIDE 106 MMOL/L (98-107); CREATININE SERUM 0.97 MG/DL (0.60-1.30); GFR ESTIMATED > 60; GLUCOSE 234 MG/DL (70-105); POTASSIUM 4.6 MMOL/L (3.6-5.0); SODIUM 139 MMOL/L (135-145)
[2020-09-18 09:12] LABS: ALANINE AMINOTRANSFERASE 27 U/L (0-55); ALBUMIN 3.7 GM/DL (3.2-4.5); ALKALINE PHOSPHATASE 89 U/L (40-136); TOTAL PROTEIN 6.6 GM/DL (6.4-8.2)
[2020-09-18 09:46] LABS: BILIRUBIN,URINE NEGATIVE (NEGATIVE); CLARITY,URINE CLEAR; COLOR,URINE YELLOW; GLUCOSE, URINE (UA) 3+ (NEGATIVE); KETONES,URINE TRACE (NEGATIVE); LEUKOCYTE ESTERASE ,URINE NEGATIVE (NEGATIVE); NITRITE,URINE NEGATIVE (NEGATIVE); PROTEIN,URINE NEGATIVE (NEGATIVE)
[2020-09-18 09:47] LABS: BACTERIA,URINE NEGATIVE /HPF; SQUAMOUS EPITHELIAL CELL,UR RARE /HPF
[2020-09-18 09:56] VITALS: BP 147/89
== END 2020-09-18 09:55 | disposition home or self-care (01) ==
LOC: EDUNIT# 08:31 → ER FS 08:32
DX: R10.31 Right lower quadrant pain (principal); I10 Essential (primary) hypertension; E11.40 Type 2 diabetes mellitus with diabetic neuropathy, unspecified; K21.9 Gastro-esophageal reflux disease without esophagitis; G89.29 Other chronic pain; M54.9 Dorsalgia, unspecified; Z87.891 Personal history of nicotine dependence; Z77.22 Contact with and (suspected) exposure to environmental tobacco smoke (acute) (chronic); Z79.1 Long term (current) use of non-steroidal anti-inflammatories (NSAID); Z79.84 Long term (current) use of oral hypoglycemic drugs; Z79.899 Other long term (current) drug therapy
CPT/HCPCS: 36415; 74018; 74176; 80053; 81000; 85025; 86141; 96374; 96375

== ENCOUNTER 2020-11-13 15:42 | Emergency (ER) | payer MEDICARE, MEDICAID ==
[~2020-11-13] VITALS: Ht 165 cm; Wt 90.0 kg
[2020-11-13] MEDS ORDERED: KETOROLAC 60 MG/2 ML VIAL IM ONE (16:15)
--- NOTE | 2020-11-13 16:36 | Diagnostic Imaging Report ---
INDICATION: Right knee pain 3 views of the right knee show no fracture, dislocation or other abnormality. IMPRESSION: Normal right knee. Dictated by: Dictated on workstation # [id number]
--- NOTE | 2020-11-13 16:41 | ED Lower Extremity ---
General Chief Complaint: Lower Extremity Stated Complaint: RIGHT KNEE SWELLING Nursing Triage Note: RIGHT KNEE STARTED ACHING YESTERDAY AND INCREASING IN PAIN TODAY. REPORTS THE TOP OF HIS KNEE IS SWOLLEN AND IT HURTS TO AMBULATE. Source: patient Exam Limitations: no limitations History of Present Illness Date Seen by Provider: Nov 13, 2020 Time Seen by Provider: 16:20 Onset: yesterday Pain/Injury Location: right knee Method of Injury: other (unknown) Modifying Factors: Improves With Rest Allergies and Home Medications Allergies Coded Allergies: tramadol (Unverified Allergy, Unknown, 09/16/18) Home Medications Atorvastatin Calcium 40 Mg Tablet, 40 MG PO DAILY, (Reported) Dicyclomine HCl 10 Mg Capsule, 10 MG PO QID, (Reported) Ibuprofen 800 Mg Tablet, 800 MG PO TID PRN for PAIN-MILD (1-4), (Reported) Lisinopril/Hydrochlorothiazide 1 Each Tablet, 20-25 MG PO DAILY, (Reported) LAST FILLED 04/21/2019 #90 90 DAY SUPPLY Metformin HCl 1,000 Mg Tablet, 1,000 MG PO BID, (Reported) Ondansetron 4 Mg Tab.rapdis, 4 MG PO TID PRN for NAUSEA/VOMITING-1ST LINE, (Reported) Pantoprazole Sodium 20 Mg Tablet.dr, 20 MG PO BID, (Reported) LAST FILLED 08/31/2019 #60 30 DAY SUPPLY Peg 400/Hypromellose/Glycerin 15 Ml Drops, 1-2 DROPS OU NEEDED PRN for DRY EYES, (Reported) Pregabalin 150 Mg Capsule, 150 MG PO BID, (Reported) Patient Home Medication List Home Medication List Reviewed: Yes Review of Systems Constitutional: no symptoms reported Respiratory: no symptoms reported Musculoskeletal: joint swelling Past Zbusvfh-Odpehg-Bquwbg Hx Patient Social History Tobacco Use?: No Use of E-Cig and/or Vaping dev: No Substance use?: No Alcohol Use?: No Pt feels they are or have been: No Seasonal Allergies Seasonal Allergies: No Past Medical History Surgeries: Yes Respiratory: No Cardiac: No Hypertension Neurological: No Neuropathy Genitourinary: No Renal Failure Gastrointestinal: Yes Gastroesophageal Reflux, Diverticulosis Musculoskeletal: Yes Arthritis Endocrine: Yes Diabetes, Insulin dep HEENT: Yes Hearing Impairment: Hard of Hearing Cancer: No Psychosocial: No Integumentary: No Blood Disorders: No Family Medical History No Pertinent Family Hx Physical Exam Vital Signs Vital Signs - First Documented 7/22/21 16:03 Temp 36.6 Pulse 92 Resp 18 B/P (MAP) 130/84 (99) Pulse Ox 98 O2 Delivery Room Air Capillary Refill : Less Than 3 Seconds Height, Weight, BMI Height: 5'5.00" Weight: 195lbs. oz. 88.084697or; 33.00 BMI Method:Stated General Appearance: no apparent distress Knees: right knee joint effusion, right knee pain (Range of motion), right knee soft tissue tenderness, right knee swelling (Prepatellar bursitis) Progress/Results/Core Measures Results/Orders Lab Results Laboratory Tests Test 11/13/20 16:25 Range/Units White Blood Count 9.1 4.3-11.0 10^3/uL Red Blood Count 5.18 4.35-5.85 10^6/uL Hemoglobin 15.6 13.3-17.7 G/DL Hematocrit 45 40-54 % Mean Corpuscular Volume 87 80-99 FL Mean Corpuscular Hemoglobin 30 25-34 PG Mean Corpuscular Hemoglobin Concent 35 32-36 G/DL Red Cell Distribution Width 12.7 10.0-14.5 % Platelet Count 214 130-400 10^3/uL Mean Platelet Volume 10.2 7.4-10.4 FL Immature Granulocyte % (Auto) 0 % Neutrophils (%) (Auto) 76 H 42-75 % Lymphocytes (%) (Auto) 16 12-44 % Monocytes (%) (Auto) 7 0-12 % Eosinophils (%) (Auto) 1 0-10 % Basophils (%) (Auto) 0 0-10 % Neutrophils # (Auto) 6.8 1.8-7.8 X 10^3 Lymphocytes # (Auto) 1.5 1.0-4.0 X 10^3 Monocytes # (Auto) 0.7 0.0-1.0 X 10^3 Eosinophils # (Auto) 0.1 0.0-0.3 10^3/uL Basophils # (Auto) 0.0 0.0-0.1 10^3/uL Immature Granulocyte # (Auto) 0.0 0.0-0.1 10^3/uL Neutrophils % (Manual) 68 % Lymphocytes % (Manual) 13 % Monocytes % (Manual) 7 % Eosinophils % (Manual) 1 % Basophils % (Manual) 1 % Band Neutrophils 3 % Atypical Lymphocytes 7 % Blood Morphology Comment NORMAL Sodium Level 139 135-145 MMOL/L Potassium Level 3.7 3.6-5.0 MMOL/L Chloride Level 102 98-107 MMOL/L Carbon Dioxide Level 24 21-32 MMOL/L Anion Gap 13 5-14 MMOL/L Blood Urea Nitrogen 22 H 7-18 MG/DL Creatinine 1.06 0.60-1.30 MG/DL Estimat Glomerular Filtration Rate 71 BUN/Creatinine Ratio 21 Glucose Level 172 H 70-105 MG/DL Calcium Level 9.4 8.5-10.1 MG/DL My Orders Orders - MORANELANA DO Knee 3 View Right (11/13/20 16:04) Uric Acid (11/13/20 16:05) Cbc And Manual Diff (11/13/20 16:05) Basic Metabolic Panel (11/13/20 16:05) Ketorolac Injection (Toradol Injection) (11/13/20 16:15) Medications Given in ED Current Medications Medications Dose Ordered Sig/Frank Route Start Time Stop Time Status Last Admin Dose Admin Ketorolac Tromethamine 60 mg ONCE ONCE IM 11/13/20 16:15 11/13/20 16:16 DC 11/13/20 16:25 60 MG Vital Signs/I&O 11/13/20 16:03 Temp 36.6 Pulse 92 Resp 18 B/P (MAP) 130/84 (99) Pulse Ox 98 O2 Delivery Room Air Blood Pressure Mean: 99 Departure Communication (Admissions) Right knee x-ray: No acute disease per radiologist Patient with prepatellar soft tissue tenderness swelling. X-ray unremarkable. CBC normal. Uric acid is a send out and is pending. Will treat supportively with PCP follow-up. Return precautions reviewed. Patient verbalizes understanding agreement discharge instructions prior to departure. Impression Primary Impression: Right anterior knee pain Disposition: 01 HOME, SELF-CARE Condition: Stable Departure-Patient Inst. Decision time for Depature: 17:49 Referrals: JESSICA BLANCO MD (PCP/Family) Primary Care Physician Patient Instructions: Knee Pain Add. Discharge Instructions: You were evaluated in the emergency department for right knee pain. X-ray was performed [facility] is nondiagnostic. Symptoms are consistent with prepatellar bursitis, and inflammatory condition involving the cushion in front of the kneecap. Please take naproxen twice daily and hydrocodone as needed for additional relief. Apply ice to affected area, and use crutches until symptoms resolve. Follow-up with your PCP for reevaluation in 3 to 5 days. Return to the ED if new or worsening symptoms. All discharge instructions reviewed with patient and/or family. Voiced understanding. Scripts Hydrocodone/Acetaminophen (Hydrocodone-Acetamin 5-325 mg) 1 Each Tablet 1 TAB PO Q4H PRN for PAIN-MODERATE (5-7), #10 TAB Prov: ELANA MORAN DO 11/13/20 Naproxen (Naprosyn) 500 Mg Tablet 500 MG PO BID, #30 TAB 0 Refills Prov: ELANA MORAN DO 11/13/20 ELANA MORAN DO Nov 13, 2020 16:41
[2020-11-13 16:58] LABS: HEMATOCRIT 45 % (40-54); HEMOGLOBIN 15.6 G/DL (13.3-17.7); MEAN CORPUSCULAR HEMOGLOBIN 30 PG (25-34); MEAN CORPUSCULAR VOLUME 87 FL (80-99); WHITE BLOOD COUNT 9.1 10^3/uL (4.3-11.0)
[2020-11-13 16:59] LABS: BASOPHILS % (AUTO) 0 % (0-10); EOSINOPHILS # (AUTO) 0.1 10^3/uL (0.0-0.3); EOSINOPHILS % (AUTO) 1 % (0-10); LYMPHOCYTES # (AUTO) 1.5 X 10^3 (1.0-4.0); LYMPHOCYTES % (AUTO) 16 % (12-44); MEAN CORPUSCULAR HGB CONC 35 G/DL (32-36); MEAN PLATELET VOLUME 10.2 FL (7.4-10.4); MONOCYTES # (AUTO) 0.7 X 10^3 (0.0-1.0); MONOCYTES % (AUTO) 7 % (0-12); NEUTROPHILS # (AUTO) 6.8 X 10^3 (1.8-7.8); NEUTROPHILS % (AUTO) 76 % (42-75); PLATELET COUNT 214 10^3/uL (130-400)
[2020-11-13 17:07] LABS: BAND NEUTROPHILS 3 %; BASOPHILS % (MANUAL) 1 %; EOSINOPHILS % (MANUAL) 1 %; LYMPHOCYTES % (MANUAL) 13 %; MONOCYTES % (MANUAL) 7 %; NEUTROPHILS % (MANUAL) 68 %
[2020-11-13 17:08] LABS: ATYPICAL LYMPHOCYTES 7 %; RBC MORPH NORMAL
[2020-11-13 17:13] LABS: CALCIUM 9.4 MG/DL (8.5-10.1); CREATININE SERUM 1.06 MG/DL (0.60-1.30); POTASSIUM 3.7 MMOL/L (3.6-5.0)
[2020-11-13 17:48] VITALS: BP 124/68
[2020-11-13] MEDS ORDERED: NAPR-1071 PO (17:51)
[2020-11-13] MEDS ORDERED: ACHD5005 PO (17:51)
[2020-11-13 22:09] LABS: URIC ACID 3.8 MG/DL (2.6-7.2)
== END 2020-11-13 17:55 | disposition home or self-care (01) ==
LOC: EDUNIT# 15:42 → ER FS 15:43
DX: M25.561 Pain in right knee (principal); I10 Essential (primary) hypertension; K21.9 Gastro-esophageal reflux disease without esophagitis; E11.9 Type 2 diabetes mellitus without complications; Z79.899 Other long term (current) drug therapy
CPT/HCPCS: 36415; 73562; 80048; 84550; 85007; 85027

== ENCOUNTER 2020-12-16 14:07 | Emergency (ER) | payer MEDICARE, MEDICAID ==
[~2020-12-16] VITALS: Ht 165.1 cm; Wt 86.4 kg
[~2020-12-16 14:07] MED LIST changes: +ACHD5005 PO; +NAPR-1071 PO
[2020-12-16 14:11] VITALS: BP 155/95
--- NOTE | 2020-12-16 14:27 | ED Abdominal Pain ---
General Chief Complaint: Abdominal/GI Problems Stated Complaint: LOWER L ABD PAIN History of Present Illness Date Seen by Provider: Dec 16, 2020 Time Seen by Provider: 14:20 Initial Comments 60-year-old male presents with onset of left lower quadrant abdominal pain 2 hours prior to arrival. No associated symptoms, denies constipation diarrhea, had a normal bowel movement today. Denies nausea vomiting or loss of appetite. Denies fever chills, cough or shortness of air. Past medical history significant for diverticulitis and had a colon resection as a treatment about 20 years ago with no subsequent episodes since then. Denies pain with urination, blood in his urine or frequent urination. Allergies and Home Medications Allergies Coded Allergies: tramadol (Unverified Allergy, Unknown, 09/16/18) Home Medications Atorvastatin Calcium 40 Mg Tablet, 40 MG PO DAILY, (Reported) Dicyclomine HCl 10 Mg Capsule, 10 MG PO QID, (Reported) Hydrocodone/Acetaminophen 1 Each Tablet, 1 TAB PO Q4H PRN for PAIN-MODERATE (5- 7) Prescribed by: ELANA MORAN on 11/13/201750 Ibuprofen 800 Mg Tablet, 800 MG PO TID PRN for PAIN-MILD (1-4), (Reported) Lisinopril/Hydrochlorothiazide 1 Each Tablet, 20-25 MG PO DAILY, (Reported) LAST FILLED 04/21/2019 #90 90 DAY SUPPLY Metformin HCl 1,000 Mg Tablet, 1,000 MG PO BID, (Reported) Naproxen 500 Mg Tablet, 500 MG PO BID Prescribed by: ELANA MORAN on 11/13/201750 Ondansetron 4 Mg Tab.rapdis, 4 MG PO TID PRN for NAUSEA/VOMITING-1ST LINE, (Reported) Pantoprazole Sodium 20 Mg Tablet.dr, 20 MG PO BID, (Reported) LAST FILLED 08/31/2019 #60 30 DAY SUPPLY Peg 400/Hypromellose/Glycerin 15 Ml Drops, 1-2 DROPS OU NEEDED PRN for DRY EYES, (Reported) Pregabalin 150 Mg Capsule, 150 MG PO BID, (Reported) Patient Home Medication List Home Medication List Reviewed: Yes Review of Systems Review of Systems Constitutional: No chills, No fever, No malaise, No weakness EENTM: No Symptoms Reported Respiratory: No Symptoms Reported Gastrointestinal: See HPI, Abdominal Pain; Denies Constipated, Denies Diarrhea, Denies Nausea, Denies Vomiting Genitourinary: Denies Burning, Denies Discharge, Denies Drainage, Denies Frequency, Denies Flank Pain, Denies Hematuria, Denies Incontinence, Denies Urgency Musculoskeletal: No back pain, No joint pain Skin: No change in color, No rash Past Ykmipst-Rttvbe-Davfmv Hx Patient Social History Tobacco Use?: No Use of E-Cig and/or Vaping dev: No Substance use?: No Alcohol Use?: No Pt feels they are or have been: No Immunizations Up To Date First/Initial COVID19 Vaccinat: July 2020 Second COVID19 Vaccination Brando: August 2020 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 Seasonal Allergies Seasonal Allergies: No Past Medical History Surgeries: Yes Respiratory: No Cardiac: No Hypertension Neurological: No Neuropathy Genitourinary: No Renal Failure Gastrointestinal: Yes Gastroesophageal Reflux, Diverticulosis Musculoskeletal: Yes Arthritis Endocrine: Yes Diabetes, Insulin dep HEENT: Yes Hearing Impairment: Hard of Hearing Cancer: No Psychosocial: No Integumentary: No Blood Disorders: No Family Medical History No Pertinent Family Hx Physical Exam Vital Signs Vital Signs - First Documented 12/16/20 14:11 Temp 36.3 Pulse 94 Resp 16 B/P (MAP) 155/95 (115) Pulse Ox 97 O2 Delivery Room Air Capillary Refill : Height/Weight/BMI Height: 5'5.00" Weight: 195lbs. oz. 88.043217am; 33.00 BMI Method:Stated General Appearance: WD/WN, no apparent distress Respiratory: chest non-tender, lungs clear, normal breath sounds Cardiovascular: regular rate, rhythm, no edema, no JVD Gastrointestinal: normal bowel sounds, soft; No guarding, No rebound; tenderness (mild LLQ); No hernia, No mass Extremities: normal range of motion, non-tender Back: normal inspection, no CVA tenderness, no vertebral tenderness Progress/Results/Core Measures Results/Orders Lab Results Laboratory Tests Test 12/16/20 14:24 12/16/20 14:52 Range/Units White Blood Count 8.2 4.3-11.0 10^3/uL Red Blood Count 5.27 4.30-5.52 10^6/uL Hemoglobin 15.6 13.3-17.7 g/dL Hematocrit 45 40-54 % Mean Corpuscular Volume 84 80-99 fL Mean Corpuscular Hemoglobin 30 25-34 pg Mean Corpuscular Hemoglobin Concent 35 32-36 g/dL Red Cell Distribution Width 12.4 10.0-14.5 % Platelet Count 228 130-400 10^3/uL Mean Platelet Volume 9.4 9.0-12.2 fL Immature Granulocyte % (Auto) 0 % Neutrophils (%) (Auto) 68 42-75 % Lymphocytes (%) (Auto) 20 12-44 % Monocytes (%) (Auto) 9 0-12 % Eosinophils (%) (Auto) 2 0-10 % Basophils (%) (Auto) 1 0-10 % Neutrophils # (Auto) 5.6 1.8-7.8 X 10^3 Lymphocytes # (Auto) 1.7 1.0-4.0 X 10^3 Monocytes # (Auto) 0.7 0.0-1.0 X 10^3 Eosinophils # (Auto) 0.2 0.0-0.3 10^3/uL Basophils # (Auto) 0.1 0.0-0.1 10^3/uL Immature Granulocyte # (Auto) 0.0 0.0-0.1 10^3/uL Sodium Level 139 135-145 MMOL/L Potassium Level 3.9 3.6-5.0 MMOL/L Chloride Level 105 98-107 MMOL/L Carbon Dioxide Level 24 21-32 MMOL/L Anion Gap 10 5-14 MMOL/L Blood Urea Nitrogen 15 7-18 MG/DL Creatinine 0.92 0.60-1.30 MG/DL Estimat Glomerular Filtration Rate 83 BUN/Creatinine Ratio 16 Glucose Level 82 70-105 MG/DL Calcium Level 9.5 8.5-10.1 MG/DL Corrected Calcium 9.3 8.5-10.1 MG/DL Total Bilirubin 0.3 0.1-1.0 MG/DL Aspartate Amino Transf (AST/SGOT) 20 5-34 U/L Alanine Aminotransferase (ALT/SGPT) 25 0-55 U/L Alkaline Phosphatase 87 40-136 U/L Total Protein 7.0 6.4-8.2 GM/DL Albumin 4.3 3.2-4.5 GM/DL Urine Color YELLOW Urine Clarity CLEAR Urine pH 6.0 5-9 Urine Specific [place] 1.020 1.016-1.022 Urine Protein NEGATIVE NEGATIVE Urine Glucose (UA) NEGATIVE NEGATIVE Urine Ketones NEGATIVE NEGATIVE Urine Nitrite NEGATIVE NEGATIVE Urine Bilirubin NEGATIVE NEGATIVE Urine Urobilinogen 0.2 < = 1.0 MG/DL Urine Leukocyte Esterase NEGATIVE NEGATIVE Urine RBC (Auto) NEGATIVE NEGATIVE Urine RBC RARE /HPF Urine WBC RARE /HPF Urine Squamous Epithelial Cells 0-2 /HPF Urine Crystals NONE /LPF Urine Bacteria NEGATIVE /HPF Urine Casts NONE /LPF Urine Mucus SMALL H /LPF Urine Culture Indicated NO My Orders Orders - YOAN MARTIN DO Urinalysis (12/16/20 14:20) Cbc With Automated Diff (12/16/20 14:20) Comprehensive Metabolic Panel (12/16/20 14:20) Acetaminophen Tablet (Tylenol Tablet) (12/16/20 15:00) Vital Signs/I&O 12/16/20 14:11 Temp 36.3 Pulse 94 Resp 16 B/P (MAP) 155/95 (115) Pulse Ox 97 O2 Delivery Room Air Departure Impression Primary Impression: Abdominal pain Qualified Codes: R10.32 - Left lower quadrant pain Disposition: 01 HOME, SELF-CARE Condition: Stable Departure-Patient Inst. Decision time for Depature: 15:16 Referrals: JESSICA BLANCO MD (PCP/Family) Primary Care Physician Patient Instructions: Abdominal Pain, Adult ED Add. Discharge Instructions: Follow up with Dr Blanco in 2 days if not improving, sooner if worse All discharge instructions reviewed with patient and/or family. Voiced understanding. Scripts Ibuprofen (Ibuprofen) 800 Mg Tablet 800 MG PO Q8H PRN for PAIN, #30 TAB 0 Refills Prov: YOAN MARTIN DO 12/16/20 YOAN MARTIN DO Dec 16, 2020 14:27
[2020-12-16 14:32] LABS: BASOPHILS # (AUTO) 0.1 10^3/uL (0.0-0.1); BASOPHILS % (AUTO) 1 % (0-10); EOSINOPHILS # (AUTO) 0.2 10^3/uL (0.0-0.3); EOSINOPHILS % (AUTO) 2 % (0-10); HEMATOCRIT 45 % (40-54); HEMOGLOBIN 15.6 g/dL (13.3-17.7); LYMPHOCYTES # (AUTO) 1.7 X 10^3 (1.0-4.0); LYMPHOCYTES % (AUTO) 20 % (12-44); MEAN CORPUSCULAR HEMOGLOBIN 30 pg (25-34); MEAN CORPUSCULAR HGB CONC 35 g/dL (32-36); MEAN CORPUSCULAR VOLUME 84 fL (80-99); MEAN PLATELET VOLUME 9.4 fL (9.0-12.2); MONOCYTES # (AUTO) 0.7 X 10^3 (0.0-1.0); MONOCYTES % (AUTO) 9 % (0-12); NEUTROPHILS # (AUTO) 5.6 X 10^3 (1.8-7.8); NEUTROPHILS % (AUTO) 68 % (42-75); PLATELET COUNT 228 10^3/uL (130-400); WHITE BLOOD COUNT 8.2 10^3/uL (4.3-11.0)
[2020-12-16 14:49] LABS: ALBUMIN 4.3 GM/DL (3.2-4.5); BILIRUBIN,TOTAL 0.3 MG/DL (0.1-1.0); CALCIUM 9.5 MG/DL (8.5-10.1); CREATININE SERUM 0.92 MG/DL (0.60-1.30); POTASSIUM 3.9 MMOL/L (3.6-5.0)
[2020-12-16] MEDS ORDERED: ACETAMINOPHEN 500 MG TAB (TYLENOL) PO ONE (15:00)
[2020-12-16 15:13] LABS: BACTERIA,URINE NEGATIVE /HPF; BILIRUBIN,URINE NEGATIVE (NEGATIVE); CLARITY,URINE CLEAR; COLOR,URINE YELLOW; GLUCOSE, URINE (UA) NEGATIVE (NEGATIVE); KETONES,URINE NEGATIVE (NEGATIVE); LEUKOCYTE ESTERASE ,URINE NEGATIVE (NEGATIVE); NITRITE,URINE NEGATIVE (NEGATIVE); PROTEIN,URINE NEGATIVE (NEGATIVE); RBC,URINE RARE /HPF; SQUAMOUS EPITHELIAL CELL,UR 0-2 /HPF; WBC,URINE RARE /HPF
[2020-12-16] MEDS ORDERED: IBUP-1780 PO (15:16)
== END 2020-12-16 15:20 | disposition home or self-care (01) ==
LOC: EDUNIT# 14:07 → ER FS 14:08
DX: R10.32 Left lower quadrant pain (principal); K21.9 Gastro-esophageal reflux disease without esophagitis; E11.9 Type 2 diabetes mellitus without complications; Z79.84 Long term (current) use of oral hypoglycemic drugs; Z79.899 Other long term (current) drug therapy
CPT/HCPCS: 36415; 80053; 81000; 85025

== ENCOUNTER 2020-12-29 12:20 | Emergency (ER) | payer MEDICARE, MEDICAID ==
[2020-12-29 12:30] VITALS: BP 146/115
--- NOTE | 2020-12-29 13:34 | ED Lower Extremity ---
General Chief Complaint: Lower Extremity Stated Complaint: RT KNEE PAIN Nursing Triage Note: Patient presents to the ED with c/o right knee pain. Reports pain began 3 days ago and has worsened in severity. He states that he has tried every over the counter pain medication and nothing helps. Denies any known injury to his right knee. Source: patient History of Present Illness Date Seen by Provider: Dec 29, 2020 Initial Comments 60 yo M presents with R knee pain. States that its been getting worse the last three days. pain rated as 10/10, described as stabbing. Pain located along medial joint line. No change in pain with walking, standing or sitting. Has tried ice, heat, icy-hot, gels and sprays. Medications taken include advil, ty lenol and naproxen, without relief. Onset: last week Severity: severe Pain/Injury Location: right knee Method of Injury: unknown Modifying Factors: Worse With Movement Allergies and Home Medications Allergies Coded Allergies: tramadol (Unverified Allergy, Unknown, 09/16/18) Patient Home Medication List Atorvastatin Calcium (Atorvastatin Calcium) 40 Mg Tablet, 40 MG PO DAILY, (Reported) Entered as Reported by: POOL AGUIAR on 11/26/19 0958 Dicyclomine HCl (Dicyclomine HCl) 10 Mg Capsule, 10 MG PO QID, (Reported) Entered as Reported by: POOL AGUIAR on 11/26/19 0956 Hydrocodone/Acetaminophen (Hydrocodone-Acetamin 5-325 mg) 1 Each Tablet, 1 TAB PO Q4H PRN for PAIN-MODERATE (5-7) Prescribed by: ELANA MORAN on 11/13/20 1751 Ibuprofen (Ibuprofen) 800 Mg Tablet, 800 MG PO TID PRN for PAIN-MILD (1-4), (Reported) Entered as Reported by: LEXUS JARA on 04/28/19 1406 Ibuprofen (Ibuprofen) 800 Mg Tablet, 800 MG PO Q8H PRN for PAIN Prescribed by: YOAN MARTIN on 12/16/20 1516 Lisinopril/Hydrochlorothiazide (Lisinopril-Hctz 20-25 mg Tab) 1 Each Tablet, 20- 25 MG PO DAILY, (Reported) Entered as Reported by: LEXUS JARA on 04/28/19 1407 Metformin HCl (Metformin HCl) 1,000 Mg Tablet, 1,000 MG PO BID, (Reported) Entered as Reported by: POOL AGUIAR on 11/26/19 0956 Naproxen (Naprosyn) 500 Mg Tablet, 500 MG PO BID Prescribed by: ELANA MORAN on 11/13/20 1751 Ondansetron (Ondansetron Odt) 4 Mg Tab.rapdis, 4 MG PO TID PRN for NAUS EA/VOMITING-1ST LINE, (Reported) Entered as Reported by: POOL AGUIAR on 11/26/19 0956 Pantoprazole Sodium (Pantoprazole Sodium) 20 Mg Tablet.dr, 20 MG PO BID, (Reported) Entered as Reported by: POOL AGUIAR on 11/26/19 1007 Peg 400/Hypromellose/Glycerin (Visine Tears Drops) 15 Ml Drops, 1-2 DROPS OU NEEDED PRN for DRY EYES, (Reported) Entered as Reported by: POOL AGUIAR on 11/26/19 1007 Pregabalin (Lyrica) 150 Mg Capsule, 150 MG PO BID, (Reported) Entered as Reported by: LEXUS JARA on 04/28/19 1405 Review of Systems Constitutional: No chills, No fever Respiratory: No cough, No short of breath Cardiovascular: No chest pain, No palpitations Gastrointestinal: no symptoms reported Musculoskeletal: joint pain Past Qaxvcaw-Xcyynx-Gfxday Hx Patient Social History Tobacco Use?: No Use of E-Cig and/or Vaping dev: No Substance use?: No Alcohol Use?: No Pt feels they are or have been: No Immunizations Up To Date First/Initial COVID19 Vaccinat: July 2020 Second COVID19 Vaccination Brando: August 2020 Seasonal Allergies Seasonal Allergies: No Past Medical History Surgeries: Yes Orthopedic Respiratory: No Cardiac: Yes Hypertension Neurological: Yes Neuropathy Genitourinary: Yes Renal Failure Gastrointestinal: Yes Gastroesophageal Reflux, Diverticulosis Musculoskeletal: Yes Arthritis Endocrine: Yes Diabetes, Insulin dep HEENT: Yes Hearing Impairment: Hard of Hearing Cancer: No Psychosocial: No Integumentary: No Blood Disorders: No Family Medical History No Pertinent Family Hx Physical Exam Vital Signs Vital Signs - First Documented 12/29/20 12:30 Temp 35.9 Pulse 80 Resp 18 B/P (MAP) 146/115 (125) O2 Delivery Room Air Capillary Refill : Less Than 3 Seconds Height, Weight, BMI Height: 5'5.00" Weight: 195lbs. oz. 88.770894tf; 31.00 BMI Method:Stated General Appearance: WD/WN, moderate distress Cardiovascular: regular rate, rhythm, no edema Respiratory: lungs clear, normal breath sounds Legs: bilateral leg normal range of motion Knees: left knee non-tender, left knee normal inspection; bilateral knee normal range of motion; left knee no evidence of injury; right knee pain, right knee soft tissue tenderness Ankles: bilateral ankle normal inspection, bilateral ankle normal range of motion, bilateral ankle no evidence of injury Reflexes: 2+ knee (R), 2+ knee (L) Progress/Results/Core Measures Results/Orders Vital Signs/I&O 12/29/20 12:30 Temp 35.9 Pulse 80 Resp 18 B/P (MAP) 146/115 (125) O2 Delivery Room Air Blood Pressure Mean: 125 Departure Departure-Patient Inst. Referrals: JESSICA BLANCO MD (PCP/Family) Primary Care Physician GARRETT SALGADO MED STUDENT Dec 29, 2020 13:34
== END 2020-12-29 14:25 | disposition left against medical advice (07) ==
LOC: EDUNIT# 12:20 → ER FS 12:22
DX: M25.561 Pain in right knee (principal); I10 Essential (primary) hypertension; E11.9 Type 2 diabetes mellitus without complications; K21.9 Gastro-esophageal reflux disease without esophagitis; Z79.84 Long term (current) use of oral hypoglycemic drugs; Z79.899 Other long term (current) drug therapy
CPT/HCPCS: 99281

== ENCOUNTER → 2021-01-06 | Outpatient (CLI) | payer MEDICARE, MEDICAID | LOC: ORTHO 11:07 | PROVIDERS: ATTEND Orthopaedic Surgery | DX: M23.91 Unspecified internal derangement of right knee (principal) | CPT/HCPCS: 99202 ==

== ENCOUNTER → 2021-01-13 | Outpatient (CLI) | payer MEDICARE, MEDICAID ==
[~2021-01-13] MED LIST changes: +AMLO-250 PO; +GLIP5TAB13 PO; +MELO10CA3 PO
--- NOTE | 2021-01-13 12:15 | Diagnostic Imaging Report ---
EXAMINATION: Magnetic resonance imaging of the knee without intravenous contrast. DATE: January 13, 2021. COMPARISON: Right knee radiographs November 13, 2020. INDICATION: 60-year-old male, right knee pain. TECHNIQUE: Multiplanar, multisequence non contrast enhanced MR imaging was accomplished. FINDINGS: MENISCI: There is an oblique tear involving the body of the medial meniscus extending to the free edge and peripheral meniscal margin. This also involves the body/posterior horn junction. The lateral meniscus is intact. LIGAMENTS AND TENDONS: The anterior and posterior cruciate ligaments are intact. The medial collateral ligament is intact. The iliotibial band, mid third lateral capsular ligament, fibular collateral ligament, biceps femoris tendon, and conjoined tendon are intact. The quadriceps tendon and patella ligament are intact. JOINT: There are broad areas of full-thickness cartilage loss involving the weightbearing portions of the medial femoral condyle and adjacent medial tibial plateau. The lateral and patellofemoral compartment cartilage is grossly intact. There is no knee joint effusion, prominent synovitis, or intra-articular body. BONE: There is unremarkable bone marrow signal. Specifically, negative for fracture, osteomyelitis, osteonecrosis, or marrow replacing process. BURSAE AND SOFT TISSUES: There is no Arcos's cyst. There is low-level edema in the tibialis anterior and extensor digitorum longus muscles. There is no fatty muscle atrophy. IMPRESSION: 1. Oblique tear involving the body and body/posterior horn junction of the medial meniscus. 2. Intact lateral meniscus. 3. Intact anterior and posterior cruciate ligaments. Additional ligaments and tendons are intact. 4. Severe medial compartment osteoarthritis. No knee joint effusion. 5. No acute fracture, bone contusion, or evidence of osteonecrosis. 6. Low level edema in the tibialis anterior and extensor digitorum longus muscles which may reflect low-grade muscle strains or early denervation related signal changes. No fatty muscle atrophy. Dictated by: Dictated on workstation # [id number]
== END ==
LOC: RAD 10:14
PROVIDERS: ATTEND Orthopaedic Surgery
DX: S83.241A Other tear of medial meniscus, current injury, right knee, initial encounter (principal); M17.11 Unilateral primary osteoarthritis, right knee; X58.XXXA Exposure to other specified factors, initial encounter
CPT/HCPCS: 73721

== ENCOUNTER → 2021-01-16 | Outpatient (CLI) | payer MEDICARE, MEDICAID ==
[~2021-01-16] VITALS: Ht 85.3 cm; Wt 86.4 kg
[~2021-01-16] MED LIST changes: +OXYC5TAB PO
== END | disposition home or self-care (01) ==
LOC: PREOP 01-15 12:23
PROVIDERS: ATTEND Orthopaedic Surgery
DX: Z01.818 Encounter for other preprocedural examination (principal)

== ENCOUNTER 2021-01-19 07:22 | Day surgery (SDC) | payer MEDICARE, MEDICAID ==
[2021-01-19] VITALS (11 sets, daily range): BP systolic 112–164; BP diastolic 80–100
[~2021-01-19] VITALS: Ht 85.3 cm; Wt 86.4 kg
[~2021-01-19 07:22] MED LIST changes: -OXYC5TAB PO
[2021-01-19] MEDS ORDERED: BUPIVACAINE 0.25% 30 ML (SENSORCAINE) VIAL ONE (07:43)
[2021-01-19] MEDS ORDERED: NS IV 1000 ML 1,000 ML IV SCH (07:45)
[2021-01-19] MEDS ORDERED: ceFAZolin 2 GM IV Premixed 50 ML IV ONE (07:45)
[2021-01-19] MEDS ORDERED: LIDOCAINE PF 2% 5 ML (XYLOCAINE) VIAL ONE (08:04)
[2021-01-19] MEDS ORDERED: MIDAZOLAM 2 MG/2 ML (VERSED) VIAL ONE (08:04)
[2021-01-19] MEDS ORDERED: fentaNYL INJ 100 MCG/2 ML AMP ONE (08:04)
[2021-01-19] MEDS ORDERED: proPOfol 200 MG/20 ML (DIPRIVAN) VIAL IV ONE (08:04)
[2021-01-19] MEDS ORDERED: ONDANSETRON 4 MG/2 ML (SDV) Z0FRAN ONE (08:04)
[2021-01-19] MEDS ORDERED: SEVOFLURANE (ULTANE) 15 ML INHAL SOLN ONE ×4 (08:04→09:29)
[2021-01-19] MEDS ORDERED: KETOROLAC 30 MG/ML VIAL ONE (09:25)
--- NOTE | 2021-01-19 09:43 | Operative Report - Ortho ---
Operative Report Surgeon (s)/It Systems Analyst (s) Surgeon DULCE SANCHEZ MD It Systems Analyst n/a Pre-Operative Diagnosis Right Knee Medial Meniscus Tear Post-Operative Diagnosis same Operative Report Date of Procedure: Jan 19, 2021 Name of Procedure Performed: Right Knee Arthroscopy with Partial Medial Meniscectomy Description & Findings After obtaining informed consent and marking the patient in the preoperative holding area, the patient was taken to the operating room and general anesthesia was induced. The left leg was placed in the well leg patrick. The right leg was placed in the arthroscopic patrick. Surgical timeout was taken. The right leg was prepped and draped in usual sterile fashion. An anterolateral portal was established and a diagnostic arthroscopy was performed with the following findings: the patella centered in the trochlear groove, there was grade II articular cartilage change in the patellofemoral portion of the joint, the lateral and medial gutters were free of loose bodies, the medial compartment demonstrated posterior horn medial meniscus tear with grade II articular cartilage change diffusely and some focal grade III change, the notch demonstrated intact ACL, the lateral compartment demonstrated intact lateral mensicus with grade I articular cartilage change. Attention was turned back to the medial compartment, and an anteromedial portal was established. A probe was inserted and the meniscal tear was explored. It did have a free radial component which was unstable and would move in and out of the joint. Shaver was inserted and used to remove the area of meniscal tear. Probe was inserted and the meniscectomy was stable. Instruments were withdrawn. Incisions were closed with 3-0 nylon suture. Incisions were injected subcutaneously with local anesthetic. Knee was dressed with xeroform, 4x4s, ABD, webril, and JOSSELYN wrap. Patient tolerated the procedure well and was stable to the recovery room. Anesthesia Type General Estimated Blood Loss minimal Specimen(s) collected/removed None DULCE SANCHEZ MD Jan 19, 2021 09:43
[2021-01-19] MEDS ORDERED: HYDROmorphone 2 MG/ML VIAL (DILAUDID) IV ONE (09:45)
[2021-01-19] MEDS ORDERED: ONDANSETRON 4 MG/2 ML (SDV) Z0FRAN IVP PRN (09:45)
[2021-01-19] MEDS ORDERED: OXYC5TAB PO (09:53)
[2021-01-19] MEDS ORDERED: HYDROmorphone 2 MG/ML VIAL (DILAUDID) ONE (10:08)
--- NOTE | 2021-01-19 13:04 | Anesthesia-General Post-Op ---
General Patient Condition Mental Status/LOC: Same as Preop Cardiovascular: Satisfactory Nausea/Vomiting: Absent Respiratory: Satisfactory Pain: Controlled Complications: Absent Post Op Complications Complications None Follow Up Care/Instructions Patient Instructions None needed. Anesthesia/Patient Condition Patient Condition Patient is doing well, no complaints, stable vital signs, no apparent adverse anesthesia problems. No complications reported per nursing. [place] [facility] [place]: Yes MEAGAN OROPEZA CRNA Jan 19, 2021 13:04
== END 2021-01-19 12:30 | disposition home or self-care (01) ==
LOC: SDC 07:22
PROVIDERS: ATTEND Orthopaedic Surgery
DX: S83.241A Other tear of medial meniscus, current injury, right knee, initial encounter (principal); M94.8X6 Other specified disorders of cartilage, lower leg; K21.9 Gastro-esophageal reflux disease without esophagitis; I10 Essential (primary) hypertension; E66.9 Obesity, unspecified; E11.40 Type 2 diabetes mellitus with diabetic neuropathy, unspecified; E78.5 Hyperlipidemia, unspecified; G89.29 Other chronic pain; M23.91 Unspecified internal derangement of right knee; Z79.84 Long term (current) use of oral hypoglycemic drugs; Z87.891 Personal history of nicotine dependence; Z79.899 Other long term (current) drug therapy; Z83.3 Family history of diabetes mellitus
CPT/HCPCS: 87081

== ENCOUNTER → 2021-02-05 | Outpatient (CLI) | payer MEDICARE, MEDICAID ==
[~2021-02-05] MED LIST changes: +OXYC5TAB PO
--- NOTE | 2021-02-05 17:48 | Diagnostic Imaging Report ---
INDICATION: Low back pain. TIME OF EXAM: 2:30 p.m. AP, lateral as well as flexion-extension lateral views were obtained. FINDINGS: Curvature and alignment is normal. There are postop changes of posterior instrumented fusion with vertical stabilization rods and pedicle screws transfixing the L5-S1 levels. Anterior lumbar interbody fusion of L5-S1 is also seen. Vertebral body heights are maintained. There is multilevel degenerative disc disease with variable disc space narrowing and marginal spurring. No definite motion during flexion or extension maneuvers is identified. There are atherosclerotic calcinations in the abdominal aorta. IMPRESSION: Postoperative and degenerative changes. No definite motion during flexion or extension maneuvers is identified. Dictated by: Dictated on workstation # [id number]
== END ==
LOC: RAD FS 14:17
PROVIDERS: ATTEND Neurological Surgery
DX: M47.26 Other spondylosis with radiculopathy, lumbar region (principal); Z98.890 Other specified postprocedural states; Z98.1 Arthrodesis status
CPT/HCPCS: 72110

== ENCOUNTER 2021-03-09 14:41 | Emergency (ER) | payer MEDICARE, MEDICAID ==
[~2021-03-09] VITALS: Ht 165 cm; Wt 85.0 kg
[2021-03-09 15:03] VITALS: BP 128/99
--- NOTE | 2021-03-09 15:54 | ED Lower Extremity ---
General Chief Complaint: Lower Extremity Stated Complaint: LT LEG PAIN Nursing Triage Note: Patient has presented to ER with cc of left leg pain. Patient reports that at 0300 he woke up with the pain - from his left knee down the front lateral part of his leg. He denies injury. He did take hydrocodone. He did see Dr. Blanco's office this morning and he received a shot of torodal. The shot did not help and he came to ER for evaluation. Source: patient Exam Limitations: no limitations History of Present Illness Date Seen by Provider: Mar 09, 2021 Time Seen by Provider: 14:43 Initial Comments 60-year-old male with past medical history of hypertension and chronic lower back pain coming in due to left leg pain. Started at around 3 AM this morning acutely and is severe and sharp. The pain is at his left calf and does not radiate. He says it feels different than his typical back pain with radiating symptoms. He went to his primary care doctor today and got an IM shot of Toradol which did not help as much for the pain as he thought it would. He then called his back surgeon and told him he had leg pain and they referred him to the emergency department. He denies any new weakness, numbness, bowel or bladder issue, midline spinal pain, fever, IV drug use, recent trauma, or any other concerns. He says he is scheduled to have back surgery in the next 2 weeks. He denies any history of blood clots in his legs or lungs. He is otherwise denying any chest pain, shortness of breath, abdominal pain, nausea, vomiting, diarrhea, fever, chills, or any other concerns. Allergies and Home Medications Allergies Coded Allergies: tramadol (Unverified Allergy, Unknown, Pt has rec Lortab in the past, 01/19/21) Patient Home Medication List Home Medication List Reviewed: Yes Amlodipine Besylate (Amlodipine Besylate) 5 Mg Tablet, 5 MG PO DAILY, (Reported) Entered as Reported by: JOHNNY WATTS on 01/16/21 1242 Atorvastatin Calcium (Atorvastatin Calcium) 40 Mg Tablet, 40 MG PO DAILY, (Reported) Entered as Reported by: POOL AGUIAR on 11/26/19 0954 Glipizide (Glipizide) 5 Mg Tablet, 5 MG PO BID, (Reported) Entered as Reported by: JOHNNY WATTS on 01/16/21 1242 Meloxicam, Submicronized (Meloxicam) 10 Mg Capsule, 15 MG PO DAILY, (Reported) Entered as Reported by: JOHNNY WATTS on 01/16/21 1242 Metformin HCl (Metformin HCl) 1,000 Mg Tablet, 1,000 MG PO BID, (Reported) Entered as Reported by: POOL AGUIAR on 11/26/19 0956 Ondansetron (Ondansetron Odt) 4 Mg Tab.rapdis, 4 MG PO TID PRN for NAUSEA/VOMITING-1ST LINE, (Reported) Entered as Reported by: POOL AGUIAR on 11/26/19 0956 Oxycodone HCl (Oxycodone HCl) 5 Mg Tablet, 5 MG PO Q4H Prescribed by: DULCE SANCHEZ MD on 01/19/21 0954 Peg 400/Hypromellose/Glycerin (Visine Tears Drops) 15 Ml Drops, 1-2 DROPS OU NEEDED PRN for DRY EYES, (Reported) Entered as Reported by: POOL AGUIAR on 11/26/19 1007 Pregabalin (Lyrica) 150 Mg Capsule, 150 MG PO BID, (Reported) Entered as Reported by: LEXUS JAAR on 04/28/19 1405 Review of Systems Constitutional: No chills, No fever EENTM: No blurred vision Respiratory: No cough Cardiovascular: No chest pain Gastrointestinal: No abdominal pain Genitourinary: no symptoms reported Musculoskeletal: back pain, muscle pain Skin: no symptoms reported Psychiatric/Neurological: No Symptoms Reported All Other Systems Reviewed Negative Unless Noted: Yes Past Wqmweqa-Dvtyft-Yhnhxo Hx Patient Social History Tobacco Use?: No Use of E-Cig and/or Vaping dev: No Substance use?: No Alcohol Use?: No Immunizations Up To Date First/Initial COVID19 Vaccinat: July 2020 Second COVID19 Vaccination Brando: August 2020 Third COVID19 Vaccination Date: July 2020 Seasonal Allergies Seasonal Allergies: No Past Medical History Surgeries: Yes (Carpal tunnel, Ulnar nerve, Back, Lipoma removed, UroLift) Orthopedic Respiratory: No Cardiac: Yes Hypertension Neurological: Yes Neuropathy Genitourinary: Yes Renal Failure Gastrointestinal: Yes Gastroesophageal Reflux, Diverticulosis Musculoskeletal: Yes Arthritis Endocrine: Yes Diabetes, Insulin dep HEENT: Yes Hearing Impairment: Hard of Hearing Cancer: No Psychosocial: No Integumentary: No Blood Disorders: No Family Medical History No Pertinent Family Hx Physical Exam Vital Signs Vital Signs - First Documented 03/09/21 15:03 Temp 36.5 Pulse 101 Resp 22 B/P (MAP) 128/99 (109) O2 Delivery Room Air Capillary Refill : Height, Weight, BMI Height: 5'5.00" Weight: 195lbs. oz. [id number]; 31.00 BMI Method:Stated General Appearance: WD/WN, no apparent distress HEENT: PERRL/EOMI, normal ENT inspection, pharynx normal Neck: non-tender, full range of motion, supple, normal inspection Cardiovascular: regular rate, rhythm, no edema, no murmur Respiratory: chest non-tender, lungs clear, normal breath sounds, no respirato ry distress, no accessory muscle use Gastrointestinal: normal bowel sounds, non tender, soft; No distended, No guarding Back: normal inspection, no CVA tenderness, no vertebral tenderness Hips: bilateral hip non-tender, bilateral hip normal inspection, bilateral hip normal range of motion, bilateral hip no evidence of injury Legs: right leg non-tender; bilateral leg normal inspection, bilateral leg normal range of motion, bilateral leg no evidence of injury Knees: bilateral knee non-tender, bilateral knee normal inspection, bilateral knee normal range of motion, bilateral knee no evidence of injury Ankles: bilateral ankle non-tender, bilateral ankle normal inspection, bilateral ankle normal range of motion, bilateral ankle no evidence of injury Feet: bilateral foot non-tender, bilateral foot normal inspection, bilateral foot normal range of motion, bilateral foot no evidence of injury Neurologic/Tendon: normal motor functions, normal tendon functions, other (Neg ative straight leg test and reverse straight leg test, tender to palpation along the left calf without any swelling or redness, both lower extremities appear equal, normal distal pulses) Neurologic/Psychiatric: no motor/sensory deficits, alert, normal mood/affect Skin: normal color, warm/dry Lymphatic: no adenopathy Progress/Results/Core Measures Results/Orders Lab Results Laboratory Tests Test 03/09/21 15:05 Range/Units D-Dimer < 0.27 0.00-0.49 UG/ML My Orders Orders - ANUPAMA HENRY MD Fibrin Degradation Products (03/09/21 15:04) Vital Signs/I&O 03/09/21 15:03 Temp 36.5 Pulse 101 Resp 22 B/P (MAP) 128/99 (109) O2 Delivery Room Air Blood Pressure Mean: 109 Progress Progress Note : Progress Note 60-year-old male with above history coming in due to left calf pain. ABCs were intact and vitals were stable on presentation. Physical exam with left calf pain to palpation. Both calves look the same size, no redness, no swelling. He has no clinical signs of a DVT on my exam. He has not had any trauma and no bony tenderness. No x-rays needed at this time. In regards to his low back pain which is chronic, this is unchanged, and he has no red flags including no new numbness, weakness, bowel or bladder issue. He has not had any new trauma. Biggest thing I want to rule out would be a DVT at this time. Clinically he does not appear to have 1. Ordered a D-dimer to further restratify him which was undetectable. I believe he is stable for discharge with outpatient follow- up. He was sent home with strict return precautions. Departure Impression Primary Impression: Pain of left calf Disposition: 01 HOME, SELF-CARE Condition: Stable Departure-Patient Inst. Decision time for Depature: 15:53 Referrals: JESSICA BLANCO MD (PCP/Family) Primary Care Physician Patient Instructions: Hamstring Muscle Strain ED Add. Discharge Instructions: You were seen in the emergency department for left calf pain. It does not appear like you have a blood clot or anything broken. This is likely related to some type of muscle strain versus pain radiating from your back. Please follow- up with your primary care doctor. Please take your pain medicines at home as prescribed. ANUPAMA HENRY MD Mar 09, 2021 15:54
== END 2021-03-09 16:05 | disposition home or self-care (01) ==
LOC: EDUNIT# 14:41 → ER FS 14:42
DX: M79.662 Pain in left lower leg (principal); I10 Essential (primary) hypertension; E11.9 Type 2 diabetes mellitus without complications
CPT/HCPCS: 36415; 85379

== ENCOUNTER 2021-03-28 19:28 | Inpatient (IN) | payer MEDICARE, MEDICAID ==
[~2021-03-28] VITALS: Ht 165.1 cm; Wt 84.1 kg
[~2021-03-28 19:28] MED LIST changes: -LISI1TAB26 PO; +LISI1TAB48 PO
[2021-03-28] MEDS ORDERED: LACTATED RINGERS 1,000 ML IV ONE (19:45)
--- NOTE | 2021-03-28 19:45 | ED Fever ---
History of Present Illness General Stated Complaint: FEVER Source: patient Exam Limitations: no limitations History of Present Illness Date Seen by Provider: Mar 28, 2021 Time Seen by Provider: 19:30 Initial Comments 60-year-old male with past medical history of diabetes, HTN, and orthopedic issues coming in due to fever. He says he had his lumbar spine fused on Tuesday, and was discharged from [facility] around 3 PM today. He says he was feeling warm, took his temperature and it was 100.8 F shortly prior to arrival. He has not taken any Tylenol or any other medications since then. Denies any cough, chest pain, shortness of breath, abdominal pain, lower extremity swelling, prior history of DVT or PE, vomiting, diarrhea, rash that is new that he knows of, or any other concerns. His surgeon was Dr. Bingham. Allergies and Home Medications Allergies Coded Allergies: tramadol (Unverified Allergy, Unknown, Pt has rec Lortab in the past, 01/19/21) Patient Home Medication List Home Medication List Reviewed: Yes Amlodipine Besylate (Amlodipine Besylate) 5 Mg Tablet, 5 MG PO DAILY, (Reported) Entered as Reported by: JOHNNY WATTS on 01/16/21 1242 Atorvastatin Calcium (Atorvastatin Calcium) 40 Mg Tablet, 40 MG PO DAILY, (Reported) Entered as Reported by: POOL AGUIAR on 11/26/19 0958 Glipizide (Glipizide) 5 Mg Tablet, 5 MG PO BID, (Reported) Entered as Reported by: JOHNNY WATTS on 01/16/21 1242 Meloxicam, Submicronized (Meloxicam) 10 Mg Capsule, 15 MG PO DAILY, (Reported) Entered as Reported by: JOHNNY WATTS on 01/16/21 1242 Metformin HCl (Metformin HCl) 1,000 Mg Tablet, 1,000 MG PO BID, (Reported) Entered as Reported by: POOL AGUIAR on 11/26/19 0956 Ondansetron (Ondansetron Odt) 4 Mg Tab.rapdis, 4 MG PO TID PRN for NAUSEA/VOMITING-1ST LINE, (Reported) Entered as Reported by: POOL AGUIAR on 11/26/19 0956 Oxycodone HCl (Oxycodone HCl) 5 Mg Tablet, 5 MG PO Q4H Prescribed by: DULCE SANCHEZ MD on 01/19/21 0954 Peg 400/Hypromellose/Glycerin (Visine Tears Drops) 15 Ml Drops, 1-2 DROPS OU NEEDED PRN for DRY EYES, (Reported) Entered as Reported by: POOL AGUIAR on 11/26/19 1007 Pregabalin (Lyrica) 150 Mg Capsule, 150 MG PO BID, (Reported) Entered as Reported by: LEXUS JARA on 04/28/19 1405 Review of Systems Review of Systems Constitutional: chills, fever EENTM: No blurred vision Respiratory: No cough, No short of breath Cardiovascular: No chest pain Gastrointestinal: No abdominal pain; constipation; No diarrhea, No vomiting Genitourinary: frequency Musculoskeletal: back pain Skin: No rash Psychiatric/Neurological: No Symptoms Reported Hematologic/Lymphatic: No Symptoms Reported Immunological/Allergic: no symptoms reported All Other Systems Reviewed Negative Unless Noted: Yes Past Zprtnbo-Wzvtyw-Awyfeo Hx Patient Social History Tobacco Use?: No Immunizations Up To Date First/Initial COVID19 Vaccinat: July 2020 Second COVID19 Vaccination Brando: August 2020 Third COVID19 Vaccination Date: July 2020 Seasonal Allergies Seasonal Allergies: No Past Medical History Surgeries: Yes (Carpal tunnel, Ulnar nerve, Back, Lipoma removed, UroLift) Orthopedic Respiratory: No Cardiac: Yes Hypertension Neurological: Yes Neuropathy Genitourinary: Yes Renal Failure Gastrointestinal: Yes Gastroesophageal Reflux, Diverticulosis Musculoskeletal: Yes Arthritis Endocrine: Yes Diabetes, Insulin dep HEENT: Yes Hearing Impairment: Hard of Hearing Cancer: No Psychosocial: No Integumentary: No Blood Disorders: No Family Medical History No Pertinent Family Hx Physical Exam Vital Signs - First Documented 03/28/21 19:30 Temp 37.6 Pulse 128 Resp 20 B/P (MAP) 149/91 (110) Pulse Ox 97 O2 Delivery Room Air Capillary Refill : Height: 5'5.00" Weight: 195lbs. oz. [id number]; 31.00 BMI Method:Stated General Appearance: WD/WN, no apparent distress Eyes: Bilateral Eye Normal Inspection HEENT: PERRL/EOMI, normal ENT inspection, pharynx normal Neck: non-tender, full range of motion, supple, normal inspection Respiratory: chest non-tender, lungs clear, normal breath sounds, no respiratory distress, no accessory muscle use Cardiovascular: no edema, no murmur, tachycardia Gastrointestinal: normal bowel sounds, non tender, soft; No distended, No guarding, No rebound Extremities: normal range of motion, non-tender, normal inspection, no pedal edema, no calf tenderness, normal capillary refill Neurologic/Psychiatric: no motor/sensory deficits, alert, normal mood/affect Skin: normal color, warm/dry, other (Surgical wound on his back with nikia in place, no redness or drainage, bruising around it which is appropriate) Lymphatic: no adenopathy Focused Exam Lactate Level 03/28/21 19:43: Lactic Acid Level 1.70 Lactic Acid Level Laboratory Tests Test 03/28/21 19:43 Lactic Acid Level 1.70 MMOL/L (0.50-2.00) Progress/Results/Core Measures Suspected Sepsis SIRS Temperature: Pulse: Respiratory Rate: Laboratory Tests 03/28/21 19:43: White Blood Count 10.9 Blood Pressure / Mean: 03/28/21 19:43: Lactic Acid Level 1.70 Laboratory Tests 03/28/21 19:43: Creatinine 0.84, INR Comment 1.0, Platelet Count 215, Total Bilirubin 0.7 Results/Orders Lab Results Laboratory Tests Test 03/28/21 19:43 Range/Units White Blood Count 10.9 4.3-11.0 10^3/uL Red Blood Count 3.99 L 4.30-5.52 10^6/uL Hemoglobin 12.2 L 13.3-17.7 g/dL Hematocrit 36 L 40-54 % Mean Corpuscular Volume 89 80-99 fL Mean Corpuscular Hemoglobin 31 25-34 pg Mean Corpuscular Hemoglobin Concent 34 32-36 g/dL Red Cell Distribution Width 12.4 10.0-14.5 % Platelet Count 215 130-400 10^3/uL Mean Platelet Volume 10.1 9.0-12.2 fL Immature Granulocyte % (Auto) 0 % Neutrophils (%) (Auto) 75 42-75 % Lymphocytes (%) (Auto) 12 12-44 % Monocytes (%) (Auto) 11 0-12 % Eosinophils (%) (Auto) 1 0-10 % Basophils (%) (Auto) 0 0-10 % Neutrophils # (Auto) 8.2 H 1.8-7.8 X 10^3 Lymphocytes # (Auto) 1.3 1.0-4.0 X 10^3 Monocytes # (Auto) 1.2 H 0.0-1.0 X 10^3 Eosinophils # (Auto) 0.1 0.0-0.3 10^3/uL Basophils # (Auto) 0.0 0.0-0.1 10^3/uL Immature Granulocyte # (Auto) 0.0 0.0-0.1 10^3/uL Erythrocyte Sedimentation Rate 4 0-30 MM/HR Prothrombin Time 13.7 12.2-14.7 SEC INR Comment 1.0 0.8-1.4 Activated Partial Thromboplast Time 32 24-35 SEC D-Dimer 1.93 H 0.00-0.49 UG/ML Sodium Level 137 135-145 MMOL/L Potassium Level 3.5 L 3.6-5.0 MMOL/L Chloride Level 99 98-107 MMOL/L Carbon Dioxide Level 28 21-32 MMOL/L Anion Gap 10 5-14 MMOL/L Blood Urea Nitrogen 14 7-18 MG/DL Creatinine 0.84 0.60-1.30 MG/DL Estimat Glomerular Filtration Rate 93 BUN/Creatinine Ratio 17 Glucose Level 130 H 70-105 MG/DL Lactic Acid Level 1.70 0.50-2.00 MMOL/L Calcium Level 9.4 8.5-10.1 MG/DL Corrected Calcium 9.7 8.5-10.1 MG/DL Total Bilirubin 0.7 0.1-1.0 MG/DL Aspartate Amino Transf (AST/SGOT) 73 H 5-34 U/L Alanine Aminotransferase (ALT/SGPT) 65 H 0-55 U/L Alkaline Phosphatase 109 40-136 U/L Troponin I < 0.30 <0.30 NG/ML C-Reactive Protein 23.37 H <0.50 MG/DL Pro-B-Type Natriuretic Peptide 168.0 H <75.0 PG/ML Total Protein 7.1 6.4-8.2 GM/DL Albumin 3.6 3.2-4.5 GM/DL My Orders Orders - ANUPAMA HENRY MD Cbc With Automated Diff (03/28/21 19:38) Comprehensive Metabolic Panel (03/28/21 19:38) Lactic Acid Analyzer (03/28/21 19:38) Protime With Inr (03/28/21 19:38) Partial Thromboplastin Time (03/28/21 19:38) Ua Culture If Indicated (03/28/21 19:38) Erythrocyte Sedimentation Rate (03/28/21 19:38) Crp Fs (03/28/21 19:38) Chest 1 View Ap/Pa Only (03/28/21 19:38) Lumbar Spine 2 Or 3 View (03/28/21 19:38) Blood Culture (03/28/21 19:40) Ed Iv/Invasive Line Start (03/28/21 19:41) Lactated Ringers (Lr 1000 Ml Iv Solution (03/28/21 19:45) Ekg Tracing (03/28/21 19:45) Fibrin Degradation Products (03/28/21 19:45) Probnp Fs (03/28/21 19:46) Troponin I Fs (03/28/21 19:46) Ct Angio Chest W (03/28/21 20:19) Iohexol Injection (Omnipaque 350 Mg/Ml 1 (03/28/21 20:30) Received Contrast (Hold Metformin- Contr (03/28/21 20:30) Ns (Ivpb) (Sodium Chloride 0.9% Ivpb Bag (03/28/21 20:30) Medications Given in ED Current Medications Medications Dose Ordered Sig/Frank Route Start Time Stop Time Status Last Admin Dose Admin Iohexol 125 ml ONCE ONCE IV 03/28/21 20:30 03/28/21 20:31 DC 03/28/21 20:33 125 ML Lactated Ringer's 1,000 ml @ 0 mls/hr Q0M ONCE IV 03/28/21 19:45 03/28/21 19:46 DC 03/28/21 19:48 999 MLS/HR Sodium Chloride 100 ml ONCE ONCE IV 03/28/21 20:30 03/28/21 20:31 DC 03/28/21 20:33 100 ML Vital Signs/I&O 03/28/21 19:30 Temp 37.6 Pulse 128 Resp 20 B/P (MAP) 149/91 (110) Pulse Ox 97 O2 Delivery Room Air Capillary Refill : Progress Note : Progress Note 60-year-old male with above history coming in due to elevated temperature roughly 4 hours after he was discharged from the hospital from a lumbar spinal fusion. He is tachycardic to the 120s on arrival and his temperature is elevated but he is technically afebrile. An IV was placed and basic labs were obtained including inflammatory markers, blood cultures, and cardiac biomarkers. Blood pressure is actually elevated. His oxygen saturation is lower than expected and goes between 92 to 95%. Differential includes infection such as pneumonia versus pulmonary embolism versus possible hardware infection early on after surgery versus some other etiology. He was given IV fluids due to his tachycardia. Labs significant for elevated CRP, and elevated D-dimer. CTA chest concerning for small PE. He is tachycardic and mildly hypoxic so it leases large enough to cause some vital sign changes. Called [facility] at 20:50 to talk with the neurosurgeon waiter/waitress economy class, Dr. Coreas. Discussed all labs and workup. She said at this point she would be ok with anticoagulation and she believes treatment for the PE should take precedence. Unfortunately [facility] does not have any bed availability. Contacted Dr. Rose who agrees admit the patient to her service for further evaluation and management as an inpatient status to the cardiac stepdown ECG Initial ECG Impression Date: Mar 28, 2021 Initial ECG Impression Time: 19:43 Initial ECG Rate: 120 Initial ECG Rhythm: S.Tach Comment Narrow QRS, left axis deviation, T wave flattening in the anterolateral leads Departure Impression Primary Impression: Pulmonary embolism Qualified Codes: I26.99 - Other pulmonary embolism without acute cor pulmonale Additional Impression: Postoperative fever Disposition: 30 STILL A PATIENT Condition: Stable Admissions Decision to Admit Reason: Admit from ER (General) Decision to Admit/Date: Mar 28, 2021 Time/Decision to Admit Time: 21:10 Transfer Method of Transfer: EMS Departure-Patient Inst. Referrals: JESSICA BLANCO MD (PCP/Family) Primary Care Physician ANUPAMA HENRY MD Mar 28, 2021 19:45
[2021-03-28 19:52] LABS: BASOPHILS % (AUTO) 0 % (0-10); EOSINOPHILS # (AUTO) 0.1 10^3/uL (0.0-0.3); EOSINOPHILS % (AUTO) 1 % (0-10); HEMATOCRIT 36 % (40-54); HEMOGLOBIN 12.2 g/dL (13.3-17.7); LYMPHOCYTES # (AUTO) 1.3 X 10^3 (1.0-4.0); LYMPHOCYTES % (AUTO) 12 % (12-44); MEAN CORPUSCULAR HEMOGLOBIN 31 pg (25-34); MEAN CORPUSCULAR HGB CONC 34 g/dL (32-36); MEAN CORPUSCULAR VOLUME 89 fL (80-99); MEAN PLATELET VOLUME 10.1 fL (9.0-12.2); MONOCYTES # (AUTO) 1.2 X 10^3 (0.0-1.0); MONOCYTES % (AUTO) 11 % (0-12); NEUTROPHILS # (AUTO) 8.2 X 10^3 (1.8-7.8); NEUTROPHILS % (AUTO) 75 % (42-75); PLATELET COUNT 215 10^3/uL (130-400); WHITE BLOOD COUNT 10.9 10^3/uL (4.3-11.0)
[2021-03-28 20:06] LABS: PROTHROMBIN TIME PATIENT 13.7 SEC (12.2-14.7)
[2021-03-28 20:07] LABS: FIBRIN DEGRADATION PRODUCTS 1.93 UG/ML (0.00-0.49)
[2021-03-28 20:12] LABS: ALANINE AMINOTRANSFERASE 65 U/L (0-55); ALKALINE PHOSPHATASE 109 U/L (40-136); BILIRUBIN,TOTAL 0.7 MG/DL (0.1-1.0); BUN/CREATININE RATIO 17; CALCIUM 9.4 MG/DL (8.5-10.1); CARBON DIOXIDE 28 MMOL/L (21-32); CHLORIDE 99 MMOL/L (98-107); CREATININE SERUM 0.84 MG/DL (0.60-1.30); GFR ESTIMATED 93; GLUCOSE 130 MG/DL (70-105); POTASSIUM 3.5 MMOL/L (3.6-5.0); SODIUM 137 MMOL/L (135-145); TOTAL PROTEIN 7.1 GM/DL (6.4-8.2)
[2021-03-28 20:13] LABS: ALBUMIN 3.6 GM/DL (3.2-4.5)
[2021-03-28 20:23] LABS: ERYTHROCYTE SEDIMENTATION RATE 4 MM/HR (0-30)
[2021-03-28] MEDS ORDERED: NS 100 ML (IVPB) BAG IV ONE (20:30)
[2021-03-28] MEDS ORDERED: IOHEXOL 350 MG/ML 150 ML (OMNIPAQUE 350) VIAL IV ONE (20:30)
[2021-03-28] MEDS ORDERED: HOLD METFORMIN - RECEIVED CONTRAST 20 ML VIAL IV SCH (20:30)
--- NOTE | 2021-03-28 20:48 | Diagnostic Imaging Report ---
INDICATION: Post recent lumbar fusion, now with fever. TECHNIQUE: Single view chest 7:52 PM. CORRELATION STUDY: 08/08/2019. FINDINGS: The heart size, mediastinal configuration and pulmonary vascularity are within normal limits. Minimal areas of discoid atelectasis and/or scarring at left costophrenic angle. No consolidating infiltrate. IMPRESSION: Stable atelectasis and/or scarring at the left costophrenic angle. No consolidating infiltrate. Dictated by: Dictated on workstation # [id number]
--- NOTE | 2021-03-28 20:57 | Diagnostic Imaging Report ---
INDICATION: Post recent lumbar fusion, now with fever. TECHNIQUE: AP, lateral and spot imaging of the lumbar spine. CORRELATION STUDY: 02/05/2021. FINDINGS: There has been interval revision of the lumbar fusion hardware. There has been removal of the previously demonstrated transpedicular screws and interconnecting rods posteriorly at the L5 and S1 level. There has been placement of new transpedicular screws and interconnecting rods at the L4-L5 level along with intervertebral disc spacer device. The anterior plate and screws along with intervertebral disc spacer device at the L5-S1 level remains in place. The fused segment alignment is near anatomic. No mert bony destructive or erosive change. Nonfused segments demonstrate relatively normal alignment. Vacuum disc phenomenon disc space narrowing at the nonfused segments of the lumbar spine are present. Reactive endplate osteophyte formation, particularly anteriorly. There is also, however, a more prominent osteophyte at the L3-L4 level likely resulting in some degree of narrowing of the neuroforamina. Similar but slightly lesser findings at the L2-L3 level. Prominent calcification of the abdominal aorta. Skin nikia are noted. IMPRESSION: Interval surgical changes with placement of new hardware and removal of old hardware in the lower lumbar spine, as detailed above. Overall, fused segment alignment appears to be anatomic. No acute bony abnormality or mert bony erosive change. Dictated by: Dictated on workstation # [id number]
--- NOTE | 2021-03-28 21:01 | Diagnostic Imaging Report ---
PROCEDURE: CT angiography of the chest with contrast. TECHNIQUE: Multiple contiguous axial images were obtained through the chest after uneventful bolus administration of intravenous contrast. 3D reconstructed CTA MIP acquisitions were also performed. Auto Exposure Controls were utilized during the CT exam to meet ALARA standards for radiation dose reduction. INDICATION: 60-year-old male, post recent lumbar spine fusion surgery. Elevated D-dimer. Fever. CORRELATION: None. FINDINGS: Heart size is within normal limits and there is no disproportionate right heart strain. The thoracic aorta is of relatively normal caliber. No evidence for dissection. There is suboptimal contrast bolus opacification of the pulmonary arterial tree. There does however appear to be very small area of filling defects within central left lower lobe pulmonary artery branches which does suggest a very small area of a pulmonary embolism. Thrombus burden is considered rather small. No large central pulmonary embolism. The lung cruz are clear of infiltrate. No significant pleural effusion. There is suggestion of mild hepatic steatosis. Gallbladder is contracted likely owing to recent meal with the stomach distended with retained gastric contents. Probable small splenule. Soft tissue density in retroareolar region favors mild gynecomastia. The visualized osseous structures demonstrate no acute findings. IMPRESSION: Very small filling defects within the proximal left lower lobe pulmonary artery branches. While the overall thrombus burden is very small, it does appear to be positive for small area of pulmonary embolism. Critical findings Telephone call made to the [facility], 8:56 PM. Dictated by: Dictated on workstation # [id number]
[2021-03-28] MEDS ORDERED: ENOXAPARIN 80 MG/0.8 ML (LOVENOX) SYR SC ONE (21:15)
[2021-03-28 21:29] LABS: BILIRUBIN,URINE NEGATIVE (NEGATIVE); CLARITY,URINE CLEAR; COLOR,URINE YELLOW; GLUCOSE, URINE (UA) 1+ (NEGATIVE); KETONES,URINE NEGATIVE (NEGATIVE); NITRITE,URINE NEGATIVE (NEGATIVE); PROTEIN,URINE NEGATIVE (NEGATIVE)
[2021-03-28 21:30] LABS: BACTERIA,URINE NEGATIVE /HPF; LEUKOCYTE ESTERASE ,URINE NEGATIVE (NEGATIVE); RBC,URINE RARE /HPF; WBC,URINE RARE /HPF
[2021-03-28] MEDS ORDERED: oxyCODONE/APAP 5/325MG (PERCOCET 5) TABLET PO ONE (22:15)
[2021-03-28 23:45] VITALS: BP 142/92
[2021-03-29] MEDS ORDERED: fentaNYL INJ 100 MCG/2 ML AMP IVP PRN
[2021-03-29] MEDS ORDERED: ACETAMINOPHEN 500 MG TAB (TYLENOL) PO PRN
[2021-03-29] MEDS ORDERED: diphenhydrAMINE 25 MG TAB (BENADRYL) PO PRN
[2021-03-29] MEDS ORDERED: ONDANSETRON 4 MG/2 ML (SDV) Z0FRAN IVP PRN
[2021-03-29] MEDS ORDERED: polyethylene glycoL POWDER 17 GM (MIRALAX) PACK PO PRN
[2021-03-29] MEDS ORDERED: NS IV 1000 ML 1,000 ML IV SCH
[2021-03-29] MEDS ORDERED: BISACODYL 10 MG SUPP (DULCOLAX) PR PRN
[2021-03-29 02:08] VITALS: BP 142/92
[2021-03-29 03:28] VITALS: BP 113/77
[2021-03-29] MEDS ORDERED: RT-ALBUTEROL SULF 2.5 MG/3 ML PRE-MIX VIAL INH PRN (03:45)
[2021-03-29 08:00] VITALS: BP 116/75
[2021-03-29] MEDS ORDERED: RT-ALBUTEROL SULF 2.5 MG/3 ML PRE-MIX VIAL INH SCH (09:00)
[2021-03-29] MEDS ORDERED: ENOXAPARIN 80 MG/0.8 ML (LOVENOX) SYR SC SCH (09:00)
[2021-03-29] MEDS ORDERED: HYDR-3817 PO (09:14)
[2021-03-29] MEDS ORDERED: BACL10TA PO (09:14)
--- NOTE | 2021-03-29 10:11 | Diagnostic Imaging Report ---
Procedure: US Venous Lower Ext Ankit. Technique: Multiple real-time grayscale images were obtained over the lower extremities in various projections, bilaterally. Additional duplex Doppler and color Doppler images were also obtained. Date: March 29, 2021. Indication: 60-year-old male, lower extremity swelling. Concern for pulmonary embolus. Back surgery on Tuesday. Comparison: MRI right knee January 13, 2021. Findings: The right common femoral vein and superficial femoral vein are compressible with normal blood flow and response to augmentation. There is echogenic material in the distal right popliteal vein which may relate to nonocclusive thrombus. The right posterior tibial and peroneal veins are patent. The visualized portions of the right greater saphenous vein and deep femoral vein are patent. The left common femoral vein, left superficial femoral vein, and left popliteal vein are compressible with normal blood flow and response to augmentation.. The left posterior tibial and peroneal vein are patent. The visualized portions of the left greater saphenous vein and deep femoral vein are patent. Impression: 1. Echogenic material in the distal right popliteal vein likely relating to nonocclusive thrombus. 2. Negative for left lower extremity deep venous thrombosis. Dictated by: Dictated on workstation # [id number]
--- NOTE | 2021-03-29 10:40 | Short Stay Summary-Hospitalist ---
History of Present Illness HPI/Chief Complaint Chief complaint: Pulmonary embolism with hypoxia with recent spinal surgery History of present illness: This is a 60-year-old white male with history of diabetes and hypertension who was just discharged from [facility] 3 hours before presenting to the [place] ER with fever of 100.3. He underwent spinal surgery by Dr. Bingham. He was found to be tachycardic and hypoxic and sepsis work-up was negative but D-dimer was elevated at 2.[address] angiogram was obtained revealing pulmonary embolism. Due to the fact of spinal surgery high risk for hematoma and subsequent paralysis he was admitted to the hospital placed on Lovenox with close monitoring and oxygen supplementation and echocardiogram was obtained and right lower extremity venous Doppler ultrasound showed evidence of DVT. He will be placed on Xarelto starter pack and that was sent to the pharmacy. Source: patient, RN/MD Exam Limitations: no limitations Date Seen 03/29/21 Time Seen by a Provider: 10:30 Attending Physician Kamilla Rose Katrina M MD Referring Physician Date of Admission Mar 28, 2021 at 23:53 Home Medications & Allergies Home Medications Reviewed patient Home Medication Reconciliation performed by pharmacy medication reconciliations logistics technician and/or nursing. Patients Allergies have been reviewed. Allergies Allergies Coded Allergies tramadol (Unverified Allergy, Unknown, Pt has rec Lortab in the past, 01/19/21) Past Wjwwjvr-Sbcnnd-Nhwoum Hx Patient Social History Marrital Status: Employed/Student: retired Tobacco Use?: No Smoking Status: Never a Smoker Smokeless Tobacco Frequency: Never a User Use of E-Cig and/or Vaping dev: No Substance use?: Yes Substance type: Marijuana Substance frequency: Daily Alcohol Use?: No Pt feels they are or have been: No Immunizations Up To Date First/Initial COVID19 Vaccinat: July 2020 Second COVID19 Vaccination Brando: August 2020 Date of Pneumonia Vaccine: Nov 22, 2018 Seasonal Allergies Seasonal Allergies: No Current Status Advance Directives: No Communicates: Verbally Primary Language: Kyrgyz Preferred Spoken Language: Kyrgyz Is interpretation needed?: No Sensory deficits: Hearing impairment Past Medical History Surgeries: Orthopedic Hypertension Neuropathy Renal Failure Gastroesophageal Reflux, Diverticulosis Arthritis Diabetes, Insulin dep Hearing Impairment: Hard of Hearing Blood Disorders: No Family Medical History No Pertinent Family Hx Review of Systems Constitutional: see HPI EENTM: no symptoms reported Respiratory: dyspnea on exertion Cardiovascular: no symptoms reported Gastrointestinal: no symptoms reported Genitourinary: no symptoms reported Musculoskeletal: no symptoms reported Skin: no symptoms reported Psychiatric/Neurological: No Symptoms Reported All Other Systems Reviewed Negative Unless Noted: Yes Physical Exam Physical Exam Vital Signs Vital Signs - First Documented 03/28/21 03/28/21 19:30 21:00 Temp 37.6 Pulse 128 Resp 20 B/P (MAP) 149/91 (110) Pulse Ox 97 O2 Delivery Room Air O2 Flow Rate 2.00 FiO2 98 Capillary Refill : Less Than 3 Seconds Height, Weight, BMI Height: 5'5.00" Weight: 195lbs. oz. 88.863044fw; 30.85 BMI Method:Stated General Appearance: No Apparent Distress, WD/WN, Chronically ill Eyes: Bilateral Eye Normal Inspection HEENT: PERRL/EOMI, Normal ENT Inspection, Pharynx Normal Neck: Full Range of Motion, Normal Inspection, Non Tender, Supple, Carotid Brui t Respiratory: Chest Non Tender, Lungs Clear, Normal Breath Sounds, No Accessory Muscle Use, No Respiratory Distress Cardiovascular: Regular Rate, Rhythm, No Edema, No Gallop, No JVD, No Murmur, Normal Peripheral Pulses Gastrointestinal: Normal Bowel Sounds, No Organomegaly, No Pulsatile Mass, Non Tender, Soft Back: Normal Inspection, Decreased Range of Motion Extremity: Normal Capillary Refill, Normal Inspection, Normal Range of Motion, Non Tender, No Calf Tenderness, No Pedal Edema Neurologic/Psychiatric: Alert, Oriented x3, No Motor/Sensory Deficits, Normal M ood/Affect Skin: Normal Color, Warm/Dry Lymphatic: No Adenopathy Results Results/Procedures Labs Laboratory Tests 03/28/21 19:43 03/29/21 11:46 Patient resulted labs reviewed. Short Stay Diagnosis Discharge Diagnosis-Short Stay Admission Diagnosis Assessment: Pulmonary embolism Hypoxia with tachycardia Elevated D-dimer Right lower extremity DVT on ultrasound Recent spinal surgery high risk for spinal hematoma and paralysis Diabetes Hypertension History of chronic kidney disease Final Discharge Diagnosis Assessment: Pulmonary embolism Hypoxia with tachycardia Elevated D-dimer Right lower extremity DVT on ultrasound Recent spinal surgery high risk for spinal hematoma and paralysis Diabetes Hypertension History of chronic kidney disease Conclusion Plan Plan: Echo shows no evidence of right heart strain No pulmonary hypertension Labs good Xarelto Diagnosis/Problems Diagnosis/Problems (1) Pulmonary embolism Qualifiers: Qualified Codes: I26.99 - Other pulmonary embolism without acute cor pulmonale (2) Postoperative fever Status: Acute (3) Pain of left calf Status: Acute (4) Non-insulin dependent type 2 diabetes mellitus Status: Chronic (5) HLD (hyperlipidemia) Status: Chronic (6) Essential (primary) hypertension Status: Chronic Clinical Quality Measures DVT/VTE Risk/Contraindication: Contraindications-Mechi: Other *list below* Other: possible DVT KAMILLA ROSE DO Mar 29, 2021 10:40
[2021-03-29] MEDS ORDERED: ONDANSETRON 4 MG (ZOFRAN) ORAL DISSOLVE TAB PO PRN (10:45)
[2021-03-29] MEDS ORDERED: ARTIFICAL TEARS 0.4 ML UNIT DOSE (REFRESH PLUS) OU PRN (11:00)
[2021-03-29] MEDS ORDERED: inSUlin ASPART (NovoLOG) 1 UNIT/0.01 ML (CHARGE PER UNIT) SC SCH (11:00)
[2021-03-29 11:52] LABS: BASOPHILS % (AUTO) 0 % (0-10); EOSINOPHILS # (AUTO) 0.1 10^3/uL (0.0-0.3); EOSINOPHILS % (AUTO) 2 % (0-10); HEMATOCRIT 33 % (40-54); HEMOGLOBIN 11.1 g/dL (13.3-17.7); LYMPHOCYTES # (AUTO) 1.1 10^3/uL (1.0-4.0); LYMPHOCYTES % (AUTO) 14 % (12-44); MEAN CORPUSCULAR HEMOGLOBIN 31 pg (25-34); MEAN CORPUSCULAR HGB CONC 34 g/dL (32-36); MEAN CORPUSCULAR VOLUME 90 fL (80-99); MEAN PLATELET VOLUME 9.9 fL (9.0-12.2); MONOCYTES % (AUTO) 13 % (0-12); NEUTROPHILS # (AUTO) 5.1 10^3/uL (1.8-7.8); NEUTROPHILS % (AUTO) 70 % (42-75); PLATELET COUNT 206 10^3/uL (130-400); WHITE BLOOD COUNT 7.4 10^3/uL (4.3-11.0)
[2021-03-29] MEDS ORDERED: RIVA1TAB PO (11:58)
[2021-03-29] MEDS ORDERED: METF-399 PO (11:58)
[2021-03-29 12:00] VITALS: BP 129/85
[2021-03-29 12:15] LABS: ALBUMIN 3.4 GM/DL (3.2-4.5); BILIRUBIN,TOTAL 0.7 MG/DL (0.1-1.0); CALCIUM 9.3 MG/DL (8.5-10.1); CREATININE SERUM 0.81 MG/DL (0.60-1.30); POTASSIUM 3.4 MMOL/L (3.6-5.0); TOTAL PROTEIN 6.4 GM/DL (6.4-8.2)
[2021-03-29] MEDS ORDERED: KCL 20 MEQ TAB (K-DUR) PO ONE (13:15)
[2021-03-29 14:40] VITALS: BP 129/85
[2021-03-29] MEDS ORDERED: glipiZIDE 5 MG (GLUCOTROL) TAB PO SCH (16:00)
[2021-03-30] MEDS ORDERED: amLODIPine 5 MG (NORVASC) TAB PO SCH (09:00)
== END 2021-03-29 14:20 | disposition home or self-care (01) | DRG 176 ==
LOC: EDUNIT# 19:28 → ER FS 19:30 → CSD 23:53
PROVIDERS: ADMIT Internal Medicine; ATTEND Internal Medicine
DX: I26.99 Other pulmonary embolism without acute cor pulmonale (principal); I82.431 Acute embolism and thrombosis of right popliteal vein; R09.02 Hypoxemia; R50.82 Postprocedural fever; E11.40 Type 2 diabetes mellitus with diabetic neuropathy, unspecified; E11.22 Type 2 diabetes mellitus with diabetic chronic kidney disease; I12.9 Hypertensive chronic kidney disease with stage 1 through stage 4 chronic kidney disease, or unspecified chronic kidney disease; N18.9 Chronic kidney disease, unspecified; K21.9 Gastro-esophageal reflux disease without esophagitis; M19.91 Primary osteoarthritis, unspecified site; F12.90 Cannabis use, unspecified, uncomplicated; H91.90 Unspecified hearing loss, unspecified ear; Z98.1 Arthrodesis status; Z79.84 Long term (current) use of oral hypoglycemic drugs; Z88.5 Allergy status to narcotic agent
CPT/HCPCS: 36415; 71045; 71275; 72100; 80053; 81000; 82947; 83605; 83880; 84484; 85025; 85379; 85610; 85652; 85730; 86141; 87040; 93005; 93306; 93970; 94640; 94760

== ENCOUNTER → 2021-05-06 | Outpatient (CLI) | payer MEDICARE, MEDICAID ==
[~2021-05-06] MED LIST changes: +BACL10TA PO; +HYDR-3817 PO; +RIVA1TAB PO
[2021-05-06 08:35] LABS: ALANINE AMINOTRANSFERASE 36 U/L (0-55); ALKALINE PHOSPHATASE 145 U/L (40-136); BILIRUBIN,TOTAL 0.5 MG/DL (0.1-1.0); BUN/CREATININE RATIO 26; CALCIUM 9.4 MG/DL (8.5-10.1); CARBON DIOXIDE 23 MMOL/L (21-32); CHLORIDE 102 MMOL/L (98-107); CREATININE SERUM 1.04 MG/DL (0.60-1.30); GFR ESTIMATED 72; GLUCOSE 242 MG/DL (70-105); POTASSIUM 4.1 MMOL/L (3.6-5.0); SODIUM 135 MMOL/L (135-145)
[2021-05-06 08:36] LABS: ALBUMIN 4.6 GM/DL (3.2-4.5); TOTAL PROTEIN 7.8 GM/DL (6.4-8.2)
[2021-05-06 15:10] LABS: CHOLESTEROL 230 MG/DL (< 200); HDL CHOLESTEROL 35 MG/DL (40-60); TRIGLYCERIDES 201 MG/DL (<150); VLDL CHOLESTEROL 40 MG/DL (5-40)
== END ==
LOC: LAB FS 07:43
PROVIDERS: ATTEND Family Medicine
DX: E11.9 Type 2 diabetes mellitus without complications (principal)
CPT/HCPCS: 36415; 80053; 80061; 83036

== ENCOUNTER → 2021-06-08 | Outpatient (CLI) | payer MEDICARE, MEDICAID ==
--- NOTE | 2021-06-08 17:22 | Diagnostic Imaging Report ---
INDICATION: Previous lumbar fusion. COMPARISON: 03/28/2021. FINDINGS: Frontal and lateral radiographic views of the lumbar spine were obtained. Postsurgical changes of previous posterior fusion at L4-L5 and anterior fusion at L5-S1 are again identified. Hardware remains intact and stable in position. There is no evidence of hardware failure or loosening. Intervertebral disc spaces are also noted at L4-L5 and L5-S1 and appear appropriately positioned, as well. No unexpected radiopaque foreign bodies are seen. Vertebral body heights are maintained. There is no acute fracture. AP static alignment is maintained. Multilevel degenerative changes are noted and consistent with intervertebral disc height loss with endplate sclerotic changes as well as osteophyte formations. These changes are greatest at the L3-L4 level. Included small bowel loops are nondistended. IMPRESSION: 1. Stable postsurgical changes of previous lumbar and lumbosacral fusion. 2. No new acute abnormality. Dictated by: Dictated on workstation # [id number]
== END ==
LOC: RAD FS 14:24
PROVIDERS: ATTEND Neurological Surgery
DX: Z98.1 Arthrodesis status (principal)
CPT/HCPCS: 72100

== ENCOUNTER 2021-09-05 12:24 | Emergency (ER) | payer MEDICARE, MEDICAID ==
[~2021-09-05] VITALS: Ht 165 cm; Wt 82.5 kg
--- NOTE | 2021-09-05 12:53 | ED Fall/Injury ---
General Chief Complaint: Trauma-Non Activation Stated Complaint: FALL Nursing Triage Note: see triage Source: patient Exam Limitations: no limitations History of Present Illness Date Seen by Provider: September 05, 2021 Time Seen by Provider: 12:26 Initial Comments 60-year-old male with past medical history of chronic back pain, diabetes, prior PE currently not on anticoagulation coming in after he was walking out of elevator, tripped, landed on her left side. Is unsure if he hit his head. Does remember everything. Having left shoulder and hip pain that are constant, moderate, throbbing. Worse with movement, better with rest. He has not taken his home medications yet which include Percocet 7.5mg. He has been walking and did walk into the emergency department. Denies any new weakness or numbness. Is otherwise denying any other acute complaints. Allergies and Home Medications Allergies Coded Allergies: tramadol (Unverified Allergy, Unknown, Pt has rec Lortab in the past, 01/19/21) Patient Home Medication List Home Medication List Reviewed: Yes Amlodipine Besylate (Amlodipine Besylate) 5 Mg Tablet, 5 MG PO DAILY, (Reported) Entered as Reported by: JOHNNY WATTS on 01/16/21 1242 Atorvastatin Calcium (Atorvastatin Calcium) 40 Mg Tablet, 40 MG PO DAILY, (Reported) Entered as Reported by: POOL AGUIAR on 11/26/19 0958 Baclofen (Baclofen) 10 Mg Tablet, 10 MG PO DAILY, (Reported) Entered as Reported by: ZACK JERRY on 03/29/21 0914 Glipizide (Glipizide) 5 Mg Tablet, 5 MG PO BID, (Reported) Entered as Reported by: JOHNNY WATTS on 01/16/21 1242 Hydrocodone/Acetaminophen (Hydrocodone-Acetamin 7.5-325) 1 Each Tablet, 7.5-325 MG PO PRN PRN for PAIN-MODERATE (5-7), (Reported) Entered as Reported by: ZACK JERRY on 03/29/21 0914 Metformin HCl (Metformin HCl) 1,000 Mg Tablet, 1,000 MG PO BID Prescribed by: JANIE STEWART on 03/29/21 1158 Ondansetron (Ondansetron Odt) 4 Mg Tab.rapdis, 4 MG PO TID PRN for NAUSEA/VOMITING-1ST LINE, (Reported) Entered as Reported by: POOL AGUIAR on 11/26/19 0956 Peg 400/Hypromellose/Glycerin (Visine Tears Drops) 15 Ml Drops, 1-2 DROPS OU NEEDED PRN for DRY EYES, (Reported) Entered as Reported by: POOL AGUIAR on 11/26/19 1007 Pregabalin (Lyrica) 150 Mg Capsule, 150 MG PO TID, (Reported) Entered as Reported by: LEXUS JARA on 04/28/19 1405 Rivaroxaban (Xarelto Starter Pack) 1 Each Tab.ds.pk, 1 EACH PO UD Prescribed by: JANIE STEWART on 03/29/21 1158 Review of Systems Review of Systems Constitutional: No chills, No fever Eyes: Denies Blurred Vision Ears, Nose, Mouth, Throat: no symptoms reported Respiratory: no symptoms reported Cardiovascular: no symptoms reported Gastrointestinal: no symptoms reported Genitourinary: no symptoms reported Musculoskeletal: joint pain Skin: no symptoms reported Psychiatric/Neurological: No Symptoms Reported All Other Systems Reviewed Negative Unless Noted: Yes Past Vlhwvqs-Lsjklq-Vrhewm Hx Patient Social History Tobacco Use?: No Substance use?: No Alcohol Use?: No Pt feels they are or have been: No Immunizations Up To Date First/Initial COVID19 Vaccinat: July 2020 Second COVID19 Vaccination Brando: August 2020 Third COVID19 Vaccination Date: July 2020 COVID19 Vaccine Still Pump Operator: Kereosartur Seasonal Allergies Seasonal Allergies: No Past Medical History Surgery/Hospitalization HX: DM, DVT, HTN Surgeries: Yes (Carpal tunnel, Ulnar nerve, Back, Lipoma removed, UroLift) Orthopedic Respiratory: No Cardiac: Yes Hypertension Neurological: Yes Neuropathy Genitourinary: Yes Renal Failure Gastrointestinal: Yes Gastroesophageal Reflux, Diverticulosis Musculoskeletal: Yes Arthritis Endocrine: Yes Diabetes, Insulin dep HEENT: Yes Hearing Impairment: Hard of Hearing Cancer: No Psychosocial: No Integumentary: No Blood Disorders: No Family Medical History No Pertinent Family Hx Physical Exam Vital Signs Vital Signs - First Documented 09/05/21 12:30 Temp 36.4 Pulse 94 Resp 18 B/P (MAP) 157/75 (102) Pulse Ox 100 O2 Delivery Room Air Capillary Refill : Less Than 3 Seconds Height, Weight, BMI Height: 5'5.00" Weight: 195lbs. oz. 88.206758wu; 30.00 BMI Method:Stated General Appearance: WD/WN, no apparent distress HEENT: PERRL/EOMI, normal ENT inspection, pharynx normal Neck: non-tender, full range of motion, supple, normal inspection Cardiovascular: regular rate, rhythm, no edema, no murmur Respiratory: chest non-tender, lungs clear, normal breath sounds, no respiratory distress, no accessory muscle use Gastrointestinal: normal bowel sounds, non tender, soft; No distended, No guarding, No rebound Back: normal inspection, no CVA tenderness, no vertebral tenderness Extremities: normal range of motion, normal inspection, no pedal edema, no calf tenderness, normal capillary refill, other (Normal active and passive range of motion of the left shoulder and hip, does have some lateral pain with both, normal distal neuro exam and vascular exam) Neurologic/Psychiatric: no motor/sensory deficits, alert, normal mood/affect, oriented x 3 Skin: normal color, warm/dry Lymphatic: no adenopathy [place] Coma Score Best Eye Response: (4) Open Spontaneously Best Verbal Response: (5) Oriented Best Motor Response: (6) Obeys Commands Progress/Results/Core Measures Results/Orders My Orders Orders - ANUPAMA HENRY MD Pelvis With Left Hip 2-3 View (09/05/21 12:49) Shoulder 3 View Left (09/05/21 12:49) Ct Head Wo (09/05/21 12:49) Oxycodone/Apap 5/325mg Tablet (Percocet (09/05/21 13:15) Medications Given in ED Current Medications Medications Dose Ordered Sig/Frank Route Start Time Stop Time Status Last Admin Dose Admin Oxycodone/ Acetaminophen 2 tab ONCE ONCE PO 09/05/21 13:15 09/05/21 13:16 DC 09/05/21 13:19 2 TAB Vital Signs/I&O 09/05/21 12:30 Temp 36.4 Pulse 94 Resp 18 B/P (MAP) 157/75 (102) Pulse Ox 100 O2 Delivery Room Air Blood Pressure Mean: 102 Progress Progress Note : Progress Note 60-year-old male with above history coming in after tripping and landing on his left side. ABCs were intact, vital stable, GCS 15 on presentation. He does have some pain on the lateral left hip and lateral left shoulder but no significant injury and he is ambulating without difficulty. X-rays of the shoulder and hip ordered and interpreted by me showing no fractures or dislocations. CT head also ordered showing no acute findings. Given his home dose of his hydrocodone which did help. I believe he is stable for discharge with outpatient follow-up. He was sent home with strict return precautions Diagnostic Imaging Diagonstic Imaging: Xray (left shoulder, pelvis and left hip), CT (head) Comments [facility] [place] [place] NAME: LAURA WILKINSON [facility] REC#: [id number] PT STATUS: REG ER : 1960 PHYSICIAN: ANUPAMA HENRY MD ADMIT DATE: 09/05/21/ER FS Draft Date of Exam:09/05/21 CT HEAD WO PROCEDURE: CT head without contrast. TECHNIQUE: Multiple contiguous axial images were obtained through the brain without the use of intravenous contrast. Auto Exposure Controls were utilized during the CT exam to meet ALARA standards for radiation dose reduction. INDICATION: Fall. Head injury. COMPARISON: None. FINDINGS: Mild generalized parenchymal volume loss. No intracranial hemorrhage, mass effect, hydrocephalus or extra-axial fluid collections. No CT evidence of territorial infarction. No acute osseous findings. Mild mucosal thickening in the ethmoid sinuses. The mastoids are clear. IMPRESSION: No acute intracranial CT findings. Dictated on workstation # [id number] Dict: 09/05/21 1331 Trans: 09/05/21 1350 [id number] [id number] Interpreted by: SUNNY GALLO MD Electronically signed by: [facility] [place], [place] NAME: LAURA WILKINSON [facility] REC#: [id number] PT STATUS: REG ER : 1960 PHYSICIAN: ANUPAMA HENRY MD ADMIT DATE: 09/05/21/ER FS Draft Date of Exam:09/05/21 SHOULDER 3 VIEW LEFT EXAM: SHOULDER 3 VIEW LEFT INDICATION: Fall. Left shoulder pain. COMPARISON: Left shoulder radiographs 11/13/2019. FINDINGS: No fracture or malalignment. Soft tissue shadows are unremarkable. IMPRESSION: No acute radiographic findings in the left shoulder. Dictated on workstation # [id number] Dict: 09/05/21 1335 Trans: 09/05/21 1350 [facility] [id number] Interpreted by: SUNNY GALLO MD Electronically signed by: [facility] [place], [place] NAME: LAURA WILKINSON [facility] REC#: [id number] PT STATUS: REG ER : 1960 PHYSICIAN: ANUPAMA HENRY MD ADMIT DATE: 09/05/21/ER FS Draft Date of Exam:09/05/21 PELVIS WITH LEFT HIP 2-3 VIEW EXAM: PELVIS WITH LEFT HIP 2-3 VIEW INDICATION: Fall. Left-sided pain. COMPARISON: None. FINDINGS: No fracture or malalignment. Surgical clips in the pelvis. Postoperative changes in the lower lumbar spine. Mild degenerative changes in both hips. IMPRESSION: No acute radiographic findings in the pelvis or left hip. Dictated on workstation # [id number] Dict: 09/05/21 1336 Trans: 09/05/21 1349 [facility] [id number] Interpreted by: SUNNY GALLO MD Electronically signed by: Departure Impression Primary Impression: Fall Qualified Codes: W19.XXXA - Unspecified fall, initial encounter Additional Impression: Contusion of left hip Qualified Codes: S70.02XA - Contusion of left hip, initial encounter Disposition: 01 HOME, SELF-CARE Condition: Stable Departure-Patient Inst. Decision time for Depature: 13:57 Referrals: JESSICA BLANCO MD (PCP) Primary Care Physician PRIYANKA QUINTANILLA Patient Instructions: Minor Contusion ED, Preventing Falls ED Add. Discharge Instructions: Fortunately nothing is broken or dislocated. Follow-up with the bone doctor here in [place] if things are not improving. Take your regular medicine as prescribed, and if you have increasing pain you can also try to take naproxen. You can also try icing it. Work/School Note: Work Release Form Date Seen in the Emergency Department: September 05, 2021 Return to Work: September 07, 2021 Restrictions: No Restrictions ANUPAMA HENRY MD September 05, 2021 12:53
[2021-09-05] MEDS ORDERED: oxyCODONE/APAP 7.5-325 MG (PERCOCET 7.5) TABLET PO ONE (13:00)
[2021-09-05] MEDS ORDERED: oxyCODONE/APAP 5/325MG (PERCOCET 5) TABLET PO ONE (13:15)
--- NOTE | 2021-09-05 13:49 | Diagnostic Imaging Report ---
EXAM: PELVIS WITH LEFT HIP 2-3 VIEW INDICATION: Fall. Left-sided pain. COMPARISON: None. FINDINGS: No fracture or malalignment. Surgical clips in the pelvis. Postoperative changes in the lower lumbar spine. Mild degenerative changes in both hips. IMPRESSION: No acute radiographic findings in the pelvis or left hip. Dictated by: Dictated on workstation # [id number]
--- NOTE | 2021-09-05 13:50 | Diagnostic Imaging Report ---
EXAM: SHOULDER 3 VIEW LEFT INDICATION: Fall. Left shoulder pain. COMPARISON: Left shoulder radiographs 11/13/2019. FINDINGS: No fracture or malalignment. Soft tissue shadows are unremarkable. IMPRESSION: No acute radiographic findings in the left shoulder. Dictated by: Dictated on workstation # [id number]
--- NOTE | 2021-09-05 13:50 | Diagnostic Imaging Report ---
PROCEDURE: CT head without contrast. TECHNIQUE: Multiple contiguous axial images were obtained through the brain without the use of intravenous contrast. Auto Exposure Controls were utilized during the CT exam to meet ALARA standards for radiation dose reduction. INDICATION: Fall. Head injury. COMPARISON: None. FINDINGS: Mild generalized parenchymal volume loss. No intracranial hemorrhage, mass effect, hydrocephalus or extra-axial fluid collections. No CT evidence of territorial infarction. No acute osseous findings. Mild mucosal thickening in the ethmoid sinuses. The mastoids are clear. IMPRESSION: No acute intracranial CT findings. Dictated by: Dictated on workstation # [id number]
[2021-09-05 14:03] VITALS: BP 155/75
== END 2021-09-05 14:02 | disposition home or self-care (01) ==
LOC: EDUNIT# 12:24 → ER FS 12:25
DX: S70.02XA Contusion of left hip, initial encounter (principal); Z86.711 Personal history of pulmonary embolism; Z79.01 Long term (current) use of anticoagulants; W10.0XXA Fall (on)(from) escalator, initial encounter
CPT/HCPCS: 70450; 73030; 73502

== ENCOUNTER → 2021-11-03 | Outpatient (CLI) | payer MEDICARE, MEDICAID ==
[2021-11-03 08:43] LABS: BASOPHILS % (AUTO) 0 % (0-10); EOSINOPHILS # (AUTO) 0.1 10^3/uL (0.0-0.3); EOSINOPHILS % (AUTO) 2 % (0-10); HEMATOCRIT 40 % (40-54); HEMOGLOBIN 13.5 g/dL (13.3-17.7); LYMPHOCYTES # (AUTO) 1.1 10^3/uL (1.0-4.0); LYMPHOCYTES % (AUTO) 15 % (12-44); MEAN CORPUSCULAR HEMOGLOBIN 30 pg (25-34); MEAN CORPUSCULAR HGB CONC 34 g/dL (32-36); MEAN CORPUSCULAR VOLUME 88 fL (80-99); MEAN PLATELET VOLUME 9.6 fL (9.0-12.2); MONOCYTES # (AUTO) 0.4 10^3/uL (0.0-1.0); MONOCYTES % (AUTO) 5 % (0-12); NEUTROPHILS # (AUTO) 5.8 10^3/uL (1.8-7.8); NEUTROPHILS % (AUTO) 77 % (42-75); PLATELET COUNT 196 10^3/uL (130-400); WHITE BLOOD COUNT 7.5 10^3/uL (4.3-11.0)
[2021-11-03 09:14] LABS: ERYTHROCYTE SEDIMENTATION RATE 25 MM/HR (0-30)
--- NOTE | 2021-11-03 09:50 | Diagnostic Imaging Report ---
PROCEDURE: US Venous Lower Ext Ankit. TECHNIQUE: Multiple real-time grayscale images were obtained over the lower extremities in various projections, bilaterally. Additional duplex Doppler and color Doppler images were also obtained. INDICATION: Pain and swelling to right leg. FINDINGS: Color Doppler imaging shows no evidence of venous thrombosis. Calf compression shows normal augmentation of flow at the popliteal level. No evidence of popliteal cyst. IMPRESSION: Normal right lower extremity venous ultrasound. Previous mural thrombus noted in the popliteal level on 03/29/2021 has resolved. Dictated by: Dictated on workstation # [id number]
== END ==
LOC: LAB FS 08:27
PROVIDERS: ATTEND Neurological Surgery
DX: Z51.89 Encounter for other specified aftercare (principal); M43.26 Fusion of spine, lumbar region; M79.604 Pain in right leg; M79.89 Other specified soft tissue disorders
CPT/HCPCS: 36415; 85025; 85652; 86141; 93970

== ENCOUNTER → 2021-11-10 | Outpatient (CLI) | payer MEDICARE, MEDICAID ==
[2021-11-10 10:41] LABS: CREATININE SERUM 0.99 MG/DL (0.60-1.30); POTASSIUM 4.3 MMOL/L (3.6-5.0)
[2021-11-10 10:42] LABS: ALBUMIN 4.3 GM/DL (3.2-4.5); BILIRUBIN,TOTAL 0.4 MG/DL (0.1-1.0); CALCIUM 9.6 MG/DL (8.5-10.1)
[2021-11-10 14:59] LABS: TRIGLYCERIDES 92 MG/DL (<150); VLDL CHOLESTEROL 18 MG/DL (5-40)
[2021-11-10 15:04] LABS: CHOLESTEROL 207 MG/DL (< 200); HDL CHOLESTEROL 36 MG/DL (40-60)
== END ==
LOC: LAB FS 09:51
PROVIDERS: ATTEND Family Medicine
DX: I10 Essential (primary) hypertension (principal); E11.9 Type 2 diabetes mellitus without complications; E78.2 Mixed hyperlipidemia; I26.99 Other pulmonary embolism without acute cor pulmonale
CPT/HCPCS: 36415; 80053; 80061; 83036

== ENCOUNTER → 2021-12-24 | Outpatient (CLI) | payer MEDICARE, MEDICAID ==
--- NOTE | 2021-12-24 15:54 | Diagnostic Imaging Report ---
CLINICAL INDICATION: Patient follow-up post lumbar surgery, fusion. EXAM: X-ray of the lumbar spine, AP and lateral views. COMPARISON: X-ray of the lumbar spine dated 06/08/2021. FINDINGS: There is interval extension of previously seen posterior lumbar fusion hardware. Previously the patient had L4-L5 posterior lumbar interbody fusion which is now seen from the L2-L5 level. There is stable L5-S1 anterior lumbar interbody fusion. There are no hardware complications such as osteolysis or hardware fracture. Interbody disk grafts are seen in good position. There are hypertrophic spurs seen throughout the lumbar spine. Lumbar spine facet arthropathy. There is moderate to severe loss of disk space height at the L1-L2 level which has progressed. IMPRESSION: 1: There is interval extension of the previously seen lumbar spine fusion, as described above. There are no hardware complications. 2: There is interval progression of disk disease at the L1-L2 level. Dictated by: Dictated on workstation # [id number]
== END ==
LOC: RAD FS 12:08
PROVIDERS: ATTEND Neurological Surgery
DX: M51.36 Other intervertebral disc degeneration, lumbar region (principal); M43.26 Fusion of spine, lumbar region
CPT/HCPCS: 72100